=== PATIENT | female | born 1930 | race Caucasian/White ===

== ENCOUNTER 2018-08-30 15:58 | Inpatient (IN) | payer MEDICARE, OTHER ==
[2018-08-30] MEDS ORDERED: Albuterol 0.083% 2.5 MG/3 ML Neb Soln NEB PRN (16:53)
[2018-08-30] MEDS ORDERED: Sodium Chloride 0.9% 2.5 ML Syringe FLUSH PRN (16:53)
[2018-08-30] MEDS ORDERED: Acetaminophen 325 MG Tab PO PRN (16:53)
--- NOTE | 2018-08-30 17:13 | PCM.HP ---
H&P History of Present Illness - General Date of Service: 08/30/18 Admit Problem/Dx: Admission Diagnosis/Problem Admission Diagnosis/Problem Pneumonia Source of Information: Patient, Old Records History Limitations: Reports: No Limitations - History of Present Illness Initial Comments - Free Text/Narative: This 87 year old female with pmh of COPD oxygen dependent, CKD, and CHF presented initially to Dr Graves's clinic today with complaints of continued shortness of breath and overall not feeling well. She was seen at the clinic last week and was treated as outpatient for pneumonia and possible COPD exacerbation with prednisone and Doxycycline. She reports she feeling slightly better, but no where near normal. She is still very short of breath. Very little activity causes her to be short of breath. She reports some mild lower leg edema, which has increased in the last couple days slightly. No chest pain, shortness of breath with exertion and with speech. She reports mild congested cough that is intermittently productive. She has increased her oxygen to 5 L for 3-4 L NC normally because at home she was satting in the 70s on 4 L NC. She denies fevers or chills. No urinary concerns. No abdominal pain. She reports she used to smoke but quit 30+ years ago On admission, will obtain new labwork and CXR to further evaluate. She will be admitted for acute on chronic hypoxic respiratory failure with CAP the failed outpatient management and COPD exacerbation. PCP, Dr Graves. - Related Data Allergies/Adverse Reactions: Allergies Allergy/AdvReac Type Severity Reaction Status Date / Time aspirin Allergy Cannot Verified 07/24/14 14:20 Remember azithromycin [From Zithromax] Allergy Cannot Verified 07/24/14 14:20 Remember carvedilol [From Coreg] Allergy Cannot Verified 07/24/14 14:20 Remember venom-honey bee Allergy Cannot Verified 07/24/14 14:20 [bee venom (honey bee)] Remember Home Medications: Home Meds Albuterol/Ipratropium [DuoNeb 3.0-0.5 MG/3 ML] 3 ml INH QID 07/24/14 [History] Allopurinol [Zyloprim] 150 mg PO DAILY 07/24/14 [History] Aspirin [[place] Aspirin] 81 mg PO DAILY 07/24/14 [History] Cholecalciferol (Vitamin D3) [Vitamin D3] 1,000 unit PO DAILY 07/24/14 [History] EPINEPHrine [Epinephrine] 0.3 mg IJ ONETIME 07/24/14 [History] Furosemide 80 mg PO DAILY 07/24/14 [History] Rosuvastatin [Crestor] 5 mg PO BEDTIME 07/24/14 [History] SitaGLIPtin [Januvia] 50 mg PO DAILY 07/24/14 [History] Calcitriol 0.25 mcg PO WEEKLY 08/30/18 [History] Cyanocobalamin (Vitamin B-12) [B-12] 1,000 mcg PO DAILY 08/30/18 [History] Ferrous Sulfate 325 mg PO BID 08/30/18 [History] Fluticasone Propion/Salmeterol [Fluticasone-Salmeterol 250-50] 1 each IH BID [History] Past Medical History HEENT History: Reports: Other (See Below) 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 Denies: Afib, Blood Clots/VTE/DVT, VA Respiratory History: Reports: COPD (chronic oxygen use 3-4 L NC) Gastrointestinal History: Reports: None Musculoskeletal History: Reports: Arthritis Neurological History: Reports: None. 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 Denies: Fever, Chills HEENT: Reports: No Symptoms. Denies: Headaches, Sinus Congestion, Visual Changes Pulmonary: Reports: Shortness of Breath, Wheezing, Cough, Sputum. Denies: Hemoptysis Cardiovascular: Reports: Edema (bilateral lower legs). Denies: Chest Pain, Palpitations, Lightheadedness Gastrointestinal: Reports: No Symptoms. Denies: Abdominal Pain, Black Stool, Bloody Stool, Diarrhea, Nausea, Vomiting Genitourinary: Reports: No Symptoms. Denies: Dysuria, Frequency, Burning Skin: Reports: No Symptoms Psychiatric: Reports: No Symptoms Neurological: Reports: No Symptoms. Denies: Confusion, Headache Immunologic: Reports: No Symptoms Exam - Exam Exam: See Below - Vital Signs Vital Signs: Last Vital Signs Temp 98.4 F 08/30/18 16:20 Pulse 83 08/30/18 16:20 Resp 26 H 08/30/18 16:20 BP 131/50 L 08/30/18 16:20 Pulse Ox 88 L 08/30/18 16:20 - Exam Quality Assessment: Supplemental Oxygen, DVT Prophylaxis General: Alert, Oriented, Cooperative HEENT: Conjunctiva Clear, Mucosa Moist & [place], Posterior Pharynx Clear Lungs: Decreased Breath Sounds (L base), Rhonchi (throughout). No: Normal Respiratory Effort (dyspnea with speech and exertion noted. Some pursed lip breathing noted.) Cardiovascular: Regular Rate, Regular Rhythm GI/Abdominal Exam: Normal Bowel Sounds, Soft, Non-Tender, No Distention, No Mass Extremities: Normal Range of Motion, Pedal Edema (+1 bilatearl pitting edema), Slow Capillary Refill Skin: Warm, Dry Neuro Extensive - Mental Status: Alert, Oriented x3, Normal Mood/Affect Neuro Extensive - Motor, Sensory, Reflexes: CN II-XII Intact, Normal Gait Psychiatric: Alert, Normal Affect, Normal Mood - Patient Data Result Diagrams: 08/30/18 17:30 08/30/18 17:30 - Problem List (1) CAP (community acquired pneumonia) SNOMED Code(s): 094871369 ICD Code: J18.9 - PNEUMONIA, UNSPECIFIED ORGANISM Status: Acute Current Visit: Yes (2) COPD (chronic obstructive pulmonary disease) SNOMED Code(s): 93688399 ICD Code: J44.9 - CHRONIC OBSTRUCTIVE PULMONARY DISEASE, UNSPECIFIED Status : Acute Current Visit: Yes (3) Acute and chronic respiratory failure SNOMED Code(s): 08447193 ICD Code: J96.20 - ACUTE AND CHR RESP FAILURE, UNSP W HYPOXIA OR HYPERCAPNIA Status: Acute Current Visit: Yes (4) CKD (chronic kidney disease) SNOMED Code(s): 870302469 ICD Code: N18.9 - CHRONIC KIDNEY DISEASE, UNSPECIFIED Status: Acute Current Visit: Yes (5) CHF (congestive heart failure) SNOMED Code(s): 95470008 ICD Code: I50.9 - HEART FAILURE, UNSPECIFIED Status: Acute Current Visit : Yes Qualifiers: Heart failure chronicity: chronic Problem List Initiated/Reviewed/Updated: Yes Orders Last 24hrs: Active Orders 24 hr Category Date Time Status Patient Status [ADT] Routine ADT 08/30/18 16:53 Active Intake and Output [RC] QSHIFT Care 08/30/18 16:54 Active May Shower [RC] ASDIRECTED Care 08/30/18 16:53 Active Oxygen Therapy [RC] PRN Care 08/30/18 16:53 Active RT Aerosol Therapy [RC] ASDIRECTED Care 08/30/18 16:56 Active Up With Assistance [RC] ASDIRECTED Care 08/30/18 16:53 Active VTE/DVT Education [RC] PER UNIT ROUTINE Care 08/30/18 16:53 Active Vital Signs [RC] Q4H Care 08/30/18 16:53 Active [employer] Diet [DIET] Diet 08/30/18 Dinner Active Chest 1V Frontal [CR] Urgent Exams 08/30/18 16:53 Ordered B-TYPE NATRIURETIC PEPTIDE,BNP [CHEM] Routine Lab 08/30/18 17:12 Ordered BASIC METABOLIC PANEL,BMP [CHEM] AM Lab 08/31/18 05:11 Ordered BASIC METABOLIC PANEL,BMP [CHEM] Routine Lab 08/30/18 17:12 Ordered CBC WITH AUTO DIFF [HEME] AM Lab 08/31/18 05:11 Ordered CBC WITH AUTO DIFF [HEME] Routine Lab 08/30/18 17:12 Ordered CULTURE SPUTUM + SMEAR [RM] Routine Lab 08/30/18 17:12 Ordered Acetaminophen [Tylenol] Med 08/30/18 16:53 Active 650 mg PO Q4H PRN Albuterol [Proventil Neb Soln] Med 08/30/18 16:53 Active 2.5 mg NEB Q2H PRN Albuterol/Ipratropium [DuoNeb 3.0-0.5 MG/3 ML] Med 08/30/18 18:00 Active 3 ml NEB Q4HRRT Heparin Sodium Med 08/30/18 17:00 Active 5,000 units SUBCUT Q12H Levofloxacin/Dextrose 5%-Water [Levaquin in D5W 750 MG/ Med 08/30/18 17:15 Ordered 150 ML] 750 mg Premix Bag 1 bag IV Q48H Sodium Chloride 0.9% [Saline Flush] Med 08/30/18 16:53 Active 2.5 ml FLUSH ASDIRECTED PRN Saline Lock Insert [OM.PC] Routine Oth 08/30/18 16:53 Ordered Resuscitation Status Routine Resus Stat 08/30/18 16:53 Ordered Medication Orders Acetaminophen (Tylenol) 650 mg PO Q4H PRN PRN Reason: Pain (mild 1-3) Albuterol (Proventil Neb Soln) 2.5 mg NEB Q2H PRN PRN Reason: Shortness Of Breath/wheezing Albuterol/Ipratropium (Duoneb 3.0-0.5 Mg/3 Ml) 3 ml NEB Q4HRRT MAGAN Heparin Sodium (Porcine) (Heparin Sodium) 5,000 units SUBCUT Q12H MAGAN Sodium Chloride (Saline Flush) 2.5 ml FLUSH ASDIRECTED PRN PRN Reason: Keep Vein Open Assessment/Plan Comment:: This 87 year old female admitted with acute on chronic hypoxic respiratory failure, CAP and COPD exacerbation 1. Acute on chronic respiratory failure: Continue oxygen therapy, wean as possible to home dosing at 3-4 L NC. Keep sats 88%-92% for COPD. 2. CAP: Failed outpatient management. Xray shows LLL infiltrate with small pleural effusion. Levaquin 750 mg Q48hr for renal dosing. Sputum culture as possible, BC obtained as well. No leukocytosis 3. COPD exacerbation: Oxygen as above. Duonebs scheduled with Albuterol PRN. Solumderol IV. Encourage IS. Continue Advair. Will Consult RT for COPD education and evaluation. 4. CHF: BNP 32, not elevated. Due for ECHO. Will obtain now. Acute CHF not suspected. small left pleural effusion on Xray. Continue home Lasix. 5. CKD: BUN and Cr near baseline. Monitor. VTE prophylaxis: Heparin. Dispo: 2-4 days pending improvement
[2018-08-30] MEDS: Albuterol/Ipratropium 3.0-0.5 MG/3 ML Neb Soln NEB SCH ×2 (17:25→21:07)
[2018-08-30] MEDS: Insulin Aspart 100 Units/ML 3 ML Pen SUBCUT SCH (18:05)
--- NOTE | 2018-08-30 18:08 | CR ---
Indication: Dyspnea. Technique: A single AP portable view of the chest was obtained. Comparison: July 24, 2014. Findings: The heart is enlarged. Left basilar atelectasis and/or infiltrate and small left pleural effusion are seen. The right lung is clear. No pneumothorax is identified. Impression: Cardiomegaly. Left basilar atelectasis and/or infiltrate and small left pleural effusion Dictated by Jessica Lui MD @ Aug 30 2018 6:06PM Signed by Dr. Jessica Lui @ Aug 30 2018 6:07PM
[2018-08-30] MEDS: Heparin Sodium 5,000 Units/ML Vial SUBCUT SCH (19:11)
[2018-08-30] MEDS: Levofloxacin/Dextrose 5%-Water 750 MG in Premix Bag 1 BAG IV SCH (20:44)
[2018-08-30] MEDS: Ferrous Sulfate 325 MG Tab PO SCH (20:50)
[2018-08-30] MEDS: Rosuvastatin 10 MG Tab PO SCH (20:50)
[2018-08-30] MEDS: methylPREDNISolone Sodium Succinate 40 MG/1 ML SDV IVPUSH SCH (20:52)
[2018-08-30] MEDS: Fluticasone/Salmeterol 250-50 MCG Inhalation Powder 14/Diskus INH SCH (21:01)
[2018-08-31] MEDS: Albuterol/Ipratropium 3.0-0.5 MG/3 ML Neb Soln NEB SCH ×6 (02:50→21:04)
[2018-08-31] MEDS: methylPREDNISolone Sodium Succinate 40 MG/1 ML SDV IVPUSH SCH ×3 (03:00→18:18)
[2018-08-31] MEDS: Heparin Sodium 5,000 Units/ML Vial SUBCUT SCH ×2 (05:19→17:04)
--- NOTE | 2018-08-31 07:50 | PCM.PN ---
- General Info Date of Service: 08/31/18 Admission Dx/Problem (Free Text): Admission Diagnosis/Problem Admission Diagnosis/Problem Pneumonia Subjective Update: Feeling somewhat improved today. No chest pain. Shortness of breath is improving , continues to be on 5 L NC. Functional Status: Reports: Pain Controlled, Tolerating Diet, Ambulating, Urinating - Review of Systems General: Reports: No Symptoms. Denies: Fever, Weakness HEENT: Reports: No Symptoms. Denies: Headaches, Visual Changes Pulmonary: Reports: Shortness of Breath, Cough, Wheezing. Denies: Sputum, Hemoptysis Cardiovascular: Reports: Dyspnea on Exertion, Edema. Denies: Chest Pain, Palpitations, Orthopnea, Lightheadedness Gastrointestinal: Reports: No Symptoms. Denies: Abdominal Pain, Nausea, Vomiting Genitourinary: Reports: No Symptoms. Denies: Dysuria, Frequency Skin: Reports: No Symptoms Neurological: Reports: No Symptoms Psychiatric: Reports: No Symptoms - Patient Data Vitals - Most Recent: Last Vital Signs Temp 98.7 F 08/31/18 07:20 Pulse 88 08/31/18 07:20 Resp 18 08/31/18 07:20 BP 118/48 L 08/31/18 07:20 Pulse Ox 91 L 08/31/18 07:20 Weight - Most Recent: 79.3 kg I&O - Last 24 Hours: Intake & Output 08/30/18 08/31/18 08/31/18 22:59 06:59 14:59 Intake Total 400 Output Total 1250 Balance -850 Lab Results Last 24 Hours: Laboratory Results - last 24 hr 08/30/18 08/30/18 08/30/18 Range/Units 17:30 17:30 17:30 WBC 10.05 (4.0-11.0) K/uL RBC 2.89 L (4.30-5.90) M/uL Hgb 9.4 L (12.0-16.0) g/dL Hct 29.4 L (36.0-46.0) % MCV 101.7 H (80.0-98.0) fL MCH 32.5 H (27.0-32.0) pg MCHC 32.0 (31.0-37.0) g/dL RDW Std Deviation 51.0 (28.0-62.0) fl RDW Coeff of Lai 14 (11.0-15.0) % Plt Count 117 L (150-400) K/uL MPV 10.10 (7.40-12.00) fL Neut % (Auto) (48.0-80.0) % Lymph % (Auto) (16.0-40.0) % Frederick % (Auto) (0.0-15.0) % Eos % (Auto) (0.0-7.0) % Baso % (Auto) (0.0-1.5) % Neut # (Auto) (1.4-5.7) K/uL Lymph # (Auto) (0.6-2.4) K/uL Frederick # (Auto) (0.0-0.8) K/uL Eos # (Auto) (0.0-0.7) K/uL Baso # (Auto) (0.0-0.1) K/uL Add Manual Diff YES Neutrophils % (Manual) 85 H (48.0-80.0) % Lymphocytes % (Manual) 13 L (16.0-40.0) % Monocytes % (Manual) 2 (0.0-15.0) % Nucleated RBC % 0.0 /100WBC Absolute Seg Neuts 8.5 H (1.4-5.7) Lymphocytes # (Manual) 1.3 (0.6-2.4) Monocytes # (Manual) 0.2 (0.0-0.8) Nucleated RBCs # 0 K/uL Sodium 145 (136-145) mmol/L Potassium 3.3 L (3.5-5.1) mmol/L Chloride 107 (98-107) mmol/L Carbon Dioxide 26.7 (21.0-32.0) mmol/L BUN 83 H (7.0-18.0) mg/dL Creatinine 2.8 H (0.6-1.0) mg/dL Est Cr Clr Drug Dosing 14.03 mL/min Estimated GFR (MDRD) 16.0 ml/min Glucose 105 (74-106) mg/dL POC Glucose (60-110) mg/dL Calcium 9.6 (8.5-10.1) mg/dL B-Natriuretic Peptide 32 (<100) PG/ML 08/30/18 08/31/18 08/31/18 Range/Units 18:04 05:12 05:12 WBC 5.66 (4.0-11.0) K/uL RBC 2.79 L (4.30-5.90) M/uL Hgb 8.9 L (12.0-16.0) g/dL Hct 28.5 L (36.0-46.0) % MCV 102.2 H (80.0-98.0) fL MCH 31.9 (27.0-32.0) pg MCHC 31.2 (31.0-37.0) g/dL RDW Std Deviation 50.5 (28.0-62.0) fl RDW Coeff of Lai 14 (11.0-15.0) % Plt Count 119 L (150-400) K/uL MPV 10.60 (7.40-12.00) fL Neut % (Auto) 95.6 H (48.0-80.0) % Lymph % (Auto) 3.5 L (16.0-40.0) % Frederick % (Auto) 0.9 (0.0-15.0) % Eos % (Auto) 0.0 (0.0-7.0) % Baso % (Auto) 0.0 (0.0-1.5) % Neut # (Auto) 5.4 (1.4-5.7) K/uL Lymph # (Auto) 0.2 L (0.6-2.4) K/uL Frederick # (Auto) 0.1 (0.0-0.8) K/uL Eos # (Auto) 0.0 (0.0-0.7) K/uL Baso # (Auto) 0.0 (0.0-0.1) K/uL Add Manual Diff Neutrophils % (Manual) (48.0-80.0) % Lymphocytes % (Manual) (16.0-40.0) % Monocytes % (Manual) (0.0-15.0) % Nucleated RBC % 0.0 /100WBC Absolute Seg Neuts (1.4-5.7) Lymphocytes # (Manual) (0.6-2.4) Monocytes # (Manual) (0.0-0.8) Nucleated RBCs # 0 K/uL Sodium 145 (136-145) mmol/L Potassium 3.9 (3.5-5.1) mmol/L Chloride 107 (98-107) mmol/L Carbon Dioxide 25.6 (21.0-32.0) mmol/L BUN 83 H (7.0-18.0) mg/dL Creatinine 2.9 H (0.6-1.0) mg/dL Est Cr Clr Drug Dosing 13.54 mL/min Estimated GFR (MDRD) 15.4 ml/min Glucose 208 H (74-106) mg/dL POC Glucose 95 (60-110) mg/dL Calcium 9.5 (8.5-10.1) mg/dL B-Natriuretic Peptide (<100) PG/ML 08/31/18 Range/Units 06:06 WBC (4.0-11.0) K/uL RBC (4.30-5.90) M/uL Hgb (12.0-16.0) g/dL Hct (36.0-46.0) % MCV (80.0-98.0) fL MCH (27.0-32.0) pg MCHC (31.0-37.0) g/dL RDW Std Deviation (28.0-62.0) fl RDW Coeff of Lai (11.0-15.0) % Plt Count (150-400) K/uL MPV (7.40-12.00) fL Neut % (Auto) (48.0-80.0) % Lymph % (Auto) (16.0-40.0) % [place] % (Auto) (0.0-15.0) % Eos % (Auto) (0.0-7.0) % Baso % (Auto) (0.0-1.5) % Neut # (Auto) (1.4-5.7) K/uL Lymph # (Auto) (0.6-2.4) K/uL [place] # (Auto) (0.0-0.8) K/uL Eos # (Auto) (0.0-0.7) K/uL Baso # (Auto) (0.0-0.1) K/uL Add Manual Diff Neutrophils % (Manual) (48.0-80.0) % Lymphocytes % (Manual) (16.0-40.0) % Monocytes % (Manual) (0.0-15.0) % Nucleated RBC % /100WBC Absolute Seg Neuts (1.4-5.7) Lymphocytes # (Manual) (0.6-2.4) Monocytes # (Manual) (0.0-0.8) Nucleated RBCs # K/uL Sodium (136-145) mmol/L Potassium (3.5-5.1) mmol/L Chloride (98-107) mmol/L Carbon Dioxide (21.0-32.0) mmol/L BUN (7.0-18.0) mg/dL Creatinine (0.6-1.0) mg/dL Est Cr Clr Drug Dosing mL/min Estimated GFR (MDRD) ml/min Glucose (74-106) mg/dL POC Glucose 199 H (60-110) mg/dL Calcium (8.5-10.1) mg/dL B-Natriuretic Peptide (<100) PG/ML Alfred Results Last 24 Hours: Microbiology 08/30/18 17:15 Gram Stain - Preliminary Sputum - Expectorated 08/30/18 20:07 Anaerobic Blood Culture - Final Blood - Venous - Lab Draw 08/30/18 18:18 Anaerobic Blood Culture - Final Blood - Venous Med Orders - Current: Current Medications Acetaminophen (Tylenol) 650 mg PO Q4H PRN PRN Reason: Pain (mild 1-3) Albuterol (Proventil Neb Soln) 2.5 mg NEB Q2H PRN PRN Reason: Shortness Of Breath/wheezing Albuterol/Ipratropium (Duoneb 3.0-0.5 Mg/3 Ml) 3 ml NEB Q4HRRT [facility] Last Admin: 08/31/18 06:06 Dose: 3 ml Allopurinol (Zyloprim) 150 mg PO DAILY [facility] Aspirin (Aspirin) 81 mg PO DAILY [facility] Ferrous Sulfate (Ferrous Sulfate) 325 mg PO BID [facility] Last Admin: 08/30/18 20:50 Dose: 325 mg Furosemide (Lasix) 80 mg PO DAILY [facility] Heparin Sodium (Porcine) (Heparin Sodium) 5,000 units SUBCUT Q12H [facility] Last Admin: 08/31/18 05:19 Dose: 5,000 units Levofloxacin/Dextrose 750 mg/ (Premix) 150 mls @ 100 mls/hr IV Q48H [facility] Last Admin: 08/30/18 20:44 Dose: 100 mls/hr Insulin Aspart (Novolog) 0 unit SUBCUT TIDAC [facility]; Protocol Last Admin: 08/30/18 18:05 Dose: Not Given Methylprednisolone Sodium Succinate (Solu-Medrol) 60 mg IVPUSH Q8H [facility] Last Admin: 08/31/18 03:00 Dose: 60 mg Rosuvastatin Calcium (Crestor) 5 mg PO BEDTIME [facility] Last Admin: 08/30/18 20:50 Dose: 5 mg Fluticasone/Salmeterol (Advair Diskus 250-50) 1 puff INH BID [facility] Last Admin: 08/30/18 21:01 Dose: 1 puff Sodium Chloride (Saline Flush) 2.5 ml FLUSH ASDIRECTED PRN PRN Reason: Keep Vein Open - Exam General: Alert, Oriented, Cooperative, No Acute Distress Lungs: Rhonchi (R lung). No: Normal Respiratory Effort (mild dyspnea with speech, improved from yesterday) Cardiovascular: Regular Rate, Regular Rhythm GI/Abdominal Exam: Normal Bowel Sounds Back Exam: Normal Inspection, Full Range of Motion Extremities: Normal Inspection, Normal Range of Motion, Non-Tender Neurological: No New Focal Deficit Psy/Mental Status: Alert, Normal Affect, Normal Mood - Problem List & Annotations (1) CAP (community acquired pneumonia) SNOMED Code(s): 664245186 Code(s): J18.9 - PNEUMONIA, UNSPECIFIED ORGANISM Status: Acute Current Visit: Yes (2) COPD (chronic obstructive pulmonary disease) SNOMED Code(s): 93207728 Code(s): J44.9 - CHRONIC OBSTRUCTIVE PULMONARY DISEASE, UNSPECIFIED Status : Acute Current Visit: Yes (3) Acute and chronic respiratory failure SNOMED Code(s): 87345430 Code(s): J96.20 - ACUTE AND CHR RESP FAILURE, UNSP W HYPOXIA OR HYPERCAPNIA Status: Acute Current Visit: Yes (4) CKD (chronic kidney disease) SNOMED Code(s): 095848003 Code(s): N18.9 - CHRONIC KIDNEY DISEASE, UNSPECIFIED Status: Acute Current Visit: Yes (5) CHF (congestive heart failure) SNOMED Code(s): 22868721 Code(s): I50.9 - HEART FAILURE, UNSPECIFIED Status: Acute Current Visit: Yes Qualifiers: Heart failure chronicity: chronic - Problem List Review Problem List Initiated/Reviewed/Updated: Yes - My Orders Last 24 Hours: My Active Orders 08/30/18 16:53 Patient Status [ADT] Routine September Shower [RC] ASDIRECTED Oxygen Therapy [RC] PRN Up With Assistance [RC] ASDIRECTED VTE/DVT Education [RC] PER UNIT ROUTINE Vital Signs [RC] Q4H Acetaminophen [Tylenol] 650 mg PO Q4H PRN Albuterol [Proventil Neb Soln] 2.5 mg NEB Q2H PRN Sodium Chloride 0.9% [Saline Flush] 2.5 ml FLUSH ASDIRECTED PRN Saline Lock Insert [OM.PC] Routine Resuscitation Status Routine 08/30/18 16:56 RT Aerosol Therapy [RC] ASDIRECTED 08/30/18 17:00 Heparin Sodium 5,000 units SUBCUT Q12H 08/30/18 17:15 CULTURE SPUTUM + SMEAR [RM] Routine 08/30/18 17:18 Blood Culture x2 Reflex Set [OM.PC] Stat 08/30/18 17:30 Insulin Aspart [NovoLOG] See Protocol SUBCUT TIDAC Levofloxacin/Dextrose 5%-Water [Levaquin in D5W 750 MG/150 ML] 750 mg Premix Bag 1 bag IV Q48H 08/30/18 17:48 Blood Glucose Check, Bedside [RC] TIDMEALS Height and Weight [RC] DAILY Intake and Output Strict [RC] Q12H 08/30/18 18:00 Albuterol/Ipratropium [DuoNeb 3.0-0.5 MG/3 ML] 3 ml NEB Q4HRRT methylPREDNISolone Sod Succ [Solu-MEDROL] 60 mg IVPUSH Q8H 08/30/18 18:18 CULTURE BLOOD [BC] Stat 08/30/18 19:16 Echo Comp wo Cont [US] Routine 08/30/18 19:26 Consult to Respiratory Therapy [Respiratory Care Assess and Treatment] [CONS] Routine 08/30/18 20:07 CULTURE BLOOD [BC] Stat 08/30/18 21:00 Ferrous Sulfate 325 mg PO BID Fluticasone/Salmeterol [Advair Diskus 250-50] 1 puff INH BID Rosuvastatin [Crestor] 5 mg PO BEDTIME 08/30/18 Dinner [employer] [employer] Diet [DIET] 08/31/18 09:00 Allopurinol [Zyloprim] 150 mg PO DAILY Aspirin 81 mg PO DAILY Furosemide [Lasix] 80 mg PO DAILY - Plan Plan:: This 87 year old female admitted with acute on chronic hypoxic respiratory failure, CAP and COPD exacerbation 1. Acute on chronic respiratory failure: Continues on increased oxygen liters. Continue oxygen therapy, wean as possible to home dosing at 3-4 L NC. Keep sats 88%-92% for COPD. 2. CAP: Failed outpatient management. Continue Levaquin 750 mg Q48hr for renal dosing. Sputum culture as possible, BC obtained as well. No leukocytosis 3. COPD exacerbation: Oxygen as above. Duonebs scheduled with Albuterol PRN. Solumderol IV, continue today. Encourage IS. Continue Advair. Will Consult RT for COPD education and evaluation. 4. CHF: Stable. Due for ECHO. Will obtain this admission to fully evaluate. Small left pleural effusion on Xray. Continue home Lasix. 5. CKD: Stable. BUN and Cr near baseline. Monitor. VTE prophylaxis: Heparin. Dispo: 2-4 days pending improvement
[2018-08-31] MEDS: Insulin Aspart 100 Units/ML 3 ML Pen SUBCUT SCH ×3 (08:20→17:10)
[2018-08-31] MEDS: Aspirin 81 MG Tab.Chew PO SCH (08:39)
[2018-08-31] MEDS: Ferrous Sulfate 325 MG Tab PO SCH ×2 (08:39→20:44)
[2018-08-31] MEDS: Allopurinol 300 MG Tab PO SCH (08:39)
[2018-08-31] MEDS: Fluticasone/Salmeterol 250-50 MCG Inhalation Powder 14/Diskus INH SCH ×2 (08:40→20:45)
[2018-08-31] MEDS: Furosemide 40 MG Tab PO SCH (08:40)
[2018-08-31] MEDS: Rosuvastatin 10 MG Tab PO SCH (20:44)
[2018-09-01] MEDS: Albuterol/Ipratropium 3.0-0.5 MG/3 ML Neb Soln NEB SCH ×6 (01:52→21:10)
[2018-09-01] MEDS: methylPREDNISolone Sodium Succinate 40 MG/1 ML SDV IVPUSH SCH ×3 (01:53→20:12)
[2018-09-01] MEDS: Heparin Sodium 5,000 Units/ML Vial SUBCUT SCH ×2 (05:39→20:09)
[2018-09-01] MEDS: Insulin Aspart 100 Units/ML 3 ML Pen SUBCUT SCH ×3 (07:42→19:28)
[2018-09-01] MEDS: Furosemide 40 MG Tab PO SCH (09:04)
[2018-09-01] MEDS: Aspirin 81 MG Tab.Chew PO SCH (09:04)
[2018-09-01] MEDS: Ferrous Sulfate 325 MG Tab PO SCH ×2 (09:04→20:11)
[2018-09-01] MEDS: Allopurinol 300 MG Tab PO SCH (09:05)
[2018-09-01] MEDS: Fluticasone/Salmeterol 250-50 MCG Inhalation Powder 14/Diskus INH SCH ×2 (09:08→20:12)
--- NOTE | 2018-09-01 10:54 | PCM.PN ---
<Philly Escoto M - Last Filed: 09/01/18 10:48> - General Info Date of Service: 09/01/18 Admission Dx/Problem (Free Text): Admission Diagnosis/Problem Admission Diagnosis/Problem Pneumonia Subjective Update: Doing well today, feeling much improved,but not quite to her baseline and she feels like one more night would be beneficial. No Chest pain. Shortness of breath is much improved. No chest pain. Functional Status: Reports: Pain Controlled, Tolerating Diet, Ambulating, Urinating - Review of Systems General: Reports: No Symptoms. Denies: Fever, Weakness, Fatigue HEENT: Reports: No Symptoms. Denies: Sore Throat Pulmonary: Reports: Shortness of Breath, Cough, Wheezing. Denies: Pleuritic Chest Pain, Hemoptysis Cardiovascular: Denies: Chest Pain, Palpitations Gastrointestinal: Reports: No Symptoms. Denies: Abdominal Pain, Nausea, Vomiting Genitourinary: Reports: No Symptoms. Denies: Dysuria, Frequency, Burning Musculoskeletal: Reports: No Symptoms Skin: Reports: No Symptoms Neurological: Reports: No Symptoms Psychiatric: Reports: No Symptoms - Patient Data Vitals - Most Recent: Last Vital Signs Temp 98.3 F 09/01/18 08:00 Pulse 89 09/01/18 08:00 Resp 18 09/01/18 08:00 BP 124/56 L 09/01/18 08:00 Pulse Ox 93 L 09/01/18 08:00 Weight - Most Recent: 80.422 kg I&O - Last 24 Hours: Intake & Output 08/31/18 09/01/18 09/01/18 22:59 06:59 14:59 Intake Total 1020 550 Output Total 500 950 Balance 520 -400 Lab Results Last 24 Hours: Laboratory Results - last 24 hr 08/31/18 08/31/18 08/31/18 Range/Units 11:44 16:45 21:04 WBC (4.0-11.0) K/uL RBC (4.30-5.90) M/uL Hgb (12.0-16.0) g/dL Hct (36.0-46.0) % MCV (80.0-98.0) fL MCH (27.0-32.0) pg MCHC (31.0-37.0) g/dL RDW Std Deviation (28.0-62.0) fl RDW Coeff of Lai (11.0-15.0) % Plt Count (150-400) K/uL MPV (7.40-12.00) fL Neut % (Auto) (48.0-80.0) % Lymph % (Auto) (16.0-40.0) % [place] % (Auto) (0.0-15.0) % Eos % (Auto) (0.0-7.0) % Baso % (Auto) (0.0-1.5) % Neut # (Auto) (1.4-5.7) K/uL Lymph # (Auto) (0.6-2.4) K/uL [place] # (Auto) (0.0-0.8) K/uL Eos # (Auto) (0.0-0.7) K/uL Baso # (Auto) (0.0-0.1) K/uL Nucleated RBC % /100WBC Nucleated RBCs # K/uL Sodium (136-145) mmol/L Potassium (3.5-5.1) mmol/L Chloride (98-107) mmol/L Carbon Dioxide (21.0-32.0) mmol/L BUN (7.0-18.0) mg/dL Creatinine (0.6-1.0) mg/dL Est Cr Clr Drug Dosing mL/min Estimated GFR (MDRD) ml/min Glucose (74-106) mg/dL POC Glucose 298 H 186 H 229 H (60-110) mg/dL Calcium (8.5-10.1) mg/dL 09/01/18 09/01/18 09/01/18 Range/Units 05:14 05:14 06:09 WBC 5.96 (4.0-11.0) K/uL RBC 2.72 L (4.30-5.90) M/uL Hgb 8.6 L (12.0-16.0) g/dL Hct 27.5 L (36.0-46.0) % MCV 101.1 H (80.0-98.0) fL MCH 31.6 (27.0-32.0) pg MCHC 31.3 (31.0-37.0) g/dL RDW Std Deviation 49.3 (28.0-62.0) fl RDW Coeff of Lai 14 (11.0-15.0) % Plt Count 120 L (150-400) K/uL MPV 10.20 (7.40-12.00) fL Neut % (Auto) 94.7 H (48.0-80.0) % Lymph % (Auto) 3.0 L (16.0-40.0) % [place] % (Auto) 2.3 (0.0-15.0) % Eos % (Auto) 0.0 (0.0-7.0) % Baso % (Auto) 0.0 (0.0-1.5) % Neut # (Auto) 5.6 (1.4-5.7) K/uL Lymph # (Auto) 0.2 L (0.6-2.4) K/uL [place] # (Auto) 0.1 (0.0-0.8) K/uL Eos # (Auto) 0.0 (0.0-0.7) K/uL Baso # (Auto) 0.0 (0.0-0.1) K/uL Nucleated RBC % 0.0 /100WBC Nucleated RBCs # 0 K/uL Sodium 144 (136-145) mmol/L Potassium 4.2 (3.5-5.1) mmol/L Chloride 106 (98-107) mmol/L Carbon Dioxide 28.0 (21.0-32.0) mmol/L BUN 94 H (7.0-18.0) mg/dL Creatinine 3.1 H (0.6-1.0) mg/dL Est Cr Clr Drug Dosing 12.67 mL/min Estimated GFR (MDRD) 14.2 ml/min Glucose 204 H (74-106) mg/dL POC Glucose 214 H (60-110) mg/dL Calcium 9.8 (8.5-10.1) mg/dL Alfred Results Last 24 Hours: Microbiology 08/30/18 17:15 Gram Stain - Final Sputum - Expectorated Sputum Culture - Final Normal Respiratory Sonia 08/30/18 20:07 Aerobic Blood Culture - Preliminary Blood - Venous - Lab Draw NO GROWTH AFTER 1 DAY Anaerobic Blood Culture - Final 08/30/18 18:18 Aerobic Blood Culture - Preliminary Blood - Venous NO GROWTH AFTER 1 DAY Anaerobic Blood Culture - Final Med Orders - Current: Current Medications Acetaminophen (Tylenol) 650 mg PO Q4H PRN PRN Reason: Pain (mild 1-3) Albuterol (Proventil Neb Soln) 2.5 mg NEB Q2H PRN PRN Reason: Shortness Of Breath/wheezing Albuterol/Ipratropium (Duoneb 3.0-0.5 Mg/3 Ml) 3 ml NEB Q4HRRT [facility] Last Admin: 09/01/18 10:21 Dose: 3 ml Allopurinol (Zyloprim) 150 mg PO DAILY [facility] Last Admin: 09/01/18 09:05 Dose: 150 mg Aspirin (Aspirin) 81 mg PO DAILY [facility] Last Admin: 09/01/18 09:04 Dose: 81 mg Ferrous Sulfate (Ferrous Sulfate) 325 mg PO BID [facility] Last Admin: 09/01/18 09:04 Dose: 325 mg Furosemide (Lasix) 80 mg PO DAILY [facility] Last Admin: 09/01/18 09:04 Dose: 80 mg Heparin Sodium (Porcine) (Heparin Sodium) 5,000 units SUBCUT Q12H [facility] Last Admin: 09/01/18 05:39 Dose: 5,000 units Levofloxacin/Dextrose 750 mg/ (Premix) 150 mls @ 100 mls/hr IV Q48H [facility] Last Admin: 08/30/18 20:44 Dose: 100 mls/hr Insulin Aspart (Novolog) 0 unit SUBCUT TIDAC [facility]; Protocol Last Admin: 09/01/18 07:42 Dose: 2 unit Methylprednisolone Sodium Succinate (Solu-Medrol) 60 mg IVPUSH Q8H [facility] Last Admin: 09/01/18 09:08 Dose: 60 mg Rosuvastatin Calcium (Crestor) 5 mg PO BEDTIME [facility] Last Admin: 08/31/18 20:44 Dose: 5 mg Fluticasone/Salmeterol (Advair Diskus 250-50) 1 puff INH BID [facility] Last Admin: 09/01/18 09:08 Dose: 1 puff Sodium Chloride (Saline Flush) 2.5 ml FLUSH ASDIRECTED PRN PRN Reason: Keep Vein Open - Exam General: Alert, Oriented, Cooperative, No Acute Distress Lungs: Normal Respiratory Effort, Rhonchi (much improved.) Cardiovascular: Regular Rate, Regular Rhythm GI/Abdominal Exam: Normal Bowel Sounds, Soft, Non-Tender Extremities: Normal Inspection, Normal Range of Motion, Non-Tender, Pedal Edema (+1 pitting edema BLE, improved.) Neurological: No New Focal Deficit Psy/Mental Status: Alert, Normal Affect, Normal Mood - Problem List & Annotations (1) CAP (community acquired pneumonia) SNOMED Code(s): 264006628 Code(s): J18.9 - PNEUMONIA, UNSPECIFIED ORGANISM Status: Acute Current Visit: Yes (2) COPD (chronic obstructive pulmonary disease) SNOMED Code(s): 61517850 Code(s): J44.9 - CHRONIC OBSTRUCTIVE PULMONARY DISEASE, UNSPECIFIED Status : Acute Current Visit: Yes (3) Acute and chronic respiratory failure SNOMED Code(s): 14976142 Code(s): J96.20 - ACUTE AND CHR RESP FAILURE, UNSP W HYPOXIA OR HYPERCAPNIA Status: Acute Current Visit: Yes (4) CKD (chronic kidney disease) SNOMED Code(s): 829047164 Code(s): N18.9 - CHRONIC KIDNEY DISEASE, UNSPECIFIED Status: Acute Current Visit: Yes (5) CHF (congestive heart failure) SNOMED Code(s): 03869632 Code(s): I50.9 - HEART FAILURE, UNSPECIFIED Status: Acute Current Visit: Yes Qualifiers: Heart failure chronicity: chronic - Problem List Review Problem List Initiated/Reviewed/Updated: Yes - My Orders Last 24 Hours: My Active Orders 08/31/18 19:16 Echo Comp wo Cont [US] Routine 09/02/18 05:11 BMP [BASIC METABOLIC PANEL,BMP] [CHEM] AM CBC WITH AUTO DIFF [HEME] AM 09/03/18 05:11 BMP [BASIC METABOLIC PANEL,BMP] [CHEM] AM CBC WITH AUTO DIFF [HEME] AM - Plan Plan:: This 87 year old female admitted with acute on chronic hypoxic respiratory failure, CAP and COPD exacerbation 1. Acute on chronic respiratory failure: Resolved. Now back on 4 L NC, which is baseline and dyspnea improved. Continue oxygen therapy, wean as possible to home dosing at 3-4 L NC. Keep sats 88%-92% for COPD. 2. CAP: Continue Levaquin 750 mg Q48hr for renal dosing. Sputum culture as possible, BC obtained as well. No leukocytosis 3. COPD exacerbation: Oxygen as above. Duonebs scheduled with Albuterol PRN. Will decrease Solumderol IV. Encourage IS. Continue Advair. Will Consult RT for COPD education and evaluation. 4. CHF: Stable.ECHO, suboptimal images, by EF 60-65%. Small left pleural effusion on Xray. Continue home Lasix. 5. CKD: Stable. BUN and Cr near baseline. Monitor. VTE prophylaxis: Heparin. Dispo: possible home in am. <Layo Salinas - Last Filed: 09/01/18 15:06> - General Info Admission Dx/Problem (Free Text): I have seen and examined to patient independently of Philly Escoto CNP. I have discussed the case for care of this patient with her. I have reviewed and approve of the plan of care as outlined by BOW MACHINE OPERATOR. Please see orders. - Patient Data Vitals - Most Recent: Last Vital Signs Temp 36.5 C 09/01/18 12:00 Pulse 92 09/01/18 12:00 Resp 20 09/01/18 12:00 BP 138/50 L 09/01/18 12:00 Pulse Ox 92 L 09/01/18 12:00 I&O - Last 24 Hours: Intake & Output 09/01/18 09/01/18 09/01/18 06:59 14:59 22:59 Intake Total 550 240 Output Total 950 Balance -400 240 Lab Results Last 24 Hours: Laboratory Results - last 24 hr 08/31/18 08/31/18 09/01/18 Range/Units 16:45 21:04 05:14 WBC 5.96 (4.0-11.0) K/uL RBC 2.72 L (4.30-5.90) M/uL Hgb 8.6 L (12.0-16.0) g/dL Hct 27.5 L (36.0-46.0) % MCV 101.1 H (80.0-98.0) fL MCH 31.6 (27.0-32.0) pg MCHC 31.3 (31.0-37.0) g/dL RDW Std Deviation 49.3 (28.0-62.0) fl RDW Coeff of Lai 14 (11.0-15.0) % Plt Count 120 L (150-400) K/uL MPV 10.20 (7.40-12.00) fL Neut % (Auto) 94.7 H (48.0-80.0) % Lymph % (Auto) 3.0 L (16.0-40.0) % [place] % (Auto) 2.3 (0.0-15.0) % Eos % (Auto) 0.0 (0.0-7.0) % Baso % (Auto) 0.0 (0.0-1.5) % Neut # (Auto) 5.6 (1.4-5.7) K/uL Lymph # (Auto) 0.2 L (0.6-2.4) K/uL [place] # (Auto) 0.1 (0.0-0.8) K/uL Eos # (Auto) 0.0 (0.0-0.7) K/uL Baso # (Auto) 0.0 (0.0-0.1) K/uL Nucleated RBC % 0.0 /100WBC Nucleated RBCs # 0 K/uL Sodium (136-145) mmol/L Potassium (3.5-5.1) mmol/L Chloride (98-107) mmol/L Carbon Dioxide (21.0-32.0) mmol/L BUN (7.0-18.0) mg/dL Creatinine (0.6-1.0) mg/dL Est Cr Clr Drug Dosing mL/min Estimated GFR (MDRD) ml/min Glucose (74-106) mg/dL POC Glucose 186 H 229 H (60-110) mg/dL Calcium (8.5-10.1) mg/dL 09/01/18 09/01/18 09/01/18 Range/Units 05:14 06:09 11:30 WBC (4.0-11.0) K/uL RBC (4.30-5.90) M/uL Hgb (12.0-16.0) g/dL Hct (36.0-46.0) % MCV (80.0-98.0) fL MCH (27.0-32.0) pg MCHC (31.0-37.0) g/dL RDW Std Deviation (28.0-62.0) fl RDW Coeff of Lai (11.0-15.0) % Plt Count (150-400) K/uL MPV (7.40-12.00) fL Neut % (Auto) (48.0-80.0) % Lymph % (Auto) (16.0-40.0) % [place] % (Auto) (0.0-15.0) % Eos % (Auto) (0.0-7.0) % Baso % (Auto) (0.0-1.5) % Neut # (Auto) (1.4-5.7) K/uL Lymph # (Auto) (0.6-2.4) K/uL [place] # (Auto) (0.0-0.8) K/uL Eos # (Auto) (0.0-0.7) K/uL Baso # (Auto) (0.0-0.1) K/uL Nucleated RBC % /100WBC Nucleated RBCs # K/uL Sodium 144 (136-145) mmol/L Potassium 4.2 (3.5-5.1) mmol/L Chloride 106 (98-107) mmol/L Carbon Dioxide 28.0 (21.0-32.0) mmol/L BUN 94 H (7.0-18.0) mg/dL Creatinine 3.1 H (0.6-1.0) mg/dL Est Cr Clr Drug Dosing 12.67 mL/min Estimated GFR (MDRD) 14.2 ml/min Glucose 204 H (74-106) mg/dL POC Glucose 214 H 266 H (60-110) mg/dL Calcium 9.8 (8.5-10.1) mg/dL Alfred Results Last 24 Hours: Microbiology 08/30/18 17:15 Gram Stain - Final Sputum - Expectorated Sputum Culture - Final Normal Respiratory Sonia 08/30/18 20:07 Aerobic Blood Culture - Preliminary Blood - Venous - Lab Draw NO GROWTH AFTER 1 DAY Anaerobic Blood Culture - Final 08/30/18 18:18 Aerobic Blood Culture - Preliminary Blood - Venous NO GROWTH AFTER 1 DAY Anaerobic Blood Culture - Final Med Orders - Current: Current Medications Acetaminophen (Tylenol) 650 mg PO Q4H PRN PRN Reason: Pain (mild 1-3) Albuterol (Proventil Neb Soln) 2.5 mg NEB Q2H PRN PRN Reason: Shortness Of Breath/wheezing Albuterol/Ipratropium (Duoneb 3.0-0.5 Mg/3 Ml) 3 ml NEB Q4HRRT [facility] Last Admin: 09/01/18 13:37 Dose: 3 ml Allopurinol (Zyloprim) 150 mg PO DAILY [facility] Last Admin: 09/01/18 09:05 Dose: 150 mg Aspirin (Aspirin) 81 mg PO DAILY [facility] Last Admin: 09/01/18 09:04 Dose: 81 mg Ferrous Sulfate (Ferrous Sulfate) 325 mg PO BID [facility] Last Admin: 09/01/18 09:04 Dose: 325 mg Furosemide (Lasix) 80 mg PO DAILY [facility] Last Admin: 09/01/18 09:04 Dose: 80 mg Heparin Sodium (Porcine) (Heparin Sodium) 5,000 units SUBCUT Q12H [facility] Last Admin: 09/01/18 05:39 Dose: 5,000 units Levofloxacin/Dextrose 750 mg/ (Premix) 150 mls @ 100 mls/hr IV Q48H [facility] Last Admin: 08/30/18 20:44 Dose: 100 mls/hr Insulin Aspart (Novolog) 0 unit SUBCUT TIDAC [facility]; Protocol Last Admin: 09/01/18 11:58 Dose: 3 unit Methylprednisolone Sodium Succinate (Solu-Medrol) 60 mg IVPUSH Q12H [facility] Rosuvastatin Calcium (Crestor) 5 mg PO BEDTIME [facility] Last Admin: 08/31/18 20:44 Dose: 5 mg Fluticasone/Salmeterol (Advair Diskus 250-50) 1 puff INH BID [facility] Last Admin: 09/01/18 09:08 Dose: 1 puff Sodium Chloride (Saline Flush) 2.5 ml FLUSH ASDIRECTED PRN PRN Reason: Keep Vein Open Discontinued Medications Methylprednisolone Sodium Succinate (Solu-Medrol) 60 mg IVPUSH Q8H [facility] Last Admin: 09/01/18 09:08 Dose: 60 mg
[2018-09-01] MEDS: Rosuvastatin 10 MG Tab PO SCH (20:09)
[2018-09-01] MEDS: Levofloxacin/Dextrose 5%-Water 750 MG in Premix Bag 1 BAG IV SCH (20:09)
[2018-09-02] MEDS: Albuterol/Ipratropium 3.0-0.5 MG/3 ML Neb Soln NEB SCH ×4 (01:41→12:59)
[2018-09-02] MEDS: Heparin Sodium 5,000 Units/ML Vial SUBCUT SCH (05:46)
[2018-09-02] MEDS: Insulin Aspart 100 Units/ML 3 ML Pen SUBCUT SCH (07:52)
[2018-09-02] MEDS: methylPREDNISolone Sodium Succinate 40 MG/1 ML SDV IVPUSH SCH (09:19)
[2018-09-02] MEDS: Allopurinol 300 MG Tab PO SCH (09:20)
[2018-09-02] MEDS: Aspirin 81 MG Tab.Chew PO SCH (09:20)
[2018-09-02] MEDS: Furosemide 40 MG Tab PO SCH (09:20)
[2018-09-02] MEDS: Ferrous Sulfate 325 MG Tab PO SCH (09:20)
--- NOTE | 2018-09-02 10:05 | PCM.DCSUM1 ---
<Philly Escoto - Last Filed: 09/02/18 13:25> Discharge Summary - Hospital Course Brief History: This 87 year old female with pmh of COPD oxygen dependent, CKD, and CHF presented initially to Dr Graves's clinic with complaints of continued shortness of breath and overall not feeling well. She was seen at the clinic last week and was treated as outpatient for pneumonia and possible COPD exacerbation with prednisone and Doxycycline. She reports she feeling slightly better, but no where near normal. She is still very short of breath. Very little activity causes her to be short of breath. She reports some mild lower leg edema, which has increased in the last couple days slightly. No chest pain, shortness of breath with exertion and with speech. She reports mild congested cough that is intermittently productive. She has increased her oxygen to 5 L for 3-4 L NC normally because at home she was satting in the 70s on 4 L NC. She denies fevers or chills. No urinary concerns. No abdominal pain. She reports she used to smoke but quit 30+ years ago. On admission, will obtain new labwork and CXR to further evaluate. She will be admitted for acute on chronic hypoxic respiratory failure with CAP the failed outpatient management and COPD exacerbation. PCP, Dr Graves. Diagnosis: Stroke: No - Discharge Data Discharge Date: 09/02/18 Discharge Disposition: Home, W Home Health Agency 06 Condition: Good - Discharge Diagnosis/Problem(s) (1) CAP (community acquired pneumonia) SNOMED Code(s): 451875026 ICD Code: J18.9 - PNEUMONIA, UNSPECIFIED ORGANISM Status: Acute (2) COPD (chronic obstructive pulmonary disease) SNOMED Code(s): 71573143 ICD Code: J44.9 - CHRONIC OBSTRUCTIVE PULMONARY DISEASE, UNSPECIFIED Status : Acute (3) Acute and chronic respiratory failure SNOMED Code(s): 85130111 ICD Code: J96.20 - ACUTE AND CHR RESP FAILURE, UNSP W HYPOXIA OR HYPERCAPNIA Status: Acute (4) CKD (chronic kidney disease) SNOMED Code(s): 481110221 ICD Code: N18.9 - CHRONIC KIDNEY DISEASE, UNSPECIFIED Status: Acute (5) CHF (congestive heart failure) SNOMED Code(s): 80562468 ICD Code: I50.9 - HEART FAILURE, UNSPECIFIED Status: Acute Qualifiers: Heart failure chronicity: chronic - Patient Summary/Data Consults: Consultations 08/30/18 19:26 Consult to Respiratory Therapy [Respiratory Care Assess and Treatment] [CONS] Routine - Patient Instructions Diet: Heart Healthy Diet, Diabetic Diet Activity: As Tolerated Showering/Bathing: May Shower Notify Provider of: Fever, Increased Pain, Swelling and Redness, Drainage, Nausea and/or Vomiting - Discharge Plan *PRESCRIPTION DRUG MONITORING PROGRAM REVIEWED*: Not Applicable *COPY OF PRESCRIPTION DRUG MONITORING REPORT IN PATIENT WINSOME: Not Applicable Prescriptions/Med Rec: levoFLOXacin [Levaquin] 750 mg PO Q48H #2 tab predniSONE [Prednisone] 10 mg PO DAILY #30 tablet Home Medications: Home Meds Albuterol/Ipratropium [DuoNeb 3.0-0.5 MG/3 ML] 3 ml INH QID 07/24/14 [History] Allopurinol [Zyloprim] 150 mg PO DAILY 07/24/14 [History] Aspirin [Patriot Aspirin] 81 mg PO DAILY 07/24/14 [History] Cholecalciferol (Vitamin D3) [Vitamin D3] 1,000 unit PO DAILY 07/24/14 [History] EPINEPHrine [Epinephrine] 0.3 mg IJ ONETIME 07/24/14 [History] Furosemide 80 mg PO DAILY 07/24/14 [History] Rosuvastatin [Crestor] 5 mg PO BEDTIME 07/24/14 [History] SitaGLIPtin [Januvia] 50 mg PO DAILY 07/24/14 [History] Calcitriol 0.25 mcg PO WEEKLY 08/30/18 [History] Cyanocobalamin (Vitamin B-12) [B-12] 1,000 mcg PO DAILY 08/30/18 [History] Ferrous Sulfate 325 mg PO BID 08/30/18 [History] Fluticasone Propion/Salmeterol [Fluticasone-Salmeterol 250-50] 1 each IH BID [History] levoFLOXacin [Levaquin] 750 mg PO Q48H #2 tab 09/02/18 [Rx] predniSONE [Prednisone] 10 mg PO DAILY #30 tablet 09/02/18 [Rx] Oxygen Therapy Mode: Room Air Patient Handouts: Chronic Obstructive Pulmonary Disease, [id number], Community-Acquired Pneumonia, Adult, [id number] Referrals: [facility] [Outside] Tyler Graves MD [Physician] - 09/07/18 10:15 am - Discharge Summary/Plan Comment DC Time >30 min.: No Discharge Summary/Plan Comment: Admitting Diagnoses: Acute on chronic hypoxic respiratory failure Failed outpatient management of CAP COPD Exacerbation Discharge Diagnoses: CAP COPD Other PMH CHF DM Type 2 Pat was admitted and treated with Levaquin for CAP and given Solumedrol 60 mg Q6 hrs IV for COPD exacerbation. Sputum culture obtained, which revealed normal respiratory triston. BC negative. She steadily improved and was weaned back to 4 L NC, which is baseline home oxygen level. She is feeling much better today and is ready for discharge. She will be continued for 2 more doses of Levaquin Q48hrs and a Prednisone taper. Renal function remained stable throughout admission. We did obtain ECHO during admission to evaluate CHF, EF was 60%, otherwise suboptimal imaging noted for interpretation. She is to return to ED or clinic if concerns should arise. She will go home with Home Health. She is in need of halfway care to evaluate and help set up home medications and monitor vital signs. SHe would also benefit from PT for strengthening after hospitalization and acute illness. She is homebound needing a walker and caregiver to help her leave the home. Her PCP, Dr Graves will follow through on Home health plan of care. - General Info Date of Service: 09/02/18 Admission Dx/Problem (Free Text: COPD exacerbation and CAP Subjective Update: Doing well this morning. No complaints. Cough is improved, a little loose now. No chest pain and dyspnea is at baseline. No other concerns. Functional Status: Reports: Pain Controlled, Tolerating Diet, Ambulating, Urinating - Review of Systems General: Reports: No Symptoms. Denies: Fever, Weakness, Fatigue HEENT: Reports: No Symptoms. Denies: Headaches, Sore Throat, Visual Changes Pulmonary: Reports: Shortness of Breath (at baseline.), Cough. Denies: Sputum, Wheezing Cardiovascular: Reports: No Symptoms. Denies: Chest Pain Gastrointestinal: Reports: No Symptoms. Denies: Abdominal Pain, Nausea, Vomiting Genitourinary: Reports: No Symptoms Musculoskeletal: Reports: No Symptoms Skin: Reports: No Symptoms Neurological: Reports: No Symptoms Psychiatric: Reports: No Symptoms - Patient Data Vitals - Most Recent: Last Vital Signs Temp 97 F 09/02/18 07:36 Pulse 95 09/02/18 07:36 Resp 20 09/02/18 07:36 BP 124/40 L 09/02/18 07:36 Pulse Ox 91 L 09/02/18 07:36 Weight - Most Recent: 80.921 kg I&O - Last 24 hours: Intake & Output 09/01/18 09/02/18 09/02/18 22:59 06:59 14:59 Intake Total 740 870 Output Total 500 600 Balance 240 270 Lab Results - Last 24 hrs: Laboratory Results - last 24 hr 09/01/18 09/01/18 09/02/18 Range/Units 11:30 16:28 05:28 WBC 5.86 (4.0-11.0) K/uL RBC 2.55 L (4.30-5.90) M/uL Hgb 8.4 L (12.0-16.0) g/dL Hct 25.9 L (36.0-46.0) % MCV 101.6 H (80.0-98.0) fL MCH 32.9 H (27.0-32.0) pg MCHC 32.4 (31.0-37.0) g/dL RDW Std Deviation 49.6 (28.0-62.0) fl RDW Coeff of Lai 14 (11.0-15.0) % Plt Count 118 L (150-400) K/uL MPV 10.90 (7.40-12.00) fL Neut % (Auto) 94.9 H (48.0-80.0) % Lymph % (Auto) 3.1 L (16.0-40.0) % [place] % (Auto) 2.0 (0.0-15.0) % Eos % (Auto) 0.0 (0.0-7.0) % Baso % (Auto) 0.0 (0.0-1.5) % Neut # (Auto) 5.6 (1.4-5.7) K/uL Lymph # (Auto) 0.2 L (0.6-2.4) K/uL [place] # (Auto) 0.1 (0.0-0.8) K/uL Eos # (Auto) 0.0 (0.0-0.7) K/uL Baso # (Auto) 0.0 (0.0-0.1) K/uL Nucleated RBC % 0.0 /100WBC Nucleated RBCs # 0 K/uL Sodium (136-145) mmol/L Potassium (3.5-5.1) mmol/L Chloride (98-107) mmol/L Carbon Dioxide (21.0-32.0) mmol/L BUN (7.0-18.0) mg/dL Creatinine (0.6-1.0) mg/dL Est Cr Clr Drug Dosing mL/min Estimated GFR (MDRD) ml/min Glucose (74-106) mg/dL POC Glucose 266 H 176 H (60-110) mg/dL Calcium (8.5-10.1) mg/dL 09/02/18 09/02/18 Range/Units 05:28 06:29 WBC (4.0-11.0) K/uL RBC (4.30-5.90) M/uL Hgb (12.0-16.0) g/dL Hct (36.0-46.0) % MCV (80.0-98.0) fL MCH (27.0-32.0) pg MCHC (31.0-37.0) g/dL RDW Std Deviation (28.0-62.0) fl RDW Coeff of Lai (11.0-15.0) % Plt Count (150-400) K/uL MPV (7.40-12.00) fL Neut % (Auto) (48.0-80.0) % Lymph % (Auto) (16.0-40.0) % [place] % (Auto) (0.0-15.0) % Eos % (Auto) (0.0-7.0) % Baso % (Auto) (0.0-1.5) % Neut # (Auto) (1.4-5.7) K/uL Lymph # (Auto) (0.6-2.4) K/uL [place] # (Auto) (0.0-0.8) K/uL Eos # (Auto) (0.0-0.7) K/uL Baso # (Auto) (0.0-0.1) K/uL Nucleated RBC % /100WBC Nucleated RBCs # K/uL Sodium 140 (136-145) mmol/L Potassium 4.3 (3.5-5.1) mmol/L Chloride 104 (98-107) mmol/L Carbon Dioxide 27.2 (21.0-32.0) mmol/L BUN 113 H (7.0-18.0) mg/dL Creatinine 3.0 H (0.6-1.0) mg/dL Est Cr Clr Drug Dosing 13.09 mL/min Estimated GFR (MDRD) 14.8 ml/min Glucose 213 H (74-106) mg/dL POC Glucose 223 H (60-110) mg/dL Calcium 9.7 (8.5-10.1) mg/dL LATOYA Results - Last 24 hrs: Microbiology 08/30/18 20:07 Aerobic Blood Culture - Preliminary Blood - Venous - Lab Draw NO GROWTH AFTER 2 DAYS Anaerobic Blood Culture - Final 08/30/18 18:18 Aerobic Blood Culture - Preliminary Blood - Venous NO GROWTH AFTER 2 DAYS Anaerobic Blood Culture - Final 08/30/18 17:15 Gram Stain - Final Sputum - Expectorated Sputum Culture - Final Normal Respiratory Triston Med Orders - Current: Current Medications Acetaminophen (Tylenol) 650 mg PO Q4H PRN PRN Reason: Pain (mild 1-3) Albuterol (Proventil Neb Soln) 2.5 mg NEB Q2H PRN PRN Reason: Shortness Of Breath/wheezing Albuterol/Ipratropium (Duoneb 3.0-0.5 Mg/3 Ml) 3 ml NEB Q4HRRT [facility] Last Admin: 09/02/18 09:31 Dose: 3 ml Allopurinol (Zyloprim) 150 mg PO DAILY [facility] Last Admin: 09/02/18 09:20 Dose: 150 mg Aspirin (Aspirin) 81 mg PO DAILY [facility] Last Admin: 09/02/18 09:20 Dose: 81 mg Ferrous Sulfate (Ferrous Sulfate) 325 mg PO BID [facility] Last Admin: 09/02/18 09:20 Dose: 325 mg Furosemide (Lasix) 80 mg PO DAILY [facility] Last Admin: 09/02/18 09:20 Dose: 80 mg Heparin Sodium (Porcine) (Heparin Sodium) 5,000 units SUBCUT Q12H [facility] Last Admin: 09/02/18 05:46 Dose: 5,000 units Levofloxacin/Dextrose 500 mg/ (Premix) 100 mls @ 100 mls/hr IV Q48H [facility] Insulin Aspart (Novolog) 0 unit SUBCUT TIDAC [facility]; Protocol Last Admin: 09/02/18 07:52 Dose: 2 unit Methylprednisolone Sodium Succinate (Solu-Medrol) 60 mg IVPUSH Q12H [facility] Last Admin: 09/02/18 09:19 Dose: 60 mg Rosuvastatin Calcium (Crestor) 5 mg PO BEDTIME [facility] Last Admin: 09/01/18 20:09 Dose: 5 mg Fluticasone/Salmeterol (Advair Diskus 250-50) 1 puff INH BID [facility] Last Admin: 09/01/18 20:12 Dose: 1 puff Sodium Chloride (Saline Flush) 2.5 ml FLUSH ASDIRECTED PRN PRN Reason: Keep Vein Open Discontinued Medications Levofloxacin/Dextrose 750 mg/ (Premix) 150 mls @ 100 mls/hr IV Q48H [facility] Last Admin: 09/01/18 20:09 Dose: 100 mls/hr Methylprednisolone Sodium Succinate (Solu-Medrol) 60 mg IVPUSH Q8H [facility] Last Admin: 09/01/18 09:08 Dose: 60 mg - Exam General: Reports: Alert, Oriented, Cooperative Neck: Reports: Supple Lungs: Reports: Clear to Auscultation, Normal Respiratory Effort. Denies: Wheezing Cardiovascular: Reports: Regular Rate, Regular Rhythm GI/Abdominal Exam: Normal Bowel Sounds, Soft, Non-Tender, No Distention, No Mass Extremities: Normal Inspection, Normal Range of Motion, Non-Tender, No Pedal Edema Wound/Incisions: Reports: Healing Well Neurological: Reports: No New Focal Deficit Psy/Mental Status: Reports: Alert, Normal Affect, Normal Mood <Layo Salinas - Last Filed: 09/02/18 17:10> Discharge Summary - Hospital Course HPI Initial Comments: I have seen and examined to patient independently of Philly Escoto CNP. I have discussed the case for care of this patient with her. I have reviewed and approve of the plan of care as outlined by YOVANNY. Please see orders. - Patient Summary/Data Consults: Consultations 08/30/18 19:26 Consult to Respiratory Therapy [Respiratory Care Assess and Treatment] [CONS] Routine - Patient Data Vitals - Most Recent: Last Vital Signs Temp 36.2 C 09/02/18 11:00 Pulse 87 09/02/18 11:00 Resp 18 09/02/18 11:00 BP 113/51 L 09/02/18 11:00 Pulse Ox 94 L 09/02/18 11:00 I&O - Last 24 hours: Intake & Output 09/02/18 09/02/18 09/02/18 06:59 14:59 22:59 Intake Total 870 300 Output Total 600 200 Balance 270 100 Lab Results - Last 24 hrs: Laboratory Results - last 24 hr 09/02/18 09/02/18 09/02/18 Range/Units 05:28 05:28 06:29 WBC 5.86 (4.0-11.0) K/uL RBC 2.55 L (4.30-5.90) M/uL Hgb 8.4 L (12.0-16.0) g/dL Hct 25.9 L (36.0-46.0) % MCV 101.6 H (80.0-98.0) fL MCH 32.9 H (27.0-32.0) pg MCHC 32.4 (31.0-37.0) g/dL RDW Std Deviation 49.6 (28.0-62.0) fl RDW Coeff of Lai 14 (11.0-15.0) % Plt Count 118 L (150-400) K/uL MPV 10.90 (7.40-12.00) fL Neut % (Auto) 94.9 H (48.0-80.0) % Lymph % (Auto) 3.1 L (16.0-40.0) % [place] % (Auto) 2.0 (0.0-15.0) % Eos % (Auto) 0.0 (0.0-7.0) % Baso % (Auto) 0.0 (0.0-1.5) % Neut # (Auto) 5.6 (1.4-5.7) K/uL Lymph # (Auto) 0.2 L (0.6-2.4) K/uL [place] # (Auto) 0.1 (0.0-0.8) K/uL Eos # (Auto) 0.0 (0.0-0.7) K/uL Baso # (Auto) 0.0 (0.0-0.1) K/uL Nucleated RBC % 0.0 /100WBC Nucleated RBCs # 0 K/uL Sodium 140 (136-145) mmol/L Potassium 4.3 (3.5-5.1) mmol/L Chloride 104 (98-107) mmol/L Carbon Dioxide 27.2 (21.0-32.0) mmol/L BUN 113 H (7.0-18.0) mg/dL Creatinine 3.0 H (0.6-1.0) mg/dL Est Cr Clr Drug Dosing 13.09 mL/min Estimated GFR (MDRD) 14.8 ml/min Glucose 213 H (74-106) mg/dL POC Glucose 223 H (60-110) mg/dL Calcium 9.7 (8.5-10.1) mg/dL [facility] Results - Last 24 hrs: Microbiology 08/30/18 20:07 Aerobic Blood Culture - Preliminary Blood - Venous - Lab Draw NO GROWTH AFTER 2 DAYS Anaerobic Blood Culture - Final 08/30/18 18:18 Aerobic Blood Culture - Preliminary Blood - Venous NO GROWTH AFTER 2 DAYS Anaerobic Blood Culture - Final Med Orders - Current: Current Medications Discontinued Medications Acetaminophen (Tylenol) 650 mg PO Q4H PRN PRN Reason: Pain (mild 1-3) Albuterol (Proventil Neb Soln) 2.5 mg NEB Q2H PRN PRN Reason: Shortness Of Breath/wheezing Albuterol/Ipratropium (Duoneb 3.0-0.5 Mg/3 Ml) 3 ml NEB Q4HRRT [facility] Last Admin: 09/02/18 12:59 Dose: 3 ml Allopurinol (Zyloprim) 150 mg PO DAILY [facility] Last Admin: 09/02/18 09:20 Dose: 150 mg Aspirin (Aspirin) 81 mg PO DAILY [facility] Last Admin: 09/02/18 09:20 Dose: 81 mg Ferrous Sulfate (Ferrous Sulfate) 325 mg PO BID [facility] Last Admin: 09/02/18 09:20 Dose: 325 mg Furosemide (Lasix) 80 mg PO DAILY [facility] Last Admin: 09/02/18 09:20 Dose: 80 mg Heparin Sodium (Porcine) (Heparin Sodium) 5,000 units SUBCUT Q12H [facility] Last Admin: 09/02/18 05:46 Dose: 5,000 units Levofloxacin/Dextrose 750 mg/ (Premix) 150 mls @ 100 mls/hr IV Q48H [facility] Last Admin: 09/01/18 20:09 Dose: 100 mls/hr Levofloxacin/Dextrose 500 mg/ (Premix) 100 mls @ 100 mls/hr IV Q48H [facility] Insulin Aspart (Novolog) 0 unit SUBCUT TIDAC [facility]; Protocol Last Admin: 09/02/18 07:52 Dose: 2 unit Methylprednisolone Sodium Succinate (Solu-Medrol) 60 mg IVPUSH Q8H [facility] Last Admin: 09/01/18 09:08 Dose: 60 mg Methylprednisolone Sodium Succinate (Solu-Medrol) 60 mg IVPUSH Q12H [facility] Last Admin: 09/02/18 09:19 Dose: 60 mg Rosuvastatin Calcium (Crestor) 5 mg PO BEDTIME [facility] Last Admin: 09/01/18 20:09 Dose: 5 mg Fluticasone/Salmeterol (Advair Diskus 250-50) 1 puff INH BID [facility] Last Admin: 09/01/18 20:12 Dose: 1 puff Sodium Chloride (Saline Flush) 2.5 ml FLUSH ASDIRECTED PRN PRN Reason: Keep Vein Open
[2018-09-02 12:05] VITALS: BP 113/51
--- NOTE | 2018-09-03 17:42 | ECHO ---
The echocardiogram report can be seen in this patient's EMR (Electronic Medical Record) in the Reports section. The echocardiogram report has also been scanned into PACS and can be seen there as well. DONNIE
[2018-09-03] MEDS ORDERED: Levofloxacin/Dextrose 5%-Water 500 MG in Premix Bag 1 BAG IV SCH (20:00)
== END 2018-09-02 13:00 | disposition home health service (06) | DRG 190 ==
LOC: MW.MS 15:58
PROVIDERS: ADMIT Internal Medicine; ATTEND Internal Medicine
DX: J44.0 Chronic obstructive pulmonary disease with (acute) lower respiratory infection (principal); J18.9 Pneumonia, unspecified organism; J96.21 Acute and chronic respiratory failure with hypoxia; I13.0 Hypertensive heart and chronic kidney disease with heart failure and stage 1 through stage 4 chronic kidney disease, or unspecified chronic kidney disease; Z66 Do not resuscitate; J44.1 Chronic obstructive pulmonary disease with (acute) exacerbation; N18.9 Chronic kidney disease, unspecified; I50.9 Heart failure, unspecified; Z87.891 Personal history of nicotine dependence; E11.22 Type 2 diabetes mellitus with diabetic chronic kidney disease; Z79.84 Long term (current) use of oral hypoglycemic drugs; Z99.81 Dependence on supplemental oxygen; M19.90 Unspecified osteoarthritis, unspecified site; J38.01 Paralysis of vocal cords and larynx, unilateral; Z79.82 Long term (current) use of aspirin; Z88.1 Allergy status to other antibiotic agents; Z91.030 Bee allergy status; Z88.8 Allergy status to other drugs, medicaments and biological substances
CPT/HCPCS: 36415; 71045; 71045-26; 80048; 82962; 83880; 85025; 87040; 87070; 87205; 93306; 94640; A9270-GY; J1644; J1815-GY; J1956; J2920; J7620-GY

== ENCOUNTER 2018-09-16 16:13 | Observation (INO) | payer MEDICARE, OTHER ==
[2018-09-16] MEDS ORDERED: Sodium Chloride 0.9% 2.5 ML Syringe FLUSH PRN (16:17)
[2018-09-16] MEDS ORDERED: Sodium Chloride 0.9% 10 ML Syringe FLUSH PRN (16:17)
--- NOTE | 2018-09-16 16:20 | EDM.PDOC ---
ED HPI GENERAL MEDICAL PROBLEM - General Stated Complaint: AMB Time Seen by Provider: 09/16/18 16:15 - History of Present Illness INITIAL COMMENTS - FREE TEXT/NARRATIVE: HISTORY AND PHYSICAL: History of present illness: Patient is an 87-year-old female history of advanced COPD who was hospitalized 2 weeks prior for COPD exacerbation with pneumonia presents today with shortness of breath and wheezing she had a dual neb prior to arrival at home and a subsequent one in route with paramedics. Upon arrival here patient feels markedly improved she was satting in the mid 80s on 4 L which is her prescribed O2. Currently her saturations 87% Review of systems: As per history of present illness and below otherwise all systems reviewed and negative. Past medical history: As per history of present illness and as reviewed below otherwise noncontributory. Surgical history: As per history of present illness and as reviewed below otherwise noncontributory. Social history: No reported history of drug or alcohol abuse. Family history: As per history of present illness and as reviewed below otherwise noncontributory. Physical exam: HEENT: Atraumatic, normocephalic, pupils reactive, negative for conjunctival pallor or scleral icterus, mucous membranes moist, throat clear, neck supple, nontender, trachea midline. Lungs: Coarse bilaterally with markedly diminished breath sounds. Heart: S1S2, regular, negative for clicks, rubs, or JVD. Abdomen: Soft, nondistended, nontender. Negative for masses or hepatosplenomegaly. Negative for costovertebral tenderness. Pelvis: Stable nontender. Genitourinary: Deferred. Rectal: Deferred. Extremities: Atraumatic, negative for cords or calf pain. Neurovascular unremarkable. Neuro: Awake, alert, oriented. Follows commands moves all history is limited grossly nonfocal exam. Diagnostics: CBC CMP troponin PT/INR EKG chest x-ray UA blood culture 2 Therapeutics: IV O2 monitor Impression: #1 COPD with acute exacerbation Definitive disposition and diagnosis as appropriate pending reevaluation and review of above. - Related Data Allergies Allergy/AdvReac Type Severity Reaction Status Date / Time aspirin Allergy Cannot Verified 09/16/18 16:21 Remember azithromycin [From Zithromax] Allergy Cannot Verified 09/16/18 16:21 Remember carvedilol [From Coreg] Allergy Cannot Verified 09/16/18 16:21 Remember venom-honey bee Allergy Cannot Verified 09/16/18 16:21 [bee venom (honey bee)] Remember Home Meds: Home Meds Albuterol/Ipratropium [DuoNeb 3.0-0.5 MG/3 ML] 3 ml INH QID 07/24/14 [History] Allopurinol [Zyloprim] 150 mg PO DAILY 07/24/14 [History] Aspirin [[place] Aspirin] 81 mg PO DAILY 07/24/14 [History] Cholecalciferol (Vitamin D3) [Vitamin D3] 1,000 unit PO DAILY 07/24/14 [History] EPINEPHrine [Epinephrine] 0.3 mg IJ ONETIME 07/24/14 [History] Furosemide 80 mg PO DAILY 07/24/14 [History] Rosuvastatin [Crestor] 5 mg PO BEDTIME 07/24/14 [History] SitaGLIPtin [Januvia] 50 mg PO DAILY 07/24/14 [History] Calcitriol 0.25 mcg PO WEEKLY 08/30/18 [History] Cyanocobalamin (Vitamin B-12) [B-12] 1,000 mcg PO DAILY 08/30/18 [History] Ferrous Sulfate 325 mg PO BID 08/30/18 [History] Fluticasone Propion/Salmeterol [Fluticasone-Salmeterol 250-50] 1 each IH BID [History] levoFLOXacin [Levaquin] 750 mg PO Q48H #2 tab 09/02/18 [Rx] predniSONE [Prednisone] 10 mg PO DAILY #30 tablet 09/02/18 [Rx] Past Medical History HEENT History: Reports: Other (See Below) 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 Denies: Afib, Blood Clots/VTE/DVT, [place] Other Cardiovascular History: "enlarged heart" Respiratory History: Reports: COPD (chronic oxygen use 3-4 L NC) Gastrointestinal History: Reports: None Other Gastrointestinal History: "bleeding ulcer", constipation Genitourinary History: Reports: Other (See Below) Other Genitourinary History: kidney disease Musculoskeletal History: Reports: Arthritis Neurological History: Reports: None. 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 ED EXAM, GENERAL - Physical Exam Exam: See Below (See dictation) Course - Vital Signs Last Recorded V/S: Last Vital Signs Temp 36.2 C 09/16/18 16:21 Pulse 91 09/16/18 16:21 Resp 20 09/16/18 16:21 BP 117/44 L 09/16/18 17:19 Pulse Ox 94 L 09/16/18 17:19 - Orders/Labs/Meds Orders: Active Orders 24 hr Category Date Time Status Cardiac Monitoring [RC] . DIRECTED Care 09/16/18 16:16 Active EKG Documentation Completion [RC] STAT Care 09/16/18 16:16 Active Oxygen Therapy, ED [RC] ASDIRECTED Care 09/16/18 16:16 Active Pulse Oximetry [RC] ASDIRECTED Care 09/16/18 16:16 Active RT Aerosol Therapy [RC] ASDIRECTED Care 09/16/18 16:24 Active Chest 1V Frontal [CR] Stat Exams 09/16/18 16:17 Taken CULTURE BLOOD [BC] Stat Lab 09/16/18 17:03 Results CULTURE BLOOD [BC] Stat Lab 09/16/18 17:09 Results UA RFX LATOYA AND CULT IF INDIC [URIN] Stat Lab 09/16/18 16:17 Ordered Sodium Chloride 0.9% [Normal Saline] 1,000 ml Med 09/16/18 16:30 Active IV STAT Sodium Chloride 0.9% [Saline Flush] Med 09/16/18 16:17 Active 10 ml FLUSH ASDIRECTED PRN Sodium Chloride 0.9% [Saline Flush] Med 09/16/18 16:17 Active 2.5 ml FLUSH ASDIRECTED PRN Blood Culture x2 Reflex Set [OM.PC] Stat Oth 09/16/18 16:17 Ordered Saline Lock Insert [OM.PC] Stat Oth 09/16/18 16:16 Ordered Medication Orders Sodium Chloride (Normal Saline) 1,000 mls @ 125 mls/hr IV STAT MAGAN Last Admin: 09/16/18 16:25 Dose: 125 mls/hr Sodium Chloride (Saline Flush) 10 ml FLUSH ASDIRECTED PRN PRN Reason: Keep Vein Open Sodium Chloride (Saline Flush) 2.5 ml FLUSH ASDIRECTED PRN PRN Reason: Keep Vein Open Labs: Laboratory Tests 09/16/18 09/16/18 09/16/18 Range/Units 16:15 16:15 16:15 WBC 5.53 (4.0-11.0) K/uL RBC 2.66 L (4.30-5.90) M/uL Hgb 8.6 L (12.0-16.0) g/dL Hct 27.1 L (36.0-46.0) % MCV 101.9 H (80.0-98.0) fL MCH 32.3 H (27.0-32.0) pg MCHC 31.7 (31.0-37.0) g/dL RDW Std Deviation 53.7 (28.0-62.0) fl RDW Coeff of Lai 14 (11.0-15.0) % Plt Count 77 L (150-400) K/uL MPV 11.40 (7.40-12.00) fL Neut % (Auto) 79.7 (48.0-80.0) % Lymph % (Auto) 6.5 L (16.0-40.0) % [place] % (Auto) 10.7 (0.0-15.0) % Eos % (Auto) 2.9 (0.0-7.0) % Baso % (Auto) 0.2 (0.0-1.5) % Neut # (Auto) 4.4 (1.4-5.7) K/uL Lymph # (Auto) 0.4 L (0.6-2.4) K/uL [place] # (Auto) 0.6 (0.0-0.8) K/uL Eos # (Auto) 0.2 (0.0-0.7) K/uL Baso # (Auto) 0.0 (0.0-0.1) K/uL Nucleated RBC % 0.0 /100WBC Nucleated RBCs # 0 K/uL INR 0.98 Sodium 143 (136-145) mmol/L Potassium 3.6 (3.5-5.1) mmol/L Chloride 106 (98-107) mmol/L Carbon Dioxide 27.4 (21.0-32.0) mmol/L BUN 68 H (7.0-18.0) mg/dL Creatinine 2.7 H (0.6-1.0) mg/dL Est Cr Clr Drug Dosing 14.54 mL/min Estimated GFR (MDRD) 16.7 ml/min Glucose 182 H (74-106) mg/dL Calcium 9.5 (8.5-10.1) mg/dL Total Bilirubin 0.6 (0.2-1.0) mg/dL AST 20 (15-37) IU/L ALT 26 (14-63) IU/L Alkaline Phosphatase 70 (46-116) U/L Troponin I < 0.050 (0.000-0.056) ng/mL B-Natriuretic Peptide (<100) PG/ML Total Protein 6.1 L (6.4-8.2) g/dL Albumin 3.0 L (3.4-5.0) g/dL Globulin 3.1 (2.6-4.0) g/dL Albumin/Globulin Ratio 1.0 (0.9-1.6) 09/16/18 Range/Units 16:15 WBC (4.0-11.0) K/uL RBC (4.30-5.90) M/uL Hgb (12.0-16.0) g/dL Hct (36.0-46.0) % MCV (80.0-98.0) fL MCH (27.0-32.0) pg MCHC (31.0-37.0) g/dL RDW Std Deviation (28.0-62.0) fl RDW Coeff of Lai (11.0-15.0) % Plt Count (150-400) K/uL MPV (7.40-12.00) fL Neut % (Auto) (48.0-80.0) % Lymph % (Auto) (16.0-40.0) % [place] % (Auto) (0.0-15.0) % Eos % (Auto) (0.0-7.0) % Baso % (Auto) (0.0-1.5) % Neut # (Auto) (1.4-5.7) K/uL Lymph # (Auto) (0.6-2.4) K/uL [place] # (Auto) (0.0-0.8) K/uL Eos # (Auto) (0.0-0.7) K/uL Baso # (Auto) (0.0-0.1) K/uL Nucleated RBC % /100WBC Nucleated RBCs # K/uL INR Sodium (136-145) mmol/L Potassium (3.5-5.1) mmol/L Chloride (98-107) mmol/L Carbon Dioxide (21.0-32.0) mmol/L BUN (7.0-18.0) mg/dL Creatinine (0.6-1.0) mg/dL Est Cr Clr Drug Dosing mL/min Estimated GFR (MDRD) ml/min Glucose (74-106) mg/dL Calcium (8.5-10.1) mg/dL Total Bilirubin (0.2-1.0) mg/dL AST (15-37) IU/L ALT (14-63) IU/L Alkaline Phosphatase (46-116) U/L Troponin I (0.000-0.056) ng/mL B-Natriuretic Peptide 54 (<100) PG/ML Total Protein (6.4-8.2) g/dL Albumin (3.4-5.0) g/dL Globulin (2.6-4.0) g/dL Albumin/Globulin Ratio (0.9-1.6) Meds: Medications Generic Name Dose Route Start Last Admin Trade Name Freq PRN Reason Stop Dose Admin Sodium Chloride 1,000 mls @ 125 mls/hr 09/16/18 16:30 09/16/18 16:25 Normal Saline IV 125 mls/hr STAT MAGAN Administration Sodium Chloride 10 ml 09/16/18 16:17 Saline Flush FLUSH ASDIRECTED PRN Keep Vein Open Sodium Chloride 2.5 ml 09/16/18 16:17 Saline Flush FLUSH ASDIRECTED PRN Keep Vein Open Discontinued Medications Generic Name Dose Route Start Last Admin Trade Name Freq PRN Reason Stop Dose Admin Albuterol/Ipratropium 3 ml 09/16/18 16:24 09/16/18 16:29 Duoneb 3.0-0.5 Mg/3 Ml NEB 09/16/18 16:25 3 ml ONETIME ONE Administration Departure - Departure Time of Disposition: 17:48 Disposition: Refer to Observation Condition: Fair Clinical Impression: COPD (chronic obstructive pulmonary disease), Dyspnea - Discharge Information - My Orders Last 24 Hours: My Active Orders 09/16/18 16:16 Cardiac Monitoring [RC] . DIRECTED EKG Documentation Completion [RC] STAT Oxygen Therapy, ED [RC] ASDIRECTED Pulse Oximetry [RC] ASDIRECTED Saline Lock Insert [OM.PC] Stat 09/16/18 16:17 Chest 1V Frontal [CR] Stat UA RFX LATOYA AND CULT IF INDIC [URIN] Stat Sodium Chloride 0.9% [Saline Flush] 10 ml FLUSH ASDIRECTED PRN Sodium Chloride 0.9% [Saline Flush] 2.5 ml FLUSH ASDIRECTED PRN Blood Culture x2 Reflex Set [OM.PC] Stat 09/16/18 16:24 RT Aerosol Therapy [RC] ASDIRECTED 09/16/18 16:30 Sodium Chloride 0.9% [Normal Saline] 1,000 ml IV STAT 09/16/18 17:03 CULTURE BLOOD [BC] Stat 09/16/18 17:09 CULTURE BLOOD [BC] Stat - Assessment/Plan Last 24 Hours: My Active Orders 09/16/18 16:16 Cardiac Monitoring [RC] . DIRECTED EKG Documentation Completion [RC] STAT Oxygen Therapy, ED [RC] ASDIRECTED Pulse Oximetry [RC] ASDIRECTED Saline Lock Insert [OM.PC] Stat 09/16/18 16:17 Chest 1V Frontal [CR] Stat UA RFX LATOYA AND CULT IF INDIC [URIN] Stat Sodium Chloride 0.9% [Saline Flush] 10 ml FLUSH ASDIRECTED PRN Sodium Chloride 0.9% [Saline Flush] 2.5 ml FLUSH ASDIRECTED PRN Blood Culture x2 Reflex Set [OM.PC] Stat 09/16/18 16:24 RT Aerosol Therapy [RC] ASDIRECTED 09/16/18 16:30 Sodium Chloride 0.9% [Normal Saline] 1,000 ml IV STAT 09/16/18 17:03 CULTURE BLOOD [BC] Stat 09/16/18 17:09 CULTURE BLOOD [BC] Stat
[2018-09-16] MEDS ORDERED: Albuterol/Ipratropium 3.0-0.5 MG/3 ML Neb Soln NEB ONE (16:24)
[2018-09-16] MEDS: Sodium Chloride 0.9% 1,000 ML IV SCH (16:25)
[2018-09-16 16:59] LABS: CHLORIDE,CL 106 mmol/L (98-107); SODIUM,NA 143 mmol/L (136-145)
[2018-09-16] MEDS ORDERED: Temazepam 15 MG Cap PO PRN (18:14)
[2018-09-16] MEDS ORDERED: Docusate Sodium 100 MG Cap PO PRN (18:14)
[2018-09-16] MEDS ORDERED: Acetaminophen 325 MG Tab PO PRN (18:14)
[2018-09-16] MEDS ORDERED: Albuterol/Ipratropium 3.0-0.5 MG/3 ML Neb Soln NEB PRN (18:14)
[2018-09-16] MEDS ORDERED: Ondansetron 4 MG Tab.DIS PO PRN (18:14)
[2018-09-16] MEDS ORDERED: oxyCODONE 5 MG Tab PO PRN (18:14)
[2018-09-16] MEDS ORDERED: Sodium Chloride 0.9% 1,000 ML IV SCH (18:15)
--- NOTE | 2018-09-16 18:19 | CR ---
HISTORY: Shortness of breath COMPARISON: 08/30/2018 FINDINGS: A portable erect AP view of the chest was obtained at 17 30 hours. There is no change in moderate consolidation of the left lower lobe consistent with a combination of infiltrate and mild pleural effusion. The infiltrate could be atelectasis or pneumonia. There is no change in mild prominence of interstitial markings with moderate vascular engorgement consistent with mild congestive failure. There is no sign of pleural effusion on the right. The heart remains mildly enlarged. The mediastinum is otherwise normal in appearance. The osseous structures are normal in appearance for the patient`s age. IMPRESSION: Stable moderate consolidation of the left lower lobe and mild left pleural effusion. Stable mild congestive failure with mild cardiomegaly. Dictated by Santiago Smith MD @ Sep 16 2018 6:15PM Signed by Dr. Santiago Smith @ Sep 16 2018 6:17PM
--- NOTE | 2018-09-16 18:27 | PCM.HP ---
H&P History of Present Illness - General Date of Service: 09/16/18 Admit Problem/Dx: Admission Diagnosis/Problem Admission Diagnosis/Problem COPD, Moderate chronic obstructive pulmonary disease Source of Information: Patient, Family History Limitations: Reports: No Limitations - History of Present Illness Initial Comments - Free Text/Narative: The patient is an 87-year-old lady who had presented to the emergency department with severe shortness of breath. She does have advanced COPD and in fact was hospitalized 2 weeks ago for the same problem. The patient normally uses oxygen at home as well as steroids. While at home the patient's saturations were noted to be in the mid 80s. Also the patient's oxygen demands at increase. The patient has denied any fever or chills. She's had no chest pain. The patient says that she has been coughing with increased sputum. The patient is a former smoker having quit approximately 20 years ago. Interestingly , the patient shows an allergy to aspirin however she has been taking 81 mg low dose aspirin at home. Patient does have a history of chronic kidney disease that has been stable as well as diabetes mellitus type 2. The patient has no other complaints presently. Onset of Symptoms: Reports: Gradual Duration of Symptoms: Reports: Hour(s):, Improving Location: Reports: Chest Severity: Moderate Improves with: Reports: Medication, Rest Worsens with: Reports: Movement Associated Symptoms: Reports: cough w sputum - Related Data Allergies/Adverse Reactions: Allergies Allergy/AdvReac Type Severity Reaction Status Date / Time aspirin Allergy Cannot Verified 09/16/18 16:21 Remember azithromycin [From Zithromax] Allergy Cannot Verified 09/16/18 16:21 Remember carvedilol [From Coreg] Allergy Cannot Verified 09/16/18 16:21 Remember venom-honey bee Allergy Cannot Verified 09/16/18 16:21 [bee venom (honey bee)] Remember Home Medications: Home Meds Albuterol/Ipratropium [DuoNeb 3.0-0.5 MG/3 ML] 3 ml INH QID 07/24/14 [History] Allopurinol [Zyloprim] 150 mg PO DAILY 07/24/14 [History] Aspirin [[place] Aspirin] 81 mg PO DAILY 07/24/14 [History] Cholecalciferol (Vitamin D3) [Vitamin D3] 1,000 unit PO DAILY 07/24/14 [History] EPINEPHrine [Epinephrine] 0.3 mg IJ ONETIME 07/24/14 [History] Furosemide 80 mg PO DAILY 07/24/14 [History] Rosuvastatin [Crestor] 5 mg PO BEDTIME 07/24/14 [History] SitaGLIPtin [Januvia] 50 mg PO DAILY 07/24/14 [History] Calcitriol 0.25 mcg PO WEEKLY 08/30/18 [History] Cyanocobalamin (Vitamin B-12) [B-12] 1,000 mcg PO DAILY 08/30/18 [History] Ferrous Sulfate 325 mg PO BID 08/30/18 [History] Fluticasone Propion/Salmeterol [Fluticasone-Salmeterol 250-50] 1 each IH BID [History] levoFLOXacin [Levaquin] 750 mg PO Q48H #2 tab 09/02/18 [Rx] predniSONE [Prednisone] 10 mg PO DAILY #30 tablet 09/02/18 [Rx] Pantoprazole Sodium [Protonix] 40 mg PO DAILY 5 Days #5 tablet. 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 Denies: Afib, Blood Clots/VTE/DVT, SC Other Cardiovascular History: "enlarged heart" Respiratory History: Reports: COPD (chronic oxygen use 3-4 L NC) Gastrointestinal History: Reports: None Other Gastrointestinal History: "bleeding ulcer", constipation Genitourinary History: Reports: Chronic Renal Insuffiency, Other (See Below) Other Genitourinary History: kidney disease Musculoskeletal History: Reports: Arthritis Neurological History: Reports: None. Denies: CVA, TIA Endocrine/Metabolic History: Reports: Diabetes, Type II Hematologic History: Reports: Anemia, Bleeding Disorder Immunologic History: Reports: None Dermatologic History: Reports: None - Infectious Disease History Infectious Disease History: Reports: None - Past Surgical History Cardiovascular Surgical History: Reports: Vascular Surgery (fistula made to L arm, never needed and currently not functional) Social & Family History - Family History Family Medical History: Noncontributory - Tobacco Use Smoking Status *Q: Former Smoker Used Tobacco, but Quit: Yes Month/Year Tobacco Last Used: 1983 - Caffeine Use Caffeine Use: Reports: Soda - Recreational Drug Use Recreational Drug Use: No - Living Situation & Occupation Occupation: Retired H&P Review of Systems - Review of Systems: Review Of Systems: See Below General: Reports: Weakness, Fatigue HEENT: Reports: Glasses, Hearing Changes Pulmonary: Reports: Shortness of Breath, Cough, Sputum Cardiovascular: Reports: Dyspnea on Exertion Gastrointestinal: Reports: No Symptoms Genitourinary: Reports: No Symptoms Musculoskeletal: Reports: No Symptoms Skin: Reports: No Symptoms Psychiatric: Reports: No Symptoms Neurological: Reports: No Symptoms Hematologic/Lymphatic: Reports: Easy Bruising Immunologic: Reports: No Symptoms Exam - Exam Exam: See Below - Vital Signs Vital Signs: Last Vital Signs Temp 36.2 C 09/16/18 16:21 Pulse 91 09/16/18 16:21 Resp 20 09/16/18 16:21 BP 117/44 L 09/16/18 17:19 Pulse Ox 94 L 09/16/18 17:19 Weight: 95.254 kg - Exam Quality Assessment: Supplemental Oxygen General: Alert, Oriented, Cooperative HEENT: Conjunctiva Clear, EACs Clear, EOMI. No: Mucosa Moist & [place] (Dry) Neck: Supple, Trachea Midline Lungs: Decreased Breath Sounds, Crackles, Rales Cardiovascular: Regular Rate, Regular Rhythm GI/Abdominal Exam: Normal Bowel Sounds, Soft, No Distention Back Exam: Normal Inspection (Kyphosis) Extremities: Normal Inspection, No Pedal Edema Skin: Warm, Dry, Ecchymosis (Both arms and legs) Neurological: Cranial Nerves Intact Neuro Extensive - Mental Status: Alert, Oriented x3 Psychiatric: Alert, Normal Affect, Normal Mood - Patient Data Lab Results Last 24 hrs: Laboratory Results - last 24 hr 09/16/18 09/16/18 09/16/18 Range/Units 16:15 16:15 16:15 WBC 5.53 (4.0-11.0) K/uL RBC 2.66 L (4.30-5.90) M/uL Hgb 8.6 L (12.0-16.0) g/dL Hct 27.1 L (36.0-46.0) % MCV 101.9 H (80.0-98.0) fL MCH 32.3 H (27.0-32.0) pg MCHC 31.7 (31.0-37.0) g/dL RDW Std Deviation 53.7 (28.0-62.0) fl RDW Coeff of Lai 14 (11.0-15.0) % Plt Count 77 L (150-400) K/uL MPV 11.40 (7.40-12.00) fL Neut % (Auto) 79.7 (48.0-80.0) % Lymph % (Auto) 6.5 L (16.0-40.0) % [place] % (Auto) 10.7 (0.0-15.0) % Eos % (Auto) 2.9 (0.0-7.0) % Baso % (Auto) 0.2 (0.0-1.5) % Neut # (Auto) 4.4 (1.4-5.7) K/uL Lymph # (Auto) 0.4 L (0.6-2.4) K/uL [place] # (Auto) 0.6 (0.0-0.8) K/uL Eos # (Auto) 0.2 (0.0-0.7) K/uL Baso # (Auto) 0.0 (0.0-0.1) K/uL Nucleated RBC % 0.0 /100WBC Nucleated RBCs # 0 K/uL INR 0.98 Sodium 143 (136-145) mmol/L Potassium 3.6 (3.5-5.1) mmol/L Chloride 106 (98-107) mmol/L Carbon Dioxide 27.4 (21.0-32.0) mmol/L BUN 68 H (7.0-18.0) mg/dL Creatinine 2.7 H (0.6-1.0) mg/dL Est Cr Clr Drug Dosing 14.54 mL/min Estimated GFR (MDRD) 16.7 ml/min Glucose 182 H (74-106) mg/dL Calcium 9.5 (8.5-10.1) mg/dL Total Bilirubin 0.6 (0.2-1.0) mg/dL AST 20 (15-37) IU/L ALT 26 (14-63) IU/L Alkaline Phosphatase 70 (46-116) U/L Troponin I < 0.050 (0.000-0.056) ng/mL B-Natriuretic Peptide (<100) PG/ML Total Protein 6.1 L (6.4-8.2) g/dL Albumin 3.0 L (3.4-5.0) g/dL Globulin 3.1 (2.6-4.0) g/dL Albumin/Globulin Ratio 1.0 (0.9-1.6) 09/16/18 Range/Units 16:15 WBC (4.0-11.0) K/uL RBC (4.30-5.90) M/uL Hgb (12.0-16.0) g/dL Hct (36.0-46.0) % MCV (80.0-98.0) fL MCH (27.0-32.0) pg MCHC (31.0-37.0) g/dL RDW Std Deviation (28.0-62.0) fl RDW Coeff of Lai (11.0-15.0) % Plt Count (150-400) K/uL MPV (7.40-12.00) fL Neut % (Auto) (48.0-80.0) % Lymph % (Auto) (16.0-40.0) % [place] % (Auto) (0.0-15.0) % Eos % (Auto) (0.0-7.0) % Baso % (Auto) (0.0-1.5) % Neut # (Auto) (1.4-5.7) K/uL Lymph # (Auto) (0.6-2.4) K/uL [place] # (Auto) (0.0-0.8) K/uL Eos # (Auto) (0.0-0.7) K/uL Baso # (Auto) (0.0-0.1) K/uL Nucleated RBC % /100WBC Nucleated RBCs # K/uL INR Sodium (136-145) mmol/L Potassium (3.5-5.1) mmol/L Chloride (98-107) mmol/L Carbon Dioxide (21.0-32.0) mmol/L BUN (7.0-18.0) mg/dL Creatinine (0.6-1.0) mg/dL Est Cr Clr Drug Dosing mL/min Estimated GFR (MDRD) ml/min Glucose (74-106) mg/dL Calcium (8.5-10.1) mg/dL Total Bilirubin (0.2-1.0) mg/dL AST (15-37) IU/L ALT (14-63) IU/L Alkaline Phosphatase (46-116) U/L Troponin I (0.000-0.056) ng/mL B-Natriuretic Peptide 54 (<100) PG/ML Total Protein (6.4-8.2) g/dL Albumin (3.4-5.0) g/dL Globulin (2.6-4.0) g/dL Albumin/Globulin Ratio (0.9-1.6) Result Diagrams: 09/17/18 05:59 09/17/18 05:59 Alfred Results Last 24 hrs: Microbiology 09/16/18 17:09 Anaerobic Blood Culture - Final Blood - Venous - Lab Draw 09/16/18 17:03 Anaerobic Blood Culture - Final Blood - Venous *Q Meaningful Use (ADM) - VTE *Q VTE Pharmacological Contraindications *Q: Thrombocytopenia - Problem List (1) Acute and chronic respiratory failure SNOMED Code(s): 28507750 ICD Code: J96.20 - ACUTE AND CHR RESP FAILURE, UNSP W HYPOXIA OR HYPERCAPNIA Status: Acute Priority: High Current Visit: Yes Qualifiers: Respiratory failure complication: hypoxia Qualified Code(s): J96.21 - Acute and chronic respiratory failure with hypoxia (2) COPD (chronic obstructive pulmonary disease) SNOMED Code(s): 52599903 ICD Code: J44.9 - CHRONIC OBSTRUCTIVE PULMONARY DISEASE, UNSPECIFIED Status : Chronic Priority: High Current Visit: Yes Qualifiers: COPD type: chronic bronchitis Chronic bronchitis type: unspecified Qualified Code(s): J42 - Unspecified chronic bronchitis (3) Dyspnea SNOMED Code(s): 025366001 ICD Code: R06.00 - DYSPNEA, UNSPECIFIED Status: Acute Priority: High Current Visit: Yes Qualifiers: Dyspnea type: shortness of breath Qualified Code(s): R06.02 - Shortness of breath; R06.00 - Dyspnea, unspecified; R06.01 - Orthopnea (4) CKD (chronic kidney disease) SNOMED Code(s): 618408163 ICD Code: N18.9 - CHRONIC KIDNEY DISEASE, UNSPECIFIED Status: Chronic Priority: High Current Visit: Yes Qualifiers: Chronic kidney disease stage: stage 3 (moderate) Qualified Code(s): N18.3 - Chronic kidney disease, stage 3 (moderate) (5) Anemia SNOMED Code(s): 595027014 ICD Code: D64.9 - ANEMIA, UNSPECIFIED Status: Acute Current Visit: Yes Qualifiers: Anemia type: due to chronic kidney disease Chronic kidney disease stage: stage 3 (moderate) Qualified Code(s): N18.3 - Chronic kidney disease, stage 3 (moderate); D63.1 - Anemia in chronic kidney disease Problem List Initiated/Reviewed/Updated: Yes Orders Last 24hrs: Active Orders 24 hr Category Date Time Status Patient Status [ADT] Stat ADT 09/16/18 17:49 Active Antiembolic Devices [RC] PER UNIT ROUTINE Care 09/16/18 18:16 Active Blood Glucose Check, Bedside [RC] WITHMEALSANDBED Care 09/16/18 18:22 Active Cardiac Monitoring [RC] . DIRECTED Care 09/16/18 16:16 Active Cardiac Monitoring [RC] CONTINUOUS Care 09/16/18 18:15 Active Diabetes Education [RC] Click to Edit Care 09/16/18 18:22 Active EKG Documentation Completion [RC] STAT Care 09/16/18 16:16 Active Oxygen Therapy [RC] PRN Care 09/16/18 18:14 Active Oxygen Therapy [RC] PRN Care 09/16/18 18:22 Active Oxygen Therapy, ED [RC] ASDIRECTED Care 09/16/18 16:16 Active Pulse Oximetry [RC] ASDIRECTED Care 09/16/18 16:16 Active RT Aerosol Therapy [RC] ASDIRECTED Care 09/16/18 16:24 Active RT Aerosol Therapy [RC] ASDIRECTED Care 09/16/18 18:18 Active Telemetry Monitoring [Cardiac Monitoring] [RC] . Care 09/16/18 18:13 Active DIRECTED Up With Assistance [RC] ASDIRECTED Care 09/16/18 18:14 Active VTE/DVT Education [RC] PER UNIT ROUTINE Care 09/16/18 18:14 Active VTE/DVT Education [RC] PER UNIT ROUTINE Care 09/16/18 18:22 Active Vital Signs [RC] Q4H Care 09/16/18 18:14 Active Vital Signs [RC] Q4H Care 09/16/18 18:22 Active [place] [employer] Diet [DIET] Diet 09/16/18 Breakfast Active BASIC METABOLIC PANEL,BMP [CHEM] AM Lab 09/17/18 05:11 Ordered CBC WITH AUTO DIFF [HEME] AM Lab 09/17/18 05:11 Ordered CULTURE BLOOD [BC] Stat Lab 09/16/18 17:03 Results CULTURE BLOOD [BC] Stat Lab 09/16/18 17:09 Results MAGNESIUM [CHEM] Routine Lab 09/16/18 17:09 Received UA RFX ALFRED AND CULT IF INDIC [URIN] Stat Lab 09/16/18 16:17 Ordered Acetaminophen [Tylenol] Med 09/16/18 18:14 Active 650 mg PO Q4H PRN Albuterol/Ipratropium [DuoNeb 3.0-0.5 MG/3 ML] Med 09/16/18 18:14 Active 3 ml NEB Q4HRRT PRN Allopurinol [Zyloprim] Med 09/17/18 09:00 Active 150 mg PO DAILY Aspirin Med 09/17/18 09:00 Active 81 mg PO DAILY Docusate Sodium [Colace] Med 09/16/18 18:14 Active 100 mg PO BID PRN Furosemide [Lasix] Med 09/17/18 09:00 Active 80 mg PO DAILY Insulin Aspart [NovoLOG] Med 09/16/18 21:00 Active See Protocol SUBCUT ACBREAKFASTANDBED Ondansetron [Zofran ODT] Med 09/16/18 18:14 Active 4 mg PO Q6H PRN SitaGLIPtin Med 09/17/18 09:00 Active 50 mg PO DAILY Sodium Chloride 0.9% [Normal Saline] 1,000 ml Med 09/16/18 18:15 Active IV ASDIRECTED Sodium Chloride 0.9% [Normal Saline] 1,000 ml Med 09/16/18 16:30 Active IV STAT Sodium Chloride 0.9% [Saline Flush] Med 09/16/18 16:17 Active 10 ml FLUSH ASDIRECTED PRN Sodium Chloride 0.9% [Saline Flush] Med 09/16/18 16:17 Active 2.5 ml FLUSH ASDIRECTED PRN Temazepam [Restoril] Med 09/16/18 18:14 Active 15 mg PO BEDTIME PRN cefTRIAXone [Rocephin] 1 gm Med 09/16/18 18:30 Active Sodium Chloride 0.9% [Normal Saline] 50 ml IV Q24H methylPREDNISolone Sod Succ [Solu-MEDROL] Med 09/16/18 18:30 Active 125 mg IVPUSH Q8H oxyCODONE Med 09/16/18 18:14 Active 5 mg PO Q4H PRN Blood Culture x2 Reflex Set [OM.PC] Stat Ot 09/16/18 16:17 Ordered Glucose Management Sub Q Reflex [OM.PC] Click To Edit Ot 09/16/18 18:22 Ordered Saline Lock Insert [OM.PC] Stat Ot 09/16/18 16:16 Ordered Sequential Compression Device [OM.PC] Per Unit Routine Ot 09/16/18 18:15 Ordered VTE Pharmacological Contraindications [AST] Per Unit [facility] 09/16/18 18:14 Ordered Routine Resuscitation Status Routine Resus Stat 09/16/18 18:14 Ordered Medication Orders Acetaminophen (Tylenol) 650 mg PO Q4H PRN PRN Reason: Pain (Mild 1-3)/fever Albuterol/Ipratropium (Duoneb 3.0-0.5 Mg/3 Ml) 3 ml NEB Q4HRRT PRN PRN Reason: Shortness Of Breath/wheezing Allopurinol (Zyloprim) 150 mg PO DAILY [facility] Aspirin (Aspirin) 81 mg PO DAILY [facility] Docusate Sodium (Colace) 100 mg PO BID PRN PRN Reason: Constipation Furosemide (Lasix) 80 mg PO DAILY [facility] Sodium Chloride (Normal Saline) 1,000 mls @ 125 mls/hr IV STAT [facility] Last Admin: 09/16/18 16:25 Dose: 125 mls/hr Sodium Chloride (Normal Saline) 1,000 mls @ 75 mls/hr IV ASDIRECTED [facility] Ceftriaxone Sodium 1 gm/ (Sodium Chloride) 50 mls @ 100 mls/hr IV Q24H [facility] Insulin Aspart (Novolog) 0 unit SUBCUT ACBREAKFASTANDBED [facility]; Protocol Methylprednisolone Sodium Succinate (Solu-Medrol) 125 mg IVPUSH Q8H [facility] Non-Formulary Medication (Sitagliptin) 50 mg PO DAILY [facility] Ondansetron HCl (Zofran Odt) 4 mg PO Q6H PRN PRN Reason: nausea, able to take PO Oxycodone HCl (Oxycodone) 5 mg PO Q4H PRN PRN Reason: Pain (moderate 4-6) Sodium Chloride (Saline Flush) 10 ml FLUSH ASDIRECTED PRN PRN Reason: Keep Vein Open Sodium Chloride (Saline Flush) 2.5 ml FLUSH ASDIRECTED PRN PRN Reason: Keep Vein Open Temazepam (Restoril) 15 mg PO BEDTIME PRN PRN Reason: Sleep Assessment/Plan Comment:: The patient is an 87-year-old lady who had been admitted to observation secondary to acute on chronic respiratory failure. The patient's oxygen will be adjusted to help keep her saturations between 90 and 92%. The patient does have a fear of steroids however she will be kept on IV steroids well and acute hospitalization. I've ordered IV Solu-Medrol 125 mg every 8 hours. The patient also be kept on antibiotics consisting of Levaquin 750 mg every 48 hours to her chronic kidney disease. The patient does have an allergy to [place] azithromycin. She also be noted that the patient has been taking aspirin even though this is listed as one of her allergies. I've ordered repeat laboratory studies for the morning. The patient is also in a DO NOT INTUBATE/DO NOT RESUSCITATE category. Patient has been encouraged to ambulate. She also be kept on heart healthy diet as tolerated. The patient will also have DVT prophylaxis with the use of heparin. Repeat laboratory studies have been ordered for the patient as she is known to be anemic with a history of chronic kidney disease stage III. She'll be considered for transfusion if her hemoglobin drops below 7.0 g/dL. Should be appropriate for discharge in 1-2 days depending upon her oxygen demands and her subjective shortness of breath.
[2018-09-16] MEDS ORDERED: cefTRIAXone 1 GM in Sodium Chloride 0.9% 50 ML IV SCH (18:30)
[2018-09-16] MEDS: methylPREDNISolone Sodium Succinate 125 MG/2 ML SDV IVPUSH SCH (19:00)
[2018-09-16] MEDS: Insulin Aspart 100 Units/ML 3 ML Pen SUBCUT SCH (20:30)
[2018-09-17] MEDS: methylPREDNISolone Sodium Succinate 125 MG/2 ML SDV IVPUSH SCH ×3 (03:27→17:40)
[2018-09-17] MEDS: Sodium Chloride 0.9% 1,000 ML IV SCH ×2 (03:29→20:47)
[2018-09-17] MEDS: Insulin Aspart 100 Units/ML 3 ML Pen SUBCUT SCH ×4 (07:55→20:45)
[2018-09-17] MEDS: Furosemide 40 MG Tab PO SCH (08:01)
[2018-09-17] MEDS: Aspirin 81 MG Tab.Chew PO SCH (08:02)
[2018-09-17] MEDS: Allopurinol 300 MG Tab PO SCH (08:02)
[2018-09-17] MEDS ORDERED: SITAGLIPTIN 50 MG PO SCH (09:00)
--- NOTE | 2018-09-17 10:08 | PCM.DCSUM1 ---
Addendum entered and electronically signed by Jermaine Sandoval MD 09/17/18 10:15: Discharge Summary - Hospital Course Free Text/Narrative:: Addendum: Patient desaturated on walk test to 79% on 4L O2 via NC so she was not discharged on 09/17/2018. Please see progress note for this date. - Discharge Data Discharge Date: 09/17/18 Discharge Disposition: Home, W Home Health Agency 06 Condition: Stable - Patient Instructions Diet: Usual Diet as Tolerated Activity: As Tolerated Notify Provider of: Fever, Swelling and Redness, Nausea and/or Vomiting Other/Special Instructions: shortness of breath - Discharge Plan Prescriptions/Med Rec: cephALEXin [Keflex] 500 mg PO Q12H 5 Days #10 cap Pantoprazole Sodium [Protonix] 40 mg PO DAILY 5 Days #5 tablet. predniSONE [Prednisone] 40 mg PO DAILY 4 Days #8 tablet Home Medications: Home Meds Albuterol/Ipratropium [DuoNeb 3.0-0.5 MG/3 ML] 3 ml INH QID 07/24/14 [History] Allopurinol [Zyloprim] 150 mg PO DAILY 07/24/14 [History] Aspirin [[place]ding Aspirin] 81 mg PO DAILY 07/24/14 [History] Cholecalciferol (Vitamin D3) [Vitamin D3] 1,000 unit PO DAILY 07/24/14 [History] EPINEPHrine [Epinephrine] 0.3 mg IJ ONETIME 07/24/14 [History] Furosemide 80 mg PO DAILY 07/24/14 [History] Rosuvastatin [Crestor] 5 mg PO BEDTIME 07/24/14 [History] SitaGLIPtin [Januvia] 50 mg PO DAILY 07/24/14 [History] Calcitriol 0.25 mcg PO WEEKLY 08/30/18 [History] Cyanocobalamin (Vitamin B-12) [B-12] 1,000 mcg PO DAILY 08/30/18 [History] Ferrous Sulfate 325 mg PO BID 08/30/18 [History] Fluticasone Propion/Salmeterol [Fluticasone-Salmeterol 250-50] 1 each IH BID [History] levoFLOXacin [Levaquin] 750 mg PO Q48H #2 tab 09/02/18 [Rx] predniSONE [Prednisone] 10 mg PO DAILY #30 tablet 09/02/18 [Rx] Pantoprazole Sodium [Protonix] 40 mg PO DAILY 5 Days #5 tablet. 09/17/18 [Rx] cephALEXin [Keflex] 500 mg PO Q12H 5 Days #10 cap 09/17/18 [Rx] predniSONE [Prednisone] 40 mg PO DAILY 4 Days #8 tablet 09/17/18 [Rx] Patient Handouts: Chronic Obstructive Pulmonary Disease Exacerbation, Easy-to- Read, Prednisolone tablets, Cephalexin tablets or capsules, Pantoprazole tablets Referrals: Tyler Graves MD [Physician] - 09/28/18 10:00 am PCP,None [Primary Care Provider] - - Discharge Summary/Plan Comment DC Time >30 min.: No - Patient Data Vitals - Most Recent: Last Vital Signs Temp 36.5 C 09/17/18 07:37 Pulse 79 09/17/18 07:37 Resp 18 09/17/18 07:37 BP 122/58 L 09/17/18 07:37 Pulse Ox 96 09/17/18 07:37 Weight - Most Recent: 95.254 kg I&O - Last 24 hours: Intake & Output 09/16/18 09/17/18 09/17/18 22:59 06:59 14:59 Intake Total 400 200 Output Total 900 Balance -500 200 Lab Results - Last 24 hrs: Laboratory Results - last 24 hr 09/16/18 09/16/18 09/16/18 Range/Units 16:15 16:15 16:15 WBC 5.53 (4.0-11.0) K/uL RBC 2.66 L (4.30-5.90) M/uL Hgb 8.6 L (12.0-16.0) g/dL Hct 27.1 L (36.0-46.0) % MCV 101.9 H (80.0-98.0) fL MCH 32.3 H (27.0-32.0) pg MCHC 31.7 (31.0-37.0) g/dL RDW Std Deviation 53.7 (28.0-62.0) fl RDW Coeff of Lai 14 (11.0-15.0) % Plt Count 77 L (150-400) K/uL MPV 11.40 (7.40-12.00) fL Neut % (Auto) 79.7 (48.0-80.0) % Lymph % (Auto) 6.5 L (16.0-40.0) % Bailey % (Auto) 10.7 (0.0-15.0) % Eos % (Auto) 2.9 (0.0-7.0) % Baso % (Auto) 0.2 (0.0-1.5) % Neut # (Auto) 4.4 (1.4-5.7) K/uL Lymph # (Auto) 0.4 L (0.6-2.4) K/uL Bailey # (Auto) 0.6 (0.0-0.8) K/uL Eos # (Auto) 0.2 (0.0-0.7) K/uL Baso # (Auto) 0.0 (0.0-0.1) K/uL Nucleated RBC % 0.0 /100WBC Nucleated RBCs # 0 K/uL INR 0.98 Sodium 143 (136-145) mmol/L Potassium 3.6 (3.5-5.1) mmol/L Chloride 106 (98-107) mmol/L Carbon Dioxide 27.4 (21.0-32.0) mmol/L BUN 68 H (7.0-18.0) mg/dL Creatinine 2.7 H (0.6-1.0) mg/dL Est Cr Clr Drug Dosing 14.54 mL/min Estimated GFR (MDRD) 16.7 ml/min Glucose 182 H (74-106) mg/dL POC Glucose (60-110) mg/dL Calcium 9.5 (8.5-10.1) mg/dL Magnesium (1.8-2.4) mg/dL Total Bilirubin 0.6 (0.2-1.0) mg/dL AST 20 (15-37) IU/L ALT 26 (14-63) IU/L Alkaline Phosphatase 70 (46-116) U/L Troponin I < 0.050 (0.000-0.056) ng/mL B-Natriuretic Peptide (<100) PG/ML Total Protein 6.1 L (6.4-8.2) g/dL Albumin 3.0 L (3.4-5.0) g/dL Globulin 3.1 (2.6-4.0) g/dL Albumin/Globulin Ratio 1.0 (0.9-1.6) Urine Color Urine Appearance Urine pH (5.0-8.0) Ur Specific Cushing (1.001-1.035) Urine Protein (NEGATIVE) mg/dL Urine Glucose (UA) (NEGATIVE) mg/dL Urine Ketones (NEGATIVE) mg/dL Urine Occult Blood (NEGATIVE) Urine Nitrite (NEGATIVE) Urine Bilirubin (NEGATIVE) Urine Urobilinogen (<2.0) EU/dL Ur Leukocyte Esterase (NEGATIVE) Urine RBC (0-2/HPF) Urine WBC (0-5/HPF) Ur Epithelial Cells (NONE-FEW) Urine Bacteria (NEGATIVE) Urine Mucus (NONE-MOD) 09/16/18 09/16/18 09/16/18 Range/Units 16:15 17:09 18:56 WBC (4.0-11.0) K/uL RBC (4.30-5.90) M/uL Hgb (12.0-16.0) g/dL Hct (36.0-46.0) % MCV (80.0-98.0) fL MCH (27.0-32.0) pg MCHC (31.0-37.0) g/dL RDW Std Deviation (28.0-62.0) fl RDW Coeff of Lai (11.0-15.0) % Plt Count (150-400) K/uL MPV (7.40-12.00) fL Neut % (Auto) (48.0-80.0) % Lymph % (Auto) (16.0-40.0) % Bailey % (Auto) (0.0-15.0) % Eos % (Auto) (0.0-7.0) % Baso % (Auto) (0.0-1.5) % Neut # (Auto) (1.4-5.7) K/uL Lymph # (Auto) (0.6-2.4) K/uL Bailey # (Auto) (0.0-0.8) K/uL Eos # (Auto) (0.0-0.7) K/uL Baso # (Auto) (0.0-0.1) K/uL Nucleated RBC % /100WBC Nucleated RBCs # K/uL INR Sodium (136-145) mmol/L Potassium (3.5-5.1) mmol/L Chloride (98-107) mmol/L Carbon Dioxide (21.0-32.0) mmol/L BUN (7.0-18.0) mg/dL Creatinine (0.6-1.0) mg/dL Est Cr Clr Drug Dosing mL/min Estimated GFR (MDRD) ml/min Glucose (74-106) mg/dL POC Glucose (60-110) mg/dL Calcium (8.5-10.1) mg/dL Magnesium 2.3 (1.8-2.4) mg/dL Total Bilirubin (0.2-1.0) mg/dL AST (15-37) IU/L ALT (14-63) IU/L Alkaline Phosphatase (46-116) U/L Troponin I (0.000-0.056) ng/mL B-Natriuretic Peptide 54 (<100) PG/ML Total Protein (6.4-8.2) g/dL Albumin (3.4-5.0) g/dL Globulin (2.6-4.0) g/dL Albumin/Globulin Ratio (0.9-1.6) Urine Color YELLOW Urine Appearance CLEAR Urine pH 5.5 (5.0-8.0) Ur Specific Cushing 1.010 (1.001-1.035) Urine Protein NEGATIVE (NEGATIVE) mg/dL Urine Glucose (UA) NEGATIVE (NEGATIVE) mg/dL Urine Ketones NEGATIVE (NEGATIVE) mg/dL Urine Occult Blood TRACE-LYSED H (NEGATIVE) Urine Nitrite POSITIVE H (NEGATIVE) Urine Bilirubin NEGATIVE (NEGATIVE) Urine Urobilinogen 0.2 (<2.0) EU/dL Ur Leukocyte Esterase MODERATE H (NEGATIVE) Urine RBC 0-2 (0-2/HPF) Urine WBC 8-10 (0-5/HPF) Ur Epithelial Cells RARE (NONE-FEW) Urine Bacteria 2+ H (NEGATIVE) Urine Mucus FEW (NONE-MOD) 09/16/18 09/17/18 09/17/18 Range/Units 20:23 05:59 05:59 WBC 2.18 L (4.0-11.0) K/uL RBC 2.43 L (4.30-5.90) M/uL Hgb 7.7 L (12.0-16.0) g/dL Hct 24.7 L (36.0-46.0) % MCV 101.6 H (80.0-98.0) fL MCH 31.7 (27.0-32.0) pg MCHC 31.2 (31.0-37.0) g/dL RDW Std Deviation 52.2 (28.0-62.0) fl RDW Coeff of Lai 14 (11.0-15.0) % Plt Count 72 L (150-400) K/uL MPV 11.10 (7.40-12.00) fL Neut % (Auto) 92.2 H (48.0-80.0) % Lymph % (Auto) 6.9 L (16.0-40.0) % Bailey % (Auto) 0.9 (0.0-15.0) % Eos % (Auto) 0.0 (0.0-7.0) % Baso % (Auto) 0.0 (0.0-1.5) % Neut # (Auto) 2.0 (1.4-5.7) K/uL Lymph # (Auto) 0.2 L (0.6-2.4) K/uL Bailey # (Auto) 0.0 (0.0-0.8) K/uL Eos # (Auto) 0.0 (0.0-0.7) K/uL Baso # (Auto) 0.0 (0.0-0.1) K/uL Nucleated RBC % 0.0 /100WBC Nucleated RBCs # 0 K/uL INR Sodium 147 H (136-145) mmol/L Potassium 3.8 (3.5-5.1) mmol/L Chloride 109 H (98-107) mmol/L Carbon Dioxide 29.6 (21.0-32.0) mmol/L BUN 64 H (7.0-18.0) mg/dL Creatinine 2.8 H (0.6-1.0) mg/dL Est Cr Clr Drug Dosing 14.03 mL/min Estimated GFR (MDRD) 16.0 ml/min Glucose 200 H (74-106) mg/dL POC Glucose 186 H (60-110) mg/dL Calcium 9.0 (8.5-10.1) mg/dL Magnesium (1.8-2.4) mg/dL Total Bilirubin (0.2-1.0) mg/dL AST (15-37) IU/L ALT (14-63) IU/L Alkaline Phosphatase (46-116) U/L Troponin I (0.000-0.056) ng/mL B-Natriuretic Peptide (<100) PG/ML Total Protein (6.4-8.2) g/dL Albumin (3.4-5.0) g/dL Globulin (2.6-4.0) g/dL Albumin/Globulin Ratio (0.9-1.6) Urine Color Urine Appearance Urine pH (5.0-8.0) Ur Specific Cushing (1.001-1.035) Urine Protein (NEGATIVE) mg/dL Urine Glucose (UA) (NEGATIVE) mg/dL Urine Ketones (NEGATIVE) mg/dL Urine Occult Blood (NEGATIVE) Urine Nitrite (NEGATIVE) Urine Bilirubin (NEGATIVE) Urine Urobilinogen (<2.0) EU/dL Ur Leukocyte Esterase (NEGATIVE) Urine RBC (0-2/HPF) Urine WBC (0-5/HPF) Ur Epithelial Cells (NONE-FEW) Urine Bacteria (NEGATIVE) Urine Mucus (NONE-MOD) 09/17/18 Range/Units 06:37 WBC (4.0-11.0) K/uL RBC (4.30-5.90) M/uL Hgb (12.0-16.0) g/dL Hct (36.0-46.0) % MCV (80.0-98.0) fL MCH (27.0-32.0) pg MCHC (31.0-37.0) g/dL RDW Std Deviation (28.0-62.0) fl RDW Coeff of Lai (11.0-15.0) % Plt Count (150-400) K/uL MPV (7.40-12.00) fL Neut % (Auto) (48.0-80.0) % Lymph % (Auto) (16.0-40.0) % Bailey % (Auto) (0.0-15.0) % Eos % (Auto) (0.0-7.0) % Baso % (Auto) (0.0-1.5) % Neut # (Auto) (1.4-5.7) K/uL Lymph # (Auto) (0.6-2.4) K/uL Bailey # (Auto) (0.0-0.8) K/uL Eos # (Auto) (0.0-0.7) K/uL Baso # (Auto) (0.0-0.1) K/uL Nucleated RBC % /100WBC Nucleated RBCs # K/uL INR Sodium (136-145) mmol/L Potassium (3.5-5.1) mmol/L Chloride (98-107) mmol/L Carbon Dioxide (21.0-32.0) mmol/L BUN (7.0-18.0) mg/dL Creatinine (0.6-1.0) mg/dL Est Cr Clr Drug Dosing mL/min Estimated GFR (MDRD) ml/min Glucose (74-106) mg/dL POC Glucose 194 H (60-110) mg/dL Calcium (8.5-10.1) mg/dL Magnesium (1.8-2.4) mg/dL Total Bilirubin (0.2-1.0) mg/dL AST (15-37) IU/L ALT (14-63) IU/L Alkaline Phosphatase (46-116) U/L Troponin I (0.000-0.056) ng/mL B-Natriuretic Peptide (<100) PG/ML Total Protein (6.4-8.2) g/dL Albumin (3.4-5.0) g/dL Globulin (2.6-4.0) g/dL Albumin/Globulin Ratio (0.9-1.6) Urine Color Urine Appearance Urine pH (5.0-8.0) Ur Specific Cushing (1.001-1.035) Urine Protein (NEGATIVE) mg/dL Urine Glucose (UA) (NEGATIVE) mg/dL Urine Ketones (NEGATIVE) mg/dL Urine Occult Blood (NEGATIVE) Urine Nitrite (NEGATIVE) Urine Bilirubin (NEGATIVE) Urine Urobilinogen (<2.0) EU/dL Ur Leukocyte Esterase (NEGATIVE) Urine RBC (0-2/HPF) Urine WBC (0-5/HPF) Ur Epithelial Cells (NONE-FEW) Urine Bacteria (NEGATIVE) Urine Mucus (NONE-MOD) LATOYA Results - Last 24 hrs: Microbiology 09/16/18 17:09 Anaerobic Blood Culture - Final Blood - Venous - Lab Draw 09/16/18 17:03 Anaerobic Blood Culture - Final Blood - Venous Med Orders - Current: Current Medications Acetaminophen (Tylenol) 650 mg PO Q4H PRN PRN Reason: Pain (Mild 1-3)/fever Albuterol/Ipratropium (Duoneb 3.0-0.5 Mg/3 Ml) 3 ml NEB Q4HRRT PRN PRN Reason: Shortness Of Breath/wheezing Allopurinol (Zyloprim) 150 mg PO DAILY [facility] Last Admin: 09/17/18 08:02 Dose: 150 mg Aspirin (Aspirin) 81 mg PO DAILY [facility] Last Admin: 09/17/18 08:02 Dose: 81 mg Docusate Sodium (Colace) 100 mg PO BID PRN PRN Reason: Constipation Furosemide (Lasix) 80 mg PO DAILY [facility] Last Admin: 09/17/18 08:01 Dose: 80 mg Sodium Chloride (Normal Saline) 1,000 mls @ 125 mls/hr IV STAT [facility] Last Admin: 09/17/18 03:29 Dose: 125 mls/hr Sodium Chloride (Normal Saline) 1,000 mls @ 75 mls/hr IV ASDIRECTED [facility] Levofloxacin/Dextrose 750 mg/ (Premix) 150 mls @ 100 mls/hr IV Q48H [facility] Insulin Aspart (Novolog) 0 unit SUBCUT ACBREAKFASTANDBED [facility]; Protocol Last Admin: 09/17/18 07:55 Dose: 2 units Methylprednisolone Sodium Succinate (Solu-Medrol) 125 mg IVPUSH Q8H [facility] Last Admin: 09/17/18 10:01 Dose: 125 mg Ondansetron HCl (Zofran Odt) 4 mg PO Q6H PRN PRN Reason: nausea, able to take PO Oxycodone HCl (Oxycodone) 5 mg PO Q4H PRN PRN Reason: Pain (moderate 4-6) Sodium Chloride (Saline Flush) 10 ml FLUSH ASDIRECTED PRN PRN Reason: Keep Vein Open Sodium Chloride (Saline Flush) 2.5 ml FLUSH ASDIRECTED PRN PRN Reason: Keep Vein Open Temazepam (Restoril) 15 mg PO BEDTIME PRN PRN Reason: Sleep Discontinued Medications Albuterol/Ipratropium (Duoneb 3.0-0.5 Mg/3 Ml) 3 ml NEB ONETIME ONE Stop: 09/16/18 16:25 Last Admin: 09/16/18 16:29 Dose: 3 ml Ceftriaxone Sodium 1 gm/ (Sodium Chloride) 50 mls @ 100 mls/hr IV Q24H [facility] Last Admin: 09/16/18 19:22 Dose: Not Given Ceftriaxone Sodium 1 gm/ (Dextrose/Water) 50 mls @ 100 mls/hr IV Q24H [facility] Last Admin: 09/16/18 20:15 Dose: 100 mls/hr Ceftriaxone Sodium/Dextrose (Rocephin In Dextrose,Iso-Osm 1 Gm/50 Ml) 50 mls @ 200 mls/hr IV Q24H [facility] Last Admin: 09/16/18 19:56 Dose: Not Given Ceftriaxone Sodium/Dextrose 1 (gm/ Premix) 50 mls @ 200 mls/hr IV Q24H [facility] Non-Formulary Medication (Sitagliptin) 50 mg PO DAILY [facility] Last Admin: 09/17/18 08:03 Dose: Not Given Original Note: <Jermaine Sandoval - Last Filed: 09/17/18 10:15> Discharge Summary - Hospital Course Free Text/Narrative:: Admission date: 09/16/2018 Discharge date: 09/17/2018 Admission diagnosis: #1. COPD exacerbation #2. Acute hypoxic respiratory failure #3. Chronic macrocytic anemia #4. CKD #5. UTI Discharge diagnosis: #1. COPD exacerbation - stable #2. Acute hypoxic respiratory failure - improved #3. Chronic macrocytic anemia #4. CKD #5. UTI Disposition: Home with home health agency - Dr. Graves to continue to follow Hospital course: 87F with the history above including o2 dependent COPD presented to the ER with a chief complaint of SOB. She was treated with solumedrol, duonebs and rocephin for her UTI. The next morning, she felt much better from a respiratory standpoint. Labs were unremarkable. She was sent home on PO keflex, prednisone, protonix for GI prophylaxis. Her urine culture will need to be followed up on. - Discharge Data Discharge Date: 09/17/18 Discharge Disposition: Home, W Home Health Agency 06 Condition: Stable - Patient Instructions Diet: Usual Diet as Tolerated Activity: As Tolerated Notify Provider of: Fever, Swelling and Redness, Nausea and/or Vomiting Other/Special Instructions: shortness of breath - Discharge Plan Prescriptions/Med Rec: cephALEXin [Keflex] 500 mg PO Q12H 5 Days #10 cap Pantoprazole Sodium [Protonix] 40 mg PO DAILY 5 Days #5 tablet. predniSONE [Prednisone] 40 mg PO DAILY 4 Days #8 tablet Home Medications: Home Meds Albuterol/Ipratropium [DuoNeb 3.0-0.5 MG/3 ML] 3 ml INH QID 07/24/14 [History] Allopurinol [Zyloprim] 150 mg PO DAILY 07/24/14 [History] Aspirin [[place] Aspirin] 81 mg PO DAILY 07/24/14 [History] Cholecalciferol (Vitamin D3) [Vitamin D3] 1,000 unit PO DAILY 07/24/14 [History] EPINEPHrine [Epinephrine] 0.3 mg IJ ONETIME 07/24/14 [History] Furosemide 80 mg PO DAILY 07/24/14 [History] Rosuvastatin [Crestor] 5 mg PO BEDTIME 07/24/14 [History] SitaGLIPtin [Januvia] 50 mg PO DAILY 07/24/14 [History] Calcitriol 0.25 mcg PO WEEKLY 08/30/18 [History] Cyanocobalamin (Vitamin B-12) [B-12] 1,000 mcg PO DAILY 08/30/18 [History] Ferrous Sulfate 325 mg PO BID 08/30/18 [History] Fluticasone Propion/Salmeterol [Fluticasone-Salmeterol 250-50] 1 each IH BID [History] levoFLOXacin [Levaquin] 750 mg PO Q48H #2 tab 09/02/18 [Rx] predniSONE [Prednisone] 10 mg PO DAILY #30 tablet 09/02/18 [Rx] Pantoprazole Sodium [Protonix] 40 mg PO DAILY 5 Days #5 tablet. 09/17/18 [Rx] cephALEXin [Keflex] 500 mg PO Q12H 5 Days #10 cap 09/17/18 [Rx] predniSONE [Prednisone] 40 mg PO DAILY 4 Days #8 tablet 09/17/18 [Rx] Patient Handouts: Chronic Obstructive Pulmonary Disease Exacerbation, Easy-to- Read, Prednisolone tablets, Cephalexin tablets or capsules, Pantoprazole tablets Referrals: Tyler Graves MD [Physician] - 09/28/18 10:00 am PCP,None [Primary Care Provider] - - Discharge Summary/Plan Comment DC Time >30 min.: No - Patient Data Vitals - Most Recent: Last Vital Signs Temp 36.5 C 09/17/18 07:37 Pulse 79 09/17/18 07:37 Resp 18 09/17/18 07:37 BP 122/58 L 09/17/18 07:37 Pulse Ox 96 09/17/18 07:37 Weight - Most Recent: 95.254 kg I&O - Last 24 hours: Intake & Output 09/16/18 09/17/18 09/17/18 22:59 06:59 14:59 Intake Total 400 200 Output Total 900 Balance -500 200 Lab Results - Last 24 hrs: Laboratory Results - last 24 hr 09/16/18 09/16/18 09/16/18 Range/Units 16:15 16:15 16:15 WBC 5.53 (4.0-11.0) K/uL RBC 2.66 L (4.30-5.90) M/uL Hgb 8.6 L (12.0-16.0) g/dL Hct 27.1 L (36.0-46.0) % MCV 101.9 H (80.0-98.0) fL MCH 32.3 H (27.0-32.0) pg MCHC 31.7 (31.0-37.0) g/dL RDW Std Deviation 53.7 (28.0-62.0) fl RDW Coeff of Lai 14 (11.0-15.0) % Plt Count 77 L (150-400) K/uL MPV 11.40 (7.40-12.00) fL Neut % (Auto) 79.7 (48.0-80.0) % Lymph % (Auto) 6.5 L (16.0-40.0) % Bailey % (Auto) 10.7 (0.0-15.0) % Eos % (Auto) 2.9 (0.0-7.0) % Baso % (Auto) 0.2 (0.0-1.5) % Neut # (Auto) 4.4 (1.4-5.7) K/uL Lymph # (Auto) 0.4 L (0.6-2.4) K/uL Bailey # (Auto) 0.6 (0.0-0.8) K/uL Eos # (Auto) 0.2 (0.0-0.7) K/uL Baso # (Auto) 0.0 (0.0-0.1) K/uL Nucleated RBC % 0.0 /100WBC Nucleated RBCs # 0 K/uL INR 0.98 Sodium 143 (136-145) mmol/L Potassium 3.6 (3.5-5.1) mmol/L Chloride 106 (98-107) mmol/L Carbon Dioxide 27.4 (21.0-32.0) mmol/L BUN 68 H (7.0-18.0) mg/dL Creatinine 2.7 H (0.6-1.0) mg/dL Est Cr Clr Drug Dosing 14.54 mL/min Estimated GFR (MDRD) 16.7 ml/min Glucose 182 H (74-106) mg/dL POC Glucose (60-110) mg/dL Calcium 9.5 (8.5-10.1) mg/dL Magnesium (1.8-2.4) mg/dL Total Bilirubin 0.6 (0.2-1.0) mg/dL AST 20 (15-37) IU/L ALT 26 (14-63) IU/L Alkaline Phosphatase 70 (46-116) U/L Troponin I < 0.050 (0.000-0.056) ng/mL B-Natriuretic Peptide (<100) PG/ML Total Protein 6.1 L (6.4-8.2) g/dL Albumin 3.0 L (3.4-5.0) g/dL Globulin 3.1 (2.6-4.0) g/dL Albumin/Globulin Ratio 1.0 (0.9-1.6) Urine Color Urine Appearance Urine pH (5.0-8.0) Ur Specific Cushing (1.001-1.035) Urine Protein (NEGATIVE) mg/dL Urine Glucose (UA) (NEGATIVE) mg/dL Urine Ketones (NEGATIVE) mg/dL Urine Occult Blood (NEGATIVE) Urine Nitrite (NEGATIVE) Urine Bilirubin (NEGATIVE) Urine Urobilinogen (<2.0) EU/dL Ur Leukocyte Esterase (NEGATIVE) Urine RBC (0-2/HPF) Urine WBC (0-5/HPF) Ur Epithelial Cells (NONE-FEW) Urine Bacteria (NEGATIVE) Urine Mucus (NONE-MOD) 09/16/18 09/16/18 09/16/18 Range/Units 16:15 17:09 18:56 WBC (4.0-11.0) K/uL RBC (4.30-5.90) M/uL Hgb (12.0-16.0) g/dL Hct (36.0-46.0) % MCV (80.0-98.0) fL MCH (27.0-32.0) pg MCHC (31.0-37.0) g/dL RDW Std Deviation (28.0-62.0) fl RDW Coeff of Lai (11.0-15.0) % Plt Count (150-400) K/uL MPV (7.40-12.00) fL Neut % (Auto) (48.0-80.0) % Lymph % (Auto) (16.0-40.0) % Bailey % (Auto) (0.0-15.0) % Eos % (Auto) (0.0-7.0) % Baso % (Auto) (0.0-1.5) % Neut # (Auto) (1.4-5.7) K/uL Lymph # (Auto) (0.6-2.4) K/uL Bailey # (Auto) (0.0-0.8) K/uL Eos # (Auto) (0.0-0.7) K/uL Baso # (Auto) (0.0-0.1) K/uL Nucleated RBC % /100WBC Nucleated RBCs # K/uL INR Sodium (136-145) mmol/L Potassium (3.5-5.1) mmol/L Chloride (98-107) mmol/L Carbon Dioxide (21.0-32.0) mmol/L BUN (7.0-18.0) mg/dL Creatinine (0.6-1.0) mg/dL Est Cr Clr Drug Dosing mL/min Estimated GFR (MDRD) ml/min Glucose (74-106) mg/dL POC Glucose (60-110) mg/dL Calcium (8.5-10.1) mg/dL Magnesium 2.3 (1.8-2.4) mg/dL Total Bilirubin (0.2-1.0) mg/dL AST (15-37) IU/L ALT (14-63) IU/L Alkaline Phosphatase (46-116) U/L Troponin I (0.000-0.056) ng/mL B-Natriuretic Peptide 54 (<100) PG/ML Total Protein (6.4-8.2) g/dL Albumin (3.4-5.0) g/dL Globulin (2.6-4.0) g/dL Albumin/Globulin Ratio (0.9-1.6) Urine Color YELLOW Urine Appearance CLEAR Urine pH 5.5 (5.0-8.0) Ur Specific Cushing 1.010 (1.001-1.035) Urine Protein NEGATIVE (NEGATIVE) mg/dL Urine Glucose (UA) NEGATIVE (NEGATIVE) mg/dL Urine Ketones NEGATIVE (NEGATIVE) mg/dL Urine Occult Blood TRACE-LYSED H (NEGATIVE) Urine Nitrite POSITIVE H (NEGATIVE) Urine Bilirubin NEGATIVE (NEGATIVE) Urine Urobilinogen 0.2 (<2.0) EU/dL Ur Leukocyte Esterase MODERATE H (NEGATIVE) Urine RBC 0-2 (0-2/HPF) Urine WBC 8-10 (0-5/HPF) Ur Epithelial Cells RARE (NONE-FEW) Urine Bacteria 2+ H (NEGATIVE) Urine Mucus FEW (NONE-MOD) 09/16/18 09/17/18 09/17/18 Range/Units 20:23 05:59 05:59 WBC 2.18 L (4.0-11.0) K/uL RBC 2.43 L (4.30-5.90) M/uL Hgb 7.7 L (12.0-16.0) g/dL Hct 24.7 L (36.0-46.0) % MCV 101.6 H (80.0-98.0) fL MCH 31.7 (27.0-32.0) pg MCHC 31.2 (31.0-37.0) g/dL RDW Std Deviation 52.2 (28.0-62.0) fl RDW Coeff of Lai 14 (11.0-15.0) % Plt Count 72 L (150-400) K/uL MPV 11.10 (7.40-12.00) fL Neut % (Auto) 92.2 H (48.0-80.0) % Lymph % (Auto) 6.9 L (16.0-40.0) % Bailey % (Auto) 0.9 (0.0-15.0) % Eos % (Auto) 0.0 (0.0-7.0) % Baso % (Auto) 0.0 (0.0-1.5) % Neut # (Auto) 2.0 (1.4-5.7) K/uL Lymph # (Auto) 0.2 L (0.6-2.4) K/uL Bailey # (Auto) 0.0 (0.0-0.8) K/uL Eos # (Auto) 0.0 (0.0-0.7) K/uL Baso # (Auto) 0.0 (0.0-0.1) K/uL Nucleated RBC % 0.0 /100WBC Nucleated RBCs # 0 K/uL INR Sodium 147 H (136-145) mmol/L Potassium 3.8 (3.5-5.1) mmol/L Chloride 109 H (98-107) mmol/L Carbon Dioxide 29.6 (21.0-32.0) mmol/L BUN 64 H (7.0-18.0) mg/dL Creatinine 2.8 H (0.6-1.0) mg/dL Est Cr Clr Drug Dosing 14.03 mL/min Estimated GFR (MDRD) 16.0 ml/min Glucose 200 H (74-106) mg/dL POC Glucose 186 H (60-110) mg/dL Calcium 9.0 (8.5-10.1) mg/dL Magnesium (1.8-2.4) mg/dL Total Bilirubin (0.2-1.0) mg/dL AST (15-37) IU/L ALT (14-63) IU/L Alkaline Phosphatase (46-116) U/L Troponin I (0.000-0.056) ng/mL B-Natriuretic Peptide (<100) PG/ML Total Protein (6.4-8.2) g/dL Albumin (3.4-5.0) g/dL Globulin (2.6-4.0) g/dL Albumin/Globulin Ratio (0.9-1.6) Urine Color Urine Appearance Urine pH (5.0-8.0) Ur Specific Cushing (1.001-1.035) Urine Protein (NEGATIVE) mg/dL Urine Glucose (UA) (NEGATIVE) mg/dL Urine Ketones (NEGATIVE) mg/dL Urine Occult Blood (NEGATIVE) Urine Nitrite (NEGATIVE) Urine Bilirubin (NEGATIVE) Urine Urobilinogen (<2.0) EU/dL Ur Leukocyte Esterase (NEGATIVE) Urine RBC (0-2/HPF) Urine WBC (0-5/HPF) Ur Epithelial Cells (NONE-FEW) Urine Bacteria (NEGATIVE) Urine Mucus (NONE-MOD) 09/17/18 Range/Units 06:37 WBC (4.0-11.0) K/uL RBC (4.30-5.90) M/uL Hgb (12.0-16.0) g/dL Hct (36.0-46.0) % MCV (80.0-98.0) fL MCH (27.0-32.0) pg MCHC (31.0-37.0) g/dL RDW Std Deviation (28.0-62.0) fl RDW Coeff of Lai (11.0-15.0) % Plt Count (150-400) K/uL MPV (7.40-12.00) fL Neut % (Auto) (48.0-80.0) % Lymph % (Auto) (16.0-40.0) % Bailey % (Auto) (0.0-15.0) % Eos % (Auto) (0.0-7.0) % Baso % (Auto) (0.0-1.5) % Neut # (Auto) (1.4-5.7) K/uL Lymph # (Auto) (0.6-2.4) K/uL Bailey # (Auto) (0.0-0.8) K/uL Eos # (Auto) (0.0-0.7) K/uL Baso # (Auto) (0.0-0.1) K/uL Nucleated RBC % /100WBC Nucleated RBCs # K/uL INR Sodium (136-145) mmol/L Potassium (3.5-5.1) mmol/L Chloride (98-107) mmol/L Carbon Dioxide (21.0-32.0) mmol/L BUN (7.0-18.0) mg/dL Creatinine (0.6-1.0) mg/dL Est Cr Clr Drug Dosing mL/min Estimated GFR (MDRD) ml/min Glucose (74-106) mg/dL POC Glucose 194 H (60-110) mg/dL Calcium (8.5-10.1) mg/dL Magnesium (1.8-2.4) mg/dL Total Bilirubin (0.2-1.0) mg/dL AST (15-37) IU/L ALT (14-63) IU/L Alkaline Phosphatase (46-116) U/L Troponin I (0.000-0.056) ng/mL B-Natriuretic Peptide (<100) PG/ML Total Protein (6.4-8.2) g/dL Albumin (3.4-5.0) g/dL Globulin (2.6-4.0) g/dL Albumin/Globulin Ratio (0.9-1.6) Urine Color Urine Appearance Urine pH (5.0-8.0) Ur Specific Cushing (1.001-1.035) Urine Protein (NEGATIVE) mg/dL Urine Glucose (UA) (NEGATIVE) mg/dL Urine Ketones (NEGATIVE) mg/dL Urine Occult Blood (NEGATIVE) Urine Nitrite (NEGATIVE) Urine Bilirubin (NEGATIVE) Urine Urobilinogen (<2.0) EU/dL Ur Leukocyte Esterase (NEGATIVE) Urine RBC (0-2/HPF) Urine WBC (0-5/HPF) Ur Epithelial Cells (NONE-FEW) Urine Bacteria (NEGATIVE) Urine Mucus (NONE-MOD) [facility] Results - Last 24 hrs: Microbiology 09/16/18 17:09 Anaerobic Blood Culture - Final Blood - Venous - Lab Draw 09/16/18 17:03 Anaerobic Blood Culture - Final Blood - Venous Med Orders - Current: Current Medications Acetaminophen (Tylenol) 650 mg PO Q4H PRN PRN Reason: Pain (Mild 1-3)/fever Albuterol/Ipratropium (Duoneb 3.0-0.5 Mg/3 Ml) 3 ml NEB Q4HRRT PRN PRN Reason: Shortness Of Breath/wheezing Allopurinol (Zyloprim) 150 mg PO DAILY [facility] Last Admin: 09/17/18 08:02 Dose: 150 mg Aspirin (Aspirin) 81 mg PO DAILY [facility] Last Admin: 09/17/18 08:02 Dose: 81 mg Docusate Sodium (Colace) 100 mg PO BID PRN PRN Reason: Constipation Furosemide (Lasix) 80 mg PO DAILY [facility] Last Admin: 09/17/18 08:01 Dose: 80 mg Sodium Chloride (Normal Saline) 1,000 mls @ 125 mls/hr IV STAT [facility] Last Admin: 09/17/18 03:29 Dose: 125 mls/hr Sodium Chloride (Normal Saline) 1,000 mls @ 75 mls/hr IV ASDIRECTED [facility] Ceftriaxone Sodium/Dextrose 1 (gm/ Premix) 50 mls @ 200 mls/hr IV Q24H [facility] Insulin Aspart (Novolog) 0 unit SUBCUT ACBREAKFASTANDBED [facility]; Protocol Last Admin: 09/17/18 07:55 Dose: 2 units Methylprednisolone Sodium Succinate (Solu-Medrol) 125 mg IVPUSH Q8H [facility] Last Admin: 09/17/18 10:01 Dose: 125 mg Ondansetron HCl (Zofran Odt) 4 mg PO Q6H PRN PRN Reason: nausea, able to take PO Oxycodone HCl (Oxycodone) 5 mg PO Q4H PRN PRN Reason: Pain (moderate 4-6) Sodium Chloride (Saline Flush) 10 ml FLUSH ASDIRECTED PRN PRN Reason: Keep Vein Open Sodium Chloride (Saline Flush) 2.5 ml FLUSH ASDIRECTED PRN PRN Reason: Keep Vein Open Temazepam (Restoril) 15 mg PO BEDTIME PRN PRN Reason: Sleep Discontinued Medications Albuterol/Ipratropium (Duoneb 3.0-0.5 Mg/3 Ml) 3 ml NEB ONETIME ONE Stop: 09/16/18 16:25 Last Admin: 09/16/18 16:29 Dose: 3 ml Ceftriaxone Sodium 1 gm/ (Sodium Chloride) 50 mls @ 100 mls/hr IV Q24H [facility] Last Admin: 09/16/18 19:22 Dose: Not Given Ceftriaxone Sodium 1 gm/ (Dextrose/Water) 50 mls @ 100 mls/hr IV Q24H [facility] Last Admin: 09/16/18 20:15 Dose: 100 mls/hr Ceftriaxone Sodium/Dextrose (Rocephin In Dextrose,Iso-Osm 1 Gm/50 Ml) 50 mls @ 200 mls/hr IV Q24H [facility] Last Admin: 09/16/18 19:56 Dose: Not Given Non-Formulary Medication (Sitagliptin) 50 mg PO DAILY [facility] Last Admin: 09/17/18 08:03 Dose: Not Given *Q Meaningful Use (DIS) - VTE *Q VTE Pharmacological Contraindications *Q: Thrombocytopenia <Layo Salinas - Last Filed: 09/17/18 12:33> Discharge Summary - Hospital Course HPI Initial Comments: I have seen and examined to patient independently of medical laboratory technologist, Jermaine Sandoval MD. I have discussed the case for care of this patient with him. I have reviewed and approve of the plan of care as outlined by medical laboratory technologist.. Please see orders. - Discharge Diagnosis/Problem(s) (1) Acute and chronic respiratory failure SNOMED Code(s): 80557557 ICD Code: J96.20 - ACUTE AND CHR RESP FAILURE, UNSP W HYPOXIA OR HYPERCAPNIA Status: Acute Priority: High Current Visit: Yes Qualifiers: Respiratory failure complication: hypoxia Qualified Code(s): J96.21 - Acute and chronic respiratory failure with hypoxia (2) COPD (chronic obstructive pulmonary disease) SNOMED Code(s): 94019769 ICD Code: J44.9 - CHRONIC OBSTRUCTIVE PULMONARY DISEASE, UNSPECIFIED Status : Chronic Priority: High Current Visit: Yes Qualifiers: COPD type: chronic bronchitis Chronic bronchitis type: unspecified Qualified Code(s): J42 - Unspecified chronic bronchitis (3) Dyspnea SNOMED Code(s): 679801730 ICD Code: R06.00 - DYSPNEA, UNSPECIFIED Status: Acute Priority: High Current Visit: Yes Qualifiers: Dyspnea type: shortness of breath Qualified Code(s): R06.02 - Shortness of breath; R06.00 - Dyspnea, unspecified; R06.01 - Orthopnea (4) CKD (chronic kidney disease) SNOMED Code(s): 965828301 ICD Code: N18.9 - CHRONIC KIDNEY DISEASE, UNSPECIFIED Status: Chronic Priority: High Current Visit: Yes Qualifiers: Chronic kidney disease stage: stage 3 (moderate) Qualified Code(s): N18.3 - Chronic kidney disease, stage 3 (moderate) (5) Anemia SNOMED Code(s): 990368623 ICD Code: D64.9 - ANEMIA, UNSPECIFIED Status: Acute Current Visit: Yes Qualifiers: Anemia type: due to chronic kidney disease Chronic kidney disease stage: stage 3 (moderate) Qualified Code(s): N18.3 - Chronic kidney disease, stage 3 (moderate); D63.1 - Anemia in chronic kidney disease - Patient Data Vitals - Most Recent: Last Vital Signs Temp 36.5 C 09/17/18 07:37 Pulse 79 09/17/18 07:37 Resp 18 09/17/18 07:37 BP 122/58 L 09/17/18 07:37 Pulse Ox 92 L 09/17/18 10:19 I&O - Last 24 hours: Intake & Output 09/16/18 09/17/18 09/17/18 22:59 06:59 14:59 Intake Total 400 200 Output Total 900 Balance -500 200 Lab Results - Last 24 hrs: Laboratory Results - last 24 hr 09/16/18 09/16/18 09/16/18 Range/Units 16:15 16:15 16:15 WBC 5.53 (4.0-11.0) K/uL RBC 2.66 L (4.30-5.90) M/uL Hgb 8.6 L (12.0-16.0) g/dL Hct 27.1 L (36.0-46.0) % MCV 101.9 H (80.0-98.0) fL MCH 32.3 H (27.0-32.0) pg MCHC 31.7 (31.0-37.0) g/dL RDW Std Deviation 53.7 (28.0-62.0) fl RDW Coeff of Lai 14 (11.0-15.0) % Plt Count 77 L (150-400) K/uL MPV 11.40 (7.40-12.00) fL Neut % (Auto) 79.7 (48.0-80.0) % Lymph % (Auto) 6.5 L (16.0-40.0) % Bailey % (Auto) 10.7 (0.0-15.0) % Eos % (Auto) 2.9 (0.0-7.0) % Baso % (Auto) 0.2 (0.0-1.5) % Neut # (Auto) 4.4 (1.4-5.7) K/uL Lymph # (Auto) 0.4 L (0.6-2.4) K/uL Bailey # (Auto) 0.6 (0.0-0.8) K/uL Eos # (Auto) 0.2 (0.0-0.7) K/uL Baso # (Auto) 0.0 (0.0-0.1) K/uL Nucleated RBC % 0.0 /100WBC Nucleated RBCs # 0 K/uL INR 0.98 Sodium 143 (136-145) mmol/L Potassium 3.6 (3.5-5.1) mmol/L Chloride 106 (98-107) mmol/L Carbon Dioxide 27.4 (21.0-32.0) mmol/L BUN 68 H (7.0-18.0) mg/dL Creatinine 2.7 H (0.6-1.0) mg/dL Est Cr Clr Drug Dosing 14.54 mL/min Estimated GFR (MDRD) 16.7 ml/min Glucose 182 H (74-106) mg/dL POC Glucose (60-110) mg/dL Calcium 9.5 (8.5-10.1) mg/dL Magnesium (1.8-2.4) mg/dL Total Bilirubin 0.6 (0.2-1.0) mg/dL AST 20 (15-37) IU/L ALT 26 (14-63) IU/L Alkaline Phosphatase 70 (46-116) U/L Troponin I < 0.050 (0.000-0.056) ng/mL B-Natriuretic Peptide (<100) PG/ML Total Protein 6.1 L (6.4-8.2) g/dL Albumin 3.0 L (3.4-5.0) g/dL Globulin 3.1 (2.6-4.0) g/dL Albumin/Globulin Ratio 1.0 (0.9-1.6) Urine Color Urine Appearance Urine pH (5.0-8.0) Ur Specific Cushing (1.001-1.035) Urine Protein (NEGATIVE) mg/dL Urine Glucose (UA) (NEGATIVE) mg/dL Urine Ketones (NEGATIVE) mg/dL Urine Occult Blood (NEGATIVE) Urine Nitrite (NEGATIVE) Urine Bilirubin (NEGATIVE) Urine Urobilinogen (<2.0) EU/dL Ur Leukocyte Esterase (NEGATIVE) Urine RBC (0-2/HPF) Urine WBC (0-5/HPF) Ur Epithelial Cells (NONE-FEW) Urine Bacteria (NEGATIVE) Urine Mucus (NONE-MOD) 09/16/18 09/16/18 09/16/18 Range/Units 16:15 17:09 18:56 WBC (4.0-11.0) K/uL RBC (4.30-5.90) M/uL Hgb (12.0-16.0) g/dL Hct (36.0-46.0) % MCV (80.0-98.0) fL MCH (27.0-32.0) pg MCHC (31.0-37.0) g/dL RDW Std Deviation (28.0-62.0) fl RDW Coeff of Lai (11.0-15.0) % Plt Count (150-400) K/uL MPV (7.40-12.00) fL Neut % (Auto) (48.0-80.0) % Lymph % (Auto) (16.0-40.0) % Bailey % (Auto) (0.0-15.0) % Eos % (Auto) (0.0-7.0) % Baso % (Auto) (0.0-1.5) % Neut # (Auto) (1.4-5.7) K/uL Lymph # (Auto) (0.6-2.4) K/uL Bailey # (Auto) (0.0-0.8) K/uL Eos # (Auto) (0.0-0.7) K/uL Baso # (Auto) (0.0-0.1) K/uL Nucleated RBC % /100WBC Nucleated RBCs # K/uL INR Sodium (136-145) mmol/L Potassium (3.5-5.1) mmol/L Chloride (98-107) mmol/L Carbon Dioxide (21.0-32.0) mmol/L BUN (7.0-18.0) mg/dL Creatinine (0.6-1.0) mg/dL Est Cr Clr Drug Dosing mL/min Estimated GFR (MDRD) ml/min Glucose (74-106) mg/dL POC Glucose (60-110) mg/dL Calcium (8.5-10.1) mg/dL Magnesium 2.3 (1.8-2.4) mg/dL Total Bilirubin (0.2-1.0) mg/dL AST (15-37) IU/L ALT (14-63) IU/L Alkaline Phosphatase (46-116) U/L Troponin I (0.000-0.056) ng/mL B-Natriuretic Peptide 54 (<100) PG/ML Total Protein (6.4-8.2) g/dL Albumin (3.4-5.0) g/dL Globulin (2.6-4.0) g/dL Albumin/Globulin Ratio (0.9-1.6) Urine Color YELLOW Urine Appearance CLEAR Urine pH 5.5 (5.0-8.0) Ur Specific Cushing 1.010 (1.001-1.035) Urine Protein NEGATIVE (NEGATIVE) mg/dL Urine Glucose (UA) NEGATIVE (NEGATIVE) mg/dL Urine Ketones NEGATIVE (NEGATIVE) mg/dL Urine Occult Blood TRACE-LYSED H (NEGATIVE) Urine Nitrite POSITIVE H (NEGATIVE) Urine Bilirubin NEGATIVE (NEGATIVE) Urine Urobilinogen 0.2 (<2.0) EU/dL Ur Leukocyte Esterase MODERATE H (NEGATIVE) Urine RBC 0-2 (0-2/HPF) Urine WBC 8-10 (0-5/HPF) Ur Epithelial Cells RARE (NONE-FEW) Urine Bacteria 2+ H (NEGATIVE) Urine Mucus FEW (NONE-MOD) 09/16/18 09/17/18 09/17/18 Range/Units 20:23 05:59 05:59 WBC 2.18 L (4.0-11.0) K/uL RBC 2.43 L (4.30-5.90) M/uL Hgb 7.7 L (12.0-16.0) g/dL Hct 24.7 L (36.0-46.0) % MCV 101.6 H (80.0-98.0) fL MCH 31.7 (27.0-32.0) pg MCHC 31.2 (31.0-37.0) g/dL RDW Std Deviation 52.2 (28.0-62.0) fl RDW Coeff of Lai 14 (11.0-15.0) % Plt Count 72 L (150-400) K/uL MPV 11.10 (7.40-12.00) fL Neut % (Auto) 92.2 H (48.0-80.0) % Lymph % (Auto) 6.9 L (16.0-40.0) % Bailey % (Auto) 0.9 (0.0-15.0) % Eos % (Auto) 0.0 (0.0-7.0) % Baso % (Auto) 0.0 (0.0-1.5) % Neut # (Auto) 2.0 (1.4-5.7) K/uL Lymph # (Auto) 0.2 L (0.6-2.4) K/uL Bailey # (Auto) 0.0 (0.0-0.8) K/uL Eos # (Auto) 0.0 (0.0-0.7) K/uL Baso # (Auto) 0.0 (0.0-0.1) K/uL Nucleated RBC % 0.0 /100WBC Nucleated RBCs # 0 K/uL INR Sodium 147 H (136-145) mmol/L Potassium 3.8 (3.5-5.1) mmol/L Chloride 109 H (98-107) mmol/L Carbon Dioxide 29.6 (21.0-32.0) mmol/L BUN 64 H (7.0-18.0) mg/dL Creatinine 2.8 H (0.6-1.0) mg/dL Est Cr Clr Drug Dosing 14.03 mL/min Estimated GFR (MDRD) 16.0 ml/min Glucose 200 H (74-106) mg/dL POC Glucose 186 H (60-110) mg/dL Calcium 9.0 (8.5-10.1) mg/dL Magnesium (1.8-2.4) mg/dL Total Bilirubin (0.2-1.0) mg/dL AST (15-37) IU/L ALT (14-63) IU/L Alkaline Phosphatase (46-116) U/L Troponin I (0.000-0.056) ng/mL B-Natriuretic Peptide (<100) PG/ML Total Protein (6.4-8.2) g/dL Albumin (3.4-5.0) g/dL Globulin (2.6-4.0) g/dL Albumin/Globulin Ratio (0.9-1.6) Urine Color Urine Appearance Urine pH (5.0-8.0) Ur Specific Cushing (1.001-1.035) Urine Protein (NEGATIVE) mg/dL Urine Glucose (UA) (NEGATIVE) mg/dL Urine Ketones (NEGATIVE) mg/dL Urine Occult Blood (NEGATIVE) Urine Nitrite (NEGATIVE) Urine Bilirubin (NEGATIVE) Urine Urobilinogen (<2.0) EU/dL Ur Leukocyte Esterase (NEGATIVE) Urine RBC (0-2/HPF) Urine WBC (0-5/HPF) Ur Epithelial Cells (NONE-FEW) Urine Bacteria (NEGATIVE) Urine Mucus (NONE-MOD) 09/17/18 09/17/18 Range/Units 06:37 11:59 WBC (4.0-11.0) K/uL RBC (4.30-5.90) M/uL Hgb (12.0-16.0) g/dL Hct (36.0-46.0) % MCV (80.0-98.0) fL MCH (27.0-32.0) pg MCHC (31.0-37.0) g/dL RDW Std Deviation (28.0-62.0) fl RDW Coeff of Lai (11.0-15.0) % Plt Count (150-400) K/uL MPV (7.40-12.00) fL Neut % (Auto) (48.0-80.0) % Lymph % (Auto) (16.0-40.0) % Bailey % (Auto) (0.0-15.0) % Eos % (Auto) (0.0-7.0) % Baso % (Auto) (0.0-1.5) % Neut # (Auto) (1.4-5.7) K/uL Lymph # (Auto) (0.6-2.4) K/uL Bailey # (Auto) (0.0-0.8) K/uL Eos # (Auto) (0.0-0.7) K/uL Baso # (Auto) (0.0-0.1) K/uL Nucleated RBC % /100WBC Nucleated RBCs # K/uL INR Sodium (136-145) mmol/L Potassium (3.5-5.1) mmol/L Chloride (98-107) mmol/L Carbon Dioxide (21.0-32.0) mmol/L BUN (7.0-18.0) mg/dL Creatinine (0.6-1.0) mg/dL Est Cr Clr Drug Dosing mL/min Estimated GFR (MDRD) ml/min Glucose (74-106) mg/dL POC Glucose 194 H 308 H (60-110) mg/dL Calcium (8.5-10.1) mg/dL Magnesium (1.8-2.4) mg/dL Total Bilirubin (0.2-1.0) mg/dL AST (15-37) IU/L ALT (14-63) IU/L Alkaline Phosphatase (46-116) U/L Troponin I (0.000-0.056) ng/mL B-Natriuretic Peptide (<100) PG/ML Total Protein (6.4-8.2) g/dL Albumin (3.4-5.0) g/dL Globulin (2.6-4.0) g/dL Albumin/Globulin Ratio (0.9-1.6) Urine Color Urine Appearance Urine pH (5.0-8.0) Ur Specific Cushing (1.001-1.035) Urine Protein (NEGATIVE) mg/dL Urine Glucose (UA) (NEGATIVE) mg/dL Urine Ketones (NEGATIVE) mg/dL Urine Occult Blood (NEGATIVE) Urine Nitrite (NEGATIVE) Urine Bilirubin (NEGATIVE) Urine Urobilinogen (<2.0) EU/dL Ur Leukocyte Esterase (NEGATIVE) Urine RBC (0-2/HPF) Urine WBC (0-5/HPF) Ur Epithelial Cells (NONE-FEW) Urine Bacteria (NEGATIVE) Urine Mucus (NONE-MOD) [facility] Results - Last 24 hrs: Microbiology 09/16/18 17:09 Anaerobic Blood Culture - Final Blood - Venous - Lab Draw 09/16/18 17:03 Anaerobic Blood Culture - Final Blood - Venous Med Orders - Current: Current Medications Acetaminophen (Tylenol) 650 mg PO Q4H PRN PRN Reason: Pain (Mild 1-3)/fever Albuterol/Ipratropium (Duoneb 3.0-0.5 Mg/3 Ml) 3 ml NEB Q4HRRT PRN PRN Reason: Shortness Of Breath/wheezing Allopurinol (Zyloprim) 150 mg PO DAILY [facility] Last Admin: 09/17/18 08:02 Dose: 150 mg Aspirin (Aspirin) 81 mg PO DAILY [facility] Last Admin: 09/17/18 08:02 Dose: 81 mg Docusate Sodium (Colace) 100 mg PO BID PRN PRN Reason: Constipation Furosemide (Lasix) 80 mg PO DAILY [facility] Last Admin: 09/17/18 08:01 Dose: 80 mg Sodium Chloride (Normal Saline) 1,000 mls @ 125 mls/hr IV STAT [facility] Last Admin: 09/17/18 03:29 Dose: 125 mls/hr Sodium Chloride (Normal Saline) 1,000 mls @ 75 mls/hr IV ASDIRECTED [facility] Levofloxacin/Dextrose 750 mg/ (Premix) 150 mls @ 100 mls/hr IV Q48H [facility] Last Admin: 09/17/18 11:01 Dose: 100 mls/hr Insulin Aspart (Novolog) 0 unit SUBCUT ACBREAKFASTANDBED [facility]; Protocol Last Admin: 09/17/18 07:55 Dose: 2 units Methylprednisolone Sodium Succinate (Solu-Medrol) 125 mg IVPUSH Q8H [facility] Last Admin: 09/17/18 10:01 Dose: 125 mg Ondansetron HCl (Zofran Odt) 4 mg PO Q6H PRN PRN Reason: nausea, able to take PO Oxycodone HCl (Oxycodone) 5 mg PO Q4H PRN PRN Reason: Pain (moderate 4-6) Sodium Chloride (Saline Flush) 10 ml FLUSH ASDIRECTED PRN PRN Reason: Keep Vein Open Sodium Chloride (Saline Flush) 2.5 ml FLUSH ASDIRECTED PRN PRN Reason: Keep Vein Open Temazepam (Restoril) 15 mg PO BEDTIME PRN PRN Reason: Sleep Discontinued Medications Albuterol/Ipratropium (Duoneb 3.0-0.5 Mg/3 Ml) 3 ml NEB ONETIME ONE Stop: 09/16/18 16:25 Last Admin: 09/16/18 16:29 Dose: 3 ml Ceftriaxone Sodium 1 gm/ (Sodium Chloride) 50 mls @ 100 mls/hr IV Q24H [facility] Last Admin: 09/16/18 19:22 Dose: Not Given Ceftriaxone Sodium 1 gm/ (Dextrose/Water) 50 mls @ 100 mls/hr IV Q24H [facility] Last Admin: 09/16/18 20:15 Dose: 100 mls/hr Ceftriaxone Sodium/Dextrose (Rocephin In Dextrose,Iso-Osm 1 Gm/50 Ml) 50 mls @ 200 mls/hr IV Q24H [facility] Last Admin: 09/16/18 19:56 Dose: Not Given Ceftriaxone Sodium/Dextrose 1 (gm/ Premix) 50 mls @ 200 mls/hr IV Q24H [facility] Non-Formulary Medication (Sitagliptin) 50 mg PO DAILY [facility] Last Admin: 09/17/18 08:03 Dose: Not Given
[2018-09-17] MEDS ORDERED: Levofloxacin/Dextrose 5%-Water 750 MG in Premix Bag 1 BAG IV SCH (10:15)
--- NOTE | 2018-09-17 10:18 | PCM.PN ---
<Jermaine Sandoval - Last Filed: 09/17/18 10:16> - General Info Date of Service: 09/17/18 Subjective Update: Says she feels a lot better, however desaturated to 79% O2 on 4L. Denies any pain or any other issues. - Review of Systems General: Reports: Other (see hpi) - Patient Data Vitals - Most Recent: Last Vital Signs Temp 36.5 C 09/17/18 07:37 Pulse 79 09/17/18 07:37 Resp 18 09/17/18 07:37 BP 122/58 L 09/17/18 07:37 Pulse Ox 96 09/17/18 07:37 Weight - Most Recent: 95.254 kg I&O - Last 24 Hours: Intake & Output 09/16/18 09/17/18 09/17/18 22:59 06:59 14:59 Intake Total 400 200 Output Total 900 Balance -500 200 Lab Results Last 24 Hours: Laboratory Results - last 24 hr 09/16/18 09/16/18 09/16/18 Range/Units 16:15 16:15 16:15 WBC 5.53 (4.0-11.0) K/uL RBC 2.66 L (4.30-5.90) M/uL Hgb 8.6 L (12.0-16.0) g/dL Hct 27.1 L (36.0-46.0) % MCV 101.9 H (80.0-98.0) fL MCH 32.3 H (27.0-32.0) pg MCHC 31.7 (31.0-37.0) g/dL RDW Std Deviation 53.7 (28.0-62.0) fl RDW Coeff of Lai 14 (11.0-15.0) % Plt Count 77 L (150-400) K/uL MPV 11.40 (7.40-12.00) fL Neut % (Auto) 79.7 (48.0-80.0) % Lymph % (Auto) 6.5 L (16.0-40.0) % Whitley % (Auto) 10.7 (0.0-15.0) % Eos % (Auto) 2.9 (0.0-7.0) % Baso % (Auto) 0.2 (0.0-1.5) % Neut # (Auto) 4.4 (1.4-5.7) K/uL Lymph # (Auto) 0.4 L (0.6-2.4) K/uL Whitley # (Auto) 0.6 (0.0-0.8) K/uL Eos # (Auto) 0.2 (0.0-0.7) K/uL Baso # (Auto) 0.0 (0.0-0.1) K/uL Nucleated RBC % 0.0 /100WBC Nucleated RBCs # 0 K/uL INR 0.98 Sodium 143 (136-145) mmol/L Potassium 3.6 (3.5-5.1) mmol/L Chloride 106 (98-107) mmol/L Carbon Dioxide 27.4 (21.0-32.0) mmol/L BUN 68 H (7.0-18.0) mg/dL Creatinine 2.7 H (0.6-1.0) mg/dL Est Cr Clr Drug Dosing 14.54 mL/min Estimated GFR (MDRD) 16.7 ml/min Glucose 182 H (74-106) mg/dL POC Glucose (60-110) mg/dL Calcium 9.5 (8.5-10.1) mg/dL Magnesium (1.8-2.4) mg/dL Total Bilirubin 0.6 (0.2-1.0) mg/dL AST 20 (15-37) IU/L ALT 26 (14-63) IU/L Alkaline Phosphatase 70 (46-116) U/L Troponin I < 0.050 (0.000-0.056) ng/mL B-Natriuretic Peptide (<100) PG/ML Total Protein 6.1 L (6.4-8.2) g/dL Albumin 3.0 L (3.4-5.0) g/dL Globulin 3.1 (2.6-4.0) g/dL Albumin/Globulin Ratio 1.0 (0.9-1.6) Urine Color Urine Appearance Urine pH (5.0-8.0) Ur Specific [place] (1.001-1.035) Urine Protein (NEGATIVE) mg/dL Urine Glucose (UA) (NEGATIVE) mg/dL Urine Ketones (NEGATIVE) mg/dL Urine Occult Blood (NEGATIVE) Urine Nitrite (NEGATIVE) Urine Bilirubin (NEGATIVE) Urine Urobilinogen (<2.0) EU/dL Ur Leukocyte Esterase (NEGATIVE) Urine RBC (0-2/HPF) Urine WBC (0-5/HPF) Ur Epithelial Cells (NONE-FEW) Urine Bacteria (NEGATIVE) Urine Mucus (NONE-MOD) 09/16/18 09/16/18 09/16/18 Range/Units 16:15 17:09 18:56 WBC (4.0-11.0) K/uL RBC (4.30-5.90) M/uL Hgb (12.0-16.0) g/dL Hct (36.0-46.0) % MCV (80.0-98.0) fL MCH (27.0-32.0) pg MCHC (31.0-37.0) g/dL RDW Std Deviation (28.0-62.0) fl RDW Coeff of Lai (11.0-15.0) % Plt Count (150-400) K/uL MPV (7.40-12.00) fL Neut % (Auto) (48.0-80.0) % Lymph % (Auto) (16.0-40.0) % Whitley % (Auto) (0.0-15.0) % Eos % (Auto) (0.0-7.0) % Baso % (Auto) (0.0-1.5) % Neut # (Auto) (1.4-5.7) K/uL Lymph # (Auto) (0.6-2.4) K/uL Whitley # (Auto) (0.0-0.8) K/uL Eos # (Auto) (0.0-0.7) K/uL Baso # (Auto) (0.0-0.1) K/uL Nucleated RBC % /100WBC Nucleated RBCs # K/uL INR Sodium (136-145) mmol/L Potassium (3.5-5.1) mmol/L Chloride (98-107) mmol/L Carbon Dioxide (21.0-32.0) mmol/L BUN (7.0-18.0) mg/dL Creatinine (0.6-1.0) mg/dL Est Cr Clr Drug Dosing mL/min Estimated GFR (MDRD) ml/min Glucose (74-106) mg/dL POC Glucose (60-110) mg/dL Calcium (8.5-10.1) mg/dL Magnesium 2.3 (1.8-2.4) mg/dL Total Bilirubin (0.2-1.0) mg/dL AST (15-37) IU/L ALT (14-63) IU/L Alkaline Phosphatase (46-116) U/L Troponin I (0.000-0.056) ng/mL B-Natriuretic Peptide 54 (<100) PG/ML Total Protein (6.4-8.2) g/dL Albumin (3.4-5.0) g/dL Globulin (2.6-4.0) g/dL Albumin/Globulin Ratio (0.9-1.6) Urine Color YELLOW Urine Appearance CLEAR Urine pH 5.5 (5.0-8.0) Ur Specific [place] 1.010 (1.001-1.035) Urine Protein NEGATIVE (NEGATIVE) mg/dL Urine Glucose (UA) NEGATIVE (NEGATIVE) mg/dL Urine Ketones NEGATIVE (NEGATIVE) mg/dL Urine Occult Blood TRACE-LYSED H (NEGATIVE) Urine Nitrite POSITIVE H (NEGATIVE) Urine Bilirubin NEGATIVE (NEGATIVE) Urine Urobilinogen 0.2 (<2.0) EU/dL Ur Leukocyte Esterase MODERATE H (NEGATIVE) Urine RBC 0-2 (0-2/HPF) Urine WBC 8-10 (0-5/HPF) Ur Epithelial Cells RARE (NONE-FEW) Urine Bacteria 2+ H (NEGATIVE) Urine Mucus FEW (NONE-MOD) 09/16/18 09/17/18 09/17/18 Range/Units 20:23 05:59 05:59 WBC 2.18 L (4.0-11.0) K/uL RBC 2.43 L (4.30-5.90) M/uL Hgb 7.7 L (12.0-16.0) g/dL Hct 24.7 L (36.0-46.0) % MCV 101.6 H (80.0-98.0) fL MCH 31.7 (27.0-32.0) pg MCHC 31.2 (31.0-37.0) g/dL RDW Std Deviation 52.2 (28.0-62.0) fl RDW Coeff of Lai 14 (11.0-15.0) % Plt Count 72 L (150-400) K/uL MPV 11.10 (7.40-12.00) fL Neut % (Auto) 92.2 H (48.0-80.0) % Lymph % (Auto) 6.9 L (16.0-40.0) % Whitley % (Auto) 0.9 (0.0-15.0) % Eos % (Auto) 0.0 (0.0-7.0) % Baso % (Auto) 0.0 (0.0-1.5) % Neut # (Auto) 2.0 (1.4-5.7) K/uL Lymph # (Auto) 0.2 L (0.6-2.4) K/uL Whitley # (Auto) 0.0 (0.0-0.8) K/uL Eos # (Auto) 0.0 (0.0-0.7) K/uL Baso # (Auto) 0.0 (0.0-0.1) K/uL Nucleated RBC % 0.0 /100WBC Nucleated RBCs # 0 K/uL INR Sodium 147 H (136-145) mmol/L Potassium 3.8 (3.5-5.1) mmol/L Chloride 109 H (98-107) mmol/L Carbon Dioxide 29.6 (21.0-32.0) mmol/L BUN 64 H (7.0-18.0) mg/dL Creatinine 2.8 H (0.6-1.0) mg/dL Est Cr Clr Drug Dosing 14.03 mL/min Estimated GFR (MDRD) 16.0 ml/min Glucose 200 H (74-106) mg/dL POC Glucose 186 H (60-110) mg/dL Calcium 9.0 (8.5-10.1) mg/dL Magnesium (1.8-2.4) mg/dL Total Bilirubin (0.2-1.0) mg/dL AST (15-37) IU/L ALT (14-63) IU/L Alkaline Phosphatase (46-116) U/L Troponin I (0.000-0.056) ng/mL B-Natriuretic Peptide (<100) PG/ML Total Protein (6.4-8.2) g/dL Albumin (3.4-5.0) g/dL Globulin (2.6-4.0) g/dL Albumin/Globulin Ratio (0.9-1.6) Urine Color Urine Appearance Urine pH (5.0-8.0) Ur Specific [place] (1.001-1.035) Urine Protein (NEGATIVE) mg/dL Urine Glucose (UA) (NEGATIVE) mg/dL Urine Ketones (NEGATIVE) mg/dL Urine Occult Blood (NEGATIVE) Urine Nitrite (NEGATIVE) Urine Bilirubin (NEGATIVE) Urine Urobilinogen (<2.0) EU/dL Ur Leukocyte Esterase (NEGATIVE) Urine RBC (0-2/HPF) Urine WBC (0-5/HPF) Ur Epithelial Cells (NONE-FEW) Urine Bacteria (NEGATIVE) Urine Mucus (NONE-MOD) 09/17/18 Range/Units 06:37 WBC (4.0-11.0) K/uL RBC (4.30-5.90) M/uL Hgb (12.0-16.0) g/dL Hct (36.0-46.0) % MCV (80.0-98.0) fL MCH (27.0-32.0) pg MCHC (31.0-37.0) g/dL RDW Std Deviation (28.0-62.0) fl RDW Coeff of Lai (11.0-15.0) % Plt Count (150-400) K/uL MPV (7.40-12.00) fL Neut % (Auto) (48.0-80.0) % Lymph % (Auto) (16.0-40.0) % Whitley % (Auto) (0.0-15.0) % Eos % (Auto) (0.0-7.0) % Baso % (Auto) (0.0-1.5) % Neut # (Auto) (1.4-5.7) K/uL Lymph # (Auto) (0.6-2.4) K/uL Whitley # (Auto) (0.0-0.8) K/uL Eos # (Auto) (0.0-0.7) K/uL Baso # (Auto) (0.0-0.1) K/uL Nucleated RBC % /100WBC Nucleated RBCs # K/uL INR Sodium (136-145) mmol/L Potassium (3.5-5.1) mmol/L Chloride (98-107) mmol/L Carbon Dioxide (21.0-32.0) mmol/L BUN (7.0-18.0) mg/dL Creatinine (0.6-1.0) mg/dL Est Cr Clr Drug Dosing mL/min Estimated GFR (MDRD) ml/min Glucose (74-106) mg/dL POC Glucose 194 H (60-110) mg/dL Calcium (8.5-10.1) mg/dL Magnesium (1.8-2.4) mg/dL Total Bilirubin (0.2-1.0) mg/dL AST (15-37) IU/L ALT (14-63) IU/L Alkaline Phosphatase (46-116) U/L Troponin I (0.000-0.056) ng/mL B-Natriuretic Peptide (<100) PG/ML Total Protein (6.4-8.2) g/dL Albumin (3.4-5.0) g/dL Globulin (2.6-4.0) g/dL Albumin/Globulin Ratio (0.9-1.6) Urine Color Urine Appearance Urine pH (5.0-8.0) Ur Specific [place] (1.001-1.035) Urine Protein (NEGATIVE) mg/dL Urine Glucose (UA) (NEGATIVE) mg/dL Urine Ketones (NEGATIVE) mg/dL Urine Occult Blood (NEGATIVE) Urine Nitrite (NEGATIVE) Urine Bilirubin (NEGATIVE) Urine Urobilinogen (<2.0) EU/dL Ur Leukocyte Esterase (NEGATIVE) Urine RBC (0-2/HPF) Urine WBC (0-5/HPF) Ur Epithelial Cells (NONE-FEW) Urine Bacteria (NEGATIVE) Urine Mucus (NONE-MOD) Alfred Results Last 24 Hours: Microbiology 09/16/18 17:09 Anaerobic Blood Culture - Final Blood - Venous - Lab Draw 09/16/18 17:03 Anaerobic Blood Culture - Final Blood - Venous Med Orders - Current: Current Medications Acetaminophen (Tylenol) 650 mg PO Q4H PRN PRN Reason: Pain (Mild 1-3)/fever Albuterol/Ipratropium (Duoneb 3.0-0.5 Mg/3 Ml) 3 ml NEB Q4HRRT PRN PRN Reason: Shortness Of Breath/wheezing Allopurinol (Zyloprim) 150 mg PO DAILY MAGAN Last Admin: 09/17/18 08:02 Dose: 150 mg Aspirin (Aspirin) 81 mg PO DAILY [facility] Last Admin: 09/17/18 08:02 Dose: 81 mg Docusate Sodium (Colace) 100 mg PO BID PRN PRN Reason: Constipation Furosemide (Lasix) 80 mg PO DAILY [facility] Last Admin: 09/17/18 08:01 Dose: 80 mg Sodium Chloride (Normal Saline) 1,000 mls @ 125 mls/hr IV STAT [facility] Last Admin: 09/17/18 03:29 Dose: 125 mls/hr Sodium Chloride (Normal Saline) 1,000 mls @ 75 mls/hr IV ASDIRECTED [facility] Levofloxacin/Dextrose 750 mg/ (Premix) 150 mls @ 100 mls/hr IV Q48H [facility] Insulin Aspart (Novolog) 0 unit SUBCUT ACBREAKFASTANDBED [facility]; Protocol Last Admin: 09/17/18 07:55 Dose: 2 units Methylprednisolone Sodium Succinate (Solu-Medrol) 125 mg IVPUSH Q8H [facility] Last Admin: 09/17/18 10:01 Dose: 125 mg Ondansetron HCl (Zofran Odt) 4 mg PO Q6H PRN PRN Reason: nausea, able to take PO Oxycodone HCl (Oxycodone) 5 mg PO Q4H PRN PRN Reason: Pain (moderate 4-6) Sodium Chloride (Saline Flush) 10 ml FLUSH ASDIRECTED PRN PRN Reason: Keep Vein Open Sodium Chloride (Saline Flush) 2.5 ml FLUSH ASDIRECTED PRN PRN Reason: Keep Vein Open Temazepam (Restoril) 15 mg PO BEDTIME PRN PRN Reason: Sleep Discontinued Medications Albuterol/Ipratropium (Duoneb 3.0-0.5 Mg/3 Ml) 3 ml NEB ONETIME ONE Stop: 09/16/18 16:25 Last Admin: 09/16/18 16:29 Dose: 3 ml Ceftriaxone Sodium 1 gm/ (Sodium Chloride) 50 mls @ 100 mls/hr IV Q24H [facility] Last Admin: 09/16/18 19:22 Dose: Not Given Ceftriaxone Sodium 1 gm/ (Dextrose/Water) 50 mls @ 100 mls/hr IV Q24H [facility] Last Admin: 09/16/18 20:15 Dose: 100 mls/hr Ceftriaxone Sodium/Dextrose (Rocephin In Dextrose,Iso-Osm 1 Gm/50 Ml) 50 mls @ 200 mls/hr IV Q24H [facility] Last Admin: 09/16/18 19:56 Dose: Not Given Ceftriaxone Sodium/Dextrose 1 (gm/ Premix) 50 mls @ 200 mls/hr IV Q24H [facility] Non-Formulary Medication (Sitagliptin) 50 mg PO DAILY [facility] Last Admin: 09/17/18 08:03 Dose: Not Given - Exam Quality Assessment: Supplemental Oxygen General: Alert, Oriented Neck: Supple Lungs: Clear to Auscultation, Normal Respiratory Effort Cardiovascular: Regular Rate, Regular Rhythm GI/Abdominal Exam: Normal Bowel Sounds, Soft, Non-Tender, No Organomegaly, No Distention, No Abnormal Bruit, No Mass, Pelvis Stable Extremities: Normal Inspection, No Pedal Edema, Normal Capillary Refill Peripheral Pulses: 2+: Dorsalis Pedis (L), Dorsalis Pedis (R) Psy/Mental Status: Alert, Normal Affect, Normal Mood - Problem List Review Problem List Initiated/Reviewed/Updated: Yes - My Orders Last 24 Hours: My Active Orders 09/17/18 08:38 Communication Order [RC] STAT 09/17/18 09:32 Ready for Discharge [RC] PER UNIT ROUTINE 09/17/18 10:15 Levofloxacin/Dextrose 5%-Water [Levaquin in D5W 750 MG/150 ML] 750 mg Premix Bag 1 bag IV Q48H - Plan Plan:: Assessment: #1. Acute hypoxic respiratory failure #2. COPD exacerbation #3. UTI #4. CKD #5. Chronic macrocytic anemia Plan: #1. DC rocephin, start IV Levaquin #2. Continue respiratory support for COPD exacerbation as ordered #3. F/u on urine culture #4. Anticipate discharge to home health in 1-2 days <Layo Salinas - Last Filed: 09/17/18 12:34> - General Info Admission Dx/Problem (Free Text): I have seen and examined to patient independently of certified medical records coder, Jermaine Sandoval MD. I have discussed the case for care of this patient with him. I have reviewed and approve of the plan of care as outlined by certified medical records coder.. Please see orders. - Patient Data Vitals - Most Recent: Last Vital Signs Temp 36.5 C 09/17/18 07:37 Pulse 79 09/17/18 07:37 Resp 18 09/17/18 07:37 BP 122/58 L 09/17/18 07:37 Pulse Ox 92 L 09/17/18 10:19 I&O - Last 24 Hours: Intake & Output 09/16/18 09/17/18 09/17/18 22:59 06:59 14:59 Intake Total 400 200 Output Total 900 Balance -500 200 Lab Results Last 24 Hours: Laboratory Results - last 24 hr 09/16/18 09/16/18 09/16/18 Range/Units 16:15 16:15 16:15 WBC 5.53 (4.0-11.0) K/uL RBC 2.66 L (4.30-5.90) M/uL Hgb 8.6 L (12.0-16.0) g/dL Hct 27.1 L (36.0-46.0) % MCV 101.9 H (80.0-98.0) fL MCH 32.3 H (27.0-32.0) pg MCHC 31.7 (31.0-37.0) g/dL RDW Std Deviation 53.7 (28.0-62.0) fl RDW Coeff of Lai 14 (11.0-15.0) % Plt Count 77 L (150-400) K/uL MPV 11.40 (7.40-12.00) fL Neut % (Auto) 79.7 (48.0-80.0) % Lymph % (Auto) 6.5 L (16.0-40.0) % Whitley % (Auto) 10.7 (0.0-15.0) % Eos % (Auto) 2.9 (0.0-7.0) % Baso % (Auto) 0.2 (0.0-1.5) % Neut # (Auto) 4.4 (1.4-5.7) K/uL Lymph # (Auto) 0.4 L (0.6-2.4) K/uL Whitley # (Auto) 0.6 (0.0-0.8) K/uL Eos # (Auto) 0.2 (0.0-0.7) K/uL Baso # (Auto) 0.0 (0.0-0.1) K/uL Nucleated RBC % 0.0 /100WBC Nucleated RBCs # 0 K/uL INR 0.98 Sodium 143 (136-145) mmol/L Potassium 3.6 (3.5-5.1) mmol/L Chloride 106 (98-107) mmol/L Carbon Dioxide 27.4 (21.0-32.0) mmol/L BUN 68 H (7.0-18.0) mg/dL Creatinine 2.7 H (0.6-1.0) mg/dL Est Cr Clr Drug Dosing 14.54 mL/min Estimated GFR (MDRD) 16.7 ml/min Glucose 182 H (74-106) mg/dL POC Glucose (60-110) mg/dL Calcium 9.5 (8.5-10.1) mg/dL Magnesium (1.8-2.4) mg/dL Total Bilirubin 0.6 (0.2-1.0) mg/dL AST 20 (15-37) IU/L ALT 26 (14-63) IU/L Alkaline Phosphatase 70 (46-116) U/L Troponin I < 0.050 (0.000-0.056) ng/mL B-Natriuretic Peptide (<100) PG/ML Total Protein 6.1 L (6.4-8.2) g/dL Albumin 3.0 L (3.4-5.0) g/dL Globulin 3.1 (2.6-4.0) g/dL Albumin/Globulin Ratio 1.0 (0.9-1.6) Urine Color Urine Appearance Urine pH (5.0-8.0) Ur Specific [place] (1.001-1.035) Urine Protein (NEGATIVE) mg/dL Urine Glucose (UA) (NEGATIVE) mg/dL Urine Ketones (NEGATIVE) mg/dL Urine Occult Blood (NEGATIVE) Urine Nitrite (NEGATIVE) Urine Bilirubin (NEGATIVE) Urine Urobilinogen (<2.0) EU/dL Ur Leukocyte Esterase (NEGATIVE) Urine RBC (0-2/HPF) Urine WBC (0-5/HPF) Ur Epithelial Cells (NONE-FEW) Urine Bacteria (NEGATIVE) Urine Mucus (NONE-MOD) 09/16/18 09/16/18 09/16/18 Range/Units 16:15 17:09 18:56 WBC (4.0-11.0) K/uL RBC (4.30-5.90) M/uL Hgb (12.0-16.0) g/dL Hct (36.0-46.0) % MCV (80.0-98.0) fL MCH (27.0-32.0) pg MCHC (31.0-37.0) g/dL RDW Std Deviation (28.0-62.0) fl RDW Coeff of Lai (11.0-15.0) % Plt Count (150-400) K/uL MPV (7.40-12.00) fL Neut % (Auto) (48.0-80.0) % Lymph % (Auto) (16.0-40.0) % Whitley % (Auto) (0.0-15.0) % Eos % (Auto) (0.0-7.0) % Baso % (Auto) (0.0-1.5) % Neut # (Auto) (1.4-5.7) K/uL Lymph # (Auto) (0.6-2.4) K/uL Whitley # (Auto) (0.0-0.8) K/uL Eos # (Auto) (0.0-0.7) K/uL Baso # (Auto) (0.0-0.1) K/uL Nucleated RBC % /100WBC Nucleated RBCs # K/uL INR Sodium (136-145) mmol/L Potassium (3.5-5.1) mmol/L Chloride (98-107) mmol/L Carbon Dioxide (21.0-32.0) mmol/L BUN (7.0-18.0) mg/dL Creatinine (0.6-1.0) mg/dL Est Cr Clr Drug Dosing mL/min Estimated GFR (MDRD) ml/min Glucose (74-106) mg/dL POC Glucose (60-110) mg/dL Calcium (8.5-10.1) mg/dL Magnesium 2.3 (1.8-2.4) mg/dL Total Bilirubin (0.2-1.0) mg/dL AST (15-37) IU/L ALT (14-63) IU/L Alkaline Phosphatase (46-116) U/L Troponin I (0.000-0.056) ng/mL B-Natriuretic Peptide 54 (<100) PG/ML Total Protein (6.4-8.2) g/dL Albumin (3.4-5.0) g/dL Globulin (2.6-4.0) g/dL Albumin/Globulin Ratio (0.9-1.6) Urine Color YELLOW Urine Appearance CLEAR Urine pH 5.5 (5.0-8.0) Ur Specific [place] 1.010 (1.001-1.035) Urine Protein NEGATIVE (NEGATIVE) mg/dL Urine Glucose (UA) NEGATIVE (NEGATIVE) mg/dL Urine Ketones NEGATIVE (NEGATIVE) mg/dL Urine Occult Blood TRACE-LYSED H (NEGATIVE) Urine Nitrite POSITIVE H (NEGATIVE) Urine Bilirubin NEGATIVE (NEGATIVE) Urine Urobilinogen 0.2 (<2.0) EU/dL Ur Leukocyte Esterase MODERATE H (NEGATIVE) Urine RBC 0-2 (0-2/HPF) Urine WBC 8-10 (0-5/HPF) Ur Epithelial Cells RARE (NONE-FEW) Urine Bacteria 2+ H (NEGATIVE) Urine Mucus FEW (NONE-MOD) 09/16/18 09/17/18 09/17/18 Range/Units 20:23 05:59 05:59 WBC 2.18 L (4.0-11.0) K/uL RBC 2.43 L (4.30-5.90) M/uL Hgb 7.7 L (12.0-16.0) g/dL Hct 24.7 L (36.0-46.0) % MCV 101.6 H (80.0-98.0) fL MCH 31.7 (27.0-32.0) pg MCHC 31.2 (31.0-37.0) g/dL RDW Std Deviation 52.2 (28.0-62.0) fl RDW Coeff of Lai 14 (11.0-15.0) % Plt Count 72 L (150-400) K/uL MPV 11.10 (7.40-12.00) fL Neut % (Auto) 92.2 H (48.0-80.0) % Lymph % (Auto) 6.9 L (16.0-40.0) % Whitley % (Auto) 0.9 (0.0-15.0) % Eos % (Auto) 0.0 (0.0-7.0) % Baso % (Auto) 0.0 (0.0-1.5) % Neut # (Auto) 2.0 (1.4-5.7) K/uL Lymph # (Auto) 0.2 L (0.6-2.4) K/uL Whitley # (Auto) 0.0 (0.0-0.8) K/uL Eos # (Auto) 0.0 (0.0-0.7) K/uL Baso # (Auto) 0.0 (0.0-0.1) K/uL Nucleated RBC % 0.0 /100WBC Nucleated RBCs # 0 K/uL INR Sodium 147 H (136-145) mmol/L Potassium 3.8 (3.5-5.1) mmol/L Chloride 109 H (98-107) mmol/L Carbon Dioxide 29.6 (21.0-32.0) mmol/L BUN 64 H (7.0-18.0) mg/dL Creatinine 2.8 H (0.6-1.0) mg/dL Est Cr Clr Drug Dosing 14.03 mL/min Estimated GFR (MDRD) 16.0 ml/min Glucose 200 H (74-106) mg/dL POC Glucose 186 H (60-110) mg/dL Calcium 9.0 (8.5-10.1) mg/dL Magnesium (1.8-2.4) mg/dL Total Bilirubin (0.2-1.0) mg/dL AST (15-37) IU/L ALT (14-63) IU/L Alkaline Phosphatase (46-116) U/L Troponin I (0.000-0.056) ng/mL B-Natriuretic Peptide (<100) PG/ML Total Protein (6.4-8.2) g/dL Albumin (3.4-5.0) g/dL Globulin (2.6-4.0) g/dL Albumin/Globulin Ratio (0.9-1.6) Urine Color Urine Appearance Urine pH (5.0-8.0) Ur Specific [place] (1.001-1.035) Urine Protein (NEGATIVE) mg/dL Urine Glucose (UA) (NEGATIVE) mg/dL Urine Ketones (NEGATIVE) mg/dL Urine Occult Blood (NEGATIVE) Urine Nitrite (NEGATIVE) Urine Bilirubin (NEGATIVE) Urine Urobilinogen (<2.0) EU/dL Ur Leukocyte Esterase (NEGATIVE) Urine RBC (0-2/HPF) Urine WBC (0-5/HPF) Ur Epithelial Cells (NONE-FEW) Urine Bacteria (NEGATIVE) Urine Mucus (NONE-MOD) 09/17/18 09/17/18 Range/Units 06:37 11:59 WBC (4.0-11.0) K/uL RBC (4.30-5.90) M/uL Hgb (12.0-16.0) g/dL Hct (36.0-46.0) % MCV (80.0-98.0) fL MCH (27.0-32.0) pg MCHC (31.0-37.0) g/dL RDW Std Deviation (28.0-62.0) fl RDW Coeff of Lai (11.0-15.0) % Plt Count (150-400) K/uL MPV (7.40-12.00) fL Neut % (Auto) (48.0-80.0) % Lymph % (Auto) (16.0-40.0) % Whitley % (Auto) (0.0-15.0) % Eos % (Auto) (0.0-7.0) % Baso % (Auto) (0.0-1.5) % Neut # (Auto) (1.4-5.7) K/uL Lymph # (Auto) (0.6-2.4) K/uL Whitley # (Auto) (0.0-0.8) K/uL Eos # (Auto) (0.0-0.7) K/uL Baso # (Auto) (0.0-0.1) K/uL Nucleated RBC % /100WBC Nucleated RBCs # K/uL INR Sodium (136-145) mmol/L Potassium (3.5-5.1) mmol/L Chloride (98-107) mmol/L Carbon Dioxide (21.0-32.0) mmol/L BUN (7.0-18.0) mg/dL Creatinine (0.6-1.0) mg/dL Est Cr Clr Drug Dosing mL/min Estimated GFR (MDRD) ml/min Glucose (74-106) mg/dL POC Glucose 194 H 308 H (60-110) mg/dL Calcium (8.5-10.1) mg/dL Magnesium (1.8-2.4) mg/dL Total Bilirubin (0.2-1.0) mg/dL AST (15-37) IU/L ALT (14-63) IU/L Alkaline Phosphatase (46-116) U/L Troponin I (0.000-0.056) ng/mL B-Natriuretic Peptide (<100) PG/ML Total Protein (6.4-8.2) g/dL Albumin (3.4-5.0) g/dL Globulin (2.6-4.0) g/dL Albumin/Globulin Ratio (0.9-1.6) Urine Color Urine Appearance Urine pH (5.0-8.0) Ur Specific [place] (1.001-1.035) Urine Protein (NEGATIVE) mg/dL Urine Glucose (UA) (NEGATIVE) mg/dL Urine Ketones (NEGATIVE) mg/dL Urine Occult Blood (NEGATIVE) Urine Nitrite (NEGATIVE) Urine Bilirubin (NEGATIVE) Urine Urobilinogen (<2.0) EU/dL Ur Leukocyte Esterase (NEGATIVE) Urine RBC (0-2/HPF) Urine WBC (0-5/HPF) Ur Epithelial Cells (NONE-FEW) Urine Bacteria (NEGATIVE) Urine Mucus (NONE-MOD) Alfred Results Last 24 Hours: Microbiology 09/16/18 17:09 Anaerobic Blood Culture - Final Blood - Venous - Lab Draw 09/16/18 17:03 Anaerobic Blood Culture - Final Blood - Venous Med Orders - Current: Current Medications Acetaminophen (Tylenol) 650 mg PO Q4H PRN PRN Reason: Pain (Mild 1-3)/fever Albuterol/Ipratropium (Duoneb 3.0-0.5 Mg/3 Ml) 3 ml NEB Q4HRRT PRN PRN Reason: Shortness Of Breath/wheezing Allopurinol (Zyloprim) 150 mg PO DAILY [facility] Last Admin: 09/17/18 08:02 Dose: 150 mg Aspirin (Aspirin) 81 mg PO DAILY [facility] Last Admin: 09/17/18 08:02 Dose: 81 mg Docusate Sodium (Colace) 100 mg PO BID PRN PRN Reason: Constipation Furosemide (Lasix) 80 mg PO DAILY [facility] Last Admin: 09/17/18 08:01 Dose: 80 mg Sodium Chloride (Normal Saline) 1,000 mls @ 125 mls/hr IV STAT [facility] Last Admin: 09/17/18 03:29 Dose: 125 mls/hr Sodium Chloride (Normal Saline) 1,000 mls @ 75 mls/hr IV ASDIRECTED [facility] Levofloxacin/Dextrose 750 mg/ (Premix) 150 mls @ 100 mls/hr IV Q48H [facility] Last Admin: 09/17/18 11:01 Dose: 100 mls/hr Insulin Aspart (Novolog) 0 unit SUBCUT ACBREAKFASTANDBED [facility]; Protocol Last Admin: 09/17/18 07:55 Dose: 2 units Methylprednisolone Sodium Succinate (Solu-Medrol) 125 mg IVPUSH Q8H [facility] Last Admin: 09/17/18 10:01 Dose: 125 mg Ondansetron HCl (Zofran Odt) 4 mg PO Q6H PRN PRN Reason: nausea, able to take PO Oxycodone HCl (Oxycodone) 5 mg PO Q4H PRN PRN Reason: Pain (moderate 4-6) Sodium Chloride (Saline Flush) 10 ml FLUSH ASDIRECTED PRN PRN Reason: Keep Vein Open Sodium Chloride (Saline Flush) 2.5 ml FLUSH ASDIRECTED PRN PRN Reason: Keep Vein Open Temazepam (Restoril) 15 mg PO BEDTIME PRN PRN Reason: Sleep Discontinued Medications Albuterol/Ipratropium (Duoneb 3.0-0.5 Mg/3 Ml) 3 ml NEB ONETIME ONE Stop: 09/16/18 16:25 Last Admin: 09/16/18 16:29 Dose: 3 ml Ceftriaxone Sodium 1 gm/ (Sodium Chloride) 50 mls @ 100 mls/hr IV Q24H [facility] Last Admin: 09/16/18 19:22 Dose: Not Given Ceftriaxone Sodium 1 gm/ (Dextrose/Water) 50 mls @ 100 mls/hr IV Q24H [facility] Last Admin: 09/16/18 20:15 Dose: 100 mls/hr Ceftriaxone Sodium/Dextrose (Rocephin In Dextrose,Iso-Osm 1 Gm/50 Ml) 50 mls @ 200 mls/hr IV Q24H [facility] Last Admin: 09/16/18 19:56 Dose: Not Given Ceftriaxone Sodium/Dextrose 1 (gm/ Premix) 50 mls @ 200 mls/hr IV Q24H [facility] Non-Formulary Medication (Sitagliptin) 50 mg PO DAILY [facility] Last Admin: 09/17/18 08:03 Dose: Not Given - Problem List & Annotations (1) Acute and chronic respiratory failure SNOMED Code(s): 94767694 Code(s): J96.20 - ACUTE AND CHR RESP FAILURE, UNSP W HYPOXIA OR HYPERCAPNIA Status: Acute Priority: High Current Visit: Yes Qualifiers: Respiratory failure complication: hypoxia Qualified Code(s): J96.21 - Acute and chronic respiratory failure with hypoxia (2) COPD (chronic obstructive pulmonary disease) SNOMED Code(s): 43884052 Code(s): J44.9 - CHRONIC OBSTRUCTIVE PULMONARY DISEASE, UNSPECIFIED Status : Chronic Priority: High Current Visit: Yes Qualifiers: COPD type: chronic bronchitis Chronic bronchitis type: unspecified Qualified Code(s): J42 - Unspecified chronic bronchitis (3) Dyspnea SNOMED Code(s): 258023518 Code(s): R06.00 - DYSPNEA, UNSPECIFIED Status: Acute Priority: High Current Visit: Yes Qualifiers: Dyspnea type: shortness of breath Qualified Code(s): R06.02 - Shortness of breath; R06.00 - Dyspnea, unspecified; R06.01 - Orthopnea (4) CKD (chronic kidney disease) SNOMED Code(s): 347209889 Code(s): N18.9 - CHRONIC KIDNEY DISEASE, UNSPECIFIED Status: Chronic Priority: High Current Visit: Yes Qualifiers: Chronic kidney disease stage: stage 3 (moderate) Qualified Code(s): N18.3 - Chronic kidney disease, stage 3 (moderate) (5) Anemia SNOMED Code(s): 503973166 Code(s): D64.9 - ANEMIA, UNSPECIFIED Status: Acute Current Visit: Yes Qualifiers: Anemia type: due to chronic kidney disease Chronic kidney disease stage: stage 3 (moderate) Qualified Code(s): N18.3 - Chronic kidney disease, stage 3 (moderate); D63.1 - Anemia in chronic kidney disease - My Orders Last 24 Hours: My Active Orders 09/16/18 18:13 Telemetry Monitoring [Cardiac Monitoring] [RC] Q8H 09/16/18 18:14 Oxygen Therapy [RC] PRN Up With Assistance [RC] ASDIRECTED Vital Signs [RC] Q4H Acetaminophen [Tylenol] 650 mg PO Q4H PRN Albuterol/Ipratropium [DuoNeb 3.0-0.5 MG/3 ML] 3 ml NEB Q4HRRT PRN Docusate Sodium [Colace] 100 mg PO BID PRN Ondansetron [Zofran ODT] 4 mg PO Q6H PRN Temazepam [Restoril] 15 mg PO BEDTIME PRN oxyCODONE 5 mg PO Q4H PRN VTE Pharmacological Contraindications [AST] Per Unit Routine Resuscitation Status Routine 09/16/18 18:15 Cardiac Monitoring [RC] CONTINUOUS Sodium Chloride 0.9% [Normal Saline] 1,000 ml IV ASDIRECTED Sequential Compression Device [OM.PC] Per Unit Routine 09/16/18 18:16 Antiembolic Devices [RC] PER UNIT ROUTINE 09/16/18 18:18 RT Aerosol Therapy [RC] ASDIRECTED 09/16/18 18:22 Blood Glucose Check, Bedside [RC] WITHMEALSANDBED Diabetes Education [RC] Click to Edit Oxygen Therapy [RC] PRN Glucose Management Sub Q Reflex [OM.PC] Click To Edit 09/16/18 18:30 methylPREDNISolone Sod Succ [Solu-MEDROL] 125 mg IVPUSH Q8H 09/16/18 21:00 Insulin Aspart [NovoLOG] See Protocol SUBCUT ACBREAKFASTANDBED 09/17/18 09:00 Allopurinol [Zyloprim] 150 mg PO DAILY Aspirin 81 mg PO DAILY Furosemide [Lasix] 80 mg PO DAILY
[2018-09-17] MEDS ORDERED: cefTRIAXone 1 GM in Premix Bag 1 BAG IV SCH (19:00)
[2018-09-18] MEDS: methylPREDNISolone Sodium Succinate 125 MG/2 ML SDV IVPUSH SCH ×2 (03:30→10:50)
[2018-09-18] MEDS: Insulin Aspart 100 Units/ML 3 ML Pen SUBCUT SCH ×2 (07:48→12:32)
--- NOTE | 2018-09-18 08:27 | PCM.DCSUM1 ---
Discharge Summary - Hospital Course HPI Initial Comments: The patient was admitted secondary to shortness of breath and had been previously hospitalized for similar circumstances approximately 2 weeks ago. Diagnosis: Stroke: No - Discharge Data Discharge Date: 09/18/18 Discharge Disposition: Home, W Home Health Agency 06 Condition: Stable - Discharge Diagnosis/Problem(s) (1) Acute and chronic respiratory failure SNOMED Code(s): 41952185 ICD Code: J96.20 - ACUTE AND CHR RESP FAILURE, UNSP W HYPOXIA OR HYPERCAPNIA Status: Resolved Priority: High Current Visit: Yes Qualifiers: Respiratory failure complication: hypoxia Qualified Code(s): J96.21 - Acute and chronic respiratory failure with hypoxia (2) COPD (chronic obstructive pulmonary disease) SNOMED Code(s): 48928579 ICD Code: J44.9 - CHRONIC OBSTRUCTIVE PULMONARY DISEASE, UNSPECIFIED Status : Chronic Priority: High Current Visit: Yes Qualifiers: COPD type: chronic bronchitis Chronic bronchitis type: unspecified Qualified Code(s): J42 - Unspecified chronic bronchitis (3) Dyspnea SNOMED Code(s): 983328035 ICD Code: R06.00 - DYSPNEA, UNSPECIFIED Status: Acute Priority: High Current Visit: Yes Qualifiers: Dyspnea type: shortness of breath Qualified Code(s): R06.02 - Shortness of breath; R06.00 - Dyspnea, unspecified; R06.01 - Orthopnea (4) CKD (chronic kidney disease) SNOMED Code(s): 616022173 ICD Code: N18.9 - CHRONIC KIDNEY DISEASE, UNSPECIFIED Status: Chronic Priority: High Current Visit: Yes Qualifiers: Chronic kidney disease stage: stage 3 (moderate) Qualified Code(s): N18.3 - Chronic kidney disease, stage 3 (moderate) (5) Anemia SNOMED Code(s): 802209453 ICD Code: D64.9 - ANEMIA, UNSPECIFIED Status: Chronic Current Visit: Yes Qualifiers: Anemia type: due to chronic kidney disease Chronic kidney disease stage: stage 3 (moderate) Qualified Code(s): N18.3 - Chronic kidney disease, stage 3 (moderate); D63.1 - Anemia in chronic kidney disease - Patient Summary/Data Hospital Course: The patient is an 87-year-old lady who presented to the emergency department with severe shortness of breath. She does have advanced COPD and was hospitalized 2 weeks ago. The patient was scheduled to be discharged 2 days earlier however, the patient had continued to desaturate when ambulating. She was retained 2 extra days. While in hospitalization the patient was kept on her home medications as well as started on Levaquin 750 mg IV every 48 hours due to her chronic kidney disease. She also had been on methylprednisolone a had tolerated this well. The patient says that she does not like to have steroids well at home. The patient had continued to recover to her short course of hospitalization. Chest x-ray obtained did show a stable moderate consolidation in the left lower lobe and findings suggestive of stable cardiomyopathy. While in hospital the patient was kept on oxygen support. She is oxygen dependent at home and her oxygen demands are at her baseline. The patient feels like she can go home. The patient had been tolerating her diet well. She is recommended to have a diabetic diet as tolerated. The patient is to have activity as tolerated giving the constraints of her physical illness. She does have family members who can assist her at home. The patient has been hemodynamically stable. She has been afebrile. She is discharged from acute hospitalization with the recommendations listed above. Because the patient is oxygen dependent she would be considered homebound as she is also unstable when walking and at risk for fall. She utilizes a walker. The patient will also have skilled needs to help her maintain her activities of daily living also to include functional safety in her home. With home health the patient will be followed up with her primary care physician Dr. Tyler Graves. - Patient Instructions Diet: Usual Diet as Tolerated Activity: As Tolerated Notify Provider of: Fever, Swelling and Redness, Nausea and/or Vomiting Other/Special Instructions: shortness of breath - Discharge Plan Prescriptions/Med Rec: cephALEXin [Keflex] 500 mg PO Q12H 5 Days #10 cap Pantoprazole Sodium [Protonix] 40 mg PO DAILY 5 Days #5 tablet. predniSONE [Prednisone] 40 mg PO DAILY 4 Days #8 tablet Home Medications: Home Meds Albuterol/Ipratropium [DuoNeb 3.0-0.5 MG/3 ML] 3 ml INH QID 07/24/14 [History] Allopurinol [Zyloprim] 150 mg PO DAILY 07/24/14 [History] Aspirin [Campbell Aspirin] 81 mg PO DAILY 07/24/14 [History] Cholecalciferol (Vitamin D3) [Vitamin D3] 1,000 unit PO DAILY 07/24/14 [History] EPINEPHrine [Epinephrine] 0.3 mg IJ ONETIME 07/24/14 [History] Furosemide 80 mg PO DAILY 07/24/14 [History] Rosuvastatin [Crestor] 5 mg PO BEDTIME 07/24/14 [History] SitaGLIPtin [Januvia] 50 mg PO DAILY 07/24/14 [History] Calcitriol 0.25 mcg PO WEEKLY 08/30/18 [History] Cyanocobalamin (Vitamin B-12) [B-12] 1,000 mcg PO DAILY 08/30/18 [History] Ferrous Sulfate 325 mg PO BID 08/30/18 [History] Fluticasone Propion/Salmeterol [Fluticasone-Salmeterol 250-50] 1 each IH BID [History] levoFLOXacin [Levaquin] 750 mg PO Q48H #2 tab 09/02/18 [Rx] predniSONE [Prednisone] 10 mg PO DAILY #30 tablet 09/02/18 [Rx] Pantoprazole Sodium [Protonix] 40 mg PO DAILY 5 Days #5 tablet. 09/17/18 [Rx] cephALEXin [Keflex] 500 mg PO Q12H 5 Days #10 cap 09/17/18 [Rx] predniSONE [Prednisone] 40 mg PO DAILY 4 Days #8 tablet 09/17/18 [Rx] Patient Handouts: Chronic Obstructive Pulmonary Disease Exacerbation, Easy-to- Read, Prednisolone tablets, Cephalexin tablets or capsules, Pantoprazole tablets Referrals: Tyler Graves MD [Physician] - 09/28/18 10:00 am - Discharge Summary/Plan Comment DC Time >30 min.: Yes - General Info Date of Service: 09/18/18 Admission Dx/Problem (Free Text: Admitted for severe shortness of breath Subjective Update: Says she feels a lot better. Functional Status: Reports: Pain Controlled - Review of Systems General: Reports: No Symptoms HEENT: Reports: No Symptoms Pulmonary: Reports: Shortness of Breath Cardiovascular: Reports: No Symptoms Gastrointestinal: Reports: No Symptoms Genitourinary: Reports: No Symptoms Musculoskeletal: Reports: No Symptoms Skin: Reports: No Symptoms Neurological: Reports: No Symptoms Psychiatric: Reports: No Symptoms - Patient Data Vitals - Most Recent: Last Vital Signs Temp 36.2 C 09/18/18 08:00 Pulse 77 09/18/18 08:00 Resp 18 09/18/18 08:00 BP 119/58 L 09/18/18 08:00 Pulse Ox 89 L 09/18/18 08:01 Weight - Most Recent: 80.513 kg I&O - Last 24 hours: Intake & Output 09/17/18 09/18/18 09/18/18 22:59 06:59 14:59 Intake Total 2047 440 Output Total 1200 1550 Balance 847 -1110 Lab Results - Last 24 hrs: Laboratory Results - last 24 hr 09/17/18 09/17/18 09/17/18 Range/Units 11:59 16:56 20:33 WBC (4.0-11.0) K/uL RBC (4.30-5.90) M/uL Hgb (12.0-16.0) g/dL Hct (36.0-46.0) % MCV (80.0-98.0) fL MCH (27.0-32.0) pg MCHC (31.0-37.0) g/dL RDW Std Deviation (28.0-62.0) fl RDW Coeff of Lai (11.0-15.0) % Plt Count (150-400) K/uL MPV (7.40-12.00) fL Nucleated RBC % /100WBC Nucleated RBCs # K/uL Sodium (136-145) mmol/L Potassium (3.5-5.1) mmol/L Chloride (98-107) mmol/L Carbon Dioxide (21.0-32.0) mmol/L BUN (7.0-18.0) mg/dL Creatinine (0.6-1.0) mg/dL Est Cr Clr Drug Dosing mL/min Estimated GFR (MDRD) ml/min Glucose (74-106) mg/dL POC Glucose 308 H 94 197 H (60-110) mg/dL Calcium (8.5-10.1) mg/dL 09/18/18 09/18/18 09/18/18 Range/Units 05:35 05:35 06:21 WBC 4.41 (4.0-11.0) K/uL RBC 2.33 L (4.30-5.90) M/uL Hgb 7.4 L (12.0-16.0) g/dL Hct 23.6 L (36.0-46.0) % MCV 101.3 H (80.0-98.0) fL MCH 31.8 (27.0-32.0) pg MCHC 31.4 (31.0-37.0) g/dL RDW Std Deviation 51.6 (28.0-62.0) fl RDW Coeff of Lai 14 (11.0-15.0) % Plt Count 71 L (150-400) K/uL MPV 11.70 (7.40-12.00) fL Nucleated RBC % 0.0 /100WBC Nucleated RBCs # 0 K/uL Sodium 147 H (136-145) mmol/L Potassium 3.8 (3.5-5.1) mmol/L Chloride 109 H (98-107) mmol/L Carbon Dioxide 29.4 (21.0-32.0) mmol/L BUN 73 H (7.0-18.0) mg/dL Creatinine 2.5 H (0.6-1.0) mg/dL Est Cr Clr Drug Dosing 15.71 mL/min Estimated GFR (MDRD) 18.3 ml/min Glucose 224 H (74-106) mg/dL POC Glucose 225 H (60-110) mg/dL Calcium 9.0 (8.5-10.1) mg/dL LATOYA Results - Last 24 hrs: Microbiology 09/16/18 17:09 Aerobic Blood Culture - Preliminary Blood - Venous - Lab Draw NO GROWTH AFTER 1 DAY Anaerobic Blood Culture - Final 09/16/18 17:03 Aerobic Blood Culture - Preliminary Blood - Venous NO GROWTH AFTER 1 DAY Anaerobic Blood Culture - Final Med Orders - Current: Current Medications Acetaminophen (Tylenol) 650 mg PO Q4H PRN PRN Reason: Pain (Mild 1-3)/fever Albuterol/Ipratropium (Duoneb 3.0-0.5 Mg/3 Ml) 3 ml NEB Q4HRRT PRN PRN Reason: Shortness Of Breath/wheezing Allopurinol (Zyloprim) 150 mg PO DAILY [facility] Last Admin: 09/17/18 08:02 Dose: 150 mg Aspirin (Aspirin) 81 mg PO DAILY [facility] Last Admin: 09/17/18 08:02 Dose: 81 mg Docusate Sodium (Colace) 100 mg PO BID PRN PRN Reason: Constipation Furosemide (Lasix) 80 mg PO DAILY [facility] Last Admin: 09/17/18 08:01 Dose: 80 mg Sodium Chloride (Normal Saline) 1,000 mls @ 75 mls/hr IV ASDIRECTED [facility] Levofloxacin/Dextrose 750 mg/ (Premix) 150 mls @ 100 mls/hr IV Q48H [facility] Last Admin: 09/17/18 11:01 Dose: 100 mls/hr Insulin Aspart (Novolog) 0 unit SUBCUT ACBED [facility]; Protocol Last Admin: 09/18/18 07:48 Dose: 4 units Methylprednisolone Sodium Succinate (Solu-Medrol) 125 mg IVPUSH Q8H [facility] Last Admin: 09/18/18 03:30 Dose: 125 mg Ondansetron HCl (Zofran Odt) 4 mg PO Q6H PRN PRN Reason: nausea, able to take PO Oxycodone HCl (Oxycodone) 5 mg PO Q4H PRN PRN Reason: Pain (moderate 4-6) Sodium Chloride (Saline Flush) 10 ml FLUSH ASDIRECTED PRN PRN Reason: Keep Vein Open Sodium Chloride (Saline Flush) 2.5 ml FLUSH ASDIRECTED PRN PRN Reason: Keep Vein Open Temazepam (Restoril) 15 mg PO BEDTIME PRN PRN Reason: Sleep Discontinued Medications Albuterol/Ipratropium (Duoneb 3.0-0.5 Mg/3 Ml) 3 ml NEB ONETIME ONE Stop: 09/16/18 16:25 Last Admin: 09/16/18 16:29 Dose: 3 ml Sodium Chloride (Normal Saline) 1,000 mls @ 125 mls/hr IV STAT [facility] Last Admin: 09/17/18 20:47 Dose: 125 mls/hr Ceftriaxone Sodium 1 gm/ (Sodium Chloride) 50 mls @ 100 mls/hr IV Q24H [facility] Last Admin: 09/16/18 19:22 Dose: Not Given Ceftriaxone Sodium 1 gm/ (Dextrose/Water) 50 mls @ 100 mls/hr IV Q24H [facility] Last Admin: 09/16/18 20:15 Dose: 100 mls/hr Ceftriaxone Sodium/Dextrose (Rocephin In Dextrose,Iso-Osm 1 Gm/50 Ml) 50 mls @ 200 mls/hr IV Q24H [facility] Last Admin: 09/16/18 19:56 Dose: Not Given Ceftriaxone Sodium/Dextrose 1 (gm/ Premix) 50 mls @ 200 mls/hr IV Q24H [facility] Insulin Aspart (Novolog) 0 unit SUBCUT ACBREAKFASTANDBED [facility]; Protocol Last Admin: 09/17/18 07:55 Dose: 2 units Non-Formulary Medication (Sitagliptin) 50 mg PO DAILY [facility] Last Admin: 09/17/18 08:03 Dose: Not Given - Exam Quality Assessment: Reports: Supplemental Oxygen General: Reports: Alert, Oriented, Cooperative, No Acute Distress HEENT: Reports: Pupils Equal, Pupils Reactive, EOMI Neck: Reports: Supple, Trachea Midline Lungs: Reports: Clear to Auscultation, Normal Respiratory Effort Cardiovascular: Reports: Regular Rate, Regular Rhythm GI/Abdominal Exam: Normal Bowel Sounds, No Distention Back Exam: Reports: Normal Inspection, Full Range of Motion Extremities: Normal Inspection, No Pedal Edema Skin: Reports: Warm, Dry, Intact Neurological: Reports: No New Focal Deficit Psy/Mental Status: Reports: Alert, Normal Affect, Normal Mood *Q Meaningful Use (DIS) - VTE *Q VTE Pharmacological Contraindications *Q: Thrombocytopenia
[2018-09-18] MEDS: Furosemide 40 MG Tab PO SCH (09:10)
[2018-09-18] MEDS: Allopurinol 300 MG Tab PO SCH (09:10)
[2018-09-18] MEDS: Aspirin 81 MG Tab.Chew PO SCH (09:11)
[2018-09-18 11:52] VITALS: BP 126/50
== END 2018-09-18 14:25 | disposition home health service (06) ==
LOC: MW.ED 16:13 → MW.MS 18:42
PROVIDERS: ADMIT Internal Medicine; ATTEND Internal Medicine
DX: J96.21 Acute and chronic respiratory failure with hypoxia (principal); J42 Unspecified chronic bronchitis; I13.0 Hypertensive heart and chronic kidney disease with heart failure and stage 1 through stage 4 chronic kidney disease, or unspecified chronic kidney disease; E11.22 Type 2 diabetes mellitus with diabetic chronic kidney disease; I50.9 Heart failure, unspecified; N18.3 Chronic kidney disease, stage 3 (moderate); D63.1 Anemia in chronic kidney disease; N39.0 Urinary tract infection, site not specified; Z99.81 Dependence on supplemental oxygen; Z79.51 Long term (current) use of inhaled steroids; Z79.82 Long term (current) use of aspirin; Z79.84 Long term (current) use of oral hypoglycemic drugs; Z79.899 Other long term (current) drug therapy; Z79.52 Long term (current) use of systemic steroids
CPT/HCPCS: 36415; 71045; 80048; 80053; 81001; 82962; 83735; 83880; 84484; 85025; 85027; 85610; 87040; 87086; 87088; 87186; 93005; 94640; 96361; 96365; 96375; 96376; 99285; A4217; A9270; G0378; J0696; J1815; J1956; J2930; J7040; J7060; 96360; J7620-GY

== ENCOUNTER 2018-10-06 14:57 | Inpatient (IN) | payer MEDICARE, OTHER ==
[2018-10-06] MEDS ORDERED: Albuterol/Ipratropium 3.0-0.5 MG/3 ML Neb Soln ONE (15:04)
[2018-10-06] MEDS ORDERED: methylPREDNISolone Sodium Succinate 125 MG/2 ML SDV ONE (15:04)
[2018-10-06] MEDS ORDERED: Albuterol/Ipratropium 3.0-0.5 MG/3 ML Neb Soln NEB ONE (15:05)
[2018-10-06] MEDS ORDERED: methylPREDNISolone Sodium Succinate 125 MG/2 ML SDV IVPUSH ONE ×2 (15:05→16:48)
--- NOTE | 2018-10-06 15:07 | EDM.PDOC ---
ED HPI GENERAL MEDICAL PROBLEM - General Chief Complaint: Respiratory Problem Stated Complaint: SHORTNESS OF BREATH Time Seen by Provider: 10/06/18 15:06 Source of Information: Reports: Patient - History of Present Illness INITIAL COMMENTS - FREE TEXT/NARRATIVE: HISTORY AND PHYSICAL: History of present illness: [Patient presents with increasing shortness of breath over the last several days , generally lives at home independent she does have frequent visitor she comes in by private vehicle today no fever nausea vomiting chills sweats Review of systems: As per history of present illness and below otherwise all systems reviewed and negative. Past medical history: As per history of present illness and as reviewed below otherwise noncontributory. Surgical history: As per history of present illness and as reviewed below otherwise noncontributory. Social history: No reported history of drug or alcohol abuse. Family history: As per history of present illness and as reviewed below otherwise noncontributory. Physical exam: HEENT: Atraumatic, normocephalic, pupils reactive, negative for conjunctival pallor or scleral icterus, mucous membranes moist, throat clear, neck supple, nontender, trachea midline. Lungs: Clear to auscultation, breath sounds equal bilaterally, chest nontender. Heart: S1S2, regular, negative for clicks, rubs, or JVD. Abdomen: Soft, nondistended, nontender. Negative for masses or hepatosplenomegaly. Negative for costovertebral tenderness. Pelvis: Stable nontender. Genitourinary: Deferred. Rectal: Deferred. Extremities: Atraumatic, negative for cords or calf pain. Neurovascular unremarkable. Neuro: Awake, alert, oriented. Cranial nerves II through XII unremarkable. Cerebellum unremarkable. Motor and sensory unremarkable throughout. Exam nonfocal. Diagnostics: [CBC CMP UA troponin INR EKG Chest 1 view ] Therapeutics: Normal saline [Lasix 20mg IV Levaquin We had talked about possible transfer a patient refused at this time Dr. Felder's excepting physician ] Impression: Hypoxia CHF 3+ edema Likely pneumonia History of baseline Definitive disposition and diagnosis as appropriate pending reevaluation and review of above. feet, buttock Pain Score (Numeric/FACES): 3 - Related Data Allergies Allergy/AdvReac Type Severity Reaction Status Date / Time aspirin Allergy Cannot Verified 10/06/18 15:04 Remember azithromycin [From Zithromax] Allergy Cannot Verified 10/06/18 15:04 Remember carvedilol [From Coreg] Allergy Cannot Verified 10/06/18 15:04 Remember venom-honey bee Allergy Cannot Verified 10/06/18 15:04 [bee venom (honey bee)] Remember Home Meds: Home Meds Albuterol/Ipratropium [DuoNeb 3.0-0.5 MG/3 ML] 3 ml INH QID 07/24/14 [History] Allopurinol [Zyloprim] 150 mg PO DAILY 07/24/14 [History] Aspirin [[place] Aspirin] 81 mg PO DAILY 07/24/14 [History] Cholecalciferol (Vitamin D3) [Vitamin D3] 1,000 unit PO DAILY 07/24/14 [History] Furosemide 80 mg PO DAILY 07/24/14 [History] Rosuvastatin [Crestor] 5 mg PO BEDTIME 07/24/14 [History] SitaGLIPtin [Januvia] 50 mg PO DAILY 07/24/14 [History] Calcitriol 0.25 mcg PO WEEKLY 08/30/18 [History] Cyanocobalamin (Vitamin B-12) [B-12] 500 mg PO DAILY 08/30/18 [History] Ferrous Sulfate 65 mg PO BID 08/30/18 [History] Fluticasone Propion/Salmeterol [Fluticasone-Salmeterol 250-50] 1 each IH BID [History] Fluticasone Propionate [Flovent] 1 puff INH BID 10/06/18 [History] Polyethylene Glycol 3350 [MiraLAX] 1 dose PO WEEKLY 10/06/18 [History] Past Medical History HEENT History: Reports: Other (See Below) 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 Denies: Afib, Blood Clots/VTE/DVT, [place] Other Cardiovascular History: "enlarged heart" Respiratory History: Reports: COPD (chronic oxygen use 3-4 L NC) Gastrointestinal History: Reports: None Other Gastrointestinal History: "bleeding ulcer", constipation Genitourinary History: Reports: Chronic Renal Insuffiency, Other (See Below) Other Genitourinary History: kidney disease Musculoskeletal History: Reports: Arthritis Neurological History: Reports: None. Denies: CVA, TIA Endocrine/Metabolic History: Reports: Diabetes, Type II Hematologic History: Reports: Anemia, Bleeding Disorder Immunologic History: Reports: None Dermatologic History: Reports: None - Infectious Disease History Infectious Disease History: Reports: None - Past Surgical History Cardiovascular Surgical History: Reports: Vascular Surgery (fistula made to L arm, never needed and currently not functional) Social & Family History - Family History Family Medical History: Noncontributory - Caffeine Use Caffeine Use: Reports: Soda - Living Situation & Occupation Occupation: Retired ED ROS GENERAL - Review of Systems Review Of Systems: See Below ED EXAM, GENERAL - Physical Exam Exam: See Below Course - Vital Signs Last Recorded V/S: Last Vital Signs Temp 98.5 F 10/06/18 15:01 Pulse 85 10/06/18 16:45 Resp 26 H 10/06/18 16:45 BP 119/47 L 10/06/18 16:00 Pulse Ox 79 L 10/06/18 16:45 - Orders/Labs/Meds Orders: Active Orders 24 hr Category Date Time Status EKG Documentation Completion [RC] STAT Care 10/06/18 15:05 Active RT Aerosol Therapy [RC] ASDIRECTED Care 10/06/18 15:05 Active RT Aerosol Therapy [RC] ASDIRECTED Care 10/06/18 15:37 Active RT Aerosol Therapy [RC] ASDIRECTED Care 10/06/18 15:37 Active RT Aerosol Therapy [RC] ASDIRECTED Care 10/06/18 16:48 Active B-TYPE NATRIURETIC PEPTIDE,BNP [CHEM] Stat Lab 10/06/18 15:20 Received CULTURE BLOOD [BC] Stat Lab 10/06/18 15:20 Received CULTURE BLOOD [BC] Stat Lab 10/06/18 15:40 Received UA RFX LATOYA AND CULT IF INDIC [URIN] Stat Lab 10/06/18 15:05 Ordered Sodium Chloride 0.9% [Normal Saline] 1,000 ml Med 10/06/18 15:15 Active IV STAT Blood Culture x2 Reflex Set [OM.PC] Stat Oth 10/06/18 15:06 Ordered Medication Orders Sodium Chloride (Normal Saline) 1,000 mls @ 125 mls/hr IV STAT MAGAN Last Admin: 10/06/18 15:37 Dose: 80 mls/hr Labs: Laboratory Tests 10/06/18 10/06/18 10/06/18 Range/Units 15:20 15:20 15:20 WBC 5.27 (4.0-11.0) K/uL RBC 3.10 L (4.30-5.90) M/uL Hgb 9.5 L (12.0-16.0) g/dL Hct 30.0 L (36.0-46.0) % MCV 96.8 (80.0-98.0) fL MCH 30.6 (27.0-32.0) pg MCHC 31.7 (31.0-37.0) g/dL RDW Std Deviation 56.2 (28.0-62.0) fl RDW Coeff of Lai 16 H (11.0-15.0) % Plt Count 88 L (150-400) K/uL MPV 10.00 (7.40-12.00) fL Neut % (Auto) 66.8 (48.0-80.0) % Lymph % (Auto) 20.9 (16.0-40.0) % [place] % (Auto) 11.0 (0.0-15.0) % Eos % (Auto) 1.1 (0.0-7.0) % Baso % (Auto) 0.2 (0.0-1.5) % Neut # (Auto) 3.5 (1.4-5.7) K/uL Lymph # (Auto) 1.1 (0.6-2.4) K/uL [place] # (Auto) 0.6 (0.0-0.8) K/uL Eos # (Auto) 0.1 (0.0-0.7) K/uL Baso # (Auto) 0.0 (0.0-0.1) K/uL Nucleated RBC % 0.0 /100WBC Nucleated RBCs # 0 K/uL INR 1.02 Sodium 144 (136-145) mmol/L Potassium 3.7 (3.5-5.1) mmol/L Chloride 106 (98-107) mmol/L Carbon Dioxide 28.7 (21.0-32.0) mmol/L BUN 56 H (7.0-18.0) mg/dL Creatinine 2.9 H (0.6-1.0) mg/dL Est Cr Clr Drug Dosing 13.54 mL/min Estimated GFR (MDRD) 15.4 ml/min Glucose 129 H (74-106) mg/dL Calcium 9.9 (8.5-10.1) mg/dL Total Bilirubin 0.7 (0.2-1.0) mg/dL AST 24 (15-37) IU/L ALT 24 (14-63) IU/L Alkaline Phosphatase 76 (46-116) U/L Creatine Kinase (26-308) U/L Troponin I 0.051 (0.000-0.056) ng/mL Total Protein 6.5 (6.4-8.2) g/dL Albumin 2.8 L (3.4-5.0) g/dL Globulin 3.7 (2.6-4.0) g/dL Albumin/Globulin Ratio 0.8 L (0.9-1.6) 10/06/18 Range/Units 15:51 WBC (4.0-11.0) K/uL RBC (4.30-5.90) M/uL Hgb (12.0-16.0) g/dL Hct (36.0-46.0) % MCV (80.0-98.0) fL MCH (27.0-32.0) pg MCHC (31.0-37.0) g/dL RDW Std Deviation (28.0-62.0) fl RDW Coeff of Lai (11.0-15.0) % Plt Count (150-400) K/uL MPV (7.40-12.00) fL Neut % (Auto) (48.0-80.0) % Lymph % (Auto) (16.0-40.0) % [place] % (Auto) (0.0-15.0) % Eos % (Auto) (0.0-7.0) % Baso % (Auto) (0.0-1.5) % Neut # (Auto) (1.4-5.7) K/uL Lymph # (Auto) (0.6-2.4) K/uL [place] # (Auto) (0.0-0.8) K/uL Eos # (Auto) (0.0-0.7) K/uL Baso # (Auto) (0.0-0.1) K/uL Nucleated RBC % /100WBC Nucleated RBCs # K/uL INR Sodium (136-145) mmol/L Potassium (3.5-5.1) mmol/L Chloride (98-107) mmol/L Carbon Dioxide (21.0-32.0) mmol/L BUN (7.0-18.0) mg/dL Creatinine (0.6-1.0) mg/dL Est Cr Clr Drug Dosing mL/min Estimated GFR (MDRD) ml/min Glucose (74-106) mg/dL Calcium (8.5-10.1) mg/dL Total Bilirubin (0.2-1.0) mg/dL AST (15-37) IU/L ALT (14-63) IU/L Alkaline Phosphatase (46-116) U/L Creatine Kinase 33 (26-308) U/L Troponin I (0.000-0.056) ng/mL Total Protein (6.4-8.2) g/dL Albumin (3.4-5.0) g/dL Globulin (2.6-4.0) g/dL Albumin/Globulin Ratio (0.9-1.6) Meds: Medications Generic Name Dose Route Start Last Admin Trade Name Freq PRN Reason Stop Dose Admin Sodium Chloride 1,000 mls @ 125 mls/hr 10/06/18 15:15 10/06/18 15:37 Normal Saline IV 80 mls/hr STAT MAGAN Administration Discontinued Medications Generic Name Dose Route Start Last Admin Trade Name Freq PRN Reason Stop Dose Admin Albuterol 2.5 mg 10/06/18 15:37 10/06/18 15:41 Proventil Neb Soln [facility] 10/06/18 15:38 2.5 mg ONETIME ONE Administration Albuterol 2.5 mg 10/06/18 15:37 10/06/18 16:17 Proventil Neb Soln [facility] 10/06/18 15:38 Not Given ONETIME ONE Albuterol 2.5 mg 10/06/18 16:48 10/06/18 16:55 Proventil Neb Soln [facility] 10/06/18 16:49 2.5 mg ONETIME ONE Administration Albuterol/Ipratropium 3 ml 10/06/18 15:05 10/06/18 15:12 Duoneb 3.0-0.5 Mg/3 Ml [facility] 10/06/18 15:06 3 ml ONETIME ONE Administration Albuterol/Ipratropium Confirm 10/06/18 15:04 10/06/18 15:31 Duoneb 3.0-0.5 Mg/3 Ml Administered 10/06/18 15:05 Not Given Dose 3 ml .ROUTE .STK-MED ONE Furosemide 20 mg 10/06/18 15:23 10/06/18 15:37 Lasix IVPUSH 10/06/18 15:24 20 mg NOW ONE Administration Levofloxacin/Dextrose 500 mg/ 100 mls @ 100 mls/hr 10/06/18 16:04 10/06/18 16 :21 Premix IV 10/06/18 17:03 100 mls/hr ONETIME ONE Administration Methylprednisolone Sodium Succinate 125 mg 10/06/18 15:05 10/06/18 15:31 Solu-Medrol IVPUSH 10/06/18 15:06 125 mg ONETIME ONE Administration Methylprednisolone Sodium Succinate Confirm 10/06/18 15:04 10/06/18 15:31 Solu-Medrol Administered 10/06/18 15:05 Not Given Dose 125 mg .ROUTE .STK-MED ONE Methylprednisolone Sodium Succinate 125 mg 10/06/18 16:48 10/06/18 16:55 Solu-Medrol IVPUSH 10/06/18 16:49 125 mg ONETIME ONE Administration Departure - Departure Time of Disposition: 17:27 Disposition: Admitted As Inpatient 67 Condition: Poor Clinical Impression: Hypoxia, Pneumonia - Discharge Information Referrals: PCP,Unknown [Primary Care Provider] - Forms: ED Department Discharge - My Orders Last 24 Hours: My Active Orders 10/06/18 15:05 EKG Documentation Completion [RC] STAT RT Aerosol Therapy [RC] ASDIRECTED UA RFX LATOYA AND CULT IF INDIC [URIN] Stat 10/06/18 15:06 Blood Culture x2 Reflex Set [OM.PC] Stat 10/06/18 15:15 Sodium Chloride 0.9% [Normal Saline] 1,000 ml IV STAT 10/06/18 15:20 B-TYPE NATRIURETIC PEPTIDE,BNP [CHEM] Stat CULTURE BLOOD [BC] Stat 10/06/18 15:37 RT Aerosol Therapy [RC] ASDIRECTED 10/06/18 15:40 CULTURE BLOOD [BC] Stat 10/06/18 16:48 RT Aerosol Therapy [RC] ASDIRECTED - Assessment/Plan Last 24 Hours: My Active Orders 10/06/18 15:05 EKG Documentation Completion [RC] STAT RT Aerosol Therapy [RC] ASDIRECTED UA RFX LATOYA AND CULT IF INDIC [URIN] Stat 10/06/18 15:06 Blood Culture x2 Reflex Set [OM.PC] Stat 10/06/18 15:15 Sodium Chloride 0.9% [Normal Saline] 1,000 ml IV STAT 10/06/18 15:20 B-TYPE NATRIURETIC PEPTIDE,BNP [CHEM] Stat CULTURE BLOOD [BC] Stat 10/06/18 15:37 RT Aerosol Therapy [RC] ASDIRECTED 10/06/18 15:40 CULTURE BLOOD [BC] Stat 10/06/18 16:48 RT Aerosol Therapy [RC] ASDIRECTED
[2018-10-06] MEDS ORDERED: Sodium Chloride 0.9% 1,000 ML IV SCH (15:15)
[2018-10-06] MEDS ORDERED: Furosemide 40 MG/4 ML VIAL IVPUSH ONE (15:23)
[2018-10-06] MEDS ORDERED: Albuterol 0.083% 2.5 MG/3 ML Neb Soln NEB ONE ×3 (15:37→16:48)
[2018-10-06] MEDS ORDERED: Levofloxacin/Dextrose 5%-Water 500 MG in Premix Bag 1 BAG IV ONE (16:04)
--- NOTE | 2018-10-06 16:17 | CR ---
Indication: Hypoxia Technique: Chest 1 view Comparison: September 16, 2018 Findings/Impression: The patient`s face overlies the lung apices. Visualized lung noel demonstrate ill-defined opacity at the right lung base. There is no pneumothorax. Mild pulmonary venous congestion. No acute osseous abnormality. Recommend chest CT for further evaluation. Dictated by Fiona Brito MD @ Oct 06 2018 4:15PM Signed by Dr. Fiona Brito @ Oct 06 2018 4:15PM
--- NOTE | 2018-10-06 17:06 | CT ---
INDICATION: Chest pain and shortness of breath. COMPARISON: No previous CTs available. Chest film from today for comparison. TECHNIQUE: CT examination of the chest was performed without contrast enhancement. 3 mm thick axial sections were obtained from above the apices of the lungs to the lung bases. Please note that all CT scans at this facility use dose modulation, iterative reconstruction, and/or weight-based dosing when appropriate to reduce radiation dose to as low as reasonably achievable. FINDINGS: There is moderate consolidation of the posterior left lower lobe, probably atelectasis. There is mild platelike atelectasis in the posterior right lung base. There is mild diffuse ground-glass pulmonary fibrosis. There is minimal emphysematous change in the right upper lobe There is no sign of mediastinal or hilar mass or adenopathy. Sensitivity is limited by lack of contrast enhancement. The heart and great vessels are normal in appearance. There is no sign of supraclavicular or axillary mass or adenopathy. The visualized superior liver, spleen, pancreas, and adrenals are normal in appearance. There is a nonobstructive calculus in the anterior interpolar left kidney measuring 4 millimeters in diameter. There is a simple appearing cyst in the interpolar right kidney measuring 3.9 millimeters in diameter. Small slightly high-density nodular regions are seen in the upper pole of the right kidney, probably high-density cysts. Multiple small calculi are seen in the dependent portion of the otherwise normal-appearing gallbladder. There is a moderate pectus excavatum deformity. There is mild scoliosis of the thoracolumbar spine convex towards the right. IMPRESSION: Moderate consolidation of the posterior left lung base, probably atelectasis. Mild linear atelectasis in the posterior right lung base. Nonobstructive 4 millimeter calculus in the interpolar left kidney. Cholelithiasis without evidence of acute cholecystitis. Please note that all CT scans at this facility use dose modulation, iterative reconstruction, and/or weight-based dosing when appropriate to reduce radiation dose to as low as reasonably achievable. Dictated by Santiago Smith MD @ Oct 06 2018 4:59PM Signed by Dr. Santiago Smith @ Oct 06 2018 5:05PM
[2018-10-06] MEDS ORDERED: Ondansetron 4 MG Tab.DIS PO PRN (18:12)
[2018-10-06] MEDS ORDERED: Acetaminophen 325 MG Tab PO PRN (18:12)
--- NOTE | 2018-10-06 18:46 | PCM.HP ---
H&P History of Present Illness - General Date of Service: 10/06/18 Admit Problem/Dx: Admission Diagnosis/Problem Admission Diagnosis/Problem Hypoxia - History of Present Illness Initial Comments - Free Text/Narative: 87 y/o female with history of COPD, CKD who presented to the ER complaining of worsening shortness of breath. She states that she has been using her albuterol nebulizer more often for the past few days. In addition, states she has been taking her medications as indicated. States that she would get more short of breath when ambulating. Her regular home O2 is 4 L. States her O2 sats were in the 70-80's region and that prompted her to come in to the ER. Denies any nausea , vomiting, chest pain, abdominal pain, dysuria, diarrhea. In the ER, she received Duoneb treatment which seemed to improve her symptoms. CT chest wo contrast showed pulmonary fibrosis, emphysema and some atelectasis. No pleural effusions. Currently on 5 L O2 NC. feet, buttock Pain Score (Numeric/FACES): 3 - Related Data Allergies/Adverse Reactions: Allergies Allergy/AdvReac Type Severity Reaction Status Date / Time aspirin Allergy Cannot Verified 10/06/18 15:04 Remember azithromycin [From Zithromax] Allergy Cannot Verified 10/06/18 15:04 Remember carvedilol [From Coreg] Allergy Cannot Verified 10/06/18 15:04 Remember venom-honey bee Allergy Cannot Verified 10/06/18 15:04 [bee venom (honey bee)] Remember Home Medications: Home Meds Albuterol/Ipratropium [DuoNeb 3.0-0.5 MG/3 ML] 3 ml INH QID 07/24/14 [History] Allopurinol [Zyloprim] 150 mg PO DAILY 07/24/14 [History] Aspirin [[place] Aspirin] 81 mg PO DAILY 07/24/14 [History] Cholecalciferol (Vitamin D3) [Vitamin D3] 1,000 unit PO DAILY 07/24/14 [History] Furosemide 80 mg PO DAILY 07/24/14 [History] Rosuvastatin [Crestor] 5 mg PO BEDTIME 07/24/14 [History] SitaGLIPtin [Januvia] 50 mg PO DAILY 07/24/14 [History] Calcitriol 0.25 mcg PO WEEKLY 08/30/18 [History] Cyanocobalamin (Vitamin B-12) [B-12] 500 mg PO DAILY 08/30/18 [History] Ferrous Sulfate 65 mg PO BID 08/30/18 [History] Fluticasone Propion/Salmeterol [Fluticasone-Salmeterol 250-50] 1 each IH BID [History] Fluticasone Propionate [Flovent] 1 puff INH BID 10/06/18 [History] Polyethylene Glycol 3350 [MiraLAX] 1 dose PO WEEKLY 10/06/18 [History] Past Medical History HEENT History: Reports: Other (See Below) 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 Denies: Afib, Blood Clots/VTE/DVT, [place] Other Cardiovascular History: "enlarged heart" Respiratory History: Reports: COPD (chronic oxygen use 3-4 L NC) Other Respiratory History: wears Home 02 Gastrointestinal History: Reports: None Other Gastrointestinal History: "bleeding ulcer", constipation Genitourinary History: Reports: Chronic Renal Insuffiency, Other (See Below) Other Genitourinary History: kidney disease Musculoskeletal History: Reports: Arthritis Neurological History: Reports: None. Denies: CVA, TIA Endocrine/Metabolic History: Reports: Diabetes, Type II Hematologic History: Reports: Anemia, Bleeding Disorder Immunologic History: Reports: None Dermatologic History: Reports: None - Infectious Disease History Infectious Disease History: Reports: None - Past Surgical History Cardiovascular Surgical History: Reports: Vascular Surgery (fistula made to L arm, never needed and currently not functional) Social & Family History - Family History Family Medical History: Noncontributory - Tobacco Use Smoking Status *Q: Former Smoker Used Tobacco, but Quit: Yes Month/Year Tobacco Last Used: quit 35 years ago - Caffeine Use Caffeine Use: Reports: Soda - Recreational Drug Use Recreational Drug Use: No - Living Situation & Occupation Occupation: Retired H&P Review of Systems - Review of Systems: Review Of Systems: ROS reveals no pertinent complaints other than HPI. Exam - Exam Exam: See Below - Vital Signs Vital Signs: Last Vital Signs Temp 36.9 C 10/06/18 15:01 Pulse 94 10/06/18 18:15 Resp 22 H 10/06/18 18:15 BP 101/44 L 10/06/18 18:15 Pulse Ox 84 L 10/06/18 18:15 Weight: 81.4 kg - Exam Quality Assessment: Supplemental Oxygen General: Alert, Oriented HEENT: Other (dry oral mucosa) Lungs: Clear to Auscultation, Normal Respiratory Effort, Other (increased expiratory time. No wheezing or crackles.) GI/Abdominal Exam: Normal Bowel Sounds, Non-Tender Back Exam: No: CVA Tenderness (L), CVA Tenderness (R) Extremities: Other (2+ pedal edema up to knees) Skin: Warm, Dry Neuro Extensive - Mental Status: Alert, Oriented x3 - Patient Data Lab Results Last 24 hrs: Laboratory Results - last 24 hr 10/06/18 10/06/18 10/06/18 Range/Units 15:20 15:20 15:20 WBC 5.27 (4.0-11.0) K/uL RBC 3.10 L (4.30-5.90) M/uL Hgb 9.5 L (12.0-16.0) g/dL Hct 30.0 L (36.0-46.0) % MCV 96.8 (80.0-98.0) fL MCH 30.6 (27.0-32.0) pg MCHC 31.7 (31.0-37.0) g/dL RDW Std Deviation 56.2 (28.0-62.0) fl RDW Coeff of Lai 16 H (11.0-15.0) % Plt Count 88 L (150-400) K/uL MPV 10.00 (7.40-12.00) fL Neut % (Auto) 66.8 (48.0-80.0) % Lymph % (Auto) 20.9 (16.0-40.0) % [place] % (Auto) 11.0 (0.0-15.0) % Eos % (Auto) 1.1 (0.0-7.0) % Baso % (Auto) 0.2 (0.0-1.5) % Neut # (Auto) 3.5 (1.4-5.7) K/uL Lymph # (Auto) 1.1 (0.6-2.4) K/uL Davison # (Auto) 0.6 (0.0-0.8) K/uL Eos # (Auto) 0.1 (0.0-0.7) K/uL Baso # (Auto) 0.0 (0.0-0.1) K/uL Nucleated RBC % 0.0 /100WBC Nucleated RBCs # 0 K/uL INR 1.02 Sodium 144 (136-145) mmol/L Potassium 3.7 (3.5-5.1) mmol/L Chloride 106 (98-107) mmol/L Carbon Dioxide 28.7 (21.0-32.0) mmol/L BUN 56 H (7.0-18.0) mg/dL Creatinine 2.9 H (0.6-1.0) mg/dL Est Cr Clr Drug Dosing 13.54 mL/min Estimated GFR (MDRD) 15.4 ml/min Glucose 129 H (74-106) mg/dL Calcium 9.9 (8.5-10.1) mg/dL Total Bilirubin 0.7 (0.2-1.0) mg/dL AST 24 (15-37) IU/L ALT 24 (14-63) IU/L Alkaline Phosphatase 76 (46-116) U/L Creatine Kinase (26-308) U/L Troponin I 0.051 (0.000-0.056) ng/mL Total Protein 6.5 (6.4-8.2) g/dL Albumin 2.8 L (3.4-5.0) g/dL Globulin 3.7 (2.6-4.0) g/dL Albumin/Globulin Ratio 0.8 L (0.9-1.6) Urine Color Urine Appearance Urine pH (5.0-8.0) Ur Specific [place] (1.001-1.035) Urine Protein (NEGATIVE) mg/dL Urine Glucose (UA) (NEGATIVE) mg/dL Urine Ketones (NEGATIVE) mg/dL Urine Occult Blood (NEGATIVE) Urine Nitrite (NEGATIVE) Urine Bilirubin (NEGATIVE) Urine Urobilinogen (<2.0) EU/dL Ur Leukocyte Esterase (NEGATIVE) Urine RBC (0-2/HPF) Urine WBC (0-5/HPF) Ur Epithelial Cells (NONE-FEW) Amorphous Sediment (NEGATIVE) Urine Bacteria (NEGATIVE) Urine Mucus (NONE-MOD) 10/06/18 10/06/18 Range/Units 15:51 17:11 WBC (4.0-11.0) K/uL RBC (4.30-5.90) M/uL Hgb (12.0-16.0) g/dL Hct (36.0-46.0) % MCV (80.0-98.0) fL MCH (27.0-32.0) pg MCHC (31.0-37.0) g/dL RDW Std Deviation (28.0-62.0) fl RDW Coeff of Lai (11.0-15.0) % Plt Count (150-400) K/uL MPV (7.40-12.00) fL Neut % (Auto) (48.0-80.0) % Lymph % (Auto) (16.0-40.0) % Davison % (Auto) (0.0-15.0) % Eos % (Auto) (0.0-7.0) % Baso % (Auto) (0.0-1.5) % Neut # (Auto) (1.4-5.7) K/uL Lymph # (Auto) (0.6-2.4) K/uL Davison # (Auto) (0.0-0.8) K/uL Eos # (Auto) (0.0-0.7) K/uL Baso # (Auto) (0.0-0.1) K/uL Nucleated RBC % /100WBC Nucleated RBCs # K/uL INR Sodium (136-145) mmol/L Potassium (3.5-5.1) mmol/L Chloride (98-107) mmol/L Carbon Dioxide (21.0-32.0) mmol/L BUN (7.0-18.0) mg/dL Creatinine (0.6-1.0) mg/dL Est Cr Clr Drug Dosing mL/min Estimated GFR (MDRD) ml/min Glucose (74-106) mg/dL Calcium (8.5-10.1) mg/dL Total Bilirubin (0.2-1.0) mg/dL AST (15-37) IU/L ALT (14-63) IU/L Alkaline Phosphatase (46-116) U/L Creatine Kinase 33 (26-308) U/L Troponin I (0.000-0.056) ng/mL Total Protein (6.4-8.2) g/dL Albumin (3.4-5.0) g/dL Globulin (2.6-4.0) g/dL Albumin/Globulin Ratio (0.9-1.6) Urine Color YELLOW Urine Appearance CLEAR Urine pH 5.0 (5.0-8.0) Ur Specific [place] 1.010 (1.001-1.035) Urine Protein NEGATIVE (NEGATIVE) mg/dL Urine Glucose (UA) NEGATIVE (NEGATIVE) mg/dL Urine Ketones NEGATIVE (NEGATIVE) mg/dL Urine Occult Blood NEGATIVE (NEGATIVE) Urine Nitrite NEGATIVE (NEGATIVE) Urine Bilirubin NEGATIVE (NEGATIVE) Urine Urobilinogen 0.2 (<2.0) EU/dL Ur Leukocyte Esterase TRACE H (NEGATIVE) Urine RBC 0-1 (0-2/HPF) Urine WBC 4-6 (0-5/HPF) Ur Epithelial Cells FEW (NONE-FEW) Amorphous Sediment NOT SEEN (NEGATIVE) Urine Bacteria FEW (NEGATIVE) Urine Mucus NOT SEEN (NONE-MOD) Result Diagrams: 10/06/18 15:20 10/06/18 15:20 Problem List Initiated/Reviewed/Updated: Yes Orders Last 24hrs: Active Orders 24 hr Category Date Time Status Admission Status [Patient Status] [ADT] Stat ADT 10/06/18 17:28 Active EKG Documentation Completion [RC] STAT Care 10/06/18 15:05 Active Oxygen Therapy [RC] PRN Care 10/06/18 18:12 Ordered RT Aerosol Therapy [RC] ASDIRECTED Care 10/06/18 15:05 Active RT Aerosol Therapy [RC] ASDIRECTED Care 10/06/18 15:37 Active RT Aerosol Therapy [RC] ASDIRECTED Care 10/06/18 15:37 Active RT Aerosol Therapy [RC] ASDIRECTED Care 10/06/18 16:48 Active RT Aerosol Therapy [RC] ASDIRECTED Care 10/06/18 18:22 Ordered RT Aerosol Therapy [RC] ASDIRECTED Care 10/06/18 18:23 Ordered Up With Assistance [RC] ASDIRECTED Care 10/06/18 18:12 Ordered VTE/DVT Education [RC] PER UNIT ROUTINE Care 10/06/18 18:12 Ordered Vital Signs [RC] Q4H Care 10/06/18 18:12 Ordered [place] [employer] Diet [DIET] Diet 10/06/18 Breakfast Ordered B-TYPE NATRIURETIC PEPTIDE,BNP [CHEM] Stat Lab 10/06/18 15:20 Received CULTURE BLOOD [BC] Stat Lab 10/06/18 15:20 Received CULTURE BLOOD [BC] Stat Lab 10/06/18 15:40 Received CULTURE URINE [RM] Stat Lab 10/06/18 17:11 Received Acetaminophen [Tylenol] Med 10/06/18 18:12 Active 650 mg PO Q4H PRN Albuterol/Ipratropium [DuoNeb 3.0-0.5 MG/3 ML] Med 10/06/18 19:00 Ordered 3 ml NEB Q4HRRT Albuterol/Ipratropium [DuoNeb 3.0-0.5 MG/3 ML] Med 10/06/18 18:22 Ordered 3 ml NEB Q6HRRT PRN Heparin Sodium Med 10/06/18 18:15 Active 5,000 units SUBCUT Q8H Ondansetron [Zofran ODT] Med 10/06/18 18:12 Active 4 mg PO Q4H PRN Sodium Chloride 0.9% [Normal Saline] 1,000 ml Med 10/06/18 15:15 Active IV STAT methylPREDNISolone Sod Succ [Solu-MEDROL] Med 10/07/18 09:00 Ordered 125 mg IVPUSH DAILY Blood Culture x2 Reflex Set [OM.PC] Stat Oth 10/06/18 15:06 Ordered Resuscitation Status Routine Resus Stat 10/06/18 18:12 Ordered Medication Orders Acetaminophen (Tylenol) 650 mg PO Q4H PRN PRN Reason: Pain (Mild 1-3)/fever Albuterol/Ipratropium (Duoneb 3.0-0.5 Mg/3 Ml) 3 ml NEB Q4HRRT MAGAN Stop: 10/06/18 22:01 Albuterol/Ipratropium (Duoneb 3.0-0.5 Mg/3 Ml) 3 ml NEB Q6HRRT PRN PRN Reason: Dyspnea Heparin Sodium (Porcine) (Heparin Sodium) 5,000 units SUBCUT Q8H MAGAN Sodium Chloride (Normal Saline) 1,000 mls @ 125 mls/hr IV STAT MAGAN Last Admin: 10/06/18 15:37 Dose: 80 mls/hr Methylprednisolone Sodium Succinate (Solu-Medrol) 125 mg IVPUSH DAILY MAGAN Ondansetron HCl (Zofran Odt) 4 mg PO Q4H PRN PRN Reason: nausea, able to take PO Assessment/Plan Comment:: A: 1. Acute on chronic hypoxic respiratory failure 2. Acute COPD exacerbation 3. CKD stage 4 4. Normocytic anemia P: 1. Admit as inpatient to medical floor. 2. Vitals, I/O's per floor routine. 3. Activity: up with assistance 4. Diet: Diabetic diet 5. DVT prophylaxis: heparin 6. Code Status: DNR/DNI 1. Acute on chronic hypoxic resp failure, multifactorial. Likely 2/2 to underlying pulmonary fibrosis, COPD and obesity hypoventilation. Ordered Duonebs x2 doses and then PRN. supplemental O2 with goal O2 sats 88-92%. Will continue levaquin, methylprednisolone. If not improving, will order ABG. 2. CKD stage 4: avoid NSAIDs. Continue to monitor 3. Normocytic anemia likely 2/2 to her CKD. No signs of bleeding. Continue to monitor. Dispo: 2-3 days
[2018-10-06] MEDS: Albuterol/Ipratropium 3.0-0.5 MG/3 ML Neb Soln NEB SCH ×2 (19:31→21:58)
[2018-10-06] MEDS: Heparin Sodium 5,000 Units/ML Vial SUBCUT SCH (21:28)
[2018-10-07] MEDS: Heparin Sodium 5,000 Units/ML Vial SUBCUT SCH ×3 (02:37→20:10)
[2018-10-07] MEDS: methylPREDNISolone Sodium Succinate 125 MG/2 ML SDV IVPUSH SCH (08:35)
--- NOTE | 2018-10-07 12:20 | PCM.PN ---
- General Info Date of Service: 10/07/18 Subjective Update: No acute events overnight. Patient feels better this morning. Still mildly short of breath on 5 L O2 NC. Denies any chest pain, abdominal pain, dysuria, diarrhea. - Patient Data Vitals - Most Recent: Last Vital Signs Temp 36.6 C 10/07/18 11:46 Pulse 104 H 10/07/18 11:46 Resp 18 10/07/18 11:46 BP 100/49 L 10/07/18 11:46 Pulse Ox 81 L 10/07/18 11:46 Weight - Most Recent: 81.4 kg I&O - Last 24 Hours: Intake & Output 10/06/18 10/07/18 10/07/18 22:59 06:59 14:59 Intake Total 300 Output Total 200 200 Balance -200 100 Lab Results Last 24 Hours: Laboratory Results - last 24 hr 10/06/18 10/06/18 10/06/18 Range/Units 15:20 15:20 15:20 WBC 5.27 (4.0-11.0) K/uL RBC 3.10 L (4.30-5.90) M/uL Hgb 9.5 L (12.0-16.0) g/dL Hct 30.0 L (36.0-46.0) % MCV 96.8 (80.0-98.0) fL MCH 30.6 (27.0-32.0) pg MCHC 31.7 (31.0-37.0) g/dL RDW Std Deviation 56.2 (28.0-62.0) fl RDW Coeff of Lai 16 H (11.0-15.0) % Plt Count 88 L (150-400) K/uL MPV 10.00 (7.40-12.00) fL Neut % (Auto) 66.8 (48.0-80.0) % Lymph % (Auto) 20.9 (16.0-40.0) % Pope % (Auto) 11.0 (0.0-15.0) % Eos % (Auto) 1.1 (0.0-7.0) % Baso % (Auto) 0.2 (0.0-1.5) % Neut # (Auto) 3.5 (1.4-5.7) K/uL Lymph # (Auto) 1.1 (0.6-2.4) K/uL Pope # (Auto) 0.6 (0.0-0.8) K/uL Eos # (Auto) 0.1 (0.0-0.7) K/uL Baso # (Auto) 0.0 (0.0-0.1) K/uL Nucleated RBC % 0.0 /100WBC Nucleated RBCs # 0 K/uL INR 1.02 Sodium 144 (136-145) mmol/L Potassium 3.7 (3.5-5.1) mmol/L Chloride 106 (98-107) mmol/L Carbon Dioxide 28.7 (21.0-32.0) mmol/L BUN 56 H (7.0-18.0) mg/dL Creatinine 2.9 H (0.6-1.0) mg/dL Est Cr Clr Drug Dosing 13.54 mL/min Estimated GFR (MDRD) 15.4 ml/min Glucose 129 H (74-106) mg/dL Hemoglobin A1c (4.5-6.2) % Calcium 9.9 (8.5-10.1) mg/dL Total Bilirubin 0.7 (0.2-1.0) mg/dL AST 24 (15-37) IU/L ALT 24 (14-63) IU/L Alkaline Phosphatase 76 (46-116) U/L Creatine Kinase (26-308) U/L Troponin I 0.051 (0.000-0.056) ng/mL B-Natriuretic Peptide (<100) PG/ML Total Protein 6.5 (6.4-8.2) g/dL Albumin 2.8 L (3.4-5.0) g/dL Globulin 3.7 (2.6-4.0) g/dL Albumin/Globulin Ratio 0.8 L (0.9-1.6) Urine Color Urine Appearance Urine pH (5.0-8.0) Ur Specific [place] (1.001-1.035) Urine Protein (NEGATIVE) mg/dL Urine Glucose (UA) (NEGATIVE) mg/dL Urine Ketones (NEGATIVE) mg/dL Urine Occult Blood (NEGATIVE) Urine Nitrite (NEGATIVE) Urine Bilirubin (NEGATIVE) Urine Urobilinogen (<2.0) EU/dL Ur Leukocyte Esterase (NEGATIVE) Urine RBC (0-2/HPF) Urine WBC (0-5/HPF) Ur Epithelial Cells (NONE-FEW) Amorphous Sediment (NEGATIVE) Urine Bacteria (NEGATIVE) Urine Mucus (NONE-MOD) 10/06/18 10/06/18 10/06/18 Range/Units 15:20 15:51 17:11 WBC (4.0-11.0) K/uL RBC (4.30-5.90) M/uL Hgb (12.0-16.0) g/dL Hct (36.0-46.0) % MCV (80.0-98.0) fL MCH (27.0-32.0) pg MCHC (31.0-37.0) g/dL RDW Std Deviation (28.0-62.0) fl RDW Coeff of Lai (11.0-15.0) % Plt Count (150-400) K/uL MPV (7.40-12.00) fL Neut % (Auto) (48.0-80.0) % Lymph % (Auto) (16.0-40.0) % Pope % (Auto) (0.0-15.0) % Eos % (Auto) (0.0-7.0) % Baso % (Auto) (0.0-1.5) % Neut # (Auto) (1.4-5.7) K/uL Lymph # (Auto) (0.6-2.4) K/uL Pope # (Auto) (0.0-0.8) K/uL Eos # (Auto) (0.0-0.7) K/uL Baso # (Auto) (0.0-0.1) K/uL Nucleated RBC % /100WBC Nucleated RBCs # K/uL INR Sodium (136-145) mmol/L Potassium (3.5-5.1) mmol/L Chloride (98-107) mmol/L Carbon Dioxide (21.0-32.0) mmol/L BUN (7.0-18.0) mg/dL Creatinine (0.6-1.0) mg/dL Est Cr Clr Drug Dosing mL/min Estimated GFR (MDRD) ml/min Glucose (74-106) mg/dL Hemoglobin A1c (4.5-6.2) % Calcium (8.5-10.1) mg/dL Total Bilirubin (0.2-1.0) mg/dL AST (15-37) IU/L ALT (14-63) IU/L Alkaline Phosphatase (46-116) U/L Creatine Kinase 33 (26-308) U/L Troponin I (0.000-0.056) ng/mL B-Natriuretic Peptide 97 (<100) PG/ML Total Protein (6.4-8.2) g/dL Albumin (3.4-5.0) g/dL Globulin (2.6-4.0) g/dL Albumin/Globulin Ratio (0.9-1.6) Urine Color YELLOW Urine Appearance CLEAR Urine pH 5.0 (5.0-8.0) Ur Specific [place] 1.010 (1.001-1.035) Urine Protein NEGATIVE (NEGATIVE) mg/dL Urine Glucose (UA) NEGATIVE (NEGATIVE) mg/dL Urine Ketones NEGATIVE (NEGATIVE) mg/dL Urine Occult Blood NEGATIVE (NEGATIVE) Urine Nitrite NEGATIVE (NEGATIVE) Urine Bilirubin NEGATIVE (NEGATIVE) Urine Urobilinogen 0.2 (<2.0) EU/dL Ur Leukocyte Esterase TRACE H (NEGATIVE) Urine RBC 0-1 (0-2/HPF) Urine WBC 4-6 (0-5/HPF) Ur Epithelial Cells FEW (NONE-FEW) Amorphous Sediment NOT SEEN (NEGATIVE) Urine Bacteria FEW (NEGATIVE) Urine Mucus NOT SEEN (NONE-MOD) 10/06/18 10/07/18 10/07/18 Range/Units 19:27 04:50 04:50 WBC 2.84 L (4.0-11.0) K/uL RBC 2.91 L (4.30-5.90) M/uL Hgb 8.9 L (12.0-16.0) g/dL Hct 28.0 L (36.0-46.0) % MCV 96.2 (80.0-98.0) fL MCH 30.6 (27.0-32.0) pg MCHC 31.8 (31.0-37.0) g/dL RDW Std Deviation 54.9 (28.0-62.0) fl RDW Coeff of Lai 16 H (11.0-15.0) % Plt Count 84 L (150-400) K/uL MPV 12.30 H (7.40-12.00) fL Neut % (Auto) 88.7 H (48.0-80.0) % Lymph % (Auto) 10.2 L (16.0-40.0) % Pope % (Auto) 1.1 (0.0-15.0) % Eos % (Auto) 0.0 (0.0-7.0) % Baso % (Auto) 0.0 (0.0-1.5) % Neut # (Auto) 2.5 (1.4-5.7) K/uL Lymph # (Auto) 0.3 L (0.6-2.4) K/uL Pope # (Auto) 0.0 (0.0-0.8) K/uL Eos # (Auto) 0.0 (0.0-0.7) K/uL Baso # (Auto) 0.0 (0.0-0.1) K/uL Nucleated RBC % 0.0 /100WBC Nucleated RBCs # 0 K/uL INR Sodium 147 H (136-145) mmol/L Potassium 3.8 (3.5-5.1) mmol/L Chloride 110 H (98-107) mmol/L Carbon Dioxide 30.6 (21.0-32.0) mmol/L BUN 57 H (7.0-18.0) mg/dL Creatinine 2.8 H (0.6-1.0) mg/dL Est Cr Clr Drug Dosing 13.99 mL/min Estimated GFR (MDRD) 16.0 ml/min Glucose 181 H (74-106) mg/dL Hemoglobin A1c 6.0 (4.5-6.2) % Calcium 9.3 (8.5-10.1) mg/dL Total Bilirubin 0.4 (0.2-1.0) mg/dL AST 16 (15-37) IU/L ALT 18 (14-63) IU/L Alkaline Phosphatase 60 (46-116) U/L Creatine Kinase (26-308) U/L Troponin I (0.000-0.056) ng/mL B-Natriuretic Peptide (<100) PG/ML Total Protein 5.5 L (6.4-8.2) g/dL Albumin 2.3 L (3.4-5.0) g/dL Globulin 3.2 (2.6-4.0) g/dL Albumin/Globulin Ratio 0.7 L (0.9-1.6) Urine Color Urine Appearance Urine pH (5.0-8.0) Ur Specific [place] (1.001-1.035) Urine Protein (NEGATIVE) mg/dL Urine Glucose (UA) (NEGATIVE) mg/dL Urine Ketones (NEGATIVE) mg/dL Urine Occult Blood (NEGATIVE) Urine Nitrite (NEGATIVE) Urine Bilirubin (NEGATIVE) Urine Urobilinogen (<2.0) EU/dL Ur Leukocyte Esterase (NEGATIVE) Urine RBC (0-2/HPF) Urine WBC (0-5/HPF) Ur Epithelial Cells (NONE-FEW) Amorphous Sediment (NEGATIVE) Urine Bacteria (NEGATIVE) Urine Mucus (NONE-MOD) Med Orders - Current: Current Medications Acetaminophen (Tylenol) 650 mg PO Q4H PRN PRN Reason: Pain (Mild 1-3)/fever Albuterol/Ipratropium (Duoneb 3.0-0.5 Mg/3 Ml) 3 ml NEB Q6HRRT PRN PRN Reason: Dyspnea Heparin Sodium (Porcine) (Heparin Sodium) 5,000 units SUBCUT Q8H [facility] Last Admin: 10/07/18 10:08 Dose: Not Given Methylprednisolone Sodium Succinate (Solu-Medrol) 125 mg IVPUSH DAILY [facility] Last Admin: 10/07/18 08:35 Dose: 125 mg Ondansetron HCl (Zofran Odt) 4 mg PO Q4H PRN PRN Reason: nausea, able to take PO Discontinued Medications Albuterol (Proventil Neb Soln) 2.5 mg NEB ONETIME ONE Stop: 10/06/18 15:38 Last Admin: 10/06/18 15:41 Dose: 2.5 mg Albuterol (Proventil Neb Soln) 2.5 mg NEB ONETIME ONE Stop: 10/06/18 15:38 Last Admin: 10/06/18 16:17 Dose: Not Given Albuterol (Proventil Neb Soln) 2.5 mg NEB ONETIME ONE Stop: 10/06/18 16:49 Last Admin: 10/06/18 16:55 Dose: 2.5 mg Albuterol/Ipratropium (Duoneb 3.0-0.5 Mg/3 Ml) 3 ml NEB ONETIME ONE Stop: 10/06/18 15:06 Last Admin: 10/06/18 15:12 Dose: 3 ml Albuterol/Ipratropium (Duoneb 3.0-0.5 Mg/3 Ml) Confirm Administered Dose 3 ml .ROUTE .STK-MED ONE Stop: 10/06/18 15:05 Last Admin: 10/06/18 15:31 Dose: Not Given Albuterol/Ipratropium (Duoneb 3.0-0.5 Mg/3 Ml) 3 ml NEB Q4HRRT MAGAN Stop: 10/06/18 22:01 Last Admin: 10/06/18 21:58 Dose: 3 ml Furosemide (Lasix) 20 mg IVPUSH NOW ONE Stop: 10/06/18 15:24 Last Admin: 10/06/18 15:37 Dose: 20 mg Sodium Chloride (Normal Saline) 1,000 mls @ 125 mls/hr IV STAT MAGAN Last Admin: 10/06/18 15:37 Dose: 80 mls/hr Levofloxacin/Dextrose 500 mg/ (Premix) 100 mls @ 100 mls/hr IV ONETIME ONE Stop: 10/06/18 17:03 Last Admin: 10/06/18 16:21 Dose: 100 mls/hr Levofloxacin/Dextrose 500 mg/ (Premix) 100 mls @ 100 mls/hr IV Q48H MAGAN Methylprednisolone Sodium Succinate (Solu-Medrol) 125 mg IVPUSH ONETIME ONE Stop: 10/06/18 15:06 Last Admin: 10/06/18 15:31 Dose: 125 mg Methylprednisolone Sodium Succinate (Solu-Medrol) Confirm Administered Dose 125 mg .ROUTE .STK-MED ONE Stop: 10/06/18 15:05 Last Admin: 10/06/18 15:31 Dose: Not Given Methylprednisolone Sodium Succinate (Solu-Medrol) 125 mg IVPUSH ONETIME ONE Stop: 10/06/18 16:49 Last Admin: 10/06/18 16:55 Dose: 125 mg - Exam Quality Assessment: Supplemental Oxygen General: Alert, Oriented, Cooperative, No Acute Distress Lungs: Clear to Auscultation, Normal Respiratory Effort. No: Crackles, Rhonchi , Wheezing Cardiovascular: Regular Rate, Regular Rhythm GI/Abdominal Exam: Normal Bowel Sounds, Soft, Non-Tender, No Distention Extremities: Pedal Edema Skin: Warm, Dry - Problem List Review Problem List Initiated/Reviewed/Updated: Yes - My Orders Last 24 Hours: My Active Orders 10/06/18 18:12 Oxygen Therapy [RC] PRN Up With Assistance [RC] ASDIRECTED VTE/DVT Education [RC] PER UNIT ROUTINE Vital Signs [RC] Q4H Acetaminophen [Tylenol] 650 mg PO Q4H PRN Ondansetron [Zofran ODT] 4 mg PO Q4H PRN Resuscitation Status Routine 10/06/18 18:15 Heparin Sodium 5,000 units SUBCUT Q8H 10/06/18 18:22 RT Aerosol Therapy [RC] ASDIRECTED Albuterol/Ipratropium [DuoNeb 3.0-0.5 MG/3 ML] 3 ml NEB Q6HRRT PRN 10/06/18 18:23 RT Aerosol Therapy [RC] ASDIRECTED 10/07/18 09:00 methylPREDNISolone Sod Succ [Solu-MEDROL] 125 mg IVPUSH DAILY - Plan Plan:: A: 1. Acute on chronic hypoxic respiratory failure 2. Pancytopenia 3. Acute COPD exacerbation 4. CKD stage 4 5. Hypernatremia P: 1. Pancytopenia, unclear if this is due to dilutional effect or due to levaquin. For now, will discontinue antibiotic and monitor. No fevers. 2. COPD exacerbation- continue Duonebs PRN, methylprednisolone. 3. Hypernatremia-DC IV fluids and monitor. Dispo: 1-2 days
[2018-10-08] MEDS: Heparin Sodium 5,000 Units/ML Vial SUBCUT SCH ×3 (02:17→19:56)
[2018-10-08] MEDS ORDERED: Levofloxacin/Dextrose 5%-Water 500 MG in Premix Bag 1 BAG IV SCH (09:00)
[2018-10-08] MEDS: methylPREDNISolone Sodium Succinate 125 MG/2 ML SDV IVPUSH SCH (11:43)
--- NOTE | 2018-10-08 14:29 | PCM.PN ---
- General Info Date of Service: 10/08/18 Subjective Update: Patient became hypoxic last night when ambulating to the bathroom. O2 sats normalized with 6 L O2 NC. This morning, she states she feels okay but tired. Denies any chest pain, abdominal pain, dysuria, diarrhea. Decreased lower extremity swelling. - Patient Data Vitals - Most Recent: Last Vital Signs Temp 36.7 C 10/08/18 11:19 Pulse 100 10/08/18 11:19 Resp 16 10/08/18 11:19 BP 121/44 L 10/08/18 11:19 Pulse Ox 90 L 10/08/18 11:19 Weight - Most Recent: 81.4 kg I&O - Last 24 Hours: Intake & Output 10/07/18 10/08/18 10/08/18 22:59 06:59 14:59 Intake Total 200 Output Total 300 Balance -100 Lab Results Last 24 Hours: Laboratory Results - last 24 hr 10/08/18 10/08/18 Range/Units 04:45 04:45 WBC 4.25 (4.0-11.0) K/uL RBC 2.79 L (4.30-5.90) M/uL Hgb 8.4 L (12.0-16.0) g/dL Hct 27.0 L (36.0-46.0) % MCV 96.8 (80.0-98.0) fL MCH 30.1 (27.0-32.0) pg MCHC 31.1 (31.0-37.0) g/dL RDW Std Deviation 54.6 (28.0-62.0) fl RDW Coeff of Lai 16 H (11.0-15.0) % Plt Count 90 L (150-400) K/uL MPV 11.30 (7.40-12.00) fL Neut % (Auto) 86.1 H (48.0-80.0) % Lymph % (Auto) 9.4 L (16.0-40.0) % [place] % (Auto) 4.5 (0.0-15.0) % Eos % (Auto) 0.0 (0.0-7.0) % Baso % (Auto) 0.0 (0.0-1.5) % Neut # (Auto) 3.7 (1.4-5.7) K/uL Lymph # (Auto) 0.4 L (0.6-2.4) K/uL [place] # (Auto) 0.2 (0.0-0.8) K/uL Eos # (Auto) 0.0 (0.0-0.7) K/uL Baso # (Auto) 0.0 (0.0-0.1) K/uL Nucleated RBC % 0.0 /100WBC Nucleated RBCs # 0 K/uL Sodium 147 H (136-145) mmol/L Potassium 3.9 (3.5-5.1) mmol/L Chloride 111 H (98-107) mmol/L Carbon Dioxide 31.9 (21.0-32.0) mmol/L BUN 66 H (7.0-18.0) mg/dL Creatinine 2.6 H (0.6-1.0) mg/dL Est Cr Clr Drug Dosing 15.06 mL/min Estimated GFR (MDRD) 17.5 ml/min Glucose 170 H (74-106) mg/dL Calcium 9.2 (8.5-10.1) mg/dL Alfred Results Last 24 Hours: Microbiology 10/06/18 17:11 Urine Culture - Final Urine, Clean Catch MIXED WINNIE >100,000 CFU/ML 10/06/18 15:40 Aerobic Blood Culture - Preliminary Blood - Venous - Lab Draw NO GROWTH AFTER 1 DAY Anaerobic Blood Culture - Preliminary NO GROWTH AFTER 1 DAY 10/06/18 15:20 Aerobic Blood Culture - Preliminary Blood - Venous NO GROWTH AFTER 1 DAY Anaerobic Blood Culture - Preliminary NO GROWTH AFTER 1 DAY Med Orders - Current: Current Medications Acetaminophen (Tylenol) 650 mg PO Q4H PRN PRN Reason: Pain (Mild 1-3)/fever Albuterol/Ipratropium (Duoneb 3.0-0.5 Mg/3 Ml) 3 ml NEB Q6HRRT PRN PRN Reason: Dyspnea Heparin Sodium (Porcine) (Heparin Sodium) 5,000 units SUBCUT Q8H [facility] Last Admin: 10/08/18 10:32 Dose: Not Given Methylprednisolone Sodium Succinate (Solu-Medrol) 125 mg IVPUSH DAILY [facility] Last Admin: 10/08/18 11:43 Dose: 125 mg Ondansetron HCl (Zofran Odt) 4 mg PO Q4H PRN PRN Reason: nausea, able to take PO Discontinued Medications Albuterol (Proventil Neb Soln) 2.5 mg NEB ONETIME ONE Stop: 10/06/18 15:38 Last Admin: 10/06/18 15:41 Dose: 2.5 mg Albuterol (Proventil Neb Soln) 2.5 mg NEB ONETIME ONE Stop: 10/06/18 15:38 Last Admin: 10/06/18 16:17 Dose: Not Given Albuterol (Proventil Neb Soln) 2.5 mg NEB ONETIME ONE Stop: 10/06/18 16:49 Last Admin: 10/06/18 16:55 Dose: 2.5 mg Albuterol/Ipratropium (Duoneb 3.0-0.5 Mg/3 Ml) 3 ml NEB ONETIME ONE Stop: 10/06/18 15:06 Last Admin: 10/06/18 15:12 Dose: 3 ml Albuterol/Ipratropium (Duoneb 3.0-0.5 Mg/3 Ml) Confirm Administered Dose 3 ml .ROUTE .STK-MED ONE Stop: 10/06/18 15:05 Last Admin: 10/06/18 15:31 Dose: Not Given Albuterol/Ipratropium (Duoneb 3.0-0.5 Mg/3 Ml) 3 ml NEB Q4HRRT [facility] Stop: 10/06/18 22:01 Last Admin: 10/06/18 21:58 Dose: 3 ml Furosemide (Lasix) 20 mg IVPUSH NOW ONE Stop: 10/06/18 15:24 Last Admin: 10/06/18 15:37 Dose: 20 mg Sodium Chloride (Normal Saline) 1,000 mls @ 125 mls/hr IV STAT [facility] Last Admin: 10/06/18 15:37 Dose: 80 mls/hr Levofloxacin/Dextrose 500 mg/ (Premix) 100 mls @ 100 mls/hr IV ONETIME ONE Stop: 10/06/18 17:03 Last Admin: 10/06/18 16:21 Dose: 100 mls/hr Levofloxacin/Dextrose 500 mg/ (Premix) 100 mls @ 100 mls/hr IV Q48H [facility] Methylprednisolone Sodium Succinate (Solu-Medrol) 125 mg IVPUSH ONETIME ONE Stop: 10/06/18 15:06 Last Admin: 10/06/18 15:31 Dose: 125 mg Methylprednisolone Sodium Succinate (Solu-Medrol) Confirm Administered Dose 125 mg .ROUTE .STK-MED ONE Stop: 10/06/18 15:05 Last Admin: 10/06/18 15:31 Dose: Not Given Methylprednisolone Sodium Succinate (Solu-Medrol) 125 mg IVPUSH ONETIME ONE Stop: 10/06/18 16:49 Last Admin: 10/06/18 16:55 Dose: 125 mg - Exam Quality Assessment: Supplemental Oxygen General: Alert, Oriented, Cooperative, No Acute Distress Lungs: Clear to Auscultation, Normal Respiratory Effort, Wheezing Cardiovascular: Regular Rate, Regular Rhythm GI/Abdominal Exam: Normal Bowel Sounds, Soft, Non-Tender Extremities: Other (pedal edema improving) - Problem List Review Problem List Initiated/Reviewed/Updated: Yes - My Orders Last 24 Hours: My Active Orders 10/08/18 07:17 Consult to Physical Therapy [PT Evaluation and Treatment] [CONS] Routine - Plan Plan:: A: 1. Acute on chronic hypoxic respiratory failure 2. Pancytopenia, improving 3. Acute COPD exacerbation 4. UTI 5. CKD stage 4 6. Hypernatremia P: 1. Acute on chronic hypoxic respiratory failure. Will continue to titrate O2 as tolerated. Emphasized the importance of using IS since she has some atelectasis. 2. UTI- will start Augmentin for 7 days. 3. Pancytopenia, improving. Will continue to monitor. 4. COPD exacerbation. Continue with methylprednisolone. Dispo: 2-3 days
[2018-10-08] MEDS: Amoxicillin/Clavulanate K 500-125 MG Tab PO SCH (21:25)
[2018-10-09] MEDS: Heparin Sodium 5,000 Units/ML Vial SUBCUT SCH ×3 (02:04→18:26)
[2018-10-09] MEDS: methylPREDNISolone Sodium Succinate 125 MG/2 ML SDV IVPUSH SCH (08:46)
[2018-10-09] MEDS: Amoxicillin/Clavulanate K 500-125 MG Tab PO SCH ×2 (08:46→20:07)
[2018-10-09] MEDS ORDERED: Furosemide 40 MG/4 ML VIAL IVPUSH ONE (10:25)
--- NOTE | 2018-10-09 10:55 | PCM.PN ---
- General Info Date of Service: 10/09/18 - Review of Systems Systems Review Comment:: feeling better compared to day of admission but still not at her baseline. She reports shortness of breath with any exertion. - Patient Data Vitals - Most Recent: Last Vital Signs Temp 36.2 C 10/09/18 07:30 Pulse 73 10/09/18 07:30 Resp 18 10/09/18 07:30 BP 117/51 L 10/09/18 07:30 Pulse Ox 98 10/09/18 07:30 Weight - Most Recent: 81.4 kg I&O - Last 24 Hours: Intake & Output 10/08/18 10/09/18 10/09/18 22:59 06:59 14:59 Intake Total 735 800 Output Total 1050 600 Balance -315 200 Lab Results Last 24 Hours: Laboratory Results - last 24 hr 10/09/18 10/09/18 Range/Units 05:20 05:20 WBC 4.76 (4.0-11.0) K/uL RBC 3.04 L (4.30-5.90) M/uL Hgb 9.1 L (12.0-16.0) g/dL Hct 29.9 L (36.0-46.0) % MCV 98.4 H (80.0-98.0) fL MCH 29.9 (27.0-32.0) pg MCHC 30.4 L (31.0-37.0) g/dL RDW Std Deviation 55.0 (28.0-62.0) fl RDW Coeff of Lai 16 H (11.0-15.0) % Plt Count 107 L (150-400) K/uL MPV 10.70 (7.40-12.00) fL Nucleated RBC % 0.0 /100WBC Nucleated RBCs # 0 K/uL Sodium 146 H (136-145) mmol/L Potassium 4.4 (3.5-5.1) mmol/L Chloride 111 H (98-107) mmol/L Carbon Dioxide 30.2 (21.0-32.0) mmol/L BUN 76 H (7.0-18.0) mg/dL Creatinine 2.3 H (0.6-1.0) mg/dL Est Cr Clr Drug Dosing 17.03 mL/min Estimated GFR (MDRD) 20.1 ml/min Glucose 162 H (74-106) mg/dL Calcium 9.2 (8.5-10.1) mg/dL Alfred Results Last 24 Hours: Microbiology 10/06/18 15:40 Aerobic Blood Culture - Preliminary Blood - Venous - Lab Draw NO GROWTH AFTER 2 DAYS Anaerobic Blood Culture - Preliminary NO GROWTH AFTER 2 DAYS 10/06/18 15:20 Aerobic Blood Culture - Preliminary Blood - Venous NO GROWTH AFTER 2 DAYS Anaerobic Blood Culture - Preliminary NO GROWTH AFTER 2 DAYS 10/06/18 17:11 Urine Culture - Final Urine, Clean Catch MIXED WINNIE >100,000 CFU/ML Med Orders - Current: Current Medications Acetaminophen (Tylenol) 650 mg PO Q4H PRN PRN Reason: Pain (Mild 1-3)/fever Albuterol/Ipratropium (Duoneb 3.0-0.5 Mg/3 Ml) 3 ml NEB Q6HRRT PRN PRN Reason: Dyspnea Amoxicillin/Clavulanate Potassium (Augmentin 500 Mg\125 Mg) 1 tab PO Q12HR [facility] Stop: 10/15/18 21:01 Last Admin: 10/09/18 08:46 Dose: 1 tab Heparin Sodium (Porcine) (Heparin Sodium) 5,000 units SUBCUT Q8H [facility] Last Admin: 10/09/18 02:04 Dose: Not Given Methylprednisolone Sodium Succinate (Solu-Medrol) 125 mg IVPUSH DAILY [facility] Stop: 10/12/18 09:01 Last Admin: 10/09/18 08:46 Dose: 125 mg Ondansetron HCl (Zofran Odt) 4 mg PO Q4H PRN PRN Reason: nausea, able to take PO Discontinued Medications Albuterol (Proventil Neb Soln) 2.5 mg NEB ONETIME ONE Stop: 10/06/18 15:38 Last Admin: 10/06/18 15:41 Dose: 2.5 mg Albuterol (Proventil Neb Soln) 2.5 mg NEB ONETIME ONE Stop: 10/06/18 15:38 Last Admin: 10/06/18 16:17 Dose: Not Given Albuterol (Proventil Neb Soln) 2.5 mg NEB ONETIME ONE Stop: 10/06/18 16:49 Last Admin: 10/06/18 16:55 Dose: 2.5 mg Albuterol/Ipratropium (Duoneb 3.0-0.5 Mg/3 Ml) 3 ml NEB ONETIME ONE Stop: 10/06/18 15:06 Last Admin: 10/06/18 15:12 Dose: 3 ml Albuterol/Ipratropium (Duoneb 3.0-0.5 Mg/3 Ml) Confirm Administered Dose 3 ml .ROUTE .STK-MED ONE Stop: 10/06/18 15:05 Last Admin: 10/06/18 15:31 Dose: Not Given Albuterol/Ipratropium (Duoneb 3.0-0.5 Mg/3 Ml) 3 ml NEB Q4HRRT [facility] Stop: 10/06/18 22:01 Last Admin: 10/06/18 21:58 Dose: 3 ml Furosemide (Lasix) 20 mg IVPUSH NOW ONE Stop: 10/06/18 15:24 Last Admin: 10/06/18 15:37 Dose: 20 mg Furosemide (Lasix) 40 mg IVPUSH NOW ONE Stop: 10/09/18 10:26 Sodium Chloride (Normal Saline) 1,000 mls @ 125 mls/hr IV STAT [facility] Last Admin: 10/06/18 15:37 Dose: 80 mls/hr Levofloxacin/Dextrose 500 mg/ (Premix) 100 mls @ 100 mls/hr IV ONETIME ONE Stop: 10/06/18 17:03 Last Admin: 10/06/18 16:21 Dose: 100 mls/hr Levofloxacin/Dextrose 500 mg/ (Premix) 100 mls @ 100 mls/hr IV Q48H [facility] Methylprednisolone Sodium Succinate (Solu-Medrol) 125 mg IVPUSH ONETIME ONE Stop: 10/06/18 15:06 Last Admin: 10/06/18 15:31 Dose: 125 mg Methylprednisolone Sodium Succinate (Solu-Medrol) Confirm Administered Dose 125 mg .ROUTE .STK-MED ONE Stop: 10/06/18 15:05 Last Admin: 10/06/18 15:31 Dose: Not Given Methylprednisolone Sodium Succinate (Solu-Medrol) 125 mg IVPUSH ONETIME ONE Stop: 10/06/18 16:49 Last Admin: 10/06/18 16:55 Dose: 125 mg - Exam General: Alert, Oriented HEENT: Pupils Equal, Pupils Reactive Neck: Supple Lungs: Rhonchi Cardiovascular: Regular Rate, Regular Rhythm Extremities: Pedal Edema (+2) Skin: Warm, Dry, Intact - Problem List Review Problem List Initiated/Reviewed/Updated: Yes - My Orders Last 24 Hours: My Active Orders 10/08/18 13:52 Consult to Wound Care Services [CONS] Routine 10/10/18 05:11 BASIC METABOLIC PANEL,BMP [CHEM] AM CBC WITH AUTO DIFF [HEME] AM 10/11/18 05:11 BASIC METABOLIC PANEL,BMP [CHEM] AM CBC WITH AUTO DIFF [HEME] AM - Plan Plan:: 87 yo female who presents with shortness of breath and hypoxia Acute on chronic respiratory failure: likely due to COPD exacerbation and pulmonary fibrosis, pulm karen may be contributing so will give lasix IV COPD: on solumedrol and duonebs UTI: continue Augmentin CKD: creatinine continue to improve.
[2018-10-09] MEDS: Albuterol/Ipratropium 3.0-0.5 MG/3 ML Neb Soln NEB PRN (13:45)
[2018-10-10] MEDS: Heparin Sodium 5,000 Units/ML Vial SUBCUT SCH ×3 (02:00→18:19)
[2018-10-10] MEDS ORDERED: Furosemide 40 MG/4 ML VIAL IVPUSH ONE (08:25)
--- NOTE | 2018-10-10 08:25 | PCM.PN ---
- General Info Date of Service: 10/10/18 - Review of Systems Systems Review Comment:: reports breathing has improved. She states she is not ready to go home today. - Patient Data Vitals - Most Recent: Last Vital Signs Temp 36.6 C 10/10/18 08:02 Pulse 75 10/10/18 08:02 Resp 19 10/10/18 08:02 BP 115/50 L 10/10/18 08:02 Pulse Ox 96 10/10/18 08:02 Weight - Most Recent: 81.4 kg I&O - Last 24 Hours: Intake & Output 10/09/18 10/10/18 10/10/18 22:59 06:59 14:59 Intake Total 1200 240 Output Total 2800 900 Balance -1600 -660 Lab Results Last 24 Hours: Laboratory Results - last 24 hr 10/10/18 10/10/18 Range/Units 05:40 05:40 WBC 5.01 (4.0-11.0) K/uL RBC 3.29 L (4.30-5.90) M/uL Hgb 10.0 L (12.0-16.0) g/dL Hct 32.0 L (36.0-46.0) % MCV 97.3 (80.0-98.0) fL MCH 30.4 (27.0-32.0) pg MCHC 31.3 (31.0-37.0) g/dL RDW Std Deviation 54.8 (28.0-62.0) fl RDW Coeff of Lai 16 H (11.0-15.0) % Plt Count 121 L (150-400) K/uL MPV 11.80 (7.40-12.00) fL Add Manual Diff YES Neutrophils % (Manual) 81 H (48.0-80.0) % Band Neutrophils % 1 % Lymphocytes % (Manual) 14 L (16.0-40.0) % Monocytes % (Manual) 4 (0.0-15.0) % Nucleated RBC % 0.4 /100WBC Absolute Seg Neuts 4.1 (1.4-5.7) Band Neutrophils # 0.1 Lymphocytes # (Manual) 0.7 (0.6-2.4) Monocytes # (Manual) 0.2 (0.0-0.8) Nucleated RBCs # 0 K/uL Sodium 146 H (136-145) mmol/L Potassium 4.1 (3.5-5.1) mmol/L Chloride 110 H (98-107) mmol/L Carbon Dioxide 28.9 (21.0-32.0) mmol/L BUN 80 H (7.0-18.0) mg/dL Creatinine 2.2 H (0.6-1.0) mg/dL Est Cr Clr Drug Dosing 17.80 mL/min Estimated GFR (MDRD) 21.2 ml/min Glucose 160 H (74-106) mg/dL Calcium 9.2 (8.5-10.1) mg/dL Alfred Results Last 24 Hours: Microbiology 10/06/18 15:40 Aerobic Blood Culture - Preliminary Blood - Venous - Lab Draw NO GROWTH AFTER 3 DAYS Anaerobic Blood Culture - Preliminary NO GROWTH AFTER 3 DAYS 10/06/18 15:20 Aerobic Blood Culture - Preliminary Blood - Venous NO GROWTH AFTER 3 DAYS Anaerobic Blood Culture - Preliminary NO GROWTH AFTER 3 DAYS Med Orders - Current: Current Medications Acetaminophen (Tylenol) 650 mg PO Q4H PRN PRN Reason: Pain (Mild 1-3)/fever Albuterol/Ipratropium (Duoneb 3.0-0.5 Mg/3 Ml) 3 ml NEB Q6HRRT PRN PRN Reason: Dyspnea Last Admin: 10/09/18 13:45 Dose: 3 ml Amoxicillin/Clavulanate Potassium (Augmentin 500 Mg\125 Mg) 1 tab PO Q12HR [facility] Stop: 10/15/18 21:01 Last Admin: 10/09/18 20:07 Dose: 1 tab Furosemide (Lasix) 40 mg IVPUSH NOW ONE Stop: 10/10/18 08:23 Heparin Sodium (Porcine) (Heparin Sodium) 5,000 units SUBCUT Q8H [facility] Last Admin: 10/10/18 02:00 Dose: Not Given Methylprednisolone Sodium Succinate (Solu-Medrol) 125 mg IVPUSH DAILY [facility] Stop: 10/12/18 09:01 Last Admin: 10/09/18 08:46 Dose: 125 mg Ondansetron HCl (Zofran Odt) 4 mg PO Q4H PRN PRN Reason: nausea, able to take PO Discontinued Medications Albuterol (Proventil Neb Soln) 2.5 mg NEB ONETIME ONE Stop: 10/06/18 15:38 Last Admin: 10/06/18 15:41 Dose: 2.5 mg Albuterol (Proventil Neb Soln) 2.5 mg NEB ONETIME ONE Stop: 10/06/18 15:38 Last Admin: 10/06/18 16:17 Dose: Not Given Albuterol (Proventil Neb Soln) 2.5 mg NEB ONETIME ONE Stop: 10/06/18 16:49 Last Admin: 10/06/18 16:55 Dose: 2.5 mg Albuterol/Ipratropium (Duoneb 3.0-0.5 Mg/3 Ml) 3 ml NEB ONETIME ONE Stop: 10/06/18 15:06 Last Admin: 10/06/18 15:12 Dose: 3 ml Albuterol/Ipratropium (Duoneb 3.0-0.5 Mg/3 Ml) Confirm Administered Dose 3 ml .ROUTE .STK-MED ONE Stop: 10/06/18 15:05 Last Admin: 10/06/18 15:31 Dose: Not Given Albuterol/Ipratropium (Duoneb 3.0-0.5 Mg/3 Ml) 3 ml NEB Q4HRRT [facility] Stop: 10/06/18 22:01 Last Admin: 10/06/18 21:58 Dose: 3 ml Furosemide (Lasix) 20 mg IVPUSH NOW ONE Stop: 10/06/18 15:24 Last Admin: 10/06/18 15:37 Dose: 20 mg Furosemide (Lasix) 40 mg IVPUSH NOW ONE Stop: 10/09/18 10:26 Last Admin: 10/09/18 10:53 Dose: 40 mg Sodium Chloride (Normal Saline) 1,000 mls @ 125 mls/hr IV STAT [facility] Last Admin: 10/06/18 15:37 Dose: 80 mls/hr Levofloxacin/Dextrose 500 mg/ (Premix) 100 mls @ 100 mls/hr IV ONETIME ONE Stop: 10/06/18 17:03 Last Admin: 10/06/18 16:21 Dose: 100 mls/hr Levofloxacin/Dextrose 500 mg/ (Premix) 100 mls @ 100 mls/hr IV Q48H [facility] Methylprednisolone Sodium Succinate (Solu-Medrol) 125 mg IVPUSH ONETIME ONE Stop: 10/06/18 15:06 Last Admin: 10/06/18 15:31 Dose: 125 mg Methylprednisolone Sodium Succinate (Solu-Medrol) Confirm Administered Dose 125 mg .ROUTE .STK-MED ONE Stop: 10/06/18 15:05 Last Admin: 10/06/18 15:31 Dose: Not Given Methylprednisolone Sodium Succinate (Solu-Medrol) 125 mg IVPUSH ONETIME ONE Stop: 10/06/18 16:49 Last Admin: 10/06/18 16:55 Dose: 125 mg - Exam General: Alert, Oriented HEENT: Pupils Equal Neck: Supple Lungs: Rhonchi Cardiovascular: Regular Rate, Regular Rhythm GI/Abdominal Exam: Soft, Non-Tender Extremities: Pedal Edema (+2) Skin: Warm, Dry, Intact - Problem List Review Problem List Initiated/Reviewed/Updated: Yes - My Orders Last 24 Hours: My Active Orders 10/10/18 08:22 Furosemide [Lasix] 40 mg IVPUSH NOW ONE 10/11/18 05:11 BASIC METABOLIC PANEL,BMP [CHEM] AM CBC WITH AUTO DIFF [HEME] AM - Plan Plan:: 87 yo female who presents with shortness of breath and hypoxia Acute on chronic respiratory failure: likely due to COPD exacerbation and pulmonary fibrosis, Oxygen saturation levels improved today, will give another dose of lasix COPD: on solumedrol and duonebs UTI: continue Augmentin CKD: Creatinine 2.2 today Dispo: likely home tomorrow.
[2018-10-10] MEDS: methylPREDNISolone Sodium Succinate 125 MG/2 ML SDV IVPUSH SCH (08:32)
[2018-10-10] MEDS: Amoxicillin/Clavulanate K 500-125 MG Tab PO SCH ×2 (08:33→21:25)
[2018-10-11] MEDS: Heparin Sodium 5,000 Units/ML Vial SUBCUT SCH ×3 (04:15→17:40)
[2018-10-11] MEDS: methylPREDNISolone Sodium Succinate 125 MG/2 ML SDV IVPUSH SCH (08:50)
[2018-10-11] MEDS: Amoxicillin/Clavulanate K 500-125 MG Tab PO SCH ×2 (08:52→21:26)
[2018-10-11] MEDS: Albuterol/Ipratropium 3.0-0.5 MG/3 ML Neb Soln NEB PRN (09:11)
--- NOTE | 2018-10-11 09:19 | PCM.PN ---
<Jose Queen - Last Filed: 10/11/18 09:20> - General Info Date of Service: 10/11/18 Subjective Update: Doing well this morning. No acute events overnight. Breathing is back to her baseline but states she cannot go back home since she is afraid she wont be able to take care of herself. Denies any chest pain, abdominal pain dysuria, diarrhea. - Patient Data Vitals - Most Recent: Last Vital Signs Temp 36.9 C 10/11/18 07:49 Pulse 74 10/11/18 07:49 Resp 24 H 10/11/18 07:49 BP 121/59 L 10/11/18 07:49 Pulse Ox 95 10/11/18 07:49 Weight - Most Recent: 81.4 kg I&O - Last 24 Hours: Intake & Output 10/10/18 10/11/18 10/11/18 22:59 06:59 14:59 Intake Total 940 300 Output Total 1500 1800 Balance -560 -1500 Lab Results Last 24 Hours: Laboratory Results - last 24 hr 10/11/18 10/11/18 Range/Units 05:58 05:58 WBC 4.69 (4.0-11.0) K/uL RBC 3.17 L (4.30-5.90) M/uL Hgb 9.6 L (12.0-16.0) g/dL Hct 30.8 L (36.0-46.0) % MCV 97.2 (80.0-98.0) fL MCH 30.3 (27.0-32.0) pg MCHC 31.2 (31.0-37.0) g/dL RDW Std Deviation 55.1 (28.0-62.0) fl RDW Coeff of Lai 16 H (11.0-15.0) % Plt Count 114 L (150-400) K/uL MPV 11.20 (7.40-12.00) fL Add Manual Diff YES Neutrophils % (Manual) 76 (48.0-80.0) % Band Neutrophils % 1 % Lymphocytes % (Manual) 19 (16.0-40.0) % Monocytes % (Manual) 4 (0.0-15.0) % Nucleated RBC % 0.0 /100WBC Absolute Seg Neuts 3.6 (1.4-5.7) Band Neutrophils # 0 Lymphocytes # (Manual) 0.9 (0.6-2.4) Monocytes # (Manual) 0.2 (0.0-0.8) Nucleated RBCs # 0 K/uL Sodium 146 H (136-145) mmol/L Potassium 3.7 (3.5-5.1) mmol/L Chloride 109 H (98-107) mmol/L Carbon Dioxide 29.9 (21.0-32.0) mmol/L BUN 81 H (7.0-18.0) mg/dL Creatinine 2.2 H (0.6-1.0) mg/dL Est Cr Clr Drug Dosing 17.80 mL/min Estimated GFR (MDRD) 21.2 ml/min Glucose 184 H (74-106) mg/dL Calcium 8.7 (8.5-10.1) mg/dL Alfred Results Last 24 Hours: Microbiology 10/06/18 15:40 Aerobic Blood Culture - Preliminary Blood - Venous - Lab Draw NO GROWTH AFTER 4 DAYS Anaerobic Blood Culture - Preliminary NO GROWTH AFTER 4 DAYS 10/06/18 15:20 Aerobic Blood Culture - Preliminary Blood - Venous NO GROWTH AFTER 4 DAYS Anaerobic Blood Culture - Preliminary NO GROWTH AFTER 4 DAYS Med Orders - Current: Current Medications Acetaminophen (Tylenol) 650 mg PO Q4H PRN PRN Reason: Pain (Mild 1-3)/fever Albuterol/Ipratropium (Duoneb 3.0-0.5 Mg/3 Ml) 3 ml NEB Q6HRRT PRN PRN Reason: Dyspnea Last Admin: 10/11/18 09:11 Dose: 3 ml Amoxicillin/Clavulanate Potassium (Augmentin 500 Mg\125 Mg) 1 tab PO Q12HR [facility] Stop: 10/15/18 21:01 Last Admin: 10/11/18 08:52 Dose: 1 tab Heparin Sodium (Porcine) (Heparin Sodium) 5,000 units SUBCUT Q8H [facility] Last Admin: 10/11/18 04:15 Dose: 5,000 units Methylprednisolone Sodium Succinate (Solu-Medrol) 125 mg IVPUSH DAILY [facility] Stop: 10/12/18 09:01 Last Admin: 10/11/18 08:50 Dose: 125 mg Ondansetron HCl (Zofran Odt) 4 mg PO Q4H PRN PRN Reason: nausea, able to take PO Discontinued Medications Albuterol (Proventil Neb Soln) 2.5 mg NEB ONETIME ONE Stop: 10/06/18 15:38 Last Admin: 10/06/18 15:41 Dose: 2.5 mg Albuterol (Proventil Neb Soln) 2.5 mg NEB ONETIME ONE Stop: 10/06/18 15:38 Last Admin: 10/06/18 16:17 Dose: Not Given Albuterol (Proventil Neb Soln) 2.5 mg NEB ONETIME ONE Stop: 10/06/18 16:49 Last Admin: 10/06/18 16:55 Dose: 2.5 mg Albuterol/Ipratropium (Duoneb 3.0-0.5 Mg/3 Ml) 3 ml NEB ONETIME ONE Stop: 10/06/18 15:06 Last Admin: 10/06/18 15:12 Dose: 3 ml Albuterol/Ipratropium (Duoneb 3.0-0.5 Mg/3 Ml) Confirm Administered Dose 3 ml .ROUTE .STK-MED ONE Stop: 10/06/18 15:05 Last Admin: 10/06/18 15:31 Dose: Not Given Albuterol/Ipratropium (Duoneb 3.0-0.5 Mg/3 Ml) 3 ml NEB Q4HRRT [facility] Stop: 10/06/18 22:01 Last Admin: 10/06/18 21:58 Dose: 3 ml Furosemide (Lasix) 20 mg IVPUSH NOW ONE Stop: 10/06/18 15:24 Last Admin: 10/06/18 15:37 Dose: 20 mg Furosemide (Lasix) 40 mg IVPUSH NOW ONE Stop: 10/09/18 10:26 Last Admin: 10/09/18 10:53 Dose: 40 mg Furosemide (Lasix) 40 mg IVPUSH NOW ONE Stop: 10/10/18 08:26 Last Admin: 10/10/18 08:32 Dose: 40 mg Sodium Chloride (Normal Saline) 1,000 mls @ 125 mls/hr IV STAT [facility] Last Admin: 10/06/18 15:37 Dose: 80 mls/hr Levofloxacin/Dextrose 500 mg/ (Premix) 100 mls @ 100 mls/hr IV ONETIME ONE Stop: 10/06/18 17:03 Last Admin: 10/06/18 16:21 Dose: 100 mls/hr Levofloxacin/Dextrose 500 mg/ (Premix) 100 mls @ 100 mls/hr IV Q48H [facility] Methylprednisolone Sodium Succinate (Solu-Medrol) 125 mg IVPUSH ONETIME ONE Stop: 10/06/18 15:06 Last Admin: 10/06/18 15:31 Dose: 125 mg Methylprednisolone Sodium Succinate (Solu-Medrol) Confirm Administered Dose 125 mg .ROUTE .STK-MED ONE Stop: 10/06/18 15:05 Last Admin: 10/06/18 15:31 Dose: Not Given Methylprednisolone Sodium Succinate (Solu-Medrol) 125 mg IVPUSH ONETIME ONE Stop: 10/06/18 16:49 Last Admin: 10/06/18 16:55 Dose: 125 mg - Exam Quality Assessment: Supplemental Oxygen General: Alert, Oriented, Cooperative, No Acute Distress Lungs: Other (lungs sounds bilaterally. expiratory wheezing bilaterally in upper [place].) Cardiovascular: Regular Rate, Regular Rhythm GI/Abdominal Exam: Normal Bowel Sounds, Soft, Non-Tender Extremities: Normal Inspection Skin: Warm, Dry - Problem List Review Problem List Initiated/Reviewed/Updated: Yes - Plan Plan:: A: 1. Acute on chronic hypoxic respiratory failure 2. CKD 3. UTI P: 1. Acute on chronic hypoxic respiratory failure, now at baseline. Will continue with methylprednisolone and taper with prednisone. In addition, will change to scheduled Duonebs Q6H and PRN. 2. UTI. Continue with Augmentin. Dispo: dc [facility] tomorrow. <Layo Salinas - Last Filed: 10/11/18 10:44> - General Info Admission Dx/Problem (Free Text): I have seen and examined to patient independently of medical collections specialist, Jose Wood MD. I have discussed the case for care of this patient with him. I have reviewed and approve of the plan of care as outlined by medical collections specialist. Please see orders. - Patient Data Vitals - Most Recent: Last Vital Signs Temp 36.9 C 10/11/18 07:49 Pulse 74 10/11/18 07:49 Resp 24 H 10/11/18 07:49 BP 121/59 L 10/11/18 07:49 Pulse Ox 95 10/11/18 07:49 I&O - Last 24 Hours: Intake & Output 10/10/18 10/11/18 10/11/18 22:59 06:59 14:59 Intake Total 940 300 Output Total 1500 1800 Balance -560 -1500 Lab Results Last 24 Hours: Laboratory Results - last 24 hr 10/11/18 10/11/18 Range/Units 05:58 05:58 WBC 4.69 (4.0-11.0) K/uL RBC 3.17 L (4.30-5.90) M/uL Hgb 9.6 L (12.0-16.0) g/dL Hct 30.8 L (36.0-46.0) % MCV 97.2 (80.0-98.0) fL MCH 30.3 (27.0-32.0) pg MCHC 31.2 (31.0-37.0) g/dL RDW Std Deviation 55.1 (28.0-62.0) fl RDW Coeff of Lai 16 H (11.0-15.0) % Plt Count 114 L (150-400) K/uL MPV 11.20 (7.40-12.00) fL Add Manual Diff YES Neutrophils % (Manual) 76 (48.0-80.0) % Band Neutrophils % 1 % Lymphocytes % (Manual) 19 (16.0-40.0) % Monocytes % (Manual) 4 (0.0-15.0) % Nucleated RBC % 0.0 /100WBC Absolute Seg Neuts 3.6 (1.4-5.7) Band Neutrophils # 0 Lymphocytes # (Manual) 0.9 (0.6-2.4) Monocytes # (Manual) 0.2 (0.0-0.8) Nucleated RBCs # 0 K/uL Sodium 146 H (136-145) mmol/L Potassium 3.7 (3.5-5.1) mmol/L Chloride 109 H (98-107) mmol/L Carbon Dioxide 29.9 (21.0-32.0) mmol/L BUN 81 H (7.0-18.0) mg/dL Creatinine 2.2 H (0.6-1.0) mg/dL Est Cr Clr Drug Dosing 17.80 mL/min Estimated GFR (MDRD) 21.2 ml/min Glucose 184 H (74-106) mg/dL Calcium 8.7 (8.5-10.1) mg/dL Alfred Results Last 24 Hours: Microbiology 10/06/18 15:40 Aerobic Blood Culture - Preliminary Blood - Venous - Lab Draw NO GROWTH AFTER 4 DAYS Anaerobic Blood Culture - Preliminary NO GROWTH AFTER 4 DAYS 10/06/18 15:20 Aerobic Blood Culture - Preliminary Blood - Venous NO GROWTH AFTER 4 DAYS Anaerobic Blood Culture - Preliminary NO GROWTH AFTER 4 DAYS Med Orders - Current: Current Medications Acetaminophen (Tylenol) 650 mg PO Q4H PRN PRN Reason: Pain (Mild 1-3)/fever Albuterol/Ipratropium (Duoneb 3.0-0.5 Mg/3 Ml) 3 ml NEB Q6HRRT PRN PRN Reason: Dyspnea Last Admin: 10/11/18 09:11 Dose: 3 ml Albuterol/Ipratropium (Duoneb 3.0-0.5 Mg/3 Ml) 3 ml NEB Q6HRRT [facility] Amoxicillin/Clavulanate Potassium (Augmentin 500 Mg\125 Mg) 1 tab PO Q12HR [facility] Stop: 10/15/18 21:01 Last Admin: 10/11/18 08:52 Dose: 1 tab Heparin Sodium (Porcine) (Heparin Sodium) 5,000 units SUBCUT Q8H [facility] Last Admin: 10/11/18 09:29 Dose: 5,000 units Methylprednisolone Sodium Succinate (Solu-Medrol) 125 mg IVPUSH DAILY [facility] Stop: 10/12/18 09:01 Last Admin: 10/11/18 08:50 Dose: 125 mg Ondansetron HCl (Zofran Odt) 4 mg PO Q4H PRN PRN Reason: nausea, able to take PO Discontinued Medications Albuterol (Proventil Neb Soln) 2.5 mg NEB ONETIME ONE Stop: 10/06/18 15:38 Last Admin: 10/06/18 15:41 Dose: 2.5 mg Albuterol (Proventil Neb Soln) 2.5 mg NEB ONETIME ONE Stop: 10/06/18 15:38 Last Admin: 10/06/18 16:17 Dose: Not Given Albuterol (Proventil Neb Soln) 2.5 mg NEB ONETIME ONE Stop: 10/06/18 16:49 Last Admin: 10/06/18 16:55 Dose: 2.5 mg Albuterol/Ipratropium (Duoneb 3.0-0.5 Mg/3 Ml) 3 ml NEB ONETIME ONE Stop: 10/06/18 15:06 Last Admin: 10/06/18 15:12 Dose: 3 ml Albuterol/Ipratropium (Duoneb 3.0-0.5 Mg/3 Ml) Confirm Administered Dose 3 ml .ROUTE .STK-MED ONE Stop: 10/06/18 15:05 Last Admin: 10/06/18 15:31 Dose: Not Given Albuterol/Ipratropium (Duoneb 3.0-0.5 Mg/3 Ml) 3 ml NEB Q4HRRT [facility] Stop: 10/06/18 22:01 Last Admin: 10/06/18 21:58 Dose: 3 ml Furosemide (Lasix) 20 mg IVPUSH NOW ONE Stop: 10/06/18 15:24 Last Admin: 10/06/18 15:37 Dose: 20 mg Furosemide (Lasix) 40 mg IVPUSH NOW ONE Stop: 10/09/18 10:26 Last Admin: 10/09/18 10:53 Dose: 40 mg Furosemide (Lasix) 40 mg IVPUSH NOW ONE Stop: 10/10/18 08:26 Last Admin: 10/10/18 08:32 Dose: 40 mg Sodium Chloride (Normal Saline) 1,000 mls @ 125 mls/hr IV STAT [facility] Last Admin: 10/06/18 15:37 Dose: 80 mls/hr Levofloxacin/Dextrose 500 mg/ (Premix) 100 mls @ 100 mls/hr IV ONETIME ONE Stop: 10/06/18 17:03 Last Admin: 10/06/18 16:21 Dose: 100 mls/hr Levofloxacin/Dextrose 500 mg/ (Premix) 100 mls @ 100 mls/hr IV Q48H [facility] Methylprednisolone Sodium Succinate (Solu-Medrol) 125 mg IVPUSH ONETIME ONE Stop: 10/06/18 15:06 Last Admin: 10/06/18 15:31 Dose: 125 mg Methylprednisolone Sodium Succinate (Solu-Medrol) Confirm Administered Dose 125 mg .ROUTE .STK-MED ONE Stop: 10/06/18 15:05 Last Admin: 10/06/18 15:31 Dose: Not Given Methylprednisolone Sodium Succinate (Solu-Medrol) 125 mg IVPUSH ONETIME ONE Stop: 10/06/18 16:49 Last Admin: 10/06/18 16:55 Dose: 125 mg
[2018-10-11] MEDS: Albuterol/Ipratropium 3.0-0.5 MG/3 ML Neb Soln NEB SCH ×2 (11:11→17:04)
[2018-10-12] MEDS: Albuterol/Ipratropium 3.0-0.5 MG/3 ML Neb Soln NEB SCH ×4 (02:00→17:09)
[2018-10-12] MEDS: Heparin Sodium 5,000 Units/ML Vial SUBCUT SCH ×3 (02:07→18:17)
[2018-10-12] MEDS: methylPREDNISolone Sodium Succinate 125 MG/2 ML SDV IVPUSH SCH (08:57)
[2018-10-12] MEDS: Amoxicillin/Clavulanate K 500-125 MG Tab PO SCH ×2 (08:57→21:45)
--- NOTE | 2018-10-12 09:31 | PCM.DCSUM1 ---
<Jose Queen - Last Filed: 10/12/18 10:02> Discharge Summary - Hospital Course Free Text/Narrative:: 87 y/o female who was admitted for acute COPD exacerbation and UTI. Initially, she was requiring 6 L O2 NC, however, it was titrated down to her baseline of 4 L O2 NC. In addition, she was started on Augmentin for a UTI. She did relatively well during this hospitalization. Her shortness of breath improved and she was back to baseline of 4 L O2 NC. She was discharged to [facility] on Augmentin 875 mg PO for 5 days and Prednisone taper of 40 mg PO daily for 5 days. In addition, PT/OT order was placed on discharge. - Discharge Data Discharge Date: 10/12/18 Discharge Disposition: DC/Tfer to [facility] 03 Condition: Fair - Patient Summary/Data Consults: Consultations 10/08/18 07:17 Consult to Physical Therapy [PT Evaluation and Treatment] [CONS] Routine 10/08/18 13:52 Consult to Wound Care Services [CONS] Routine - Patient Instructions Diet: Diabetic Diet Activity: As Tolerated Notify Provider of: Fever, Increased Pain, Swelling and Redness, Nausea and/or Vomiting Other/Special Instructions: Needs PT/OT and supplemental oxygen at 4 L O2 NC her baseline. - Discharge Plan *PRESCRIPTION DRUG MONITORING PROGRAM REVIEWED*: Not Applicable *COPY OF PRESCRIPTION DRUG MONITORING REPORT IN PATIENT WINSOME: Not Applicable Prescriptions/Med Rec: Amoxicillin/Clavulanate K [Augmentin 500-125 MG] 1 tab PO Q12HR 5 Days #10 tablet predniSONE [Prednisone] 40 mg PO DAILY 5 Days #10 tablet Home Medications: Home Meds Albuterol/Ipratropium [DuoNeb 3.0-0.5 MG/3 ML] 3 ml INH QID 07/24/14 [History] Allopurinol [Zyloprim] 150 mg PO DAILY 07/24/14 [History] Aspirin [Rough And Ready Aspirin] 81 mg PO DAILY 07/24/14 [History] Cholecalciferol (Vitamin D3) [Vitamin D3] 1,000 unit PO DAILY 07/24/14 [History] Furosemide 80 mg PO DAILY 07/24/14 [History] Rosuvastatin [Crestor] 5 mg PO BEDTIME 07/24/14 [History] SitaGLIPtin [Januvia] 50 mg PO DAILY 07/24/14 [History] Calcitriol 0.25 mcg PO WEEKLY 08/30/18 [History] Cyanocobalamin (Vitamin B-12) [B-12] 500 mg PO DAILY 08/30/18 [History] Ferrous Sulfate 65 mg PO BID 08/30/18 [History] Fluticasone Propion/Salmeterol [Fluticasone-Salmeterol 250-50] 1 each IH BID [History] Fluticasone Propionate [Flovent] 1 puff INH BID 10/06/18 [History] Polyethylene Glycol 3350 [MiraLAX] 1 dose PO WEEKLY 10/06/18 [History] Amoxicillin/Clavulanate K [Augmentin 500-125 MG] 1 tab PO Q12HR 5 Days #10 tablet 10/12/18 [Rx] predniSONE [Prednisone] 40 mg PO DAILY 5 Days #10 tablet 10/12/18 [Rx] Oxygen Therapy Mode: Nasal Cannula Oxygen Flow Rate (L/min): 4 Maintain SpO2% greater than: 88 Referrals: [facility] [Outside] Tyler Graves MD [Physician] - 10/18/18 10:45 am - Discharge Summary/Plan Comment DC Time >30 min.: No - Patient Data Vitals - Most Recent: Last Vital Signs Temp 36.8 C 10/12/18 07:00 Pulse 83 10/12/18 07:00 Resp 20 10/12/18 07:00 BP 124/58 L 10/12/18 07:00 Pulse Ox 93 L 10/12/18 07:00 Weight - Most Recent: 81.4 kg I&O - Last 24 hours: Intake & Output 10/11/18 10/12/18 10/12/18 22:59 06:59 14:59 Intake Total 520 300 Output Total 750 900 Balance -230 -600 Lab Results - Last 24 hrs: Laboratory Results - last 24 hr 10/11/18 10/12/18 Range/Units 11:45 04:45 Sodium 145 (136-145) mmol/L Potassium 4.1 (3.5-5.1) mmol/L Chloride 109 H (98-107) mmol/L Carbon Dioxide 30.8 (21.0-32.0) mmol/L BUN 80 H (7.0-18.0) mg/dL Creatinine 2.0 H (0.6-1.0) mg/dL Est Cr Clr Drug Dosing 19.58 mL/min Estimated GFR (MDRD) 23.6 ml/min Glucose 140 H (74-106) mg/dL POC Glucose 192 H (60-110) mg/dL Calcium 8.8 (8.5-10.1) mg/dL LATOYA Results - Last 24 hrs: Microbiology 10/06/18 15:40 Aerobic Blood Culture - Final Blood - Venous - Lab Draw NO GROWTH AFTER 5 DAYS Anaerobic Blood Culture - Final NO GROWTH AFTER 5 DAYS 10/06/18 15:20 Aerobic Blood Culture - Final Blood - Venous NO GROWTH AFTER 5 DAYS Anaerobic Blood Culture - Final NO GROWTH AFTER 5 DAYS Med Orders - Current: Current Medications Acetaminophen (Tylenol) 650 mg PO Q4H PRN PRN Reason: Pain (Mild 1-3)/fever Albuterol/Ipratropium (Duoneb 3.0-0.5 Mg/3 Ml) 3 ml NEB Q6HRRT PRN PRN Reason: Dyspnea Last Admin: 10/11/18 09:11 Dose: 3 ml Albuterol/Ipratropium (Duoneb 3.0-0.5 Mg/3 Ml) 3 ml NEB Q6HRRT [facility] Last Admin: 10/12/18 06:01 Dose: 3 ml Amoxicillin/Clavulanate Potassium (Augmentin 500 Mg\125 Mg) 1 tab PO Q12HR [facility] Stop: 10/15/18 21:01 Last Admin: 10/12/18 08:57 Dose: 1 tab Heparin Sodium (Porcine) (Heparin Sodium) 5,000 units SUBCUT Q8H [facility] Last Admin: 10/12/18 02:07 Dose: 5,000 units Ondansetron HCl (Zofran Odt) 4 mg PO Q4H PRN PRN Reason: nausea, able to take PO Discontinued Medications Albuterol (Proventil Neb Soln) 2.5 mg NEB ONETIME ONE Stop: 10/06/18 15:38 Last Admin: 10/06/18 15:41 Dose: 2.5 mg Albuterol (Proventil Neb Soln) 2.5 mg NEB ONETIME ONE Stop: 10/06/18 15:38 Last Admin: 10/06/18 16:17 Dose: Not Given Albuterol (Proventil Neb Soln) 2.5 mg NEB ONETIME ONE Stop: 10/06/18 16:49 Last Admin: 10/06/18 16:55 Dose: 2.5 mg Albuterol/Ipratropium (Duoneb 3.0-0.5 Mg/3 Ml) 3 ml NEB ONETIME ONE Stop: 10/06/18 15:06 Last Admin: 10/06/18 15:12 Dose: 3 ml Albuterol/Ipratropium (Duoneb 3.0-0.5 Mg/3 Ml) Confirm Administered Dose 3 ml .ROUTE .STK-MED ONE Stop: 10/06/18 15:05 Last Admin: 10/06/18 15:31 Dose: Not Given Albuterol/Ipratropium (Duoneb 3.0-0.5 Mg/3 Ml) 3 ml NEB Q4HRRT [facility] Stop: 10/06/18 22:01 Last Admin: 10/06/18 21:58 Dose: 3 ml Furosemide (Lasix) 20 mg IVPUSH NOW ONE Stop: 10/06/18 15:24 Last Admin: 10/06/18 15:37 Dose: 20 mg Furosemide (Lasix) 40 mg IVPUSH NOW ONE Stop: 10/09/18 10:26 Last Admin: 10/09/18 10:53 Dose: 40 mg Furosemide (Lasix) 40 mg IVPUSH NOW ONE Stop: 10/10/18 08:26 Last Admin: 10/10/18 08:32 Dose: 40 mg Sodium Chloride (Normal Saline) 1,000 mls @ 125 mls/hr IV STAT [facility] Last Admin: 10/06/18 15:37 Dose: 80 mls/hr Levofloxacin/Dextrose 500 mg/ (Premix) 100 mls @ 100 mls/hr IV ONETIME ONE Stop: 10/06/18 17:03 Last Admin: 10/06/18 16:21 Dose: 100 mls/hr Levofloxacin/Dextrose 500 mg/ (Premix) 100 mls @ 100 mls/hr IV Q48H [facility] Methylprednisolone Sodium Succinate (Solu-Medrol) 125 mg IVPUSH ONETIME ONE Stop: 10/06/18 15:06 Last Admin: 10/06/18 15:31 Dose: 125 mg Methylprednisolone Sodium Succinate (Solu-Medrol) Confirm Administered Dose 125 mg .ROUTE .STK-MED ONE Stop: 10/06/18 15:05 Last Admin: 10/06/18 15:31 Dose: Not Given Methylprednisolone Sodium Succinate (Solu-Medrol) 125 mg IVPUSH ONETIME ONE Stop: 10/06/18 16:49 Last Admin: 10/06/18 16:55 Dose: 125 mg Methylprednisolone Sodium Succinate (Solu-Medrol) 125 mg IVPUSH DAILY [facility] Stop: 10/12/18 09:01 Last Admin: 10/12/18 08:57 Dose: 125 mg <Layo Salinas - Last Filed: 10/12/18 18:01> Discharge Summary - Hospital Course HPI Initial Comments: I have seen and examined to patient independently of medical detailist, Jose Wood MD. I have discussed the case for care of this patient with him. I have reviewed and approve of the plan of care as outlined by medical detailist. Please see orders. - Patient Summary/Data Consults: Consultations 10/08/18 07:17 Consult to Physical Therapy [PT Evaluation and Treatment] [CONS] Routine 10/08/18 13:52 Consult to Wound Care Services [CONS] Routine - Patient Data Vitals - Most Recent: Last Vital Signs Temp 36.4 C 10/12/18 15:00 Pulse 74 10/12/18 15:00 Resp 20 10/12/18 15:00 BP 107/51 L 10/12/18 15:00 Pulse Ox 90 L 10/12/18 15:00 I&O - Last 24 hours: Intake & Output 10/12/18 10/12/18 10/12/18 06:59 14:59 22:59 Intake Total 300 450 Output Total 900 500 Balance -600 -50 Lab Results - Last 24 hrs: Laboratory Results - last 24 hr 10/12/18 Range/Units 04:45 Sodium 145 (136-145) mmol/L Potassium 4.1 (3.5-5.1) mmol/L Chloride 109 H (98-107) mmol/L Carbon Dioxide 30.8 (21.0-32.0) mmol/L BUN 80 H (7.0-18.0) mg/dL Creatinine 2.0 H (0.6-1.0) mg/dL Est Cr Clr Drug Dosing 19.58 mL/min Estimated GFR (MDRD) 23.6 ml/min Glucose 140 H (74-106) mg/dL Calcium 8.8 (8.5-10.1) mg/dL [facility] Results - Last 24 hrs: Microbiology 10/06/18 15:40 Aerobic Blood Culture - Final Blood - Venous - Lab Draw NO GROWTH AFTER 5 DAYS Anaerobic Blood Culture - Final NO GROWTH AFTER 5 DAYS 10/06/18 15:20 Aerobic Blood Culture - Final Blood - Venous NO GROWTH AFTER 5 DAYS Anaerobic Blood Culture - Final NO GROWTH AFTER 5 DAYS Med Orders - Current: Current Medications Acetaminophen (Tylenol) 650 mg PO Q4H PRN PRN Reason: Pain (Mild 1-3)/fever Albuterol/Ipratropium (Duoneb 3.0-0.5 Mg/3 Ml) 3 ml NEB Q6HRRT PRN PRN Reason: Dyspnea Last Admin: 10/11/18 09:11 Dose: 3 ml Albuterol/Ipratropium (Duoneb 3.0-0.5 Mg/3 Ml) 3 ml NEB Q6HRRT [facility] Last Admin: 10/12/18 17:09 Dose: 3 ml Amoxicillin/Clavulanate Potassium (Augmentin 500 Mg\125 Mg) 1 tab PO Q12HR [facility] Stop: 10/15/18 21:01 Last Admin: 10/12/18 08:57 Dose: 1 tab Heparin Sodium (Porcine) (Heparin Sodium) 5,000 units SUBCUT Q8H [facility] Last Admin: 10/12/18 10:39 Dose: 5,000 units Ondansetron HCl (Zofran Odt) 4 mg PO Q4H PRN PRN Reason: nausea, able to take PO Prednisone (Prednisone) 40 mg PO WITHBREAKFAST [facility] Stop: 10/18/18 08:01 Discontinued Medications Albuterol (Proventil Neb Soln) 2.5 mg NEB ONETIME ONE Stop: 10/06/18 15:38 Last Admin: 10/06/18 15:41 Dose: 2.5 mg Albuterol (Proventil Neb Soln) 2.5 mg NEB ONETIME ONE Stop: 10/06/18 15:38 Last Admin: 10/06/18 16:17 Dose: Not Given Albuterol (Proventil Neb Soln) 2.5 mg NEB ONETIME ONE Stop: 10/06/18 16:49 Last Admin: 10/06/18 16:55 Dose: 2.5 mg Albuterol/Ipratropium (Duoneb 3.0-0.5 Mg/3 Ml) 3 ml NEB ONETIME ONE Stop: 10/06/18 15:06 Last Admin: 10/06/18 15:12 Dose: 3 ml Albuterol/Ipratropium (Duoneb 3.0-0.5 Mg/3 Ml) Confirm Administered Dose 3 ml .ROUTE .STK-MED ONE Stop: 10/06/18 15:05 Last Admin: 10/06/18 15:31 Dose: Not Given Albuterol/Ipratropium (Duoneb 3.0-0.5 Mg/3 Ml) 3 ml NEB Q4HRRT [facility] Stop: 10/06/18 22:01 Last Admin: 10/06/18 21:58 Dose: 3 ml Furosemide (Lasix) 20 mg IVPUSH NOW ONE Stop: 10/06/18 15:24 Last Admin: 10/06/18 15:37 Dose: 20 mg Furosemide (Lasix) 40 mg IVPUSH NOW ONE Stop: 10/09/18 10:26 Last Admin: 10/09/18 10:53 Dose: 40 mg Furosemide (Lasix) 40 mg IVPUSH NOW ONE Stop: 10/10/18 08:26 Last Admin: 10/10/18 08:32 Dose: 40 mg Sodium Chloride (Normal Saline) 1,000 mls @ 125 mls/hr IV STAT [facility] Last Admin: 10/06/18 15:37 Dose: 80 mls/hr Levofloxacin/Dextrose 500 mg/ (Premix) 100 mls @ 100 mls/hr IV ONETIME ONE Stop: 10/06/18 17:03 Last Admin: 10/06/18 16:21 Dose: 100 mls/hr Levofloxacin/Dextrose 500 mg/ (Premix) 100 mls @ 100 mls/hr IV Q48H [facility] Methylprednisolone Sodium Succinate (Solu-Medrol) 125 mg IVPUSH ONETIME ONE Stop: 10/06/18 15:06 Last Admin: 10/06/18 15:31 Dose: 125 mg Methylprednisolone Sodium Succinate (Solu-Medrol) Confirm Administered Dose 125 mg .ROUTE .STK-MED ONE Stop: 10/06/18 15:05 Last Admin: 10/06/18 15:31 Dose: Not Given Methylprednisolone Sodium Succinate (Solu-Medrol) 125 mg IVPUSH ONETIME ONE Stop: 10/06/18 16:49 Last Admin: 10/06/18 16:55 Dose: 125 mg Methylprednisolone Sodium Succinate (Solu-Medrol) 125 mg IVPUSH DAILY [facility] Stop: 10/12/18 09:01 Last Admin: 10/12/18 08:57 Dose: 125 mg
--- NOTE | 2018-10-12 17:09 | PCM.PN ---
<Jose Queen - Last Filed: 10/12/18 17:18> - General Info Date of Service: 10/12/18 Subjective Update: No acute events overnight. Shortness of breath has been improving. No chest pain. - Patient Data Vitals - Most Recent: Last Vital Signs Temp 36.4 C 10/12/18 15:00 Pulse 74 10/12/18 15:00 Resp 20 10/12/18 15:00 BP 107/51 L 10/12/18 15:00 Pulse Ox 90 L 10/12/18 15:00 Weight - Most Recent: 81.4 kg I&O - Last 24 Hours: Intake & Output 10/12/18 10/12/18 10/12/18 06:59 14:59 22:59 Intake Total 300 450 Output Total 900 500 Balance -600 -50 Lab Results Last 24 Hours: Laboratory Results - last 24 hr 10/12/18 Range/Units 04:45 Sodium 145 (136-145) mmol/L Potassium 4.1 (3.5-5.1) mmol/L Chloride 109 H (98-107) mmol/L Carbon Dioxide 30.8 (21.0-32.0) mmol/L BUN 80 H (7.0-18.0) mg/dL Creatinine 2.0 H (0.6-1.0) mg/dL Est Cr Clr Drug Dosing 19.58 mL/min Estimated GFR (MDRD) 23.6 ml/min Glucose 140 H (74-106) mg/dL Calcium 8.8 (8.5-10.1) mg/dL Alfred Results Last 24 Hours: Microbiology 10/06/18 15:40 Aerobic Blood Culture - Final Blood - Venous - Lab Draw NO GROWTH AFTER 5 DAYS Anaerobic Blood Culture - Final NO GROWTH AFTER 5 DAYS 10/06/18 15:20 Aerobic Blood Culture - Final Blood - Venous NO GROWTH AFTER 5 DAYS Anaerobic Blood Culture - Final NO GROWTH AFTER 5 DAYS Med Orders - Current: Current Medications Acetaminophen (Tylenol) 650 mg PO Q4H PRN PRN Reason: Pain (Mild 1-3)/fever Albuterol/Ipratropium (Duoneb 3.0-0.5 Mg/3 Ml) 3 ml NEB Q6HRRT PRN PRN Reason: Dyspnea Last Admin: 10/11/18 09:11 Dose: 3 ml Albuterol/Ipratropium (Duoneb 3.0-0.5 Mg/3 Ml) 3 ml NEB Q6HRRT [facility] Last Admin: 10/12/18 11:15 Dose: 3 ml Amoxicillin/Clavulanate Potassium (Augmentin 500 Mg\125 Mg) 1 tab PO Q12HR [facility] Stop: 10/15/18 21:01 Last Admin: 10/12/18 08:57 Dose: 1 tab Heparin Sodium (Porcine) (Heparin Sodium) 5,000 units SUBCUT Q8H [facility] Last Admin: 10/12/18 10:39 Dose: 5,000 units Ondansetron HCl (Zofran Odt) 4 mg PO Q4H PRN PRN Reason: nausea, able to take PO Discontinued Medications Albuterol (Proventil Neb Soln) 2.5 mg NEB ONETIME ONE Stop: 10/06/18 15:38 Last Admin: 10/06/18 15:41 Dose: 2.5 mg Albuterol (Proventil Neb Soln) 2.5 mg NEB ONETIME ONE Stop: 10/06/18 15:38 Last Admin: 10/06/18 16:17 Dose: Not Given Albuterol (Proventil Neb Soln) 2.5 mg NEB ONETIME ONE Stop: 10/06/18 16:49 Last Admin: 10/06/18 16:55 Dose: 2.5 mg Albuterol/Ipratropium (Duoneb 3.0-0.5 Mg/3 Ml) 3 ml NEB ONETIME ONE Stop: 10/06/18 15:06 Last Admin: 10/06/18 15:12 Dose: 3 ml Albuterol/Ipratropium (Duoneb 3.0-0.5 Mg/3 Ml) Confirm Administered Dose 3 ml .ROUTE .STK-MED ONE Stop: 10/06/18 15:05 Last Admin: 10/06/18 15:31 Dose: Not Given Albuterol/Ipratropium (Duoneb 3.0-0.5 Mg/3 Ml) 3 ml NEB Q4HRRT [facility] Stop: 10/06/18 22:01 Last Admin: 10/06/18 21:58 Dose: 3 ml Furosemide (Lasix) 20 mg IVPUSH NOW ONE Stop: 10/06/18 15:24 Last Admin: 10/06/18 15:37 Dose: 20 mg Furosemide (Lasix) 40 mg IVPUSH NOW ONE Stop: 10/09/18 10:26 Last Admin: 10/09/18 10:53 Dose: 40 mg Furosemide (Lasix) 40 mg IVPUSH NOW ONE Stop: 10/10/18 08:26 Last Admin: 10/10/18 08:32 Dose: 40 mg Sodium Chloride (Normal Saline) 1,000 mls @ 125 mls/hr IV STAT [facility] Last Admin: 10/06/18 15:37 Dose: 80 mls/hr Levofloxacin/Dextrose 500 mg/ (Premix) 100 mls @ 100 mls/hr IV ONETIME ONE Stop: 10/06/18 17:03 Last Admin: 10/06/18 16:21 Dose: 100 mls/hr Levofloxacin/Dextrose 500 mg/ (Premix) 100 mls @ 100 mls/hr IV Q48H [facility] Methylprednisolone Sodium Succinate (Solu-Medrol) 125 mg IVPUSH ONETIME ONE Stop: 10/06/18 15:06 Last Admin: 10/06/18 15:31 Dose: 125 mg Methylprednisolone Sodium Succinate (Solu-Medrol) Confirm Administered Dose 125 mg .ROUTE .STK-MED ONE Stop: 10/06/18 15:05 Last Admin: 10/06/18 15:31 Dose: Not Given Methylprednisolone Sodium Succinate (Solu-Medrol) 125 mg IVPUSH ONETIME ONE Stop: 10/06/18 16:49 Last Admin: 10/06/18 16:55 Dose: 125 mg Methylprednisolone Sodium Succinate (Solu-Medrol) 125 mg IVPUSH DAILY [facility] Stop: 10/12/18 09:01 Last Admin: 10/12/18 08:57 Dose: 125 mg - Exam Quality Assessment: Supplemental Oxygen General: Alert, Oriented, Cooperative, No Acute Distress Lungs: Clear to Auscultation, Normal Respiratory Effort. No: Crackles, Wheezing Cardiovascular: Regular Rate, Regular Rhythm GI/Abdominal Exam: Normal Bowel Sounds, Soft, Non-Tender Extremities: Non-Tender, Pedal Edema Skin: Warm, Dry - Problem List Review Problem List Initiated/Reviewed/Updated: Yes - My Orders Last 24 Hours: My Active Orders 10/12/18 09:31 Ready for Discharge [RC] PER UNIT ROUTINE - Plan Plan:: A: 1. Acute on chronic hypoxic respiratory failure 2. CKD 3. UTI P: 1. Acute on chronic hypoxic respiratory failure, now at baseline. Prednisone taper. Duonebs Q6H and PRN. Titrate O2 as tolerated. 2. UTI. Continue with Augmentin for total of 7 days. Dispo: dc to [facility] tomorrow. <Layo Salinas - Last Filed: 10/12/18 18:03> - General Info Admission Dx/Problem (Free Text): I have seen and examined to patient independently of medical staff credentialing coordinator, Jsoe Wood MD. I have discussed the case for care of this patient with him. I have reviewed and approve of the plan of care as outlined by medical staff credentialing coordinator. Please see orders. - Patient Data Vitals - Most Recent: Last Vital Signs Temp 36.4 C 10/12/18 15:00 Pulse 74 10/12/18 15:00 Resp 20 10/12/18 15:00 BP 107/51 L 10/12/18 15:00 Pulse Ox 90 L 10/12/18 15:00 I&O - Last 24 Hours: Intake & Output 10/12/18 10/12/18 10/12/18 06:59 14:59 22:59 Intake Total 300 450 Output Total 900 500 Balance -600 -50 Lab Results Last 24 Hours: Laboratory Results - last 24 hr 10/12/18 Range/Units 04:45 Sodium 145 (136-145) mmol/L Potassium 4.1 (3.5-5.1) mmol/L Chloride 109 H (98-107) mmol/L Carbon Dioxide 30.8 (21.0-32.0) mmol/L BUN 80 H (7.0-18.0) mg/dL Creatinine 2.0 H (0.6-1.0) mg/dL Est Cr Clr Drug Dosing 19.58 mL/min Estimated GFR (MDRD) 23.6 ml/min Glucose 140 H (74-106) mg/dL Calcium 8.8 (8.5-10.1) mg/dL Alfred Results Last 24 Hours: Microbiology 10/06/18 15:40 Aerobic Blood Culture - Final Blood - Venous - Lab Draw NO GROWTH AFTER 5 DAYS Anaerobic Blood Culture - Final NO GROWTH AFTER 5 DAYS 10/06/18 15:20 Aerobic Blood Culture - Final Blood - Venous NO GROWTH AFTER 5 DAYS Anaerobic Blood Culture - Final NO GROWTH AFTER 5 DAYS Med Orders - Current: Current Medications Acetaminophen (Tylenol) 650 mg PO Q4H PRN PRN Reason: Pain (Mild 1-3)/fever Albuterol/Ipratropium (Duoneb 3.0-0.5 Mg/3 Ml) 3 ml NEB Q6HRRT PRN PRN Reason: Dyspnea Last Admin: 10/11/18 09:11 Dose: 3 ml Albuterol/Ipratropium (Duoneb 3.0-0.5 Mg/3 Ml) 3 ml NEB Q6HRRT [facility] Last Admin: 10/12/18 17:09 Dose: 3 ml Amoxicillin/Clavulanate Potassium (Augmentin 500 Mg\125 Mg) 1 tab PO Q12HR [facility] Stop: 10/15/18 21:01 Last Admin: 10/12/18 08:57 Dose: 1 tab Heparin Sodium (Porcine) (Heparin Sodium) 5,000 units SUBCUT Q8H [facility] Last Admin: 10/12/18 10:39 Dose: 5,000 units Ondansetron HCl (Zofran Odt) 4 mg PO Q4H PRN PRN Reason: nausea, able to take PO Prednisone (Prednisone) 40 mg PO WITHBREAKFAST [facility] Stop: 10/18/18 08:01 Discontinued Medications Albuterol (Proventil Neb Soln) 2.5 mg NEB ONETIME ONE Stop: 10/06/18 15:38 Last Admin: 10/06/18 15:41 Dose: 2.5 mg Albuterol (Proventil Neb Soln) 2.5 mg NEB ONETIME ONE Stop: 10/06/18 15:38 Last Admin: 10/06/18 16:17 Dose: Not Given Albuterol (Proventil Neb Soln) 2.5 mg NEB ONETIME ONE Stop: 10/06/18 16:49 Last Admin: 10/06/18 16:55 Dose: 2.5 mg Albuterol/Ipratropium (Duoneb 3.0-0.5 Mg/3 Ml) 3 ml NEB ONETIME ONE Stop: 10/06/18 15:06 Last Admin: 10/06/18 15:12 Dose: 3 ml Albuterol/Ipratropium (Duoneb 3.0-0.5 Mg/3 Ml) Confirm Administered Dose 3 ml .ROUTE .STK-MED ONE Stop: 10/06/18 15:05 Last Admin: 10/06/18 15:31 Dose: Not Given Albuterol/Ipratropium (Duoneb 3.0-0.5 Mg/3 Ml) 3 ml NEB Q4HRRT [facility] Stop: 10/06/18 22:01 Last Admin: 10/06/18 21:58 Dose: 3 ml Furosemide (Lasix) 20 mg IVPUSH NOW ONE Stop: 10/06/18 15:24 Last Admin: 10/06/18 15:37 Dose: 20 mg Furosemide (Lasix) 40 mg IVPUSH NOW ONE Stop: 10/09/18 10:26 Last Admin: 10/09/18 10:53 Dose: 40 mg Furosemide (Lasix) 40 mg IVPUSH NOW ONE Stop: 10/10/18 08:26 Last Admin: 10/10/18 08:32 Dose: 40 mg Sodium Chloride (Normal Saline) 1,000 mls @ 125 mls/hr IV STAT [facility] Last Admin: 10/06/18 15:37 Dose: 80 mls/hr Levofloxacin/Dextrose 500 mg/ (Premix) 100 mls @ 100 mls/hr IV ONETIME ONE Stop: 10/06/18 17:03 Last Admin: 10/06/18 16:21 Dose: 100 mls/hr Levofloxacin/Dextrose 500 mg/ (Premix) 100 mls @ 100 mls/hr IV Q48H [facility] Methylprednisolone Sodium Succinate (Solu-Medrol) 125 mg IVPUSH ONETIME ONE Stop: 10/06/18 15:06 Last Admin: 10/06/18 15:31 Dose: 125 mg Methylprednisolone Sodium Succinate (Solu-Medrol) Confirm Administered Dose 125 mg .ROUTE .STK-MED ONE Stop: 10/06/18 15:05 Last Admin: 10/06/18 15:31 Dose: Not Given Methylprednisolone Sodium Succinate (Solu-Medrol) 125 mg IVPUSH ONETIME ONE Stop: 10/06/18 16:49 Last Admin: 10/06/18 16:55 Dose: 125 mg Methylprednisolone Sodium Succinate (Solu-Medrol) 125 mg IVPUSH DAILY [facility] Stop: 10/12/18 09:01 Last Admin: 10/12/18 08:57 Dose: 125 mg
[2018-10-13] MEDS: Albuterol/Ipratropium 3.0-0.5 MG/3 ML Neb Soln NEB SCH ×5 (00:15→23:29)
[2018-10-13] MEDS: Heparin Sodium 5,000 Units/ML Vial SUBCUT SCH ×3 (02:14→19:01)
[2018-10-13] MEDS: predniSONE 20 MG Tab PO SCH (09:00)
[2018-10-13] MEDS: Amoxicillin/Clavulanate K 500-125 MG Tab PO SCH ×2 (09:00→20:03)
--- NOTE | 2018-10-13 10:14 | PCM.PN ---
<Jose Queen - Last Filed: 10/13/18 10:12> - General Info Date of Service: 10/13/18 Subjective Update: no acute events overnight. On 4 L O2 NC satting in low 90's. Denies chest pain, abdominal pain, dysuria, diarrhea. - Patient Data Vitals - Most Recent: Last Vital Signs Temp 36.3 C 10/13/18 07:29 Pulse 77 10/13/18 07:29 Resp 16 10/13/18 07:29 BP 109/53 L 10/13/18 07:29 Pulse Ox 95 10/13/18 07:29 Weight - Most Recent: 81.4 kg I&O - Last 24 Hours: Intake & Output 10/12/18 10/13/18 10/13/18 22:59 06:59 14:59 Intake Total 450 600 Output Total 500 900 Balance -50 -300 Lab Results Last 24 Hours: Laboratory Results - last 24 hr 10/13/18 Range/Units 05:45 Sodium 145 (136-145) mmol/L Potassium 4.3 (3.5-5.1) mmol/L Chloride 109 H (98-107) mmol/L Carbon Dioxide 31.0 (21.0-32.0) mmol/L BUN 75 H (7.0-18.0) mg/dL Creatinine 2.0 H (0.6-1.0) mg/dL Est Cr Clr Drug Dosing 19.58 mL/min Estimated GFR (MDRD) 23.6 ml/min Glucose 158 H (74-106) mg/dL Calcium 9.0 (8.5-10.1) mg/dL Med Orders - Current: Current Medications Acetaminophen (Tylenol) 650 mg PO Q4H PRN PRN Reason: Pain (Mild 1-3)/fever Albuterol/Ipratropium (Duoneb 3.0-0.5 Mg/3 Ml) 3 ml NEB Q6HRRT PRN PRN Reason: Dyspnea Last Admin: 10/11/18 09:11 Dose: 3 ml Albuterol/Ipratropium (Duoneb 3.0-0.5 Mg/3 Ml) 3 ml NEB Q6HRRT [facility] Last Admin: 10/13/18 05:55 Dose: 3 ml Amoxicillin/Clavulanate Potassium (Augmentin 500 Mg\125 Mg) 1 tab PO Q12HR [facility] Stop: 10/15/18 21:01 Last Admin: 10/13/18 09:00 Dose: 1 tab Heparin Sodium (Porcine) (Heparin Sodium) 5,000 units SUBCUT Q8H [facility] Last Admin: 10/13/18 09:42 Dose: 5,000 units Ondansetron HCl (Zofran Odt) 4 mg PO Q4H PRN PRN Reason: nausea, able to take PO Prednisone (Prednisone) 40 mg PO WITHBREAKFAST [facility] Stop: 10/18/18 08:01 Last Admin: 10/13/18 09:00 Dose: 40 mg Discontinued Medications Albuterol (Proventil Neb Soln) 2.5 mg NEB ONETIME ONE Stop: 10/06/18 15:38 Last Admin: 10/06/18 15:41 Dose: 2.5 mg Albuterol (Proventil Neb Soln) 2.5 mg NEB ONETIME ONE Stop: 10/06/18 15:38 Last Admin: 10/06/18 16:17 Dose: Not Given Albuterol (Proventil Neb Soln) 2.5 mg NEB ONETIME ONE Stop: 10/06/18 16:49 Last Admin: 10/06/18 16:55 Dose: 2.5 mg Albuterol/Ipratropium (Duoneb 3.0-0.5 Mg/3 Ml) 3 ml NEB ONETIME ONE Stop: 10/06/18 15:06 Last Admin: 10/06/18 15:12 Dose: 3 ml Albuterol/Ipratropium (Duoneb 3.0-0.5 Mg/3 Ml) Confirm Administered Dose 3 ml .ROUTE .STK-MED ONE Stop: 10/06/18 15:05 Last Admin: 10/06/18 15:31 Dose: Not Given Albuterol/Ipratropium (Duoneb 3.0-0.5 Mg/3 Ml) 3 ml NEB Q4HRRT [facility] Stop: 10/06/18 22:01 Last Admin: 10/06/18 21:58 Dose: 3 ml Furosemide (Lasix) 20 mg IVPUSH NOW ONE Stop: 10/06/18 15:24 Last Admin: 10/06/18 15:37 Dose: 20 mg Furosemide (Lasix) 40 mg IVPUSH NOW ONE Stop: 10/09/18 10:26 Last Admin: 10/09/18 10:53 Dose: 40 mg Furosemide (Lasix) 40 mg IVPUSH NOW ONE Stop: 10/10/18 08:26 Last Admin: 10/10/18 08:32 Dose: 40 mg Sodium Chloride (Normal Saline) 1,000 mls @ 125 mls/hr IV STAT [facility] Last Admin: 10/06/18 15:37 Dose: 80 mls/hr Levofloxacin/Dextrose 500 mg/ (Premix) 100 mls @ 100 mls/hr IV ONETIME ONE Stop: 10/06/18 17:03 Last Admin: 10/06/18 16:21 Dose: 100 mls/hr Levofloxacin/Dextrose 500 mg/ (Premix) 100 mls @ 100 mls/hr IV Q48H [facility] Methylprednisolone Sodium Succinate (Solu-Medrol) 125 mg IVPUSH ONETIME ONE Stop: 10/06/18 15:06 Last Admin: 10/06/18 15:31 Dose: 125 mg Methylprednisolone Sodium Succinate (Solu-Medrol) Confirm Administered Dose 125 mg .ROUTE .STK-MED ONE Stop: 10/06/18 15:05 Last Admin: 10/06/18 15:31 Dose: Not Given Methylprednisolone Sodium Succinate (Solu-Medrol) 125 mg IVPUSH ONETIME ONE Stop: 10/06/18 16:49 Last Admin: 10/06/18 16:55 Dose: 125 mg Methylprednisolone Sodium Succinate (Solu-Medrol) 125 mg IVPUSH DAILY [facility] Stop: 10/12/18 09:01 Last Admin: 10/12/18 08:57 Dose: 125 mg - Exam Quality Assessment: Supplemental Oxygen General: Alert, Oriented, Cooperative, No Acute Distress Lungs: Clear to Auscultation, Normal Respiratory Effort. No: Crackles, Wheezing Cardiovascular: Regular Rate, Regular Rhythm GI/Abdominal Exam: Normal Bowel Sounds, Soft, Non-Tender Extremities: Normal Inspection, Pedal Edema - Problem List Review Problem List Initiated/Reviewed/Updated: Yes - My Orders Last 24 Hours: My Active Orders 10/12/18 09:31 Ready for Discharge [RC] PER UNIT ROUTINE 10/13/18 08:00 predniSONE 40 mg PO WITHBREAKFAST - Plan Plan:: A: 1. Acute on chronic hypoxic respiratory failure, stable 2. CKD 3. UTI P: 1. Acute on chronic hypoxic respiratory failure, now at baseline. Prednisone taper. Duonebs Q6H and PRN. Titrate O2 as tolerated. 2. UTI. Continue with Augmentin. Dispo: pending transfer to [place]. <Layo Salinas - Last Filed: 10/13/18 10:29> - General Info Admission Dx/Problem (Free Text): I have seen and examined to patient independently of medical donation professional, Jose Wood MD. I have discussed the case for care of this patient with him. I have reviewed and approve of the plan of care as outlined by medical donation professional. Please see orders. - Patient Data Vitals - Most Recent: Last Vital Signs Temp 36.3 C 10/13/18 07:29 Pulse 77 10/13/18 07:29 Resp 16 10/13/18 07:29 BP 109/53 L 10/13/18 07:29 Pulse Ox 95 10/13/18 07:29 I&O - Last 24 Hours: Intake & Output 10/12/18 10/13/18 10/13/18 22:59 06:59 14:59 Intake Total 450 600 Output Total 500 900 Balance -50 -300 Lab Results Last 24 Hours: Laboratory Results - last 24 hr 10/13/18 Range/Units 05:45 Sodium 145 (136-145) mmol/L Potassium 4.3 (3.5-5.1) mmol/L Chloride 109 H (98-107) mmol/L Carbon Dioxide 31.0 (21.0-32.0) mmol/L BUN 75 H (7.0-18.0) mg/dL Creatinine 2.0 H (0.6-1.0) mg/dL Est Cr Clr Drug Dosing 19.58 mL/min Estimated GFR (MDRD) 23.6 ml/min Glucose 158 H (74-106) mg/dL Calcium 9.0 (8.5-10.1) mg/dL Med Orders - Current: Current Medications Acetaminophen (Tylenol) 650 mg PO Q4H PRN PRN Reason: Pain (Mild 1-3)/fever Albuterol/Ipratropium (Duoneb 3.0-0.5 Mg/3 Ml) 3 ml NEB Q6HRRT PRN PRN Reason: Dyspnea Last Admin: 10/11/18 09:11 Dose: 3 ml Albuterol/Ipratropium (Duoneb 3.0-0.5 Mg/3 Ml) 3 ml NEB Q6HRRT [facility] Last Admin: 10/13/18 05:55 Dose: 3 ml Amoxicillin/Clavulanate Potassium (Augmentin 500 Mg\125 Mg) 1 tab PO Q12HR [facility] Stop: 10/15/18 21:01 Last Admin: 10/13/18 09:00 Dose: 1 tab Heparin Sodium (Porcine) (Heparin Sodium) 5,000 units SUBCUT Q8H [facility] Last Admin: 10/13/18 09:42 Dose: 5,000 units Ondansetron HCl (Zofran Odt) 4 mg PO Q4H PRN PRN Reason: nausea, able to take PO Prednisone (Prednisone) 40 mg PO WITHBREAKFAST [facility] Stop: 10/18/18 08:01 Last Admin: 10/13/18 09:00 Dose: 40 mg Discontinued Medications Albuterol (Proventil Neb Soln) 2.5 mg NEB ONETIME ONE Stop: 10/06/18 15:38 Last Admin: 10/06/18 15:41 Dose: 2.5 mg Albuterol (Proventil Neb Soln) 2.5 mg NEB ONETIME ONE Stop: 10/06/18 15:38 Last Admin: 10/06/18 16:17 Dose: Not Given Albuterol (Proventil Neb Soln) 2.5 mg NEB ONETIME ONE Stop: 10/06/18 16:49 Last Admin: 10/06/18 16:55 Dose: 2.5 mg Albuterol/Ipratropium (Duoneb 3.0-0.5 Mg/3 Ml) 3 ml NEB ONETIME ONE Stop: 10/06/18 15:06 Last Admin: 10/06/18 15:12 Dose: 3 ml Albuterol/Ipratropium (Duoneb 3.0-0.5 Mg/3 Ml) Confirm Administered Dose 3 ml .ROUTE .STK-MED ONE Stop: 10/06/18 15:05 Last Admin: 10/06/18 15:31 Dose: Not Given Albuterol/Ipratropium (Duoneb 3.0-0.5 Mg/3 Ml) 3 ml NEB Q4HRRT [facility] Stop: 10/06/18 22:01 Last Admin: 10/06/18 21:58 Dose: 3 ml Furosemide (Lasix) 20 mg IVPUSH NOW ONE Stop: 10/06/18 15:24 Last Admin: 10/06/18 15:37 Dose: 20 mg Furosemide (Lasix) 40 mg IVPUSH NOW ONE Stop: 10/09/18 10:26 Last Admin: 10/09/18 10:53 Dose: 40 mg Furosemide (Lasix) 40 mg IVPUSH NOW ONE Stop: 10/10/18 08:26 Last Admin: 10/10/18 08:32 Dose: 40 mg Sodium Chloride (Normal Saline) 1,000 mls @ 125 mls/hr IV STAT [facility] Last Admin: 10/06/18 15:37 Dose: 80 mls/hr Levofloxacin/Dextrose 500 mg/ (Premix) 100 mls @ 100 mls/hr IV ONETIME ONE Stop: 10/06/18 17:03 Last Admin: 10/06/18 16:21 Dose: 100 mls/hr Levofloxacin/Dextrose 500 mg/ (Premix) 100 mls @ 100 mls/hr IV Q48H [facility] Methylprednisolone Sodium Succinate (Solu-Medrol) 125 mg IVPUSH ONETIME ONE Stop: 10/06/18 15:06 Last Admin: 10/06/18 15:31 Dose: 125 mg Methylprednisolone Sodium Succinate (Solu-Medrol) Confirm Administered Dose 125 mg .ROUTE .STK-MED ONE Stop: 10/06/18 15:05 Last Admin: 10/06/18 15:31 Dose: Not Given Methylprednisolone Sodium Succinate (Solu-Medrol) 125 mg IVPUSH ONETIME ONE Stop: 10/06/18 16:49 Last Admin: 10/06/18 16:55 Dose: 125 mg Methylprednisolone Sodium Succinate (Solu-Medrol) 125 mg IVPUSH DAILY [facility] Stop: 10/12/18 09:01 Last Admin: 10/12/18 08:57 Dose: 125 mg
[2018-10-13] MEDS: Fluticasone Propionate Nasal Spray 16 GM Bottle NASBOTH SCH (17:56)
[2018-10-13] MEDS ORDERED: Non-Formulary Medication 1 Each (Fluticasone Propion/Salmeterol [Fluticasone-Salmeterol 25 IH SCH (21:00)
[2018-10-14] MEDS: Heparin Sodium 5,000 Units/ML Vial SUBCUT SCH ×3 (02:11→18:51)
[2018-10-14] MEDS: Albuterol/Ipratropium 3.0-0.5 MG/3 ML Neb Soln NEB SCH ×2 (05:44→11:32)
[2018-10-14] MEDS: predniSONE 20 MG Tab PO SCH (08:42)
--- NOTE | 2018-10-14 08:44 | PCM.PN ---
<Jose Queen - Last Filed: 10/14/18 08:42> - General Info Date of Service: 10/14/18 Subjective Update: No acute events overnight. Doing well. On 4 L O2 NC with sat mid 90's. Denies chest pain, abdominal pain, dysuria, diarrhea, blood in stool. - Patient Data Vitals - Most Recent: Last Vital Signs Temp 36.5 C 10/14/18 07:45 Pulse 74 10/14/18 07:45 Resp 16 10/14/18 07:45 BP 125/51 L 10/14/18 07:45 Pulse Ox 95 10/14/18 07:45 Weight - Most Recent: 81.4 kg I&O - Last 24 Hours: Intake & Output 10/13/18 10/14/18 10/14/18 22:59 06:59 14:59 Intake Total 740 900 Output Total 750 700 Balance -10 200 Lab Results Last 24 Hours: Laboratory Results - last 24 hr 10/13/18 Range/Units 18:28 WBC 6.57 (4.0-11.0) K/uL RBC 3.49 L (4.30-5.90) M/uL Hgb 10.6 L (12.0-16.0) g/dL Hct 33.8 L (36.0-46.0) % MCV 96.8 (80.0-98.0) fL MCH 30.4 (27.0-32.0) pg MCHC 31.4 (31.0-37.0) g/dL RDW Std Deviation 55.4 (28.0-62.0) fl RDW Coeff of Lai 16 H (11.0-15.0) % Plt Count 121 L (150-400) K/uL MPV 11.20 (7.40-12.00) fL Add Manual Diff YES Neutrophils % (Manual) 80 (48.0-80.0) % Lymphocytes % (Manual) 7 L (16.0-40.0) % Monocytes % (Manual) 4 (0.0-15.0) % Metamyelocytes % 6 % Myelocytes % 3 % Nucleated RBC % 0.0 /100WBC Absolute Seg Neuts 5.3 (1.4-5.7) Lymphocytes # (Manual) 0.5 L (0.6-2.4) Monocytes # (Manual) 0.3 (0.0-0.8) Absolute Metamyelocyte 0.4 Absolute Myelocytes 0.2 Nucleated RBCs # 0 K/uL Med Orders - Current: Current Medications Acetaminophen (Tylenol) 650 mg PO Q4H PRN PRN Reason: Pain (Mild 1-3)/fever Albuterol/Ipratropium (Duoneb 3.0-0.5 Mg/3 Ml) 3 ml NEB Q6HRRT PRN PRN Reason: Dyspnea Last Admin: 10/11/18 09:11 Dose: 3 ml Albuterol/Ipratropium (Duoneb 3.0-0.5 Mg/3 Ml) 3 ml NEB Q6HRRT [facility] Last Admin: 10/14/18 05:44 Dose: 3 ml Amoxicillin/Clavulanate Potassium (Augmentin 500 Mg\125 Mg) 1 tab PO Q12HR [facility] Stop: 10/15/18 21:01 Last Admin: 10/13/18 20:03 Dose: 1 tab Heparin Sodium (Porcine) (Heparin Sodium) 5,000 units SUBCUT Q8H [facility] Last Admin: 10/14/18 02:11 Dose: 5,000 units Ondansetron HCl (Zofran Odt) 4 mg PO Q4H PRN PRN Reason: nausea, able to take PO Fluticasone Propionate Nasal [place] 16 Gm Bottle 2 each NASBOTH DAILY [facility] Last Admin: 10/13/18 17:56 Dose: Not Given Prednisone (Prednisone) 40 mg PO WITHBREAKFAST [facility] Stop: 10/18/18 08:01 Last Admin: 10/13/18 09:00 Dose: 40 mg Discontinued Medications Albuterol (Proventil Neb Soln) 2.5 mg NEB ONETIME ONE Stop: 10/06/18 15:38 Last Admin: 10/06/18 15:41 Dose: 2.5 mg Albuterol (Proventil Neb Soln) 2.5 mg NEB ONETIME ONE Stop: 10/06/18 15:38 Last Admin: 10/06/18 16:17 Dose: Not Given Albuterol (Proventil Neb Soln) 2.5 mg NEB ONETIME ONE Stop: 10/06/18 16:49 Last Admin: 10/06/18 16:55 Dose: 2.5 mg Albuterol/Ipratropium (Duoneb 3.0-0.5 Mg/3 Ml) 3 ml NEB ONETIME ONE Stop: 10/06/18 15:06 Last Admin: 10/06/18 15:12 Dose: 3 ml Albuterol/Ipratropium (Duoneb 3.0-0.5 Mg/3 Ml) Confirm Administered Dose 3 ml .ROUTE .STK-MED ONE Stop: 10/06/18 15:05 Last Admin: 10/06/18 15:31 Dose: Not Given Albuterol/Ipratropium (Duoneb 3.0-0.5 Mg/3 Ml) 3 ml NEB Q4HRRT [facility] Stop: 10/06/18 22:01 Last Admin: 10/06/18 21:58 Dose: 3 ml Furosemide (Lasix) 20 mg IVPUSH NOW ONE Stop: 10/06/18 15:24 Last Admin: 10/06/18 15:37 Dose: 20 mg Furosemide (Lasix) 40 mg IVPUSH NOW ONE Stop: 10/09/18 10:26 Last Admin: 10/09/18 10:53 Dose: 40 mg Furosemide (Lasix) 40 mg IVPUSH NOW ONE Stop: 10/10/18 08:26 Last Admin: 10/10/18 08:32 Dose: 40 mg Sodium Chloride (Normal Saline) 1,000 mls @ 125 mls/hr IV STAT [facility] Last Admin: 10/06/18 15:37 Dose: 80 mls/hr Levofloxacin/Dextrose 500 mg/ (Premix) 100 mls @ 100 mls/hr IV ONETIME ONE Stop: 10/06/18 17:03 Last Admin: 10/06/18 16:21 Dose: 100 mls/hr Levofloxacin/Dextrose 500 mg/ (Premix) 100 mls @ 100 mls/hr IV Q48H [facility] Methylprednisolone Sodium Succinate (Solu-Medrol) 125 mg IVPUSH ONETIME ONE Stop: 10/06/18 15:06 Last Admin: 10/06/18 15:31 Dose: 125 mg Methylprednisolone Sodium Succinate (Solu-Medrol) Confirm Administered Dose 125 mg .ROUTE .STK-MED ONE Stop: 10/06/18 15:05 Last Admin: 10/06/18 15:31 Dose: Not Given Methylprednisolone Sodium Succinate (Solu-Medrol) 125 mg IVPUSH ONETIME ONE Stop: 10/06/18 16:49 Last Admin: 10/06/18 16:55 Dose: 125 mg Methylprednisolone Sodium Succinate (Solu-Medrol) 125 mg IVPUSH DAILY [facility] Stop: 10/12/18 09:01 Last Admin: 10/12/18 08:57 Dose: 125 mg Non-Formulary Medication (Fluticasone Propion/Salmeterol [Fluticasone- Salmeterol 250-50]) 1 each IH BID [facility] - Exam Quality Assessment: Supplemental Oxygen General: Alert, Oriented, Cooperative Lungs: Clear to Auscultation. No: Crackles, Wheezing Cardiovascular: Regular Rate, Regular Rhythm GI/Abdominal Exam: Normal Bowel Sounds, Soft, Non-Tender Extremities: Normal Inspection, No Pedal Edema Skin: Warm, Dry - Problem List Review Problem List Initiated/Reviewed/Updated: Yes - My Orders Last 24 Hours: My Active Orders 10/13/18 08:00 predniSONE 40 mg PO WITHBREAKFAST 10/13/18 19:17 Communication Order [RC] PER UNIT ROUTINE - Plan Plan:: A: 1. Acute on chronic hypoxic respiratory failure, stable 2. CKD 3. UTI P: 1. Acute on chronic hypoxic respiratory failure, now at baseline. Prednisone taper. Duonebs Q6H and PRN. Titrate O2 as tolerated. 2. UTI. Continue antibiotic for total of 7 days. Dispo: pending placement. <Layo Salinas - Last Filed: 10/14/18 13:12> - General Info Admission Dx/Problem (Free Text): I have seen and examined to patient independently of medical apparatus model maker, Jose Wood MD. I have discussed the case for care of this patient with him. I have reviewed and approve of the plan of care as outlined by medical apparatus model maker. Please see orders. - Patient Data Vitals - Most Recent: Last Vital Signs Temp 36.5 C 10/14/18 11:30 Pulse 74 10/14/18 07:45 Resp 16 10/14/18 11:30 BP 126/51 L 10/14/18 11:30 Pulse Ox 93 L 10/14/18 11:30 I&O - Last 24 Hours: Intake & Output 10/13/18 10/14/18 10/14/18 22:59 06:59 14:59 Intake Total 740 900 Output Total 750 700 Balance -10 200 Lab Results Last 24 Hours: Laboratory Results - last 24 hr 10/13/18 Range/Units 18:28 WBC 6.57 (4.0-11.0) K/uL RBC 3.49 L (4.30-5.90) M/uL Hgb 10.6 L (12.0-16.0) g/dL Hct 33.8 L (36.0-46.0) % MCV 96.8 (80.0-98.0) fL MCH 30.4 (27.0-32.0) pg MCHC 31.4 (31.0-37.0) g/dL RDW Std Deviation 55.4 (28.0-62.0) fl RDW Coeff of Lai 16 H (11.0-15.0) % Plt Count 121 L (150-400) K/uL MPV 11.20 (7.40-12.00) fL Add Manual Diff YES Neutrophils % (Manual) 80 (48.0-80.0) % Lymphocytes % (Manual) 7 L (16.0-40.0) % Monocytes % (Manual) 4 (0.0-15.0) % Metamyelocytes % 6 % Myelocytes % 3 % Nucleated RBC % 0.0 /100WBC Absolute Seg Neuts 5.3 (1.4-5.7) Lymphocytes # (Manual) 0.5 L (0.6-2.4) Monocytes # (Manual) 0.3 (0.0-0.8) Absolute Metamyelocyte 0.4 Absolute Myelocytes 0.2 Nucleated RBCs # 0 K/uL Med Orders - Current: Current Medications Acetaminophen (Tylenol) 650 mg PO Q4H PRN PRN Reason: Pain (Mild 1-3)/fever Albuterol/Ipratropium (Duoneb 3.0-0.5 Mg/3 Ml) 3 ml NEB Q6HRRT PRN PRN Reason: Dyspnea Last Admin: 10/11/18 09:11 Dose: 3 ml Amoxicillin/Clavulanate Potassium (Augmentin 500 Mg\125 Mg) 1 tab PO Q12HR [facility] Stop: 10/15/18 21:01 Last Admin: 10/14/18 08:45 Dose: 1 tab Heparin Sodium (Porcine) (Heparin Sodium) 5,000 units SUBCUT Q8H [facility] Last Admin: 10/14/18 09:58 Dose: 5,000 units Ondansetron HCl (Zofran Odt) 4 mg PO Q4H PRN PRN Reason: nausea, able to take PO Fluticasone Propionate Nasal [place] 16 Gm Bottle 2 each NASBOTH DAILY [facility] Last Admin: 10/14/18 09:26 Dose: 2 each Prednisone (Prednisone) 40 mg PO WITHBREAKFAST [facility] Stop: 10/18/18 08:01 Last Admin: 10/14/18 08:42 Dose: 40 mg Discontinued Medications Albuterol (Proventil Neb Soln) 2.5 mg NEB ONETIME ONE Stop: 10/06/18 15:38 Last Admin: 10/06/18 15:41 Dose: 2.5 mg Albuterol (Proventil Neb Soln) 2.5 mg NEB ONETIME ONE Stop: 10/06/18 15:38 Last Admin: 10/06/18 16:17 Dose: Not Given Albuterol (Proventil Neb Soln) 2.5 mg NEB ONETIME ONE Stop: 10/06/18 16:49 Last Admin: 10/06/18 16:55 Dose: 2.5 mg Albuterol/Ipratropium (Duoneb 3.0-0.5 Mg/3 Ml) 3 ml NEB ONETIME ONE Stop: 10/06/18 15:06 Last Admin: 10/06/18 15:12 Dose: 3 ml Albuterol/Ipratropium (Duoneb 3.0-0.5 Mg/3 Ml) Confirm Administered Dose 3 ml .ROUTE .STK-MED ONE Stop: 10/06/18 15:05 Last Admin: 10/06/18 15:31 Dose: Not Given Albuterol/Ipratropium (Duoneb 3.0-0.5 Mg/3 Ml) 3 ml NEB Q4HRRT [facility] Stop: 10/06/18 22:01 Last Admin: 10/06/18 21:58 Dose: 3 ml Albuterol/Ipratropium (Duoneb 3.0-0.5 Mg/3 Ml) 3 ml NEB Q6HRRT [facility] Last Admin: 10/14/18 11:32 Dose: Not Given Furosemide (Lasix) 20 mg IVPUSH NOW ONE Stop: 10/06/18 15:24 Last Admin: 10/06/18 15:37 Dose: 20 mg Furosemide (Lasix) 40 mg IVPUSH NOW ONE Stop: 10/09/18 10:26 Last Admin: 10/09/18 10:53 Dose: 40 mg Furosemide (Lasix) 40 mg IVPUSH NOW ONE Stop: 10/10/18 08:26 Last Admin: 10/10/18 08:32 Dose: 40 mg Sodium Chloride (Normal Saline) 1,000 mls @ 125 mls/hr IV STAT [facility] Last Admin: 10/06/18 15:37 Dose: 80 mls/hr Levofloxacin/Dextrose 500 mg/ (Premix) 100 mls @ 100 mls/hr IV ONETIME ONE Stop: 10/06/18 17:03 Last Admin: 10/06/18 16:21 Dose: 100 mls/hr Levofloxacin/Dextrose 500 mg/ (Premix) 100 mls @ 100 mls/hr IV Q48H [facility] Methylprednisolone Sodium Succinate (Solu-Medrol) 125 mg IVPUSH ONETIME ONE Stop: 10/06/18 15:06 Last Admin: 10/06/18 15:31 Dose: 125 mg Methylprednisolone Sodium Succinate (Solu-Medrol) Confirm Administered Dose 125 mg .ROUTE .STK-MED ONE Stop: 10/06/18 15:05 Last Admin: 10/06/18 15:31 Dose: Not Given Methylprednisolone Sodium Succinate (Solu-Medrol) 125 mg IVPUSH ONETIME ONE Stop: 10/06/18 16:49 Last Admin: 10/06/18 16:55 Dose: 125 mg Methylprednisolone Sodium Succinate (Solu-Medrol) 125 mg IVPUSH DAILY [facility] Stop: 10/12/18 09:01 Last Admin: 10/12/18 08:57 Dose: 125 mg Non-Formulary Medication (Fluticasone Propion/Salmeterol [Fluticasone- Salmeterol 250-50]) 1 each IH BID [facility] - My Orders Last 24 Hours: My Active Orders 10/13/18 16:30 Patient's Own Medication [Ptom] 2 each NASBOTH DAILY
[2018-10-14] MEDS: Amoxicillin/Clavulanate K 500-125 MG Tab PO SCH ×2 (08:45→20:48)
[2018-10-14] MEDS: Fluticasone Propionate Nasal Spray 16 GM Bottle NASBOTH SCH (09:26)
[2018-10-15] MEDS: Heparin Sodium 5,000 Units/ML Vial SUBCUT SCH ×2 (02:30→09:22)
[2018-10-15] MEDS: Fluticasone Propionate Nasal Spray 16 GM Bottle NASBOTH SCH (08:13)
[2018-10-15] MEDS: predniSONE 20 MG Tab PO SCH (08:13)
[2018-10-15] MEDS: Amoxicillin/Clavulanate K 500-125 MG Tab PO SCH (09:22)
--- NOTE | 2018-10-15 09:41 | PCM.DCSUM1 ---
<Jose Queen - Last Filed: 10/15/18 09:40> Discharge Summary - Hospital Course Free Text/Narrative:: 87 y/o female who was admitted for acute COPD exacerbation and UTI. Initially, she was requiring 6 L O2 NC, however, it was titrated down to her baseline of 4 L O2 NC. In addition, she was started on Augmentin for a UTI. She did relatively well during this hospitalization. Her shortness of breath improved and she was back to baseline of 4 L O2 NC. She finished the antibiotic regimen in the hospital. She was discharged to [facility]. PT/OT order was placed on discharge for further strengthening. - Discharge Data Discharge Date: 10/15/18 Discharge Disposition: DC/Tfer to SNF 03 Condition: Fair - Patient Summary/Data Consults: Consultations 10/08/18 07:17 Consult to Physical Therapy [PT Evaluation and Treatment] [CONS] Routine 10/08/18 13:52 Consult to Wound Care Services [CONS] Routine - Patient Instructions Diet: Diabetic Diet Activity: As Tolerated Notify Provider of: Fever, Increased Pain, Swelling and Redness, Nausea and/or Vomiting Other/Special Instructions: Needs PT/OT and supplemental oxygen at 4 L O2 NC her baseline. - Discharge Plan *PRESCRIPTION DRUG MONITORING PROGRAM REVIEWED*: Not Applicable *COPY OF PRESCRIPTION DRUG MONITORING REPORT IN PATIENT WINSOME: Not Applicable Home Medications: Home Meds Albuterol/Ipratropium [DuoNeb 3.0-0.5 MG/3 ML] 3 ml INH QID 07/24/14 [History] Allopurinol [Zyloprim] 100 mg PO DAILY 07/24/14 [History] Aspirin [Bokeelia Aspirin] 81 mg PO DAILY 07/24/14 [History] Cholecalciferol (Vitamin D3) [Vitamin D3] 1,000 unit PO DAILY 07/24/14 [History] Furosemide 480 mg PO DAILY 07/24/14 [History] Rosuvastatin [Crestor] 5 mg PO BEDTIME 07/24/14 [History] SitaGLIPtin [Januvia] 50 mg PO DAILY 07/24/14 [History] Calcitriol 0.25 mcg PO WEEKLY 08/30/18 [History] Cyanocobalamin (Vitamin B-12) [B-12] 500 mg PO DAILY 08/30/18 [History] Ferrous Sulfate 65 mg PO BID 08/30/18 [History] Fluticasone Propion/Salmeterol [Fluticasone-Salmeterol 250-50] 1 each IH BID [History] Fluticasone Propionate [Flovent] 1 puff INH BID 10/06/18 [History] Polyethylene Glycol 3350 [MiraLAX] 1 dose PO WEEKLY 10/06/18 [History] Patient's Own Medication [Ptom] 2 each NASBOTH DAILY each 10/15/18 [Rx] Oxygen Therapy Mode: Nasal Cannula Oxygen Flow Rate (L/min): 4 Maintain SpO2% greater than: 88 Referrals: [facility] [Outside] Tyler Graves MD [Physician] - 10/18/18 10:45 am - Discharge Summary/Plan Comment DC Time >30 min.: No - Patient Data Vitals - Most Recent: Last Vital Signs Temp 36.4 C 10/15/18 08:00 Pulse 63 10/15/18 08:00 Resp 14 10/15/18 08:00 BP 148/66 H 10/15/18 08:00 Pulse Ox 97 10/15/18 08:00 Weight - Most Recent: 81.4 kg I&O - Last 24 hours: Intake & Output 10/14/18 10/15/18 10/15/18 22:59 06:59 14:59 Intake Total 930 240 Output Total 895 940 Balance 35 -700 Lab Results - Last 24 hrs: Laboratory Results - last 24 hr 10/15/18 Range/Units 06:53 Sodium 144 (136-145) mmol/L Potassium 4.8 (3.5-5.1) mmol/L Chloride 110 H (98-107) mmol/L Carbon Dioxide 30.0 (21.0-32.0) mmol/L BUN 70 H (7.0-18.0) mg/dL Creatinine 1.7 H (0.6-1.0) mg/dL Est Cr Clr Drug Dosing 23.04 mL/min Estimated GFR (MDRD) 28.5 ml/min Glucose 99 (74-106) mg/dL Calcium 8.6 (8.5-10.1) mg/dL Med Orders - Current: Current Medications Acetaminophen (Tylenol) 650 mg PO Q4H PRN PRN Reason: Pain (Mild 1-3)/fever Albuterol/Ipratropium (Duoneb 3.0-0.5 Mg/3 Ml) 3 ml NEB Q6HRRT PRN PRN Reason: Dyspnea Last Admin: 10/11/18 09:11 Dose: 3 ml Amoxicillin/Clavulanate Potassium (Augmentin 500 Mg\125 Mg) 1 tab PO Q12HR [facility] Stop: 10/15/18 21:01 Last Admin: 10/15/18 09:22 Dose: 1 tab Heparin Sodium (Porcine) (Heparin Sodium) 5,000 units SUBCUT Q8H [facility] Last Admin: 10/15/18 09:22 Dose: 5,000 units Ondansetron HCl (Zofran Odt) 4 mg PO Q4H PRN PRN Reason: nausea, able to take PO Fluticasone Propionate Nasal [place] 16 Gm Bottle 2 each NASBOTH DAILY [facility] Last Admin: 10/15/18 08:13 Dose: 2 each Prednisone (Prednisone) 40 mg PO WITHBREAKFAST [facility] Stop: 10/18/18 08:01 Last Admin: 10/15/18 08:13 Dose: 40 mg Discontinued Medications Albuterol (Proventil Neb Soln) 2.5 mg NEB ONETIME ONE Stop: 10/06/18 15:38 Last Admin: 10/06/18 15:41 Dose: 2.5 mg Albuterol (Proventil Neb Soln) 2.5 mg NEB ONETIME ONE Stop: 10/06/18 15:38 Last Admin: 10/06/18 16:17 Dose: Not Given Albuterol (Proventil Neb Soln) 2.5 mg NEB ONETIME ONE Stop: 10/06/18 16:49 Last Admin: 10/06/18 16:55 Dose: 2.5 mg Albuterol/Ipratropium (Duoneb 3.0-0.5 Mg/3 Ml) 3 ml NEB ONETIME ONE Stop: 10/06/18 15:06 Last Admin: 10/06/18 15:12 Dose: 3 ml Albuterol/Ipratropium (Duoneb 3.0-0.5 Mg/3 Ml) Confirm Administered Dose 3 ml .ROUTE .STK-MED ONE Stop: 10/06/18 15:05 Last Admin: 10/06/18 15:31 Dose: Not Given Albuterol/Ipratropium (Duoneb 3.0-0.5 Mg/3 Ml) 3 ml NEB Q4HRRT [facility] Stop: 10/06/18 22:01 Last Admin: 10/06/18 21:58 Dose: 3 ml Albuterol/Ipratropium (Duoneb 3.0-0.5 Mg/3 Ml) 3 ml NEB Q6HRRT [facility] Last Admin: 10/14/18 11:32 Dose: Not Given Furosemide (Lasix) 20 mg IVPUSH NOW ONE Stop: 10/06/18 15:24 Last Admin: 10/06/18 15:37 Dose: 20 mg Furosemide (Lasix) 40 mg IVPUSH NOW ONE Stop: 10/09/18 10:26 Last Admin: 10/09/18 10:53 Dose: 40 mg Furosemide (Lasix) 40 mg IVPUSH NOW ONE Stop: 10/10/18 08:26 Last Admin: 10/10/18 08:32 Dose: 40 mg Sodium Chloride (Normal Saline) 1,000 mls @ 125 mls/hr IV STAT [facility] Last Admin: 10/06/18 15:37 Dose: 80 mls/hr Levofloxacin/Dextrose 500 mg/ (Premix) 100 mls @ 100 mls/hr IV ONETIME ONE Stop: 10/06/18 17:03 Last Admin: 10/06/18 16:21 Dose: 100 mls/hr Levofloxacin/Dextrose 500 mg/ ([facility]ix) 100 mls @ 100 mls/hr IV Q48H [facility] Methylprednisolone Sodium Succinate (Solu-Medrol) 125 mg IVPUSH ONETIME ONE Stop: 10/06/18 15:06 Last Admin: 10/06/18 15:31 Dose: 125 mg Methylprednisolone Sodium Succinate (Solu-Medrol) Confirm Administered Dose 125 mg .ROUTE .STK-MED ONE Stop: 10/06/18 15:05 Last Admin: 10/06/18 15:31 Dose: Not Given Methylprednisolone Sodium Succinate (Solu-Medrol) 125 mg IVPUSH ONETIME ONE Stop: 10/06/18 16:49 Last Admin: 10/06/18 16:55 Dose: 125 mg Methylprednisolone Sodium Succinate (Solu-Medrol) 125 mg IVPUSH DAILY [facility] Stop: 10/12/18 09:01 Last Admin: 10/12/18 08:57 Dose: 125 mg Non-Formulary Medication (Fluticasone Propion/Salmeterol [Fluticasone- Salmeterol 250-50]) 1 each IH BID [facility] <Layo Salinas - Last Filed: 10/15/18 13:56> Discharge Summary - Hospital Course HPI Initial Comments: I have seen and examined to patient independently of medical staff physician, Jose Wood MD. I have discussed the case for care of this patient with him. I have reviewed and approve of the plan of care as outlined by medical staff physician. Please see orders. - Patient Summary/Data Consults: Consultations 10/08/18 07:17 Consult to Physical Therapy [PT Evaluation and Treatment] [CONS] Routine 10/08/18 13:52 Consult to Wound Care Services [CONS] Routine - Patient Data Vitals - Most Recent: Last Vital Signs Temp 36.8 C 10/15/18 12:00 Pulse 70 10/15/18 12:00 Resp 18 10/15/18 12:00 BP 133/46 L 10/15/18 12:00 Pulse Ox 92 L 10/15/18 12:00 I&O - Last 24 hours: Intake & Output 10/14/18 10/15/18 10/15/18 22:59 06:59 14:59 Intake Total 930 240 Output Total 895 940 Balance 35 -700 Lab Results - Last 24 hrs: Laboratory Results - last 24 hr 10/15/18 Range/Units 06:53 Sodium 144 (136-145) mmol/L Potassium 4.8 (3.5-5.1) mmol/L Chloride 110 H (98-107) mmol/L Carbon Dioxide 30.0 (21.0-32.0) mmol/L BUN 70 H (7.0-18.0) mg/dL Creatinine 1.7 H (0.6-1.0) mg/dL Est Cr Clr Drug Dosing 23.04 mL/min Estimated GFR (MDRD) 28.5 ml/min Glucose 99 (74-106) mg/dL Calcium 8.6 (8.5-10.1) mg/dL Med Orders - Current: Current Medications Acetaminophen (Tylenol) 650 mg PO Q4H PRN PRN Reason: Pain (Mild 1-3)/fever Albuterol/Ipratropium (Duoneb 3.0-0.5 Mg/3 Ml) 3 ml NEB Q6HRRT PRN PRN Reason: Dyspnea Last Admin: 10/11/18 09:11 Dose: 3 ml Amoxicillin/Clavulanate Potassium (Augmentin 500 Mg\125 Mg) 1 tab PO Q12HR [facility] Stop: 10/15/18 21:01 Last Admin: 10/15/18 09:22 Dose: 1 tab Heparin Sodium (Porcine) (Heparin Sodium) 5,000 units SUBCUT Q8H [facility] Last Admin: 10/15/18 09:22 Dose: 5,000 units Ondansetron HCl (Zofran Odt) 4 mg PO Q4H PRN PRN Reason: nausea, able to take PO Fluticasone Propionate Nasal [place] 16 Gm Bottle 2 each NASBOTH DAILY [facility] Last Admin: 10/15/18 08:13 Dose: 2 each Prednisone (Prednisone) 40 mg PO WITHBREAKFAST [facility] Stop: 10/18/18 08:01 Last Admin: 10/15/18 08:13 Dose: 40 mg Discontinued Medications Albuterol (Proventil Neb Soln) 2.5 mg NEB ONETIME ONE Stop: 10/06/18 15:38 Last Admin: 10/06/18 15:41 Dose: 2.5 mg Albuterol (Proventil Neb Soln) 2.5 mg NEB ONETIME ONE Stop: 10/06/18 15:38 Last Admin: 10/06/18 16:17 Dose: Not Given Albuterol (Proventil Neb Soln) 2.5 mg NEB ONETIME ONE Stop: 10/06/18 16:49 Last Admin: 10/06/18 16:55 Dose: 2.5 mg Albuterol/Ipratropium (Duoneb 3.0-0.5 Mg/3 Ml) 3 ml NEB ONETIME ONE Stop: 10/06/18 15:06 Last Admin: 10/06/18 15:12 Dose: 3 ml Albuterol/Ipratropium (Duoneb 3.0-0.5 Mg/3 Ml) Confirm Administered Dose 3 ml .ROUTE .STK-MED ONE Stop: 10/06/18 15:05 Last Admin: 10/06/18 15:31 Dose: Not Given Albuterol/Ipratropium (Duoneb 3.0-0.5 Mg/3 Ml) 3 ml NEB Q4HRRT [facility] Stop: 10/06/18 22:01 Last Admin: 10/06/18 21:58 Dose: 3 ml Albuterol/Ipratropium (Duoneb 3.0-0.5 Mg/3 Ml) 3 ml NEB Q6HRRT [facility] Last Admin: 10/14/18 11:32 Dose: Not Given Furosemide (Lasix) 20 mg IVPUSH NOW ONE Stop: 10/06/18 15:24 Last Admin: 10/06/18 15:37 Dose: 20 mg Furosemide (Lasix) 40 mg IVPUSH NOW ONE Stop: 10/09/18 10:26 Last Admin: 10/09/18 10:53 Dose: 40 mg Furosemide (Lasix) 40 mg IVPUSH NOW ONE Stop: 10/10/18 08:26 Last Admin: 10/10/18 08:32 Dose: 40 mg Sodium Chloride (Normal Saline) 1,000 mls @ 125 mls/hr IV STAT [facility] Last Admin: 10/06/18 15:37 Dose: 80 mls/hr Levofloxacin/Dextrose 500 mg/ (Premix) 100 mls @ 100 mls/hr IV ONETIME ONE Stop: 10/06/18 17:03 Last Admin: 10/06/18 16:21 Dose: 100 mls/hr Levofloxacin/Dextrose 500 mg/ (Premix) 100 mls @ 100 mls/hr IV Q48H [facility] Methylprednisolone Sodium Succinate (Solu-Medrol) 125 mg IVPUSH ONETIME ONE Stop: 10/06/18 15:06 Last Admin: 10/06/18 15:31 Dose: 125 mg Methylprednisolone Sodium Succinate (Solu-Medrol) Confirm Administered Dose 125 mg .ROUTE .STK-MED ONE Stop: 10/06/18 15:05 Last Admin: 10/06/18 15:31 Dose: Not Given Methylprednisolone Sodium Succinate (Solu-Medrol) 125 mg IVPUSH ONETIME ONE Stop: 10/06/18 16:49 Last Admin: 10/06/18 16:55 Dose: 125 mg Methylprednisolone Sodium Succinate (Solu-Medrol) 125 mg IVPUSH DAILY [facility] Stop: 10/12/18 09:01 Last Admin: 10/12/18 08:57 Dose: 125 mg Non-Formulary Medication (Fluticasone Propion/Salmeterol [Fluticasone- Salmeterol 250-50]) 1 each IH BID [facility]
[2018-10-15 12:25] VITALS: BP 133/46
== END 2018-10-15 13:45 | DRG 189 ==
LOC: MW.ED 14:57 → MW.MS 18:11
PROVIDERS: ADMIT Internal Medicine; ATTEND Internal Medicine
DX: J96.21 Acute and chronic respiratory failure with hypoxia (principal); J44.1 Chronic obstructive pulmonary disease with (acute) exacerbation; N39.0 Urinary tract infection, site not specified; J18.9 Pneumonia, unspecified organism; N18.4 Chronic kidney disease, stage 4 (severe); D61.818 Other pancytopenia; E87.0 Hyperosmolality and hypernatremia; R06.02 Shortness of breath; I13.0 Hypertensive heart and chronic kidney disease with heart failure and stage 1 through stage 4 chronic kidney disease, or unspecified chronic kidney disease; R09.02 Hypoxemia; E11.22 Type 2 diabetes mellitus with diabetic chronic kidney disease; M19.90 Unspecified osteoarthritis, unspecified site; E66.9 Obesity, unspecified; I50.9 Heart failure, unspecified; Z66 Do not resuscitate; R60.0 Localized edema; J84.10 Pulmonary fibrosis, unspecified; D63.1 Anemia in chronic kidney disease; Z79.82 Long term (current) use of aspirin; K59.00 Constipation, unspecified; Z87.891 Personal history of nicotine dependence; N18.9 Chronic kidney disease, unspecified; Z68.28 Body mass index [BMI] 28.0-28.9, adult; D64.9 Anemia, unspecified; J44.0 Chronic obstructive pulmonary disease with (acute) lower respiratory infection; Z88.8 Allergy status to other drugs, medicaments and biological substances; Z88.1 Allergy status to other antibiotic agents; Z91.030 Bee allergy status; Z79.899 Other long term (current) drug therapy; Z99.81 Dependence on supplemental oxygen; Z79.84 Long term (current) use of oral hypoglycemic drugs
CPT/HCPCS: 36415; 71045; 71250; 80053; 81001; 82550; 83880; 84484; 85025; 85610; 87040 ×2; 87086; 93005; 94640; 96361; 96365; 96375; 96376; 99285; A4217; J1940; J1956; J2930 ×2; J7040; 80048; 82962; 83036; 85027; 97110-GP; 97161-GP; 97530-GP; A9270-GY; J1644; J7620-GY

== ENCOUNTER 2018-11-05 11:58 | Inpatient (IN) | payer MEDICARE, OTHER ==
[2018-11-05] MEDS ORDERED: Albuterol/Ipratropium 3.0-0.5 MG/3 ML Neb Soln NEB ONE ×2 (12:15→15:09)
[2018-11-05] MEDS ORDERED: methylPREDNISolone Sodium Succinate 125 MG/2 ML SDV IVPUSH ONE (12:15)
[2018-11-05] MEDS ORDERED: Sodium Chloride 0.9% 1,000 ML IV ONE (12:30)
--- NOTE | 2018-11-05 12:33 | EDM.PDOC ---
ED HPI GENERAL MEDICAL PROBLEM - General Chief Complaint: Respiratory Problem Stated Complaint: anxiety Time Seen by Provider: 11/05/18 12:13 Source of Information: Reports: Patient History Limitations: Reports: No Limitations - History of Present Illness INITIAL COMMENTS - FREE TEXT/NARRATIVE: HISTORY AND PHYSICAL: History of present illness: Patient is an 87-year-old female with a history of COPD, congestive heart failure, and on at home oxygen continuously (4L NC) who presents to the ED today for concern of increase in shortness of breath over the past few days. Patient is a resident at [facility] and they had noticed she seemed more anxious. They checked her oxygen which was low 80s so initialed a breathing treatment and sent her to the ER. Patient states she's also noticed increase in swelling of her lower extremities. She states she has chronic swelling but has noticed over the past couple weeks that got a little bit worse. Patient denies fever, chills, chest pain, shortness of breath, or cough. Denies headache, neck stiff ness, change in vision, syncope, or near syncope. Denies nausea, vomiting, abdominal pain, diarrhea, constipation, or dysuria. Has not noted any blood in urine or stool. Patient has been eating and drinking appropriately. Review of systems: As per history of present illness and below otherwise all systems reviewed and negative. Past medical history: As per history of present illness and as reviewed below otherwise noncontributory. Surgical history: As per history of present illness and as reviewed below otherwise noncontributory. Social history: See social history for further information Family history: As per history of present illness and as reviewed below otherwise noncontributory. Physical exam: General: Patient is alert, oriented, and in mild respiratory distress. Patient slightly postured forward on exam table. HEENT: Atraumatic, normocephalic, pupils equal and reactive bilaterally, negative for conjunctival pallor or scleral icterus, mucous membranes dry, TMs normal bilaterally, throat clear, neck supple, nontender, trachea midline. No drooling or trismus noted. No meningeal signs. No hot potato voice noted. Lungs: Diffuse wheezing to auscultation, breath sounds equal bilaterally, chest nontender. Heart: S1S2, regular rate and rhythm without overt murmur Abdomen: Soft, nondistended, nontender. Negative for masses or hepatosplenomegaly. Negative for costovertebral tenderness. Pelvis: Stable nontender. Genitourinary: Deferred. Rectal: Rectal tone intact. Hemoccult positive. Patient does have several ulcerations in the gluteal cleft that are partially covered with wound dressings. Skin: Intact, warm, dry. No lesions or rashes noted. Extremities: Atraumatic, negative for cords or calf pain. Neurovascular unremarkable. Neuro: Awake, alert, oriented. Cranial nerves II through XII unremarkable. Cerebellum unremarkable. Motor and sensory unremarkable throughout. Exam nonfocal. Notes: Dr. Jimenez verbally involved in patient care. Patient is 93% on 5L NC. Patient remained above 93% on 5 L throughout stay in ED. Patient patient does express that she has had to have several transfusions due to low blood count in the past. Patient states she is not sure why she has had anemia, or why she has had these transfusions. Dr. Felder was consult on patient and will admit to observation. Voices understanding and is agreeable to plan of care. Denies any further questions or concerns at this time. Diagnostics: CBC, CMP, UA, chest x-ray, BNP, Hemoccult, Type and Screen Therapeutics: Solumedrol, duoneb, NS Impression: COPD exacerbation vs symptomatic anemia Hypoxia Thrombocytopenia Acute on chronic renal deficiency Dehydration Plan: 1. Admit to observation to Dr. Felder. Definitive disposition and diagnosis as appropriate pending reevaluation and review of above. - Related Data Allergies Allergy/AdvReac Type Severity Reaction Status Date / Time azithromycin [From Zithromax] Allergy Cannot Verified 11/05/18 12:08 Remember carvedilol [From Coreg] Allergy Cannot Verified 11/05/18 12:08 Remember venom-wasp Allergy urticaria Verified 11/05/18 12:08 aspirin AdvReac Bleeding Verified 11/05/18 12:08 Home Meds: Home Meds Albuterol/Ipratropium [DuoNeb 3.0-0.5 MG/3 ML] 3 ml INH QID 07/24/14 [History] Allopurinol [Zyloprim] 100 mg PO DAILY 07/24/14 [History] Aspirin [[place] Aspirin] 81 mg PO DAILY 07/24/14 [History] Cholecalciferol (Vitamin D3) [Vitamin D3] 1,000 unit PO DAILY 07/24/14 [History] Furosemide 40 mg PO DAILY 07/24/14 [History] Rosuvastatin [Crestor] 5 mg PO BEDTIME 07/24/14 [History] SitaGLIPtin [Januvia] 50 mg PO DAILY 07/24/14 [History] Calcitriol 0.25 mcg PO WEEKLY 08/30/18 [History] Cyanocobalamin (Vitamin B-12) [B-12] 500 mg PO DAILY 08/30/18 [History] Ferrous Sulfate 325 mg PO BID 08/30/18 [History] Fluticasone Propion/Salmeterol [Fluticasone-Salmeterol 250-50] 1 each IH BID [History] Polyethylene Glycol 3350 [MiraLAX] 1 dose PO TUFR 10/06/18 [History] Carbamide Peroxide [Debrox 6.5% Otic Soln] 3 drop EARBOTH BID PRN 11/05/18 [ History] Nystatin 1 applic TP TID 11/05/18 [History] Past Medical History HEENT History: Reports: Other (See Below) 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) Cardiovascular History: Reports: Heart Failure, Hypertension Other Cardiovascular History: "enlarged heart" Respiratory History: Reports: COPD Other Respiratory History: wears Home 02 Gastrointestinal History: Reports: None Other Gastrointestinal History: "bleeding ulcer", constipation Genitourinary History: Reports: Chronic Renal Insuffiency, Other (See Below) Other Genitourinary History: kidney disease Musculoskeletal History: Reports: Arthritis Neurological History: Reports: None Endocrine/Metabolic History: Reports: Diabetes, Type II Hematologic History: Reports: Anemia, Bleeding Disorder Immunologic History: Reports: None Dermatologic History: Reports: None - Infectious Disease History Infectious Disease History: Reports: None - Past Surgical History Cardiovascular Surgical History: Reports: Vascular Surgery Social & Family History - Family History Family Medical History: Noncontributory - Tobacco Use Smoking Status *Q: Former Smoker Used Tobacco, but Quit: Yes Month/Year Tobacco Last Used: 30 - Caffeine Use Caffeine Use: Reports: None - Recreational Drug Use Recreational Drug Use: No - Living Situation & Occupation Occupation: Retired ED ROS GENERAL - Review of Systems Review Of Systems: ROS reveals no pertinent complaints other than HPI. ED EXAM, GENERAL - Physical Exam Exam: See Below (see dictation) Course - Vital Signs Last Recorded V/S: Last Vital Signs Temp 36.7 C 11/05/18 13:21 Pulse 61 11/05/18 13:21 Resp 22 H 11/05/18 12:08 BP 116/38 L 11/05/18 13:21 Pulse Ox 92 L 11/05/18 13:21 - Orders/Labs/Meds Orders: Active Orders 24 hr Category Date Time Status Admission Status [Patient Status] [ADT] Stat ADT 11/05/18 14:46 Ordered EKG Documentation Completion [RC] STAT Care 11/05/18 12:15 Active RT Aerosol Therapy [RC] ASDIRECTED Care 11/05/18 12:15 Active Hemoccult [OCCULT BLOOD DIAGNOSTIC] [OP] Stat Lab 11/05/18 12:53 Ordered UA RFX LATOYA AND CULT IF INDIC [URIN] Stat Lab 11/05/18 12:15 Ordered Sodium Chloride 0.9% [Normal Saline] 1,000 ml Med 11/05/18 12:30 Active IV STAT Medication Orders Sodium Chloride (Normal Saline) 1,000 mls @ 250 mls/hr IV STAT ONE Stop: 11/05/18 16:29 Last Admin: 11/05/18 12:49 Dose: 250 mls/hr Labs: Laboratory Tests 11/05/18 11/05/18 11/05/18 Range/Units 12:22 12:22 12:22 WBC 3.91 L (4.0-11.0) K/uL RBC 2.56 L (4.30-5.90) M/uL Hgb 7.8 L (12.0-16.0) g/dL Hct 25.2 L (36.0-46.0) % MCV 98.4 H (80.0-98.0) fL MCH 30.5 (27.0-32.0) pg MCHC 31.0 (31.0-37.0) g/dL RDW Std Deviation 65.5 H (28.0-62.0) fl RDW Coeff of Lai 18 H (11.0-15.0) % Plt Count 95 L (150-400) K/uL MPV 9.70 (7.40-12.00) fL Neut % (Auto) 63.4 (48.0-80.0) % Lymph % (Auto) 21.0 (16.0-40.0) % [place] % (Auto) 12.5 (0.0-15.0) % Eos % (Auto) 2.8 (0.0-7.0) % Baso % (Auto) 0.3 (0.0-1.5) % Neut # (Auto) 2.5 (1.4-5.7) K/uL Lymph # (Auto) 0.8 (0.6-2.4) K/uL [place] # (Auto) 0.5 (0.0-0.8) K/uL Eos # (Auto) 0.1 (0.0-0.7) K/uL Baso # (Auto) 0.0 (0.0-0.1) K/uL Nucleated RBC % 0.0 /100WBC Nucleated RBCs # 0 K/uL Sodium 143 (136-145) mmol/L Potassium 4.2 (3.5-5.1) mmol/L Chloride 108 H (98-107) mmol/L Carbon Dioxide 27.6 (21.0-32.0) mmol/L BUN 62 H (7.0-18.0) mg/dL Creatinine 2.5 H (0.6-1.0) mg/dL Est Cr Clr Drug Dosing 12.75 mL/min Estimated GFR (MDRD) 18.3 ml/min Glucose 87 (74-106) mg/dL Calcium 10.0 (8.5-10.1) mg/dL Total Bilirubin 0.6 (0.2-1.0) mg/dL AST 19 (15-37) IU/L ALT 22 (14-63) IU/L Alkaline Phosphatase 70 (46-116) U/L B-Natriuretic Peptide 69 (<100) PG/ML Total Protein 6.3 L (6.4-8.2) g/dL Albumin 3.0 L (3.4-5.0) g/dL Globulin 3.3 (2.6-4.0) g/dL Albumin/Globulin Ratio 0.9 (0.9-1.6) Blood Type Antibody Screen 11/05/18 Range/Units 13:35 WBC (4.0-11.0) K/uL RBC (4.30-5.90) M/uL Hgb (12.0-16.0) g/dL Hct (36.0-46.0) % MCV (80.0-98.0) fL MCH (27.0-32.0) pg MCHC (31.0-37.0) g/dL RDW Std Deviation (28.0-62.0) fl RDW Coeff of Lai (11.0-15.0) % Plt Count (150-400) K/uL MPV (7.40-12.00) fL Neut % (Auto) (48.0-80.0) % Lymph % (Auto) (16.0-40.0) % [place] % (Auto) (0.0-15.0) % Eos % (Auto) (0.0-7.0) % Baso % (Auto) (0.0-1.5) % Neut # (Auto) (1.4-5.7) K/uL Lymph # (Auto) (0.6-2.4) K/uL [place] # (Auto) (0.0-0.8) K/uL Eos # (Auto) (0.0-0.7) K/uL Baso # (Auto) (0.0-0.1) K/uL Nucleated RBC % /100WBC Nucleated RBCs # K/uL Sodium (136-145) mmol/L Potassium (3.5-5.1) mmol/L Chloride (98-107) mmol/L Carbon Dioxide (21.0-32.0) mmol/L BUN (7.0-18.0) mg/dL Creatinine (0.6-1.0) mg/dL Est Cr Clr Drug Dosing mL/min Estimated GFR (MDRD) ml/min Glucose (74-106) mg/dL Calcium (8.5-10.1) mg/dL Total Bilirubin (0.2-1.0) mg/dL AST (15-37) IU/L ALT (14-63) IU/L Alkaline Phosphatase (46-116) U/L B-Natriuretic Peptide (<100) PG/ML Total Protein (6.4-8.2) g/dL Albumin (3.4-5.0) g/dL Globulin (2.6-4.0) g/dL Albumin/Globulin Ratio (0.9-1.6) Blood Type O POSITIVE Antibody Screen NEGATIVE Meds: Medications Generic Name Dose Route Start Last Admin Trade Name Freq PRN Reason Stop Dose Admin Sodium Chloride 1,000 mls @ 250 mls/hr 11/05/18 12:30 11/05/18 12:49 Normal Saline IV 11/05/18 16:29 250 mls/hr STAT ONE Administration Discontinued Medications Generic Name Dose Route Start Last Admin Trade Name Shanice PRN Reason Stop Dose Admin Albuterol/Ipratropium 3 ml 11/05/18 12:15 11/05/18 12:41 Duoneb 3.0-0.5 Mg/3 Ml NEB 11/05/18 12:16 3 ml ONETIME ONE Administration Methylprednisolone Sodium Succinate 125 mg 11/05/18 12:15 11/05/18 12:48 Solu-Medrol IVPUSH 11/05/18 12:16 125 mg ONETIME ONE Administration Departure - Departure Time of Disposition: 14:50 Disposition: Refer to Observation Clinical Impression: COPD exacerbation, Thrombocytopenia, Hypoxemia, Acute on chronic renal insufficiency, Dehydration Anemia Qualifiers: Anemia type: due to chronic kidney disease Chronic kidney disease stage: stage 3 (moderate) Qualified Code(s): N18.3 - Chronic kidney disease, stage 3 ( moderate) - Discharge Information - My Orders Last 24 Hours: My Active Orders 11/05/18 12:15 EKG Documentation Completion [RC] STAT RT Aerosol Therapy [RC] ASDIRECTED UA RFX LATOYA AND CULT IF INDIC [URIN] Stat 11/05/18 12:30 Sodium Chloride 0.9% [Normal Saline] 1,000 ml IV STAT 11/05/18 12:53 Hemoccult [OCCULT BLOOD DIAGNOSTIC] [OP] Stat 11/05/18 14:46 Admission Status [Patient Status] [ADT] Stat - Assessment/Plan Last 24 Hours: My Active Orders 11/05/18 12:15 EKG Documentation Completion [RC] STAT RT Aerosol Therapy [RC] ASDIRECTED UA RFX LATOYA AND CULT IF INDIC [URIN] Stat 11/05/18 12:30 Sodium Chloride 0.9% [Normal Saline] 1,000 ml IV STAT 11/05/18 12:53 Hemoccult [OCCULT BLOOD DIAGNOSTIC] [OP] Stat 11/05/18 14:46 Admission Status [Patient Status] [ADT] Stat
--- NOTE | 2018-11-05 14:37 | CR ---
INDICATION: SOB. TECHNIQUE: Upright portable AP image of the chest. COMPARISON: Chest x-ray and chest CT of 10/06/2018. FINDINGS: Left-sided volume loss and left base opacity, as on the previous exams. Pulmonary venous congestion. No obvious pulmonary edema. No obvious right-sided pleural effusion. Heart size grossly unchanged. No significant bony abnormality. IMPRESSION: 1. Shallow inspiration and left base opacity, as before. 2. Pulmonary venous congestion without obvious pulmonary edema. Dictated by Ric Brenner MD @ Nov 05 2018 2:31PM Signed by Dr. Ric Brenner @ Nov 05 2018 2:36PM
[2018-11-05] MEDS ORDERED: Pantoprazole 40 MG Vial IVPUSH ONE (15:30)
[2018-11-05] MEDS ORDERED: Ondansetron 4 MG/2 ML SDV IVPUSH PRN (16:17)
[2018-11-05] MEDS ORDERED: Furosemide 40 MG/4 ML VIAL IVPUSH STA (16:17)
[2018-11-05] MEDS ORDERED: Sodium Chloride 0.9% 2.5 ML Syringe FLUSH PRN (16:17)
[2018-11-05] MEDS ORDERED: Acetaminophen 325 MG Tab PO PRN (16:17)
--- NOTE | 2018-11-05 16:48 | PCM.HP ---
H&P History of Present Illness - General Date of Service: 11/05/18 Admit Problem/Dx: Admission Diagnosis/Problem Admission Diagnosis/Problem Acute on chronic respiratory failure with hypoxia Source of Information: Patient, Old Records History Limitations: Reports: No Limitations - History of Present Illness Initial Comments - Free Text/Narative: This 87 year old female with pmh of CKD, DM Type 2, COPD, CHF and anemia presented to the ED with concerns of shortness of breath and hypoxia at [place]. She reports she started feeling short of breath a few days ago and it has slowly worsened. She denies fevers or chills. She reports mild congested cough, but non productive. She reports Orthopnea and dyspnea with speech. She reports peripheral edema that hasn't gotten any better. She is normally on 4 l NC at [place]. She denies chest pain or abdominal pain. In the ED anemia noted, with Hgb 7.8 and platelets 95,000, Cl 108, BUN 62, and Cr 2.5. UA negative CXR revealed pulmonary vascular congestion vs pulmonary edema. No pleural effusion. She was treated with SOlumedrol and Duonebs. Hypoxia noted in the 70s on 4 L when she arrived. it did elevated to 92% on 7 LNC. She will be admitted inpatient for acute on chronic hypoxic respiratory failure, likely secondary to CHF. PCP, Dr Graves - Related Data Allergies/Adverse Reactions: Allergies Allergy/AdvReac Type Severity Reaction Status Date / Time azithromycin [From Zithromax] Allergy Cannot Verified 11/05/18 12:08 Remember carvedilol [From Coreg] Allergy Cannot Verified 11/05/18 12:08 Remember venom-wasp Allergy urticaria Verified 11/05/18 12:08 aspirin AdvReac Bleeding Verified 11/05/18 12:08 Home Medications: Home Meds Albuterol/Ipratropium [DuoNeb 3.0-0.5 MG/3 ML] 3 ml INH QID 07/24/14 [History] Allopurinol [Zyloprim] 100 mg PO DAILY 07/24/14 [History] Aspirin [Butler Aspirin] 81 mg PO DAILY 07/24/14 [History] Cholecalciferol (Vitamin D3) [Vitamin D3] 1,000 unit PO DAILY 07/24/14 [History] Furosemide 40 mg PO DAILY 03/23/15 [History] Rosuvastatin [Crestor] 5 mg PO BEDTIME 07/24/14 [History] SitaGLIPtin [Januvia] 50 mg PO DAILY 07/24/14 [History] Calcitriol 0.25 mcg PO WEEKLY 08/30/18 [History] Cyanocobalamin (Vitamin B-12) [B-12] 500 mg PO DAILY 08/30/18 [History] Ferrous Sulfate 325 mg PO BID 08/30/18 [History] Fluticasone Propion/Salmeterol [Fluticasone-Salmeterol 250-50] 1 each IH BID [History] Polyethylene Glycol 3350 [MiraLAX] 1 dose PO TUFR 10/06/18 [History] Carbamide Peroxide [Debrox 6.5% Otic Soln] 3 drop EARBOTH BID PRN 11/05/18 [ History] Nystatin 1 applic TP TID 11/05/18 [History] Past Medical History HEENT History: Reports: Other (See Below) 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) Cardiovascular History: Reports: Heart Failure (Cardiomegaly), Hypertension Respiratory History: Reports: COPD, Pulmonary Fibrosis, SOB Other Respiratory History: wears Home 02 Gastrointestinal History: Reports: None Other Gastrointestinal History: "bleeding ulcer", constipation Genitourinary History: Reports: Chronic Renal Insuffiency, Other (See Below) Musculoskeletal History: Reports: Arthritis Neurological History: Reports: None Endocrine/Metabolic History: Reports: Diabetes, Type II Hematologic History: Reports: Anemia, Bleeding Disorder Immunologic History: Reports: None Dermatologic History: Reports: None - Infectious Disease History Infectious Disease History: Reports: None - Past Surgical History Cardiovascular Surgical History: Reports: Vascular Surgery Social & Family History - Family History Family Medical History: Noncontributory - Tobacco Use Smoking Status *Q: Former Smoker Used Tobacco, but Quit: Yes Month/Year Tobacco Last Used: 30 - Caffeine Use Caffeine Use: Reports: None - Recreational Drug Use Recreational Drug Use: No - Living Situation & Occupation Living situation: Reports: Extended Care Facility Occupation: Retired H&P Review of Systems - Review of Systems: Review Of Systems: See Below General: Denies: Fever, Chills, Malaise, Weakness HEENT: Reports: No Symptoms. Denies: Headaches, Sinus Congestion, Vertigo Pulmonary: Reports: Cough. Denies: Sputum, Hemoptysis Cardiovascular: Reports: Dyspnea on Exertion, Orthopnea, Edema. Denies: Chest Pain, Palpitations Gastrointestinal: Reports: No Symptoms. Denies: Abdominal Pain, Black Stool, Bloody Stool, Diarrhea, Nausea, Vomiting Genitourinary: Reports: No Symptoms. Denies: Dysuria, Frequency, Burning Musculoskeletal: Reports: No Symptoms Skin: Reports: Bruising, Wound (buttocks) Neurological: Reports: No Symptoms Hematologic/Lymphatic: Reports: No Symptoms Immunologic: Reports: No Symptoms Exam - Exam Exam: See Below - Vital Signs Vital Signs: Last Vital Signs Temp 98.5 F 11/05/18 15:29 Pulse 115 H 11/05/18 15:29 Resp 28 H 11/05/18 15:29 BP 137/59 L 11/05/18 15:29 Pulse Ox 77 L 11/05/18 15:29 Weight: 86 kg - Exam Quality Assessment: Supplemental Oxygen, DVT Prophylaxis General: Alert, Oriented, Cooperative HEENT: Conjunctiva Clear, Mucosa Moist & [place], Posterior Pharynx Clear Neck: Supple, Trachea Midline. No: JVD Lungs: Crackles (LL lobe), Other (congested cough). No: Normal Respiratory Effort (dyspnea noted with speech and at rest), Wheezing GI/Abdominal Exam: Normal Bowel Sounds, Soft, Non-Tender, No Distention Extremities: Normal Inspection, Normal Range of Motion, Non-Tender, Pedal Edema (+3 pitting edema BLE, extends proximally to mid thigh) Neuro Extensive - Mental Status: Alert, Oriented x3 Neuro Extensive - Motor, Sensory, Reflexes: CN II-XII Intact Psychiatric: Alert, Normal Affect, Normal Mood - Patient Data Lab Results Last 24 hrs: Laboratory Results - last 24 hr 11/05/18 11/05/18 11/05/18 Range/Units 12:22 12:22 12:22 WBC 3.91 L (4.0-11.0) K/uL RBC 2.56 L (4.30-5.90) M/uL Hgb 7.8 L (12.0-16.0) g/dL Hct 25.2 L (36.0-46.0) % MCV 98.4 H (80.0-98.0) fL MCH 30.5 (27.0-32.0) pg MCHC 31.0 (31.0-37.0) g/dL RDW Std Deviation 65.5 H (28.0-62.0) fl RDW Coeff of Lai 18 H (11.0-15.0) % Plt Count 95 L (150-400) K/uL MPV 9.70 (7.40-12.00) fL Neut % (Auto) 63.4 (48.0-80.0) % Lymph % (Auto) 21.0 (16.0-40.0) % [place] % (Auto) 12.5 (0.0-15.0) % Eos % (Auto) 2.8 (0.0-7.0) % Baso % (Auto) 0.3 (0.0-1.5) % Neut # (Auto) 2.5 (1.4-5.7) K/uL Lymph # (Auto) 0.8 (0.6-2.4) K/uL [place] # (Auto) 0.5 (0.0-0.8) K/uL Eos # (Auto) 0.1 (0.0-0.7) K/uL Baso # (Auto) 0.0 (0.0-0.1) K/uL Nucleated RBC % 0.0 /100WBC Nucleated RBCs # 0 K/uL Sodium 143 (136-145) mmol/L Potassium 4.2 (3.5-5.1) mmol/L Chloride 108 H (98-107) mmol/L Carbon Dioxide 27.6 (21.0-32.0) mmol/L BUN 62 H (7.0-18.0) mg/dL Creatinine 2.5 H (0.6-1.0) mg/dL Est Cr Clr Drug Dosing 12.75 mL/min Estimated GFR (MDRD) 18.3 ml/min Glucose 87 (74-106) mg/dL Calcium 10.0 (8.5-10.1) mg/dL Total Bilirubin 0.6 (0.2-1.0) mg/dL AST 19 (15-37) IU/L ALT 22 (14-63) IU/L Alkaline Phosphatase 70 (46-116) U/L B-Natriuretic Peptide 69 (<100) PG/ML Total Protein 6.3 L (6.4-8.2) g/dL Albumin 3.0 L (3.4-5.0) g/dL Globulin 3.3 (2.6-4.0) g/dL Albumin/Globulin Ratio 0.9 (0.9-1.6) Urine Color Urine Appearance Urine pH (5.0-8.0) Ur Specific [place] (1.001-1.035) Urine Protein (NEGATIVE) mg/dL Urine Glucose (UA) (NEGATIVE) mg/dL Urine Ketones (NEGATIVE) mg/dL Urine Occult Blood (NEGATIVE) Urine Nitrite (NEGATIVE) Urine Bilirubin (NEGATIVE) Urine Urobilinogen (<2.0) EU/dL Ur Leukocyte Esterase (NEGATIVE) Blood Type Antibody Screen 11/05/18 11/05/18 Range/Units 13:35 14:51 WBC (4.0-11.0) K/uL RBC (4.30-5.90) M/uL Hgb (12.0-16.0) g/dL Hct (36.0-46.0) % MCV (80.0-98.0) fL MCH (27.0-32.0) pg MCHC (31.0-37.0) g/dL RDW Std Deviation (28.0-62.0) fl RDW Coeff of Lai (11.0-15.0) % Plt Count (150-400) K/uL MPV (7.40-12.00) fL Neut % (Auto) (48.0-80.0) % Lymph % (Auto) (16.0-40.0) % [place] % (Auto) (0.0-15.0) % Eos % (Auto) (0.0-7.0) % Baso % (Auto) (0.0-1.5) % Neut # (Auto) (1.4-5.7) K/uL Lymph # (Auto) (0.6-2.4) K/uL [place] # (Auto) (0.0-0.8) K/uL Eos # (Auto) (0.0-0.7) K/uL Baso # (Auto) (0.0-0.1) K/uL Nucleated RBC % /100WBC Nucleated RBCs # K/uL Sodium (136-145) mmol/L Potassium (3.5-5.1) mmol/L Chloride (98-107) mmol/L Carbon Dioxide (21.0-32.0) mmol/L BUN (7.0-18.0) mg/dL Creatinine (0.6-1.0) mg/dL Est Cr Clr Drug Dosing mL/min Estimated GFR (MDRD) ml/min Glucose (74-106) mg/dL Calcium (8.5-10.1) mg/dL Total Bilirubin (0.2-1.0) mg/dL AST (15-37) IU/L ALT (14-63) IU/L Alkaline Phosphatase (46-116) U/L B-Natriuretic Peptide (<100) PG/ML Total Protein (6.4-8.2) g/dL Albumin (3.4-5.0) g/dL Globulin (2.6-4.0) g/dL Albumin/Globulin Ratio (0.9-1.6) Urine Color YELLOW Urine Appearance CLEAR Urine pH 5.0 (5.0-8.0) Ur Specific [place] 1.010 (1.001-1.035) Urine Protein NEGATIVE (NEGATIVE) mg/dL Urine Glucose (UA) NEGATIVE (NEGATIVE) mg/dL Urine Ketones NEGATIVE (NEGATIVE) mg/dL Urine Occult Blood NEGATIVE (NEGATIVE) Urine Nitrite NEGATIVE (NEGATIVE) Urine Bilirubin NEGATIVE (NEGATIVE) Urine Urobilinogen 0.2 (<2.0) EU/dL Ur Leukocyte Esterase NEGATIVE (NEGATIVE) Blood Type O POSITIVE Antibody Screen NEGATIVE Result Diagrams: 11/05/18 12:22 11/05/18 12:22 *Q Meaningful Use (ADM) - VTE *Q VTE Pharmacological Contraindications *Q: Thrombocytopenia - Problem List (1) Acute and chronic respiratory failure SNOMED Code(s): 12830666 ICD Code: J96.20 - ACUTE AND CHR RESP FAILURE, UNSP W HYPOXIA OR HYPERCAPNIA Status: Resolved Priority: High Current Visit: No Qualifiers: Respiratory failure complication: hypoxia Qualified Code(s): J96.21 - Acute and chronic respiratory failure with hypoxia (2) CHF (congestive heart failure) SNOMED Code(s): 45984417 ICD Code: I50.9 - HEART FAILURE, UNSPECIFIED Status: Acute Current Visit : No Qualifiers: Heart failure type: systolic Heart failure chronicity: acute on chronic Qualified Code(s): I50.23 - Acute on chronic systolic (congestive) heart failure (3) Acute on chronic renal insufficiency SNOMED Code(s): 250005596 ICD Code: N28.9 - DISORDER OF KIDNEY AND URETER, UNSPECIFIED; N18.9 - CHRONIC KIDNEY DISEASE, UNSPECIFIED Status: Acute Current Visit: Yes (4) Thrombocytopenia SNOMED Code(s): 612077690 ICD Code: D69.6 - THROMBOCYTOPENIA, UNSPECIFIED Status: Chronic Current Visit: Yes (5) Anemia SNOMED Code(s): 072671688 ICD Code: D64.9 - ANEMIA, UNSPECIFIED Status: Chronic Current Visit: Yes Qualifiers: Anemia type: due to chronic kidney disease Chronic kidney disease stage: stage 3 (moderate) Qualified Code(s): N18.3 - Chronic kidney disease, stage 3 (moderate); D63.1 - Anemia in chronic kidney disease (6) CKD (chronic kidney disease) SNOMED Code(s): 077758176 ICD Code: N18.9 - CHRONIC KIDNEY DISEASE, UNSPECIFIED Status: Chronic Priority: High Current Visit: No Qualifiers: Chronic kidney disease stage: stage 3 (moderate) Qualified Code(s): N18.3 - Chronic kidney disease, stage 3 (moderate) (7) COPD (chronic obstructive pulmonary disease) SNOMED Code(s): 39345665 ICD Code: J44.9 - CHRONIC OBSTRUCTIVE PULMONARY DISEASE, UNSPECIFIED Status : Chronic Priority: High Current Visit: No Qualifiers: COPD type: chronic bronchitis Chronic bronchitis type: unspecified Qualified Code(s): J42 - Unspecified chronic bronchitis Problem List Initiated/Reviewed/Updated: Yes Orders Last 24hrs: Active Orders 24 hr Category Date Time Status Patient Status [ADT] Routine ADT 11/05/18 16:17 Active Daily Weight [Height and Weight] [RC] DAILY Care 11/05/18 16:20 Active EKG Documentation Completion [RC] STAT Care 11/05/18 12:15 Active Intake and Output Strict [RC] ASDIRECTED Care 11/05/18 16:20 Active Oxygen Therapy [RC] PRN Care 11/05/18 16:17 Active RT Aerosol Therapy [RC] ASDIRECTED Care 11/05/18 12:15 Active RT Aerosol Therapy [RC] ASDIRECTED Care 11/05/18 15:09 Active RT Aerosol Therapy [RC] ASDIRECTED Care 11/05/18 16:19 Active Telemetry Monitoring [Cardiac Monitoring] [RC] . Care 11/05/18 16:25 Active DIRECTED VTE/DVT Education [RC] PER UNIT ROUTINE Care 11/05/18 16:17 Active Vital Signs [RC] Q4H Care 11/05/18 16:17 Active Respiratory Care Assess and Treatment [CONS] Routine Cons 11/05/18 16:17 Active 2 Gram Sodium Diet [DIET] Diet 11/05/18 Dinner Active BASIC METABOLIC PANEL,BMP [CHEM] AM Lab 11/06/18 05:11 Ordered CBC WITH AUTO DIFF [HEME] AM Lab 11/06/18 05:11 Ordered Hemoccult [OCCULT BLOOD DIAGNOSTIC] [OP] Stat Lab 11/05/18 12:53 Ordered Acetaminophen [Tylenol] Med 11/05/18 16:17 Active 650 mg PO Q4H PRN Albuterol [Proventil Neb Soln] Med 11/05/18 16:17 Active 2.5 mg NEB Q2H PRN Albuterol/Ipratropium [DuoNeb 3.0-0.5 MG/3 ML] Med 11/05/18 18:00 Active 3 ml NEB Q4HRRT Aspirin Med 11/06/18 09:00 Active 81 mg PO DAILY Ferrous Sulfate Med 11/05/18 17:00 Active 325 mg PO BIDMEALS Fluticasone/Salmeterol [Advair Diskus 250-50] Med 11/05/18 21:00 Active 0 puff INH BID Furosemide [Lasix] Med 11/06/18 08:00 Active 40 mg IVPUSH BIDDIURETIC Nystatin [Nystop] Med 11/05/18 22:00 Active 0 gm TOP TID Ondansetron [Zofran] Med 11/05/18 16:17 Active 4 mg IVPUSH Q4H PRN Rosuvastatin [Crestor] Med 11/05/18 21:00 Active 5 mg PO BEDTIME Sodium Chloride 0.9% [Saline Flush] Med 11/05/18 16:17 Active 2.5 ml FLUSH ASDIRECTED PRN Saline Lock Insert [OM.PC] Routine Oth 11/05/18 16:17 Ordered Resuscitation Status Routine Resus Stat 11/05/18 16:17 Ordered Medication Orders Acetaminophen (Tylenol) 650 mg PO Q4H PRN PRN Reason: Pain (mild 1-3) Albuterol (Proventil Neb Soln) 2.5 mg NEB Q2H PRN PRN Reason: Shortness Of Breath/wheezing Albuterol/Ipratropium (Duoneb 3.0-0.5 Mg/3 Ml) 3 ml NEB Q4HRRT MAGAN Aspirin (Aspirin) 81 mg PO DAILY MAGAN Ferrous Sulfate (Ferrous Sulfate) 325 mg PO BIDMEALS MAGAN Furosemide (Lasix) 40 mg IVPUSH BIDDIURETIC MAGAN Nystatin (Nystop) 0 gm TOP TID MAGAN Ondansetron HCl (Zofran) 4 mg IVPUSH Q4H PRN PRN Reason: Nausea Rosuvastatin Calcium (Crestor) 5 mg PO BEDTIME MAGAN Fluticasone/Salmeterol (Advair Diskus 250-50) 0 puff INH BID MAGAN Sodium Chloride (Saline Flush) 2.5 ml FLUSH ASDIRECTED PRN PRN Reason: Keep Vein Open Assessment/Plan Comment:: This 87 year old female admitted with acute on chronic respiratory failure with hypoxia and CHF 1. Acute on chronic respiratory failure: Continue oxygen to keep sats 88%. Likely secondary to CHF, but also multifactorial with hx pulmonary fibrosis. Will order Lasix stat. Continue Duonebs. 2. CHF: Will order ECHO. Continue Lasix IV 40 mg BID, strict I/O daily weight, 2 L FR and low Na diet 3. DM TYpe 2: Hold Januvia. Novolog SSI, BS stable. Monitor. 4. COPD/pulmonary fibrosis: Oxygen dependent, 4 L NC normally at [place]. Duonebs. and Continue home inhalers. No signs of acute lower respiratory infection. encourage IS. 5. Anemia: Hold Heparin, repeat hgb in AM. Continue Protonix. Obtain hemoccult. Received transfusion 1 month ago as outpatient. 6. SHERITA on CKD: Monitor closely with Lasix. Hold nephrotoxic medications. VTE prophylaxis: SCDs for now, until hemoccult back. Dispo: will change status to inpatient as acuity level is high and will need greater than 2 days stay.
[2018-11-05] MEDS: Ferrous Sulfate 325 MG Tab PO SCH (17:30)
[2018-11-05] MEDS: Insulin Aspart 100 Units/ML 3 ML Pen SUBCUT SCH (17:31)
[2018-11-05] MEDS: Albuterol/Ipratropium 3.0-0.5 MG/3 ML Neb Soln NEB SCH ×2 (18:29→21:20)
[2018-11-05] MEDS: Rosuvastatin 10 MG Tab PO SCH (20:30)
[2018-11-05] MEDS: Fluticasone/Salmeterol 250-50 MCG Inhalation Powder 14/Diskus INH SCH (21:23)
[2018-11-05] MEDS: Nystatin Topical Powder 15 GM Bottle TOP SCH (21:42)
[2018-11-06] MEDS: Albuterol/Ipratropium 3.0-0.5 MG/3 ML Neb Soln NEB SCH ×6 (01:40→21:02)
[2018-11-06] MEDS: Albuterol 0.083% 2.5 MG/3 ML Neb Soln NEB PRN (04:54)
[2018-11-06] MEDS: Nystatin Topical Powder 15 GM Bottle TOP SCH ×3 (06:28→22:00)
[2018-11-06] MEDS: Fluticasone/Salmeterol 250-50 MCG Inhalation Powder 14/Diskus INH SCH ×2 (08:50→21:02)
[2018-11-06] MEDS: Ferrous Sulfate 325 MG Tab PO SCH ×3 (09:50→18:30)
[2018-11-06] MEDS: Aspirin 81 MG Tab.Chew PO SCH (09:51)
[2018-11-06] MEDS: Insulin Aspart 100 Units/ML 3 ML Pen SUBCUT SCH ×3 (09:52→17:11)
[2018-11-06] MEDS: Furosemide 40 MG/4 ML VIAL IVPUSH SCH ×2 (09:53→14:41)
[2018-11-06] MEDS ORDERED: Polyethylene Glycol 3350 Powder 17 GM Packet PO PRN (14:15)
--- NOTE | 2018-11-06 14:24 | PCM.PN ---
- General Info Date of Service: 11/06/18 - Review of Systems Systems Review Comment:: patient had difficulty breathing this morning with labored breaths which resolved by late morning. - Patient Data Vitals - Most Recent: Last Vital Signs Temp 36.7 C 11/06/18 11:00 Pulse 113 H 11/06/18 07:41 Resp 18 11/06/18 11:00 BP 134/54 L 11/06/18 11:00 Pulse Ox 99 11/06/18 11:00 Weight - Most Recent: 83 kg I&O - Last 24 Hours: Intake & Output 11/05/18 11/06/18 11/06/18 22:59 06:59 14:59 Intake Total 420 Output Total 1250 Balance -830 Lab Results Last 24 Hours: Laboratory Results - last 24 hr 11/05/18 11/05/18 11/05/18 Range/Units 13:35 14:51 17:28 WBC (4.0-11.0) K/uL RBC (4.30-5.90) M/uL Hgb (12.0-16.0) g/dL Hct (36.0-46.0) % MCV (80.0-98.0) fL MCH (27.0-32.0) pg MCHC (31.0-37.0) g/dL RDW Std Deviation (28.0-62.0) fl RDW Coeff of Lai (11.0-15.0) % Plt Count (150-400) K/uL MPV (7.40-12.00) fL Neut % (Auto) (48.0-80.0) % Lymph % (Auto) (16.0-40.0) % [place] % (Auto) (0.0-15.0) % Eos % (Auto) (0.0-7.0) % Baso % (Auto) (0.0-1.5) % Neut # (Auto) (1.4-5.7) K/uL Lymph # (Auto) (0.6-2.4) K/uL [place] # (Auto) (0.0-0.8) K/uL Eos # (Auto) (0.0-0.7) K/uL Baso # (Auto) (0.0-0.1) K/uL Nucleated RBC % /100WBC Nucleated RBCs # K/uL Sodium (136-145) mmol/L Potassium (3.5-5.1) mmol/L Chloride (98-107) mmol/L Carbon Dioxide (21.0-32.0) mmol/L BUN (7.0-18.0) mg/dL Creatinine (0.6-1.0) mg/dL Est Cr Clr Drug Dosing mL/min Estimated GFR (MDRD) ml/min Glucose (74-106) mg/dL POC Glucose 148 H (60-110) mg/dL Calcium (8.5-10.1) mg/dL Urine Color YELLOW Urine Appearance CLEAR Urine pH 5.0 (5.0-8.0) Ur Specific [place] 1.010 (1.001-1.035) Urine Protein NEGATIVE (NEGATIVE) mg/dL Urine Glucose (UA) NEGATIVE (NEGATIVE) mg/dL Urine Ketones NEGATIVE (NEGATIVE) mg/dL Urine Occult Blood NEGATIVE (NEGATIVE) Urine Nitrite NEGATIVE (NEGATIVE) Urine Bilirubin NEGATIVE (NEGATIVE) Urine Urobilinogen 0.2 (<2.0) EU/dL Ur Leukocyte Esterase NEGATIVE (NEGATIVE) Blood Type O POSITIVE Antibody Screen NEGATIVE 11/06/18 11/06/18 11/06/18 Range/Units 05:37 05:37 06:30 WBC 3.56 L (4.0-11.0) K/uL RBC 2.48 L (4.30-5.90) M/uL Hgb 7.6 L (12.0-16.0) g/dL Hct 24.6 L (36.0-46.0) % MCV 99.2 H (80.0-98.0) fL MCH 30.6 (27.0-32.0) pg MCHC 30.9 L (31.0-37.0) g/dL RDW Std Deviation 64.3 H (28.0-62.0) fl RDW Coeff of Lai 18 H (11.0-15.0) % Plt Count 92 L (150-400) K/uL MPV 10.10 (7.40-12.00) fL Neut % (Auto) 87.9 H (48.0-80.0) % Lymph % (Auto) 7.3 L (16.0-40.0) % [place] % (Auto) 4.8 (0.0-15.0) % Eos % (Auto) 0.0 (0.0-7.0) % Baso % (Auto) 0.0 (0.0-1.5) % Neut # (Auto) 3.1 (1.4-5.7) K/uL Lymph # (Auto) 0.3 L (0.6-2.4) K/uL [place] # (Auto) 0.2 (0.0-0.8) K/uL Eos # (Auto) 0.0 (0.0-0.7) K/uL Baso # (Auto) 0.0 (0.0-0.1) K/uL Nucleated RBC % 0.0 /100WBC Nucleated RBCs # 0 K/uL Sodium 147 H (136-145) mmol/L Potassium 4.6 (3.5-5.1) mmol/L Chloride 111 H (98-107) mmol/L Carbon Dioxide 30.0 (21.0-32.0) mmol/L BUN 67 H (7.0-18.0) mg/dL Creatinine 2.6 H (0.6-1.0) mg/dL Est Cr Clr Drug Dosing 12.26 mL/min Estimated GFR (MDRD) 17.5 ml/min Glucose 165 H (74-106) mg/dL POC Glucose 160 H (60-110) mg/dL Calcium 9.8 (8.5-10.1) mg/dL Urine Color Urine Appearance Urine pH (5.0-8.0) Ur Specific [place] (1.001-1.035) Urine Protein (NEGATIVE) mg/dL Urine Glucose (UA) (NEGATIVE) mg/dL Urine Ketones (NEGATIVE) mg/dL Urine Occult Blood (NEGATIVE) Urine Nitrite (NEGATIVE) Urine Bilirubin (NEGATIVE) Urine Urobilinogen (<2.0) EU/dL Ur Leukocyte Esterase (NEGATIVE) Blood Type Antibody Screen 11/06/18 Range/Units 11:15 WBC (4.0-11.0) K/uL RBC (4.30-5.90) M/uL Hgb (12.0-16.0) g/dL Hct (36.0-46.0) % MCV (80.0-98.0) fL MCH (27.0-32.0) pg MCHC (31.0-37.0) g/dL RDW Std Deviation (28.0-62.0) fl RDW Coeff of Lai (11.0-15.0) % Plt Count (150-400) K/uL MPV (7.40-12.00) fL Neut % (Auto) (48.0-80.0) % Lymph % (Auto) (16.0-40.0) % [place] % (Auto) (0.0-15.0) % Eos % (Auto) (0.0-7.0) % Baso % (Auto) (0.0-1.5) % Neut # (Auto) (1.4-5.7) K/uL Lymph # (Auto) (0.6-2.4) K/uL [place] # (Auto) (0.0-0.8) K/uL Eos # (Auto) (0.0-0.7) K/uL Baso # (Auto) (0.0-0.1) K/uL Nucleated RBC % /100WBC Nucleated RBCs # K/uL Sodium (136-145) mmol/L Potassium (3.5-5.1) mmol/L Chloride (98-107) mmol/L Carbon Dioxide (21.0-32.0) mmol/L BUN (7.0-18.0) mg/dL Creatinine (0.6-1.0) mg/dL Est Cr Clr Drug Dosing mL/min Estimated GFR (MDRD) ml/min Glucose (74-106) mg/dL POC Glucose 130 H (60-110) mg/dL Calcium (8.5-10.1) mg/dL Urine Color Urine Appearance Urine pH (5.0-8.0) Ur Specific [place] (1.001-1.035) Urine Protein (NEGATIVE) mg/dL Urine Glucose (UA) (NEGATIVE) mg/dL Urine Ketones (NEGATIVE) mg/dL Urine Occult Blood (NEGATIVE) Urine Nitrite (NEGATIVE) Urine Bilirubin (NEGATIVE) Urine Urobilinogen (<2.0) EU/dL Ur Leukocyte Esterase (NEGATIVE) Blood Type Antibody Screen Med Orders - Current: Current Medications Acetaminophen (Tylenol) 650 mg PO Q4H PRN PRN Reason: Pain (mild 1-3) Albuterol (Proventil Neb Soln) 2.5 mg NEB Q2H PRN PRN Reason: Shortness Of Breath/wheezing Last Admin: 11/06/18 04:54 Dose: 2.5 mg Albuterol/Ipratropium (Duoneb 3.0-0.5 Mg/3 Ml) 3 ml NEB Q4HRRT [facility] Last Admin: 11/06/18 13:48 Dose: 3 ml Aspirin (Aspirin) 81 mg PO DAILY [facility] Last Admin: 11/06/18 09:51 Dose: 81 mg Ferrous Sulfate (Ferrous Sulfate) 325 mg PO BIDMEALS [facility] Last Admin: 11/06/18 09:50 Dose: 325 mg Furosemide (Lasix) 40 mg IVPUSH BIDDIURETIC [facility] Last Admin: 11/06/18 09:53 Dose: 40 mg Insulin Aspart (Novolog) 0 unit SUBCUT TIDAC [facility]; Protocol Last Admin: 11/06/18 13:06 Dose: Not Given Nystatin (Nystop) 0 gm TOP TID [facility] Last Admin: 11/06/18 06:28 Dose: 1 applic Ondansetron HCl (Zofran) 4 mg IVPUSH Q4H PRN PRN Reason: Nausea Last Admin: 11/06/18 11:33 Dose: 4 mg Polyethylene Glycol (Miralax) 17 gm PO DAILY PRN PRN Reason: Constipation Rosuvastatin Calcium (Crestor) 5 mg PO BEDTIME [facility] Last Admin: 11/05/18 20:30 Dose: 5 mg Fluticasone/Salmeterol (Advair Diskus 250-50) 0 puff INH BID [facility] Last Admin: 11/06/18 08:50 Dose: 1 inhalation Sodium Chloride (Saline Flush) 2.5 ml FLUSH ASDIRECTED PRN PRN Reason: Keep Vein Open Discontinued Medications Albuterol/Ipratropium (Duoneb 3.0-0.5 Mg/3 Ml) 3 ml NEB ONETIME ONE Stop: 11/05/18 12:16 Last Admin: 11/05/18 12:41 Dose: 3 ml Albuterol/Ipratropium (Duoneb 3.0-0.5 Mg/3 Ml) 3 ml NEB ONETIME ONE Stop: 11/05/18 15:10 Last Admin: 11/05/18 15:14 Dose: 3 ml Furosemide (Lasix) 40 mg IVPUSH NOW STA Stop: 11/05/18 16:18 Last Admin: 11/05/18 16:42 Dose: 40 mg Sodium Chloride (Normal Saline) 1,000 mls @ 250 mls/hr IV STAT ONE Stop: 11/05/18 16:29 Last Admin: 11/05/18 12:49 Dose: 250 mls/hr Methylprednisolone Sodium Succinate (Solu-Medrol) 125 mg IVPUSH ONETIME ONE Stop: 11/05/18 12:16 Last Admin: 11/05/18 12:48 Dose: 125 mg Pantoprazole Sodium (Protonix Iv) 80 mg IVPUSH .BOLUS ONE Stop: 11/05/18 15:31 Last Admin: 11/05/18 17:13 Dose: 80 mg - Exam General: Alert, Oriented Neck: Supple Lungs: Decreased Breath Sounds, Rhonchi Cardiovascular: Regular Rate, Regular Rhythm GI/Abdominal Exam: Normal Bowel Sounds, Soft, Non-Tender Extremities: Pedal Edema Peripheral Pulses: 0: Posterior Tibial (R) Skin: Warm, Dry, Intact - Problem List Review Problem List Initiated/Reviewed/Updated: Yes - My Orders Last 24 Hours: My Active Orders 11/06/18 14:15 Polyethylene Glycol 3350 [MiraLAX] 17 gm PO DAILY PRN 11/06/18 Breakfast Fluid Restriction [DIET] 11/07/18 05:11 BASIC METABOLIC PANEL,BMP [CHEM] AM CBC WITH AUTO DIFF [HEME] AM 11/08/18 05:11 BASIC METABOLIC PANEL,BMP [CHEM] AM CBC WITH AUTO DIFF [HEME] AM - Plan Plan:: This 87 year old female with pmh of CHF, pulmonary fibrosis, COPD and CKD who is admitted with acute on chronic hypoxic respiratory failure from diastolic heart failure exacerbation Acute on chronic respiratory failure: patient has episodes of sudden hypoxia with mild distress. This morning I offered to transfer to ICU and initiate BIPAP but patient refused. She requested we contact her sons instead which we did. Patient is not wanting further aggressive care besides which we are doing. I spoke to the patient and son about hospice and they will consider it. CHF: ECHO ordered. Continue Lasix IV 40 mg BID, strict I/O daily weight, 2 L FR and low Na diet DM TYpe 2: Hold Januvia. Novolog SSI, BS stable. Monitor. CKD: continue to monitor VTE prophylaxis: SCDs for now, until hemoccult back.
[2018-11-06] MEDS: Rosuvastatin 10 MG Tab PO SCH (22:10)
[2018-11-07] MEDS: Albuterol/Ipratropium 3.0-0.5 MG/3 ML Neb Soln NEB SCH ×6 (01:50→21:02)
--- NOTE | 2018-11-07 09:15 | PCM.PN ---
- General Info Date of Service: 11/07/18 - Review of Systems Systems Review Comment:: patient is feeling better, shortness of breath has improved, leg edema has gotten better - Patient Data Vitals - Most Recent: Last Vital Signs Temp 36.3 C 11/07/18 07:00 Pulse 96 11/07/18 07:00 Resp 20 11/07/18 07:00 BP 125/58 L 11/07/18 07:00 Pulse Ox 92 L 11/07/18 08:41 Weight - Most Recent: 81 kg I&O - Last 24 Hours: Intake & Output 11/06/18 11/07/18 11/07/18 22:59 06:59 14:59 Intake Total 700 690 Output Total 600 1050 Balance 100 -360 Lab Results Last 24 Hours: Laboratory Results - last 24 hr 11/06/18 11/06/18 11/07/18 Range/Units 11:15 16:48 05:12 WBC 4.77 (4.0-11.0) K/uL RBC 2.50 L (4.30-5.90) M/uL Hgb 7.8 L (12.0-16.0) g/dL Hct 25.3 L (36.0-46.0) % MCV 101.2 H (80.0-98.0) fL MCH 31.2 (27.0-32.0) pg MCHC 30.8 L (31.0-37.0) g/dL RDW Std Deviation 67.0 H (28.0-62.0) fl RDW Coeff of Lai 18 H (11.0-15.0) % Plt Count 108 L (150-400) K/uL MPV 10.50 (7.40-12.00) fL Neut % (Auto) 77.7 (48.0-80.0) % Lymph % (Auto) 10.1 L (16.0-40.0) % [place] % (Auto) 12.2 (0.0-15.0) % Eos % (Auto) 0.0 (0.0-7.0) % Baso % (Auto) 0.0 (0.0-1.5) % Neut # (Auto) 3.7 (1.4-5.7) K/uL Lymph # (Auto) 0.5 L (0.6-2.4) K/uL [place] # (Auto) 0.6 (0.0-0.8) K/uL Eos # (Auto) 0.0 (0.0-0.7) K/uL Baso # (Auto) 0.0 (0.0-0.1) K/uL Nucleated RBC % 0.4 /100WBC Nucleated RBCs # 0 K/uL Sodium (136-145) mmol/L Potassium (3.5-5.1) mmol/L Chloride (98-107) mmol/L Carbon Dioxide (21.0-32.0) mmol/L BUN (7.0-18.0) mg/dL Creatinine (0.6-1.0) mg/dL Est Cr Clr Drug Dosing mL/min Estimated GFR (MDRD) ml/min Glucose (74-106) mg/dL POC Glucose 130 H 108 (60-110) mg/dL Calcium (8.5-10.1) mg/dL 11/07/18 Range/Units 05:12 WBC (4.0-11.0) K/uL RBC (4.30-5.90) M/uL Hgb (12.0-16.0) g/dL Hct (36.0-46.0) % MCV (80.0-98.0) fL MCH (27.0-32.0) pg MCHC (31.0-37.0) g/dL RDW Std Deviation (28.0-62.0) fl RDW Coeff of Lai (11.0-15.0) % Plt Count (150-400) K/uL MPV (7.40-12.00) fL Neut % (Auto) (48.0-80.0) % Lymph % (Auto) (16.0-40.0) % [place] % (Auto) (0.0-15.0) % Eos % (Auto) (0.0-7.0) % Baso % (Auto) (0.0-1.5) % Neut # (Auto) (1.4-5.7) K/uL Lymph # (Auto) (0.6-2.4) K/uL [place] # (Auto) (0.0-0.8) K/uL Eos # (Auto) (0.0-0.7) K/uL Baso # (Auto) (0.0-0.1) K/uL Nucleated RBC % /100WBC Nucleated RBCs # K/uL Sodium 147 H (136-145) mmol/L Potassium 4.8 (3.5-5.1) mmol/L Chloride 111 H (98-107) mmol/L Carbon Dioxide 31.3 (21.0-32.0) mmol/L BUN 76 H (7.0-18.0) mg/dL Creatinine 2.6 H (0.6-1.0) mg/dL Est Cr Clr Drug Dosing 12.18 mL/min Estimated GFR (MDRD) 17.5 ml/min Glucose 94 (74-106) mg/dL POC Glucose (60-110) mg/dL Calcium 9.5 (8.5-10.1) mg/dL Alfred Results Last 24 Hours: Microbiology 11/05/18 17:10 Stool Occult Blood (ALFRED) - Final Stool / Feces NEGATIVE OCCULT BLOOD REFERENCE RANGE: NEGATIVE Med Orders - Current: Current Medications Acetaminophen (Tylenol) 650 mg PO Q4H PRN PRN Reason: Pain (mild 1-3) Albuterol (Proventil Neb Soln) 2.5 mg NEB Q2H PRN PRN Reason: Shortness Of Breath/wheezing Last Admin: 11/06/18 04:54 Dose: 2.5 mg Albuterol/Ipratropium (Duoneb 3.0-0.5 Mg/3 Ml) 3 ml NEB Q4HRRT [facility] Last Admin: 11/07/18 06:05 Dose: 3 ml Aspirin (Aspirin) 81 mg PO DAILY [facility] Last Admin: 11/06/18 09:51 Dose: 81 mg Ferrous Sulfate (Ferrous Sulfate) 325 mg PO BIDMEALS [facility] Last Admin: 11/06/18 18:30 Dose: 325 mg Furosemide (Lasix) 40 mg IVPUSH BIDDIURETIC [facility] Last Admin: 11/06/18 14:41 Dose: 40 mg Insulin Aspart (Novolog) 0 unit SUBCUT TIDAC [facility]; Protocol Last Admin: 11/06/18 17:11 Dose: Not Given Nystatin (Nystop) 0 gm TOP TID [facility] Last Admin: 11/06/18 22:00 Dose: 1 applic Ondansetron HCl (Zofran) 4 mg IVPUSH Q4H PRN PRN Reason: Nausea Last Admin: 11/06/18 11:33 Dose: 4 mg Polyethylene Glycol (Miralax) 17 gm PO DAILY PRN PRN Reason: Constipation Last Admin: 11/06/18 14:40 Dose: 17 gm Rosuvastatin Calcium (Crestor) 5 mg PO BEDTIME [facility] Last Admin: 11/06/18 22:10 Dose: 5 mg Fluticasone/Salmeterol (Advair Diskus 250-50) 0 puff INH BID [facility] Last Admin: 11/06/18 21:02 Dose: 1 inhalation Sodium Chloride (Saline Flush) 2.5 ml FLUSH ASDIRECTED PRN PRN Reason: Keep Vein Open Discontinued Medications Albuterol/Ipratropium (Duoneb 3.0-0.5 Mg/3 Ml) 3 ml NEB ONETIME ONE Stop: 11/05/18 12:16 Last Admin: 11/05/18 12:41 Dose: 3 ml Albuterol/Ipratropium (Duoneb 3.0-0.5 Mg/3 Ml) 3 ml NEB ONETIME ONE Stop: 11/05/18 15:10 Last Admin: 11/05/18 15:14 Dose: 3 ml Furosemide (Lasix) 40 mg IVPUSH NOW STA Stop: 11/05/18 16:18 Last Admin: 11/05/18 16:42 Dose: 40 mg Sodium Chloride (Normal Saline) 1,000 mls @ 250 mls/hr IV STAT ONE Stop: 11/05/18 16:29 Last Admin: 11/05/18 12:49 Dose: 250 mls/hr Methylprednisolone Sodium Succinate (Solu-Medrol) 125 mg IVPUSH ONETIME ONE Stop: 11/05/18 12:16 Last Admin: 11/05/18 12:48 Dose: 125 mg Pantoprazole Sodium (Protonix Iv) 80 mg IVPUSH .BOLUS ONE Stop: 11/05/18 15:31 Last Admin: 11/05/18 17:13 Dose: 80 mg - Exam General: Alert Lungs: Decreased Breath Sounds, Crackles, Rales Cardiovascular: Regular Rate, Regular Rhythm GI/Abdominal Exam: Soft, Non-Tender Extremities: Pedal Edema (+2 edema) Skin: Warm, Dry, Intact Neurological: No New Focal Deficit - Problem List Review Problem List Initiated/Reviewed/Updated: Yes - My Orders Last 24 Hours: My Active Orders 11/06/18 14:15 Polyethylene Glycol 3350 [MiraLAX] 17 gm PO DAILY PRN 11/08/18 05:11 BASIC METABOLIC PANEL,BMP [CHEM] AM CBC WITH AUTO DIFF [HEME] AM - Plan Plan:: This 87 year old female with pmh of CHF, pulmonary fibrosis, COPD and CKD who is admitted with acute on chronic hypoxic respiratory failure from diastolic heart failure exacerbation Acute on chronic respiratory failure: still having episodes of hypoxia on NC CHF: ECHO ordered. Will continue Lasix IV 40 mg BID, strict I/O daily weight, 2 L FR and low Na diet DM TYpe 2: Hold Januvia. Novolog SSI, BS stable. Monitor. CKD: continue to monitor VTE prophylaxis: SCDs for now, until hemoccult back.
[2018-11-07] MEDS: Fluticasone/Salmeterol 250-50 MCG Inhalation Powder 14/Diskus INH SCH ×2 (09:25→21:02)
[2018-11-07] MEDS: Ferrous Sulfate 325 MG Tab PO SCH ×2 (09:51→16:46)
[2018-11-07] MEDS: Aspirin 81 MG Tab.Chew PO SCH (09:51)
[2018-11-07] MEDS: Insulin Aspart 100 Units/ML 3 ML Pen SUBCUT SCH ×3 (09:53→17:14)
[2018-11-07] MEDS: Furosemide 40 MG/4 ML VIAL IVPUSH SCH ×2 (09:54→14:10)
[2018-11-07] MEDS: Nystatin Topical Powder 15 GM Bottle TOP SCH ×3 (09:54→21:10)
[2018-11-07] MEDS: Heparin Sodium 5,000 Units/ML Vial SUBCUT SCH ×2 (10:13→21:06)
[2018-11-07] MEDS: Albuterol 0.083% 2.5 MG/3 ML Neb Soln NEB PRN (15:18)
[2018-11-07] MEDS: Rosuvastatin 10 MG Tab PO SCH (21:07)
[2018-11-08] MEDS: Albuterol/Ipratropium 3.0-0.5 MG/3 ML Neb Soln NEB SCH ×6 (02:03→21:26)
[2018-11-08] MEDS: Nystatin Topical Powder 15 GM Bottle TOP SCH ×3 (06:46→22:07)
[2018-11-08] MEDS: Insulin Aspart 100 Units/ML 3 ML Pen SUBCUT SCH ×3 (08:00→17:02)
[2018-11-08] MEDS: Ferrous Sulfate 325 MG Tab PO SCH (08:09)
[2018-11-08] MEDS: Aspirin 81 MG Tab.Chew PO SCH (08:09)
[2018-11-08] MEDS: Furosemide 40 MG/4 ML VIAL IVPUSH SCH ×2 (08:10→13:26)
[2018-11-08] MEDS: Fluticasone/Salmeterol 250-50 MCG Inhalation Powder 14/Diskus INH SCH (08:12)
[2018-11-08] MEDS: Heparin Sodium 5,000 Units/ML Vial SUBCUT SCH (08:15)
--- NOTE | 2018-11-08 09:03 | PCM.PN ---
- General Info Date of Service: 11/08/18 Admission Dx/Problem (Free Text): Admission Diagnosis/Problem Admission Diagnosis/Problem Acute on chronic respiratory failure with hypoxia Subjective Update: Reports feeling very tired today and is "tired" of all of this. Denies any pain currently. Reports dyspnea which continues. Requesting siddiqui catheter because getting up is taxing. Functional Status: Reports: Pain Controlled, Tolerating Diet, Urinating - Review of Systems General: Reports: Weakness, Fatigue. Denies: Fever HEENT: Reports: No Symptoms. Denies: Headaches, Sore Throat, Visual Changes Pulmonary: Reports: Shortness of Breath, Cough, Sputum, Wheezing Cardiovascular: Reports: Edema. Denies: Chest Pain Gastrointestinal: Reports: No Symptoms. Denies: Abdominal Pain, Nausea, Vomiting Genitourinary: Reports: No Symptoms. Denies: Dysuria, Frequency, Burning Musculoskeletal: Reports: No Symptoms Skin: Reports: No Symptoms Neurological: Reports: No Symptoms Psychiatric: Reports: No Symptoms - Patient Data Vitals - Most Recent: Last Vital Signs Temp 98 F 11/08/18 07:30 Pulse 97 11/08/18 07:30 Resp 20 11/08/18 07:30 BP 100/46 L 11/08/18 07:30 Pulse Ox 89 L 11/08/18 07:30 Weight - Most Recent: 83 kg I&O - Last 24 Hours: Intake & Output 11/07/18 11/08/18 11/08/18 22:59 06:59 14:59 Intake Total 700 270 Output Total 1000 250 Balance -300 20 Lab Results Last 24 Hours: Laboratory Results - last 24 hr 11/07/18 11/07/18 11/07/18 Range/Units 06:51 11:29 15:57 WBC (4.0-11.0) K/uL RBC (4.30-5.90) M/uL Hgb (12.0-16.0) g/dL Hct (36.0-46.0) % MCV (80.0-98.0) fL MCH (27.0-32.0) pg MCHC (31.0-37.0) g/dL RDW Std Deviation (28.0-62.0) fl RDW Coeff of Lai (11.0-15.0) % Plt Count (150-400) K/uL MPV (7.40-12.00) fL Neut % (Auto) (48.0-80.0) % Lymph % (Auto) (16.0-40.0) % [place] % (Auto) (0.0-15.0) % Eos % (Auto) (0.0-7.0) % Baso % (Auto) (0.0-1.5) % Neut # (Auto) (1.4-5.7) K/uL Lymph # (Auto) (0.6-2.4) K/uL [place] # (Auto) (0.0-0.8) K/uL Eos # (Auto) (0.0-0.7) K/uL Baso # (Auto) (0.0-0.1) K/uL Nucleated RBC % /100WBC Nucleated RBCs # K/uL Sodium (136-145) mmol/L Potassium (3.5-5.1) mmol/L Chloride (98-107) mmol/L Carbon Dioxide (21.0-32.0) mmol/L BUN (7.0-18.0) mg/dL Creatinine (0.6-1.0) mg/dL Est Cr Clr Drug Dosing mL/min Estimated GFR (MDRD) ml/min Glucose (74-106) mg/dL POC Glucose 96 98 122 H (60-110) mg/dL Calcium (8.5-10.1) mg/dL 11/08/18 11/08/18 11/08/18 Range/Units 05:24 05:24 06:44 WBC 4.83 (4.0-11.0) K/uL RBC 2.51 L (4.30-5.90) M/uL Hgb 7.8 L (12.0-16.0) g/dL Hct 25.1 L (36.0-46.0) % MCV 100.0 H (80.0-98.0) fL MCH 31.1 (27.0-32.0) pg MCHC 31.1 (31.0-37.0) g/dL RDW Std Deviation 67.5 H (28.0-62.0) fl RDW Coeff of Lai 18 H (11.0-15.0) % Plt Count 95 L (150-400) K/uL MPV 10.20 (7.40-12.00) fL Neut % (Auto) 82.6 H (48.0-80.0) % Lymph % (Auto) 9.1 L (16.0-40.0) % [place] % (Auto) 8.1 (0.0-15.0) % Eos % (Auto) 0.2 (0.0-7.0) % Baso % (Auto) 0.0 (0.0-1.5) % Neut # (Auto) 4.0 (1.4-5.7) K/uL Lymph # (Auto) 0.4 L (0.6-2.4) K/uL [place] # (Auto) 0.4 (0.0-0.8) K/uL Eos # (Auto) 0.0 (0.0-0.7) K/uL Baso # (Auto) 0.0 (0.0-0.1) K/uL Nucleated RBC % 0.5 /100WBC Nucleated RBCs # 0 K/uL Sodium 145 (136-145) mmol/L Potassium 4.0 (3.5-5.1) mmol/L Chloride 107 (98-107) mmol/L Carbon Dioxide 30.2 (21.0-32.0) mmol/L BUN 79 H (7.0-18.0) mg/dL Creatinine 2.7 H (0.6-1.0) mg/dL Est Cr Clr Drug Dosing 11.73 mL/min Estimated GFR (MDRD) 16.7 ml/min Glucose 153 H (74-106) mg/dL POC Glucose 156 H (60-110) mg/dL Calcium 9.0 (8.5-10.1) mg/dL Med Orders - Current: Current Medications Acetaminophen (Tylenol) 650 mg PO Q4H PRN PRN Reason: Pain (mild 1-3) Albuterol (Proventil Neb Soln) 2.5 mg NEB Q2H PRN PRN Reason: Shortness Of Breath/wheezing Last Admin: 11/07/18 15:18 Dose: 2.5 mg Albuterol/Ipratropium (Duoneb 3.0-0.5 Mg/3 Ml) 3 ml NEB Q4HRRT [facility] Last Admin: 11/08/18 05:51 Dose: 3 ml Aspirin (Aspirin) 81 mg PO DAILY [facility] Last Admin: 11/08/18 08:09 Dose: 81 mg Ferrous Sulfate (Ferrous Sulfate) 325 mg PO BIDMEALS [facility] Last Admin: 11/08/18 08:09 Dose: 325 mg Furosemide (Lasix) 40 mg IVPUSH BIDDIURETIC [facility] Last Admin: 11/07/18 14:10 Dose: 40 mg Heparin Sodium (Porcine) (Heparin Sodium) 5,000 units SUBCUT Q12H [facility] Last Admin: 11/08/18 08:15 Dose: Not Given Levofloxacin/Dextrose 750 mg/ (Premix) 150 mls @ 100 mls/hr IV ONETIME ONE Stop: 11/08/18 10:29 Levofloxacin/Dextrose 500 mg/ (Premix) 100 mls @ 100 mls/hr IV Q48H [facility] Piperacillin Sod/Tazobactam (Sod 2.25 gm/ Sodium Chloride) 50 mls @ 100 mls/hr IV Q6H [facility] Insulin Aspart (Novolog) 0 unit SUBCUT TIDAC [facility]; Protocol Last Admin: 11/08/18 08:00 Dose: 1 units Nystatin (Nystop) 0 gm TOP TID [facility] Last Admin: 11/08/18 06:46 Dose: 1 applic Ondansetron HCl (Zofran) 4 mg IVPUSH Q4H PRN PRN Reason: Nausea Last Admin: 11/06/18 11:33 Dose: 4 mg Polyethylene Glycol (Miralax) 17 gm PO DAILY PRN PRN Reason: Constipation Last Admin: 11/06/18 14:40 Dose: 17 gm Rosuvastatin Calcium (Crestor) 5 mg PO BEDTIME [facility] Last Admin: 11/07/18 21:07 Dose: 5 mg Fluticasone/Salmeterol (Advair Diskus 250-50) 0 puff INH BID [facility] Last Admin: 11/08/18 08:12 Dose: 1 inhalation Sodium Chloride (Saline Flush) 2.5 ml FLUSH ASDIRECTED PRN PRN Reason: Keep Vein Open Discontinued Medications Albuterol/Ipratropium (Duoneb 3.0-0.5 Mg/3 Ml) 3 ml NEB ONETIME ONE Stop: 11/05/18 12:16 Last Admin: 11/05/18 12:41 Dose: 3 ml Albuterol/Ipratropium (Duoneb 3.0-0.5 Mg/3 Ml) 3 ml NEB ONETIME ONE Stop: 11/05/18 15:10 Last Admin: 11/05/18 15:14 Dose: 3 ml Furosemide (Lasix) 40 mg IVPUSH NOW STA Stop: 11/05/18 16:18 Last Admin: 11/05/18 16:42 Dose: 40 mg Sodium Chloride (Normal Saline) 1,000 mls @ 250 mls/hr IV STAT ONE Stop: 11/05/18 16:29 Last Admin: 11/05/18 12:49 Dose: 250 mls/hr Methylprednisolone Sodium Succinate (Solu-Medrol) 125 mg IVPUSH ONETIME ONE Stop: 11/05/18 12:16 Last Admin: 11/05/18 12:48 Dose: 125 mg Pantoprazole Sodium (Protonix Iv) 80 mg IVPUSH .BOLUS ONE Stop: 11/05/18 15:31 Last Admin: 11/05/18 17:13 Dose: 80 mg - Exam Quality Assessment: Supplemental Oxygen, DVT Prophylaxis General: Alert, Oriented, Cooperative, Mild Distress (dyspnea) Lungs: Crackles (bibasilar). No: Normal Respiratory Effort (dyspnea) Cardiovascular: Regular Rhythm, Tachycardia GI/Abdominal Exam: Normal Bowel Sounds, Soft, Non-Tender Back Exam: Normal Inspection, Full Range of Motion Extremities: Normal Inspection, Normal Range of Motion, Pedal Edema (+2 pitting edema, improving.) Wound/Incisions: Healing Well Neurological: No New Focal Deficit Psy/Mental Status: Alert, Normal Affect, Normal Mood - Problem List & Annotations (1) Acute and chronic respiratory failure SNOMED Code(s): 63128035 Code(s): J96.20 - ACUTE AND CHR RESP FAILURE, UNSP W HYPOXIA OR HYPERCAPNIA Status: Acute Priority: High Current Visit: No Qualifiers: Respiratory failure complication: hypoxia Qualified Code(s): J96.21 - Acute and chronic respiratory failure with hypoxia (2) CHF (congestive heart failure) SNOMED Code(s): 45084821 Code(s): I50.9 - HEART FAILURE, UNSPECIFIED Status: Acute Current Visit: No Qualifiers: Heart failure type: systolic Heart failure chronicity: acute on chronic Qualified Code(s): I50.23 - Acute on chronic systolic (congestive) heart failure (3) Acute on chronic renal insufficiency SNOMED Code(s): 773818443 Code(s): N28.9 - DISORDER OF KIDNEY AND URETER, UNSPECIFIED; N18.9 - CHRONIC KIDNEY DISEASE, UNSPECIFIED Status: Acute Current Visit: Yes (4) Thrombocytopenia SNOMED Code(s): 598644816 Code(s): D69.6 - THROMBOCYTOPENIA, UNSPECIFIED Status: Chronic Current Visit: Yes (5) Anemia SNOMED Code(s): 966502172 Code(s): D64.9 - ANEMIA, UNSPECIFIED Status: Chronic Current Visit: Yes Qualifiers: Anemia type: due to chronic kidney disease Chronic kidney disease stage: stage 3 (moderate) Qualified Code(s): N18.3 - Chronic kidney disease, stage 3 (moderate); D63.1 - Anemia in chronic kidney disease (6) CKD (chronic kidney disease) SNOMED Code(s): 983215753 Code(s): N18.9 - CHRONIC KIDNEY DISEASE, UNSPECIFIED Status: Chronic Priority: High Current Visit: No Qualifiers: Chronic kidney disease stage: stage 3 (moderate) Qualified Code(s): N18.3 - Chronic kidney disease, stage 3 (moderate) (7) COPD (chronic obstructive pulmonary disease) SNOMED Code(s): 78846245 Code(s): J44.9 - CHRONIC OBSTRUCTIVE PULMONARY DISEASE, UNSPECIFIED Status : Chronic Priority: High Current Visit: No Qualifiers: COPD type: chronic bronchitis Chronic bronchitis type: unspecified Qualified Code(s): J42 - Unspecified chronic bronchitis (8) DM type 2 (diabetes mellitus, type 2) SNOMED Code(s): 04679927 Code(s): E11.9 - TYPE 2 DIABETES MELLITUS WITHOUT COMPLICATIONS Status: Chronic Current Visit: Yes Qualifiers: Diabetes mellitus watermelon inspector insulin use: without nursing home use Diabetes mellitus complication status: with kidney complications Diabetes mellitus complication detail: with chronic kidney disease Chronic kidney disease stage : stage 5, not on chronic dialysis Qualified Code(s): E11.22 - Type 2 diabetes mellitus with diabetic chronic kidney disease; N18.5 - Chronic kidney disease, stage 5 (9) Pulmonary fibrosis SNOMED Code(s): 57519868 Code(s): J84.10 - PULMONARY FIBROSIS, UNSPECIFIED Status: Chronic Current Visit: Yes - Problem List Review Problem List Initiated/Reviewed/Updated: Yes - My Orders Last 24 Hours: My Active Orders 07/08/19 09:00 Levofloxacin/Dextrose 5%-Water [Levaquin in D5W 750 MG/150 ML] 750 mg Premix Bag 1 bag IV ONETIME 11/08/18 09:15 Piperacillin/Tazobactam [Zosyn] 2.25 gm Sodium Chloride 0.9% [Normal Saline] 50 ml IV Q6H 11/10/18 09:00 Levofloxacin/Dextrose 5%-Water [Levaquin in D5W 500 MG/100 ML] 500 mg Premix Bag 1 bag IV Q48H - Plan Plan:: This 87 year old female with pmh of CHF, pulmonary fibrosis, COPD and CKD who is admitted with acute on chronic hypoxic respiratory failure from diastolic heart failure exacerbation 1. Acute on chronic respiratory failure: still having episodes of hypoxia on NC , currently on 10 L HFNC. Patient refused Bipap placement and transfer to ICU. Palliative measures. 2. CHF: Continue Lasix IV 40 mg BID, strict I/O daily weight, 2 L FR and low Na diet 3. Suspected Aspiration PNA: CXR reveals RLL and L upper lobe consolidation. Will start Zosyn and Levaquin today, both renally dosed appropriately. 4. DM Type 2: Hold Januvia. Novolog SSI, BS stable. Monitor. 5. CKD: stable. continue to monitor 6. Anemia: Stable at 7.8. Hemoccult negative, likely secondary to chronic kidney disease Discussed Hospice with patient as she has stated she is ready to and tired of feeling like this. She is unsure of what Hospice is. She would like to talk with them and make decision from there. VTE prophylaxis: Heparin Dispo: Pending Hospice consult.
[2018-11-08] MEDS ORDERED: Piperacillin/Tazobactam 2.25 GM in Sodium Chloride 0.9% 50 ML IV SCH (09:15)
--- NOTE | 2018-11-08 09:50 | CR ---
EXAMINATION: Portable chest radiograph. HISTORY: Hypoxia. FINDINGS: The trachea is midline. The cardiomediastinal silhouette is obscured secondary to a left lung consolidation with likely corresponding pleural effusion. No pneumothorax. Mild right basilar atelectasis and/or infiltrate and trace pleural effusion as well. Moderate vascular calcifications. Osseous structures appear osteopenic. IMPRESSION: 1. Increasing left lung consolidation and pleural effusion. Air bronchograms suggest pneumonia. 2. Mild right basilar atelectasis/infiltrate with trace right pleural effusion.
[2018-11-08] MEDS ORDERED: Levofloxacin/Dextrose 5%-Water 750 MG in Premix Bag 1 BAG IV ONE (12:00)
--- NOTE | 2018-11-08 13:51 | PCM.SN ---
- Free Text/Narrative Note: Hospice talked with Teri and her son, Murtaza, with daughter Alina on the phone. At this time, Teri has decided she wants to be placed on Hospice. "I am tired, I am tired of feeling like this and I'm ready for this to be over." I spoke with Alina, daughter on the phone and updated her on prognosis. She is understandable regarding poor prognosis. I also spoke with Murtaza in the room with Teri. Everyone is in the agreement with Hospice. She has declined wanting antibiotics and just wants medications for comfort as well as a siddiqui catheter as getting out of bed to urinate is exhausting. Will place on Hospice now. Will stop all antibiotics. Possible DC to [facility] pending. Prognosis is poor and imminent.
[2018-11-08] MEDS ORDERED: Ondansetron 4 MG Tab.DIS PO PRN (16:55)
[2018-11-08] MEDS ORDERED: LORazepam Conc Solution 2 MG/ML 30 ML Bottle PO PRN (16:57)
[2018-11-08] MEDS ORDERED: Morphine Oral Concentrate 20 MG/ML 30 ML Bottle ONE (17:00)
[2018-11-09] MEDS: Albuterol/Ipratropium 3.0-0.5 MG/3 ML Neb Soln NEB SCH ×3 (02:13→09:31)
[2018-11-09] MEDS: Nystatin Topical Powder 15 GM Bottle TOP SCH (06:44)
[2018-11-09] MEDS: Insulin Aspart 100 Units/ML 3 ML Pen SUBCUT SCH ×2 (07:42→11:33)
[2018-11-09] MEDS: Morphine Oral Concentrate 20 MG/ML 30 ML Bottle SL PRN ×4 (07:56→12:23)
--- NOTE | 2018-11-09 09:31 | PCM.DCSUM1 ---
Discharge Summary - Hospital Course Brief History: This 87 year old female with pmh of CKD, DM Type 2, COPD, CHF and anemia presented to the ED with concerns of shortness of breath and hypoxia at [facility]. She reports she started feeling short of breath a few days ago and it has slowly worsened. She denies fevers or chills. She reports mild congested cough, but non productive. She reports Orthopnea and dyspnea with speech. She reports peripheral edema that hasn't gotten any better. She is normally on 4 l NC at [facility]. She denies chest pain or abdominal pain. In the ED anemia noted, with Hgb 7.8 and platelets 95,000, Cl 108, BUN 62, and Cr 2.5. UA negative CXR revealed pulmonary vascular congestion vs pulmonary edema. No pleural effusion. She was treated with SOlumedrol and Duonebs. Hypoxia noted in the 70s on 4 L when she arrived. it did elevated to 92% on 7 LNC. She will be admitted inpatient for acute on chronic hypoxic respiratory failure, likely secondary to CHF. PCP, Dr Graves Diagnosis: Stroke: No - Discharge Data Discharge Date: 11/09/18 Discharge Disposition: DC/Tfer to SNF 03 Condition: Fair - Discharge Diagnosis/Problem(s) (1) Acute and chronic respiratory failure SNOMED Code(s): 83263847 ICD Code: J96.20 - ACUTE AND CHR RESP FAILURE, UNSP W HYPOXIA OR HYPERCAPNIA Status: Acute Priority: High Current Visit: No Qualifiers: Respiratory failure complication: hypoxia Qualified Code(s): J96.21 - Acute and chronic respiratory failure with hypoxia (2) CHF (congestive heart failure) SNOMED Code(s): 03329316 ICD Code: I50.9 - HEART FAILURE, UNSPECIFIED Status: Acute Current Visit : No Qualifiers: Heart failure type: systolic Heart failure chronicity: acute on chronic Qualified Code(s): I50.23 - Acute on chronic systolic (congestive) heart failure (3) Acute on chronic renal insufficiency SNOMED Code(s): 778265729 ICD Code: N28.9 - DISORDER OF KIDNEY AND URETER, UNSPECIFIED; N18.9 - CHRONIC KIDNEY DISEASE, UNSPECIFIED Status: Acute Current Visit: Yes (4) Thrombocytopenia SNOMED Code(s): 811603333 ICD Code: D69.6 - THROMBOCYTOPENIA, UNSPECIFIED Status: Chronic Current Visit: Yes (5) Anemia SNOMED Code(s): 685557948 ICD Code: D64.9 - ANEMIA, UNSPECIFIED Status: Chronic Current Visit: Yes Qualifiers: Anemia type: due to chronic kidney disease Chronic kidney disease stage: stage 3 (moderate) Qualified Code(s): N18.3 - Chronic kidney disease, stage 3 (moderate); D63.1 - Anemia in chronic kidney disease (6) CKD (chronic kidney disease) SNOMED Code(s): 353528562 ICD Code: N18.9 - CHRONIC KIDNEY DISEASE, UNSPECIFIED Status: Chronic Priority: High Current Visit: No Qualifiers: Chronic kidney disease stage: stage 3 (moderate) Qualified Code(s): N18.3 - Chronic kidney disease, stage 3 (moderate) (7) COPD (chronic obstructive pulmonary disease) SNOMED Code(s): 40349841 ICD Code: J44.9 - CHRONIC OBSTRUCTIVE PULMONARY DISEASE, UNSPECIFIED Status : Chronic Priority: High Current Visit: No Qualifiers: COPD type: chronic bronchitis Chronic bronchitis type: unspecified Qualified Code(s): J42 - Unspecified chronic bronchitis (8) DM type 2 (diabetes mellitus, type 2) SNOMED Code(s): 56467892 ICD Code: E11.9 - TYPE 2 DIABETES MELLITUS WITHOUT COMPLICATIONS Status: Chronic Current Visit: Yes Qualifiers: Diabetes mellitus chcf insulin use: without chcf use Diabetes mellitus complication status: with kidney complications Diabetes mellitus complication detail: with chronic kidney disease Chronic kidney disease stage : stage 5, not on chronic dialysis Qualified Code(s): E11.22 - Type 2 diabetes mellitus with diabetic chronic kidney disease; N18.5 - Chronic kidney disease, stage 5 (9) Pulmonary fibrosis SNOMED Code(s): 59218217 ICD Code: J84.10 - PULMONARY FIBROSIS, UNSPECIFIED Status: Chronic Current Visit: Yes (10) Palliative care status SNOMED Code(s): 248624452 ICD Code: Z51.5 - ENCOUNTER FOR PALLIATIVE CARE Status: Acute Current Visit: Yes - Patient Summary/Data Consults: Consultations 11/05/18 16:17 Respiratory Care Assess and Treatment [CONS] Routine 11/08/18 08:08 Consult to Hospice [CONS] Routine - Patient Instructions Diet: Regular Diet as Tolerated Activity: As Tolerated Showering/Bathing: May Shower Other/Special Instructions: Hospice. [facility] - Discharge Plan *PRESCRIPTION DRUG MONITORING PROGRAM REVIEWED*: Not Applicable *COPY OF PRESCRIPTION DRUG MONITORING REPORT IN PATIENT WINSOME: Not Applicable Prescriptions/Med Rec: Morphine [Morphine 20 MG/ML Soln] 5 mg SL Q2H PRN #1 bottle PRN Reason: SOB/pain/agitation Ondansetron [Zofran ODT] 4 mg PO Q4H PRN #30 tab.dis PRN Reason: Nausea/Vomiting Home Medications: Home Meds Albuterol/Ipratropium [DuoNeb 3.0-0.5 MG/3 ML] 3 ml INH QID 07/24/14 [History] Furosemide 40 mg PO BID 07/24/14 [History] Fluticasone Propion/Salmeterol [Fluticasone-Salmeterol 250-50] 1 each IH BID [History] Polyethylene Glycol 3350 [MiraLAX] 1 dose PO TUFR 10/06/18 [History] Nystatin 1 applic TP TID 11/05/18 [History] Acetaminophen [Tylenol] 650 mg PO Q4H PRN tablet 11/09/18 [Rx] Morphine [Morphine 20 MG/ML Soln] 5 mg SL Q2H PRN #1 bottle 11/09/18 [Rx] Ondansetron [Zofran ODT] 4 mg PO Q4H PRN #30 tab.dis 11/09/18 [Rx] Oxygen Therapy Mode: Nasal Cannula Oxygen Flow Rate (L/min): 10 Referrals: Tyler Graves MD [Physician] - 11/11/18 - Discharge Summary/Plan Comment DC Time >30 min.: No Discharge Summary/Plan Comment: Admitting Diagnoses: Acute on Chronic hypoxic respiratory failure CHF exacerbation Discharge Diagnoses: Palliative Care/ Hospice Acute on chronic hypoxic respiratory failure CHF COPD Pulmonary fibrosis Suspected aspiration pneumonia Other PMH: CKD Anemia DM Type 2 Pat was admitted and treated initially for CHF exaerbation as noted but increased edema and pulmonary congestion noted on CXR. She continued to have severe hypoxia and needed 10 l NC to keep sats 88% and above. She was offered transfer to ICU and use of a Bipap and she declined. Hospice was initially offered on day 2 of admission, but she was unsure. CXR repeated on Thursday morning, which showed no consolidations and increased pleural effusion. She requested nothing more to be done. Hospice was consulted after she did not improve over the weekend. She was transitioned to palliative care, Hospice yesterday afternoon. Morphine started for dyspnea. Today she continues to be tired and is more sleepy. She will be transferred back to [facility] today. family is aware. I spoke with Dr Graves regarding plan of care with Hospice. No other concerns at this time. - General Info Date of Service: 11/09/18 Admission Dx/Problem (Free Text: Admission Diagnosis/Problem Admission Diagnosis/Problem Acute on chronic respiratory failure with hypoxia Subjective Update: Alert intermittently. Denies pain. reports being tired and short of breath. Functional Status: Reports: Pain Controlled - Review of Systems General: Reports: No Symptoms HEENT: Reports: No Symptoms Pulmonary: Reports: Shortness of Breath, Cough Cardiovascular: Denies: Chest Pain, Palpitations Gastrointestinal: Reports: No Symptoms. Denies: Abdominal Pain Musculoskeletal: Reports: No Symptoms Skin: Reports: No Symptoms Psychiatric: Reports: No Symptoms - Patient Data Vitals - Most Recent: Last Vital Signs Temp 99.5 F 11/09/18 07:00 Pulse 111 H 11/09/18 07:00 Resp 20 11/09/18 07:00 BP 115/46 L 11/09/18 07:00 Pulse Ox 74 L 11/09/18 07:00 Weight - Most Recent: 83 kg I&O - Last 24 hours: Intake & Output 11/08/18 11/09/18 11/09/18 22:59 06:59 14:59 Intake Total 300 270 Output Total 800 200 Balance -500 70 Lab Results - Last 24 hrs: Laboratory Results - last 24 hr 11/08/18 11/08/18 11/09/18 Range/Units 11:37 16:54 06:42 POC Glucose 144 H 127 H 114 H (60-110) mg/dL Med Orders - Current: Current Medications Acetaminophen (Tylenol) 650 mg PO Q4H PRN PRN Reason: Pain (mild 1-3) Albuterol (Proventil Neb Soln) 2.5 mg NEB Q2H PRN PRN Reason: Shortness Of Breath/wheezing Last Admin: 11/07/18 15:18 Dose: 2.5 mg Albuterol/Ipratropium (Duoneb 3.0-0.5 Mg/3 Ml) 3 ml NEB Q4HRRT [facility] Last Admin: 11/09/18 09:31 Dose: 3 ml Insulin Aspart (Novolog) 0 unit SUBCUT TIDAC [facility]; Protocol Last Admin: 11/09/18 07:42 Dose: Not Given Lorazepam (Ativan) 1 mg PO Q4H PRN PRN Reason: Agitation Morphine Sulfate (Morphine 20 Mg/Ml Soln) 5 mg SL Q2H PRN PRN Reason: SOB/pain/agitation Last Admin: 11/09/18 07:56 Dose: 5 mg Nystatin (Nystop) 0 gm TOP TID [facility] Last Admin: 11/09/18 06:44 Dose: 1 applic Ondansetron HCl (Zofran Odt) 4 mg PO Q4H PRN PRN Reason: Nausea/Vomiting Last Admin: 11/08/18 17:01 Dose: 4 mg Discontinued Medications Albuterol/Ipratropium (Duoneb 3.0-0.5 Mg/3 Ml) 3 ml NEB ONETIME ONE Stop: 11/05/18 12:16 Last Admin: 11/05/18 12:41 Dose: 3 ml Albuterol/Ipratropium (Duoneb 3.0-0.5 Mg/3 Ml) 3 ml NEB ONETIME ONE Stop: 11/05/18 15:10 Last Admin: 11/05/18 15:14 Dose: 3 ml Aspirin (Aspirin) 81 mg PO DAILY [facility] Last Admin: 11/08/18 08:09 Dose: 81 mg Ferrous Sulfate (Ferrous Sulfate) 325 mg PO BIDMEALS [facility] Last Admin: 11/08/18 08:09 Dose: 325 mg Furosemide (Lasix) 40 mg IVPUSH NOW STA Stop: 11/05/18 16:18 Last Admin: 11/05/18 16:42 Dose: 40 mg Furosemide (Lasix) 40 mg IVPUSH BIDDIURETIC [facility] Last Admin: 11/08/18 13:26 Dose: Not Given Heparin Sodium (Porcine) (Heparin Sodium) 5,000 units SUBCUT Q12H [facility] Last Admin: 11/08/18 08:15 Dose: Not Given Sodium Chloride (Normal Saline) 1,000 mls @ 250 mls/hr IV STAT ONE Stop: 11/05/18 16:29 Last Admin: 11/05/18 12:49 Dose: 250 mls/hr Levofloxacin/Dextrose 750 mg/ (Premix) 150 mls @ 100 mls/hr IV ONETIME ONE Stop: 11/08/18 13:29 Last Admin: 11/08/18 14:45 Dose: Not Given Levofloxacin/Dextrose 500 mg/ (Premix) 100 mls @ 100 mls/hr IV Q48H [facility] Piperacillin Sod/Tazobactam (Sod 2.25 gm/ Sodium Chloride) 50 mls @ 100 mls/hr IV Q6H [facility] Last Admin: 11/08/18 13:26 Dose: Not Given Methylprednisolone Sodium Succinate (Solu-Medrol) 125 mg IVPUSH ONETIME ONE Stop: 11/05/18 12:16 Last Admin: 11/05/18 12:48 Dose: 125 mg Ondansetron HCl (Zofran) 4 mg IVPUSH Q4H PRN PRN Reason: Nausea Last Admin: 11/06/18 11:33 Dose: 4 mg Pantoprazole Sodium (Protonix Iv) 80 mg IVPUSH .BOLUS ONE Stop: 11/05/18 15:31 Last Admin: 11/05/18 17:13 Dose: 80 mg Polyethylene Glycol (Miralax) 17 gm PO DAILY PRN PRN Reason: Constipation Last Admin: 11/06/18 14:40 Dose: 17 gm Rosuvastatin Calcium (Crestor) 5 mg PO BEDTIME [facility] Last Admin: 11/07/18 21:07 Dose: 5 mg Fluticasone/Salmeterol (Advair Diskus 250-50) 0 puff INH BID [facility] Last Admin: 11/08/18 08:12 Dose: 1 inhalation Sodium Chloride (Saline Flush) 2.5 ml FLUSH ASDIRECTED PRN PRN Reason: Keep Vein Open - Exam General: Reports: Alert, Cooperative, Mild Distress (dyspnea) Lungs: Reports: Decreased Breath Sounds, Crackles Cardiovascular: Reports: Regular Rate, Regular Rhythm GI/Abdominal Exam: Normal Bowel Sounds, Soft, Non-Tender Extremities: Normal Inspection, Normal Range of Motion, Pedal Edema Neurological: Reports: No New Focal Deficit Psy/Mental Status: Reports: Alert, Normal Affect, Normal Mood *Q Meaningful Use (DIS) - VTE *Q VTE Pharmacological Contraindications *Q: Thrombocytopenia
[2018-11-09 12:20] VITALS: BP 110/33
[2018-11-10] MEDS ORDERED: Levofloxacin/Dextrose 5%-Water 500 MG in Premix Bag 1 BAG IV SCH (12:00)
== END 2018-11-09 12:40 | DRG 291 ==
LOC: MW.ED 11:58 → MW.MS 14:46 → OBSVTOIN 16:17
PROVIDERS: ADMIT Internal Medicine; ATTEND Internal Medicine
DX: I13.2 Hypertensive heart and chronic kidney disease with heart failure and with stage 5 chronic kidney disease, or end stage renal disease (principal); J96.21 Acute and chronic respiratory failure with hypoxia; J69.0 Pneumonitis due to inhalation of food and vomit; I50.43 Acute on chronic combined systolic (congestive) and diastolic (congestive) heart failure; I13.0 Hypertensive heart and chronic kidney disease with heart failure and stage 1 through stage 4 chronic kidney disease, or unspecified chronic kidney disease; N18.5 Chronic kidney disease, stage 5; N17.9 Acute kidney failure, unspecified; J44.1 Chronic obstructive pulmonary disease with (acute) exacerbation; Z51.5 Encounter for palliative care; J44.9 Chronic obstructive pulmonary disease, unspecified; R09.02 Hypoxemia; D69.6 Thrombocytopenia, unspecified; E86.0 Dehydration; J84.10 Pulmonary fibrosis, unspecified; D63.1 Anemia in chronic kidney disease; Z91.048 Other nonmedicinal substance allergy status; E11.22 Type 2 diabetes mellitus with diabetic chronic kidney disease; N18.3 Chronic kidney disease, stage 3 (moderate); I50.9 Heart failure, unspecified; Z87.891 Personal history of nicotine dependence; M19.90 Unspecified osteoarthritis, unspecified site; Z79.84 Long term (current) use of oral hypoglycemic drugs; Z79.82 Long term (current) use of aspirin; Z99.81 Dependence on supplemental oxygen; Z79.899 Other long term (current) drug therapy; Z88.1 Allergy status to other antibiotic agents; Z88.8 Allergy status to other drugs, medicaments and biological substances; Z91.038 Other insect allergy status
CPT/HCPCS: 36415; 71045; 80053; 81003; 83880; 85025; 86850; 86900; 86901; 93005; 94640; 96361; 96374; 99285; J2930; J7040; 51702; 80048; 82272; 82962; 99284; A9270-GY; C9113; J1644; J1815-GY; J1940; J2405; J7620-GY